=== PATIENT | female | born 1965 | race Two or more races ===

== ENCOUNTER → 2019-12-04 12:16 | Outpatient (BNVA) | payer OTHER, SELFPAY | PROVIDERS: PCP Internal Medicine; Referring Provider Internal Medicine; Visit Provider Dietitian, Registered | DX: Z76.89 Persons encountering health services in other specified circumstances (principal) ==

== ENCOUNTER → 2019-12-30 15:33 | Outpatient (BNVA) | payer OTHER, SELFPAY | PROVIDERS: PCP Internal Medicine; Referring Provider Internal Medicine; Visit Provider Nurse Practitioner | DX: K21.9 Gastro-esophageal reflux disease without esophagitis (principal); K59.04 Chronic idiopathic constipation; K64.9 Unspecified hemorrhoids; E11.9 Type 2 diabetes mellitus without complications; I10 Essential (primary) hypertension; E66.9 Obesity, unspecified; Z87.891 Personal history of nicotine dependence; Z88.1 Allergy status to other antibiotic agents; Z79.899 Other long term (current) drug therapy; Z98.84 Bariatric surgery status | CPT/HCPCS: 99212 ==

== ENCOUNTER → 2020-01-08 12:01 | Outpatient (BNVA) | payer OTHER, SELFPAY | PROVIDERS: PCP Internal Medicine; Visit Provider Dietitian, Registered | DX: Z76.89 Persons encountering health services in other specified circumstances (principal) ==

== ENCOUNTER 2020-02-04 14:24 | Outpatient (REF) | payer OTHER, SELFPAY | END 2020-02-04 14:25 | disposition home or self-care (01) | LOC: HO.LAB 14:24 | PROVIDERS: PCP Internal Medicine; Visit Provider Internal Medicine | DX: Z20.828 Contact with and (suspected) exposure to other viral communicable diseases (principal) | CPT/HCPCS: C9803; U0003 ==

== ENCOUNTER → 2020-02-17 14:04 | Outpatient (BNVA) | payer OTHER, SELFPAY | PROVIDERS: Visit Provider Obstetrics & Gynecology | DX: N95.0 Postmenopausal bleeding (principal); Z79.899 Other long term (current) drug therapy; Z87.891 Personal history of nicotine dependence | CPT/HCPCS: 81003; 99212 ==

== ENCOUNTER 2020-02-18 11:59 | Outpatient (REF) | payer OTHER, SELFPAY ==
--- NOTE | 2020-02-18 12:03 | MM_ITS ---
EXAMINATION: MM SCREENING DIGITAL BREAST TOMOSYNTHESIS, BILATERAL CLINICAL INFORMATION: Screening. Asymptomatic. The lifetime risk of breast cancer based on the Tyrer-Cuzick Model is 13%. COMPARISON: Mammography: 09/04/2018, 08/21/2017, 05/22/2017, 03/23/2017, 08/15/2016 TECHNIQUE: Digital breast tomosynthesis is performed in both the craniocaudal and mediolateral oblique views along with computer-aided detection (CAD). Synthesized 2D images are generated from the tomosynthesis. FINDINGS: There are scattered areas of fibroglandular density (ACR BI-RADS breast composition Category b). There are no significant masses, abnormal calcifications, or other abnormalities. Parenchymal pattern is similar to prior studies. Scattered bilateral round, rim, predominantly dermal calcifications are again noted. MM/MM tomosynthesis screening BI IMPRESSION: No mammographic evidence of malignancy. ASSESSMENT: BI-RADS 1: Negative RECOMMENDATION: Routine annual mammography screening. This patient's information was entered into a reminder system with a target due date for their next mammogram.
== END 2020-02-18 12:00 | disposition home or self-care (01) ==
LOC: HO.MAMMO 11:59
PROVIDERS: PCP Internal Medicine; Visit Provider Internal Medicine
DX: Z12.31 Encounter for screening mammogram for malignant neoplasm of breast (principal)
CPT/HCPCS: 77063; 77067

== ENCOUNTER → 2020-03-06 08:29 | Outpatient (BNVA) | payer OTHER, SELFPAY | PROVIDERS: Visit Provider Physician Assistant | DX: Z76.89 Persons encountering health services in other specified circumstances (principal) ==

== ENCOUNTER 2020-03-09 10:40 | Outpatient (REF) | payer OTHER, SELFPAY ==
--- NOTE | 2020-03-09 10:45 | US_ITS ---
EXAMINATION: PELVIC ULTRASOUND CLINICAL INFORMATION: Postmenopausal bleeding COMPARISON: Previous pelvic ultrasounds most recent June 2018 TECHNIQUE: Transabdominal and transvaginal pelvic ultrasound. Transvaginal exam was performed for better visualization of the uterus and ovaries. FINDINGS: The uterus is anteverted and measures 10.2 x 3 x 4.6 cm in dimension. There is a 1.8 x 1.5 x 1.5 cm hypoechoic lesion in the right uterine fundus and 0.6 x 0.5 x 0.8 cm hypoechoic lesion in the posterior uterine body suggestive of fibroids. These are decreased in size from 3.1 x 2.8 x 2.3 cm and 0.9 x 0.4 x 1.1 cm on previous exam. Endometrial thickness is normal estimated at 0.2 cm. There is are nabothian cysts in the cervix. The ovaries are normal-appearing. The right ovary measures 2.3 x 2.2 x 2 cm and the left ovary measures 2.5 x 2.4 x 1.7 cm. There is no fluid in the pelvis. US/US transvaginal IMPRESSION: Normal thickness endometrium. Small uterine fibroids decreased in size from previous exam. Normal-appearing ovaries.
--- NOTE | 2020-03-09 10:45 | US_ITS ---
EXAMINATION: PELVIC ULTRASOUND CLINICAL INFORMATION: Postmenopausal bleeding COMPARISON: Previous pelvic ultrasounds most recent June 2018 TECHNIQUE: Transabdominal and transvaginal pelvic ultrasound. Transvaginal exam was performed for better visualization of the uterus and ovaries. FINDINGS: The uterus is anteverted and measures 10.2 x 3 x 4.6 cm in dimension. There is a 1.8 x 1.5 x 1.5 cm hypoechoic lesion in the right uterine fundus and 0.6 x 0.5 x 0.8 cm hypoechoic lesion in the posterior uterine body suggestive of fibroids. These are decreased in size from 3.1 x 2.8 x 2.3 cm and 0.9 x 0.4 x 1.1 cm on previous exam. Endometrial thickness is normal estimated at 0.2 cm. There is are nabothian cysts in the cervix. The ovaries are normal-appearing. The right ovary measures 2.3 x 2.2 x 2 cm and the left ovary measures 2.5 x 2.4 x 1.7 cm. There is no fluid in the pelvis. US/US pelvic complete IMPRESSION: Normal thickness endometrium. Small uterine fibroids decreased in size from previous exam. Normal-appearing ovaries.
== END 2020-03-09 10:41 | disposition home or self-care (01) ==
LOC: HO.US 10:40
PROVIDERS: Visit Provider Obstetrics & Gynecology
DX: N95.0 Postmenopausal bleeding (principal)
CPT/HCPCS: 76830; 76856

== ENCOUNTER → 2020-03-11 08:31 | Outpatient (BNVA) | payer OTHER, SELFPAY | PROVIDERS: Visit Provider Physician Assistant | DX: E66.9 Obesity, unspecified (principal); Z98.84 Bariatric surgery status | CPT/HCPCS: 99212 ==

== ENCOUNTER 2020-03-12 09:09 | Outpatient (REF) | payer OTHER, SELFPAY ==
[2020-03-12 10:29] LABS: MANUAL DIFF FLAG NO
[2020-03-12 10:32] LABS: Glucose Urine UA NEG (NEG); Leukocyte Esterase Urine NEG (NEG); Nitrite Urine NEG (NEG); PH 5.5 (5.0-8.0); Specific Gravity - Urine 1.025 (1.005-1.025); Urine Blood NEG (NEG); Urine Ketones NEG (NEG); Urine Protein NEG (NEG-TRACE)
[2020-03-12 10:38] LABS: Appearance Urine CLEAR; Color Urine YELLOW
[2020-03-12 10:40] LABS: Basophils Percent Auto 0.6 % (0-2); Eosinophils Absolute Auto 0.1 X10*3/uL (0.0-0.4); Eosinophils Percent Auto 1.7 % (0-4); Hematocrit 44.1 % (37-47); Hemoglobin 14.3 g/dl (12.0-16.0); Imm Gran Abs Auto 0.01 X10*3/uL (0.00-0.03); Imm Gran Pct Auto 0.2 % (0.0-0.4); Lymphocytes Absolute Auto 1.7 X10*3/uL (1.2-4.9); Lymphocytes Percent Auto 31.3 % (20-40); Mean Corpuscular HGB Conc 32.4 g/dl (31.0-35.0); Mean Corpuscular Hemoglobin 28.1 pg (27.0-33.0); Mean Corpuscular Volume 86.6 fL (80-98); Mean Platelet Volume 11.4 fL (9.4-12.3); Monocytes Absolute Auto 0.3 X10*3/uL (0.1-1.2); Monocytes Percent Auto 5.5 % (2-11); Neutrophils Absolute Auto 3.2 X10*3/uL (2.0-8.3); Neutrophils Percent Auto 60.7 % (45-73); Platelet Count 228 X10*3/uL (160-400); Red Blood Count 5.09 X10*6/uL (4.20-5.50); Red Cell Distribution Width 13.9 % (11.0-16.0); White Blood Count 5.3 X10*3/uL (4.8-10.8)
[2020-03-12 11:06] LABS: Creatinine Urine 119.22 mg/dL
[2020-03-12 11:12] LABS: Alanine Aminotransferase 18 U/L (0-31); Albumin Level 4.5 g/dL (3.5-5.0); Alkaline Phosphatase 97 U/L (39-117); Anion Gap 16 (12-20); Aspartate Amino Transferase 18 U/L (5-31); Bilirubin Total 0.6 mg/dL (0.0-1.0); Blood Urea Nitrogen 17 mg/dL (9-16); Calcium 9.5 mg/dL (8.4-10.2); Carbon Dioxide 25 mmol/L (22-29); Chloride 103 mmol/L (96-108); Cholesterol 232 mg/dL; Estimated Glomerular Filt Rate > 60; Glucose Fasting 124 mg/dL (60-99); HDL Cholesterol 60 mg/dL; LDL Cholesterol Calculated 141 mg/dl; Potassium 4.1 mmol/l (3.3-5.1); Sodium 140 mmol/L (135-145); Total Protein 7.7 g/dL (6.5-8.0); Triglycerides 159 mg/dL
[2020-03-12 11:32] LABS: Vitamin D 25-OH Total 22.9 ng/mL (>30)
[2020-03-12 11:56] LABS: Folate > 20.0 ng/mL (> or = 4.0); Vitamin B12 300 pg/mL (200-900)
== END 2020-03-12 09:10 | disposition home or self-care (01) ==
LOC: HO.10HDL 09:09
PROVIDERS: Visit Provider Internal Medicine
DX: G57.10 Meralgia paresthetica, unspecified lower limb (principal); E66.9 Obesity, unspecified; E78.00 Pure hypercholesterolemia, unspecified; K91.2 Postsurgical malabsorption, not elsewhere classified; E11.9 Type 2 diabetes mellitus without complications; I10 Essential (primary) hypertension; E78.5 Hyperlipidemia, unspecified; E55.9 Vitamin D deficiency, unspecified; Z79.899 Other long term (current) drug therapy; Z87.891 Personal history of nicotine dependence
CPT/HCPCS: 36415; 80053; 80061; 81003; 82043; 82306; 82607; 82746; 84443; 85025; Q3014

== ENCOUNTER → 2020-03-17 14:47 | Outpatient (BNVA) | payer OTHER, MEDICARE, MEDICAID, SELFPAY | PROVIDERS: Visit Provider Nurse Practitioner Family | DX: G57.10 Meralgia paresthetica, unspecified lower limb (principal) | CPT/HCPCS: 99212 ==

== ENCOUNTER → 2020-03-23 11:03 | Outpatient (BNVA) | payer OTHER, MEDICARE, MEDICAID, SELFPAY | PROVIDERS: PCP Internal Medicine; Visit Provider Obstetrics & Gynecology | CPT/HCPCS: Q3014 ==

== ENCOUNTER 2020-04-28 06:06 | Outpatient (REF) | payer OTHER, SELFPAY | END 2020-04-28 06:07 | disposition home or self-care (01) | LOC: HO.RADIR 06:06 | PROVIDERS: Visit Provider Anesthesiology | DX: G57.11 Meralgia paresthetica, right lower limb (principal) | CPT/HCPCS: 64450; J3300 ==

== ENCOUNTER 2020-04-28 12:07 | Outpatient (REF) | payer OTHER, SELFPAY | END 2020-04-28 12:08 | disposition home or self-care (01) | LOC: HO.LAB 12:07 | PROVIDERS: Visit Provider Internal Medicine | DX: Z20.822 Contact with and (suspected) exposure to COVID-19 (principal) | CPT/HCPCS: 36415; C9803; U0003; U0005 ==

== ENCOUNTER → 2020-06-03 12:53 | Outpatient (BNVA) | payer OTHER, SELFPAY | PROVIDERS: PCP Internal Medicine; Visit Provider Nurse Practitioner Family | DX: G57.10 Meralgia paresthetica, unspecified lower limb (principal); M54.16 Radiculopathy, lumbar region; M53.3 Sacrococcygeal disorders, not elsewhere classified | CPT/HCPCS: 99212 ==

== ENCOUNTER 2020-06-08 08:36 | Outpatient (REF) | payer OTHER, SELFPAY ==
[2020-06-08 10:26] LABS: Glucose Urine UA NEG (NEG); Leukocyte Esterase Urine NEG (NEG); Nitrite Urine NEG (NEG); Specific Gravity - Urine 1.025 (1.005-1.025); Urine Blood NEG (NEG); Urine Ketones NEG (NEG); Urine Protein NEG (NEG-TRACE)
[2020-06-08 10:27] LABS: MANUAL DIFF FLAG NO
[2020-06-08 10:36] LABS: Basophils Percent Auto 0.4 % (0-2); Eosinophils Absolute Auto 0.1 X10*3/uL (0.0-0.4); Eosinophils Percent Auto 1.2 % (0-4); Hematocrit 42.6 % (37-47); Hemoglobin 13.5 g/dl (12.0-16.0); Imm Gran Abs Auto 0.01 X10*3/uL (0.00-0.03); Imm Gran Pct Auto 0.2 % (0.0-0.4); Lymphocytes Absolute Auto 1.6 X10*3/uL (1.2-4.9); Lymphocytes Percent Auto 31.6 % (20-40); Mean Corpuscular HGB Conc 31.7 g/dl (31.0-35.0); Mean Corpuscular Hemoglobin 27.9 pg (27.0-33.0); Mean Platelet Volume 10.8 fL (9.4-12.3); Monocytes Absolute Auto 0.2 X10*3/uL (0.1-1.2); Monocytes Percent Auto 4.8 % (2-11); Neutrophils Absolute Auto 3.1 X10*3/uL (2.0-8.3); Neutrophils Percent Auto 61.8 % (45-73); Platelet Count 231 X10*3/uL (160-400); Red Blood Count 4.84 X10*6/uL (4.20-5.50); Red Cell Distribution Width 14.6 % (11.0-16.0)
[2020-06-08 10:47] LABS: Creatinine Urine 132.09 mg/dL; Microalbum/Creatinine Ratio Ur 5.2 ug/mg cr
[2020-06-08 10:48] LABS: Appearance Urine CLEAR; Color Urine YELLOW
[2020-06-08 10:52] LABS: Alanine Aminotransferase 24 U/L (0-31); Albumin Level 4.5 g/dL (3.5-5.0); Alkaline Phosphatase 96 U/L (39-117); Anion Gap 14 (12-20); Aspartate Amino Transferase 21 U/L (5-31); Bilirubin Total 0.4 mg/dL (0.0-1.0); Blood Urea Nitrogen 14 mg/dL (9-16); Calcium 9.2 mg/dL (8.4-10.2); Carbon Dioxide 28 mmol/L (22-29); Chloride 104 mmol/L (96-108); Cholesterol 206 mg/dL; Estimated Glomerular Filt Rate > 60; Glucose Fasting 124 mg/dL (60-99); HDL Cholesterol 68 mg/dL; LDL Cholesterol Calculated 114 mg/dl; Potassium 4.1 mmol/L (3.3-5.1); Sodium 142 mmol/L (135-145); Total Protein 7.4 g/dL (6.5-8.0); Triglycerides 120 mg/dL
[2020-06-08 11:10] LABS: TSH reflex Free T4 1.35 uIU/mL (0.32-4.0); Vitamin D 25-OH Total 18.5 ng/mL (>30)
[2020-06-09 07:57] LABS: LDL Cholesterol Direct 114 mg/dL (<100)
== END 2020-06-08 08:37 | disposition home or self-care (01) ==
LOC: HO.10HDL 08:36
PROVIDERS: Absent Provider Internal Medicine Endocrinology, Diabetes & Metabolism; Visit Provider Internal Medicine
DX: I10 Essential (primary) hypertension (principal); E55.9 Vitamin D deficiency, unspecified; E66.9 Obesity, unspecified; E78.00 Pure hypercholesterolemia, unspecified; E11.9 Type 2 diabetes mellitus without complications; D50.8 Other iron deficiency anemias; G47.33 Obstructive sleep apnea (adult) (pediatric); K21.9 Gastro-esophageal reflux disease without esophagitis
CPT/HCPCS: 36415; 80053; 80061; 81003; 82043; 82306; 83721; 84443; 85025

== ENCOUNTER 2020-06-19 17:48 | Outpatient (REF) | payer OTHER, SELFPAY ==
--- NOTE | ~2020-06-19 | MR_ITS ---
MR LUMBAR SPINE WITHOUT CONTRAST CLINICAL INFORMATION: Lumbar region radiculopathy. COMPARISON: None available. TECHNIQUE: MRI of the lumbar spine was obtained using routine sequences without contrast. FINDINGS: There are 5 nonrib-bearing lumbar-type vertebral bodies. Straightening of lumbar lordosis. Vertebral body heights are maintained. There is disc desiccation at the L4-L5 and L5-S1 levels. There is no bone marrow edema. There are no acute fractures. Conus terminates at the L1-L2 level. There are no significant soft tissue findings. There is bilateral perinephric stranding. L1-L2: Small annular disc bulge. No central canal stenosis and no foraminal stenosis. L2-L3: Small annular disc bulge and mild bilateral facet arthropathy. No central canal stenosis. Mild foraminal encroachment bilaterally. L3-L4: Diffuse annular disc bulge and mild bilateral facet arthropathy. No central canal stenosis. There is a right lateral annular fissure. Mild foraminal encroachment bilaterally. L4-L5: Diffuse annular disc bulge and moderate bilateral facet arthropathy. No central canal stenosis. There is mild to moderate bilateral foraminal stenosis. L5-S1: Diffuse annular disc bulge and moderate bilateral facet arthropathy. Right lateral disc osteophyte protrusion likely contacts the extraforaminal right L5 nerve root. There is mild foraminal encroachment bilaterally. MR/MR lumbar spine wo con IMPRESSION: - At L5-S1, a far right lateral disc osteophyte protrusion likely contacts the extra foraminal right L5 nerve root. - At L4-L5, multifactorial degenerative changes result in mild to moderate bilateral foraminal stenosis. - At L3-L4, there is an annular disc bulge exhibiting a right lateral annular fissure that results in mild bilateral foraminal encroachment.
== END 2020-06-19 17:49 | disposition home or self-care (01) ==
LOC: HO.MRI 17:48
PROVIDERS: Visit Provider Anesthesiology
DX: M54.16 Radiculopathy, lumbar region (principal)
CPT/HCPCS: 72148

== ENCOUNTER → 2020-07-10 14:35 | Outpatient (BNVA) | payer OTHER, SELFPAY | PROVIDERS: PCP Internal Medicine; Visit Provider Obstetrics & Gynecology ==

== ENCOUNTER → 2020-07-14 15:07 | Outpatient (BNVA) | payer OTHER, SELFPAY | PROVIDERS: PCP Internal Medicine; Visit Provider Nurse Practitioner | DX: E66.01 Morbid (severe) obesity due to excess calories (principal); Z12.11 Encounter for screening for malignant neoplasm of colon; K64.9 Unspecified hemorrhoids; K59.04 Chronic idiopathic constipation; K21.9 Gastro-esophageal reflux disease without esophagitis; K29.71 Gastritis, unspecified, with bleeding; R11.2 Nausea with vomiting, unspecified; Z83.71 Family history of colonic polyps | CPT/HCPCS: Q3014 ==

== ENCOUNTER 2020-08-06 07:54 | Outpatient (REF) | payer OTHER, SELFPAY ==
--- NOTE | ~2020-08-06 | US_ITS ---
EXAMINATION: US ABDOMEN COMPLETE CLINICAL INFORMATION: Nausea with vomiting, unspecified. COMPARISON: Ultrasound abdomen complete dated 06/06/2014 and 12/05/2008. KUB dated 05/20/2011. TECHNIQUE: Real-time imaging of the abdominal viscera. FINDINGS: PANCREAS: Normal. ABDOMINAL AORTA: The proximal, mid, and distal segments are normal in caliber. INFERIOR VENA CAVA: Visualized portions are normal. LIVER: The liver is normal in size. The liver contour is normal. There is increased liver echogenicity. No focal hepatic lesion. There is no intrahepatic biliary duct dilatation seen. GALLBLADDER: There is an echogenic bile visualized. The gallbladder is physiologically distended without evidence of stones, polyps, wall thickening or pericholecystic fluid. The gallbladder wall measures 0.2 cm. COMMON BILE DUCT: Normal in caliber measuring 0.33 cm in diameter. RIGHT KIDNEY: Normal. No hydronephrosis. No renal calculi or focal parenchymal lesions. The kidney measures 11.9 cm in maximum dimension. LEFT KIDNEY: Normal. No hydronephrosis. No renal calculi or focal parenchymal lesions. The kidney measures 12.1 cm in maximum dimension. SPLEEN: Normal. The spleen measures 10.0 cm in maximum dimension. FREE FLUID: None. US/US abdomen complete IMPRESSION: Echogenic gallbladder bile but no echogenic gallstones or wall thickening. Mild hepatic echogenicity without any focal lesion. The rest of the abdominal ultrasound is unremarkable.
== END 2020-08-06 07:55 | disposition home or self-care (01) ==
LOC: HO.US 07:54
PROVIDERS: Visit Provider Nurse Practitioner
DX: R11.2 Nausea with vomiting, unspecified (principal)
CPT/HCPCS: 76700

== ENCOUNTER → 2020-08-10 09:58 | Outpatient (BNVA) | payer OTHER, SELFPAY | PROVIDERS: Visit Provider Nurse Practitioner Family | DX: G57.10 Meralgia paresthetica, unspecified lower limb (principal); M54.16 Radiculopathy, lumbar region; M53.3 Sacrococcygeal disorders, not elsewhere classified | CPT/HCPCS: Q3014 ==

== ENCOUNTER 2020-08-11 11:10 | Day surgery (SDC) | payer OTHER, SELFPAY ==
--- NOTE | 2020-08-10 11:04 | HO.ANESPROP2 ---
HPI - Anesthesia Eval Consult details Narrative: 54yo F for Upper Endoscopy s/p gastric bypass 2016 [facility] Active Problems Active Problems: All Active Problems (Updated 08/06/20 @ 15:46 by Dayan Fine) Postmenopausal bleeding (Acute) Lumbar radiculopathy, right (Acute) Sacroiliac joint pain (Acute) Well woman exam (Acute) GERD (gastroesophageal reflux disease) (Acute) Chronic idiopathic constipation (Acute) Bleeding hemorrhoids (Acute) Morbid obesity (Acute) Osteoarthritis of knees, bilateral (Acute) Fibrocystic breast disease (Acute) Malignant melanoma of skin of arm (Acute) High cholesterol (Acute) Arthritis of left glenohumeral joint (Acute) Hemorrhagic gastritis (Acute) Family history of polyps in the colon (Acute) Colon cancer screening (Acute) Nausea and vomiting (Acute) Hypoglycemia after GI (gastrointestinal) surgery (Acute) Obesity (BMI 30-39.9) (Acute) Depression (Acute) Anxiety (Acute) Insomnia (Acute) Meralgia paresthetica (Acute) Vitamin D deficiency (Acute) Carpal tunnel syndrome of left wrist (Acute) Osteoarthritis (Acute) Obstructive sleep apnea (Acute) Iron deficiency anemia (Acute) Migraine (Acute) Hyperlipidemia (Acute) Diabetes mellitus (Acute) Hypertension (Acute) Past Medical History Medical History Anxiety Carpal tunnel syndrome of left wrist COVID-19 vaccine administered Depression Diabetes mellitus Hyperlipidemia Hypertension Hypoglycemia after GI (gastrointestinal) surgery Insomnia Iron deficiency anemia Meralgia paresthetica Migraine Obesity (BMI 30-39.9) Obstructive sleep apnea Osteoarthritis Status post hysteroscopy (~06/11/13) Vitamin D deficiency Family History Family History Father Myocardial infarction Prostate cancer Mother Cervical cancer Ovarian cancer Sister Ovarian cancer Maternal Aunt Colon cancer Surgical History Surgical History H/O endoscopy (~06/20/13) H/O gastric bypass (~02/2016) H/O laparoscopy H/O melanoma excision (~2010) History of carpal tunnel surgery History of knee surgery (~01/30/13) History of sleeve gastrectomy S/P dilatation and curettage (~2011) S/P myomectomy Social History Social History Household Members: Children Housing: Apartment Alcohol intake: current Alcohol intake frequency: does not drink Patient Tobacco Use Status: Former Tobacco user Use of substances other than those prescribed or required for medical reasons: No Are you DNR?: No Advance Directives: No Advance Directives Information Provided: No Meds Allergies Allergy/AdvReac Type Severity Reaction Status Date / Time cephalexin [From Keflex] Allergy Mild RASH Verified 08/11/20 12:02 Home Medications Medication Instructions Recorded Confirmed Last Taken Type amitriptyline 10 mg tablet 10 mg PO BEDTIME 12/05/19 08/10/20 Unknown History temazepam 30 mg capsule 30 mg PO BEDTIME PRN 12/05/19 08/10/20 Unknown History trazodone 50 mg tablet 25 mg PO DAILY 12/05/19 08/10/20 Unknown History multivitamin 1 tab PO DAILY 03/11/20 08/10/20 Unknown History clonazepam 1 mg tablet 1 mg PO BEDTIME PRN 03/18/20 08/10/20 Unknown History Exam Exam Date and Time: August 10, 2020 1104 Pertinent Lab Results Pertinent Lab Results: Laboratory Tests 06/08/20 06/08/20 08:40 08:40 WBC 5.0 Hgb 13.5 Hct 42.6 Plt Count 231 Sodium 142 Potassium 4.1 Chloride 104 Carbon Dioxide 28 BUN 14 Creatinine 0.72 Assessment and Plan Assessment Anesthesia Assessment: Chart Reviewed
[2020-08-11 12:12] VITALS: BP 159/87; PULSE 71; RESP 18; TEMP 36.2; O2SAT 96; BMI 32.9
[2020-08-11 12:12] LABS: Glucose, Whole Blood 106 mg/dL (60-115)
[2020-08-11] MEDS: Lactated Ringers 1,000 ML 100 ML IVCONT (12:26)
--- NOTE | 2020-08-11 14:13 | PM.OP ---
Brief Operative Note Date of Service: 08/11/20 Pre-op diagnosis: Nausea, status post gastric bypass surgery Post-op diagnosis: other (GERD, Gastric polyps, RYGB status) Procedure: FLEXIBLE TRANSORAL UPPER GASTROINTESTINAL ENDOSCOPY WITH BIOPSIES Consent: Indications for the procedure and potential complications of bleeding, perforation, reaction to medications and missed diagnosis were discussed with the patient and informed consent was obtained. Instrument: Olympus GIF H 190 mid size upper endoscope Monitoring: Vital signs and clinical assessment, continuous EKG monitoring, Pulse oximetry, Carbon Dioxide monitoring and blood pressure monitoring were done throughout the procedure. Procedure: The patient was placed in the left lateral decubitis position and pre-procedure medications were administered and a bite block was placed. The endoscope was inserted into the mouth and advanced under direct vision to the third part of duodenum. A careful inspection was made as the upper endoscope was withdrawn including a retroflexed examination of the proximal stomach; Findings and interventions are described below. Findings: Larynx: Mild edema of arytenoid cartilages Esophagus: GE junction at 40 cms.. No esophagitis or Braun Stomach: Gastric remnant from 40-42 cms, normal appearing gastrojejunal anastomosis at 42 cms. Normal appearing gastric mucosa - biopsies were obtained. A 3-4 mm benign-appearing polyp at anastomotic site - biopsied.. Grade 2 flap valve on retroflexed examination of the cardia. Jejunum: Efferent loop examined and mucos appeared normal - random biopsies were obtained Intervention: Biopsies as noted above Impression and Post Procedure Diagnosis: Endoscopy Findings: LARYNX: Changes suggestive of LPRD STOMACH: Gastric remnant from 40-42 cms, normal appearing gastrojejunal anastomosis at 42 cms. Normal appearing gastric mucosa - biopsies were obtained. A 3-4 mm benign-appearing polyp at anastomotic site - biopsied.. Plan: Await pathology results Patient has an appointment on 09/03/20 in the GI Clinic with Jessie Mejia NP . Above findings were reviewed with the patient and GERD handout was given in the discharge area Surgeon: Marilee Jackson MD Anesthesia: MAC (Dr Thornton) Was an Safety Counselor used for this Procedure?: Yes Safety Counselor: Malachi Moore Estimated blood loss (mL): 0 Pathology: other (A- SMALL BOWEL BXS R/O CELIAC B- GASTRIC REMNANT C- GASTRIC ANASTAMOSIS BXS) Condition: stable Disposition: PACU
--- NOTE | 2020-08-11 14:18 | MHC.SHP ---
Pre-Procedural Eval Section A The patient is an INPATIENT: No Changes since office visit: Yes Changes in Medication and Yes Patient answered all questions; No Cold of Flu in the past 2 weeks and No New Medical Problems The History & Physical has been completed within 30 days and I have reviewed it.: Yes Section B Chief Complaint: GERD Allergies: Allergies Allergy/AdvReac Type Severity Reaction Status Date / Time cephalexin [From Keflex] Allergy Mild RASH Verified 08/11/20 12:02 Plan I have reviewed the history and physical and performed a pertinent physical examination on my patient. No changes have occurred unless specified.
--- NOTE | 2020-08-11 14:36 | W.PM.OPN ---
Operative Note Operative Note Date of Service: 08/11/20 Narrative: Pre-op diagnosis: Nausea, status post gastric bypass surgery Post-op diagnosis: other (GERD, Gastric polyps, RYGB status) Procedure:? FLEXIBLE TRANSORAL UPPER GASTROINTESTINAL ENDOSCOPY WITH BIOPSIES Consent:?Indications for the procedure and potential complications of bleeding, perforation, reaction to medications and missed diagnosis were discussed with the patient and informed consent was obtained. Instrument:?Olympus GIF H 190 mid size upper endoscope Monitoring: Vital signs and clinical assessment, continuous EKG monitoring, Pulse oximetry, Carbon Dioxide monitoring and blood pressure monitoring were done throughout the procedure. Procedure:?The patient was placed in the left lateral decubitis position and pre-procedure medications were administered and a bite block was placed. The endoscope was inserted into the mouth and advanced under direct vision to the third part of duodenum. A careful inspection was made as the upper endoscope was withdrawn including a retroflexed examination of the proximal stomach; Findings and interventions are described below. Findings: Larynx:??Mild edema of arytenoid cartilages Esophagus:?GE junction at 40 cms.. No esophagitis or Braun Stomach:?Gastric remnant from 40-42 cms, normal appearing gastrojejunal anastomosis at 42 cms. Normal appearing gastric mucosa - biopsies were obtained.? A 3-4 mm benign-appearing polyp at anastomotic site - biopsied.. Grade 2 flap valve on retroflexed examination of the cardia. Jejunum:?Efferent loop examined and mucos appeared normal? - random biopsies were obtained Intervention:?Biopsies as noted above Impression and Post Procedure Diagnosis: Endoscopy Findings: LARYNX:? Changes suggestive of LPRD STOMACH: Gastric remnant from 40-42 cms, normal appearing gastrojejunal anastomosis at 42 cms. Normal appearing gastric mucosa - biopsies were obtained.? A 3-4 mm benign-appearing polyp at anastomotic site - biopsied.. Plan: Await pathology results Patient has an appointment on 09/03/20 in the GI Clinic with Jessie Mejia NP . Above findings were reviewed with the patient and GERD handout was given in the discharge area Surgeon: Marilee Jackson MD Anesthesia: MAC (Dr Thornton) Was an Product Safety Technician used for this Procedure?: Yes Product Safety Technician: Malachi Moore Estimated blood loss (mL): 0 Pathology: other (A- SMALL BOWEL BXS? R/O CELIAC? B- GASTRIC REMNANT ? C- GASTRIC ANASTAMOSIS BXS) Condition: stable Disposition: PACU
[2020-08-11 14:42] VITALS: BP 128/70; PULSE 64; RESP 13; TEMP 36.8; O2SAT 98
[2020-08-11 14:57] VITALS: BP 124/75; PULSE 65; RESP 16; O2SAT 97
== END 2020-08-11 15:20 | disposition home or self-care (01) ==
PROVIDERS: PCP Internal Medicine; Visit Provider Internal Medicine Gastroenterology
PROC: 0DJ08ZZ Inspection of Upper Intestinal Tract, Via Natural or Artificial Opening Endoscopic (ICD-10-PCS; CPT 43235; principal; 2020-08-11 12:40)
DX: K21.9 Gastro-esophageal reflux disease without esophagitis (principal); K31.7 Polyp of stomach and duodenum; Z98.84 Bariatric surgery status; Z98.0 Intestinal bypass and anastomosis status; D50.9 Iron deficiency anemia, unspecified; I10 Essential (primary) hypertension; G47.33 Obstructive sleep apnea (adult) (pediatric); E11.9 Type 2 diabetes mellitus without complications; E55.9 Vitamin D deficiency, unspecified; Z87.891 Personal history of nicotine dependence; Z79.51 Long term (current) use of inhaled steroids; Z79.899 Other long term (current) drug therapy; Z88.1 Allergy status to other antibiotic agents
CPT/HCPCS: 43239; 82947; 88305; 88342

== ENCOUNTER → 2020-09-03 09:36 | Outpatient (BNVA) | payer OTHER, SELFPAY | PROVIDERS: Visit Provider Nurse Practitioner | DX: E66.01 Morbid (severe) obesity due to excess calories (principal); K21.9 Gastro-esophageal reflux disease without esophagitis; K59.04 Chronic idiopathic constipation; K64.9 Unspecified hemorrhoids; K29.71 Gastritis, unspecified, with bleeding; R11.2 Nausea with vomiting, unspecified | CPT/HCPCS: Q3014 ==

== ENCOUNTER → 2020-09-08 14:23 | Outpatient (BNVA) | payer OTHER, SELFPAY | PROVIDERS: PCP Internal Medicine; Visit Provider Internal Medicine Endocrinology, Diabetes & Metabolism | DX: K91.2 Postsurgical malabsorption, not elsewhere classified (principal); E11.9 Type 2 diabetes mellitus without complications; I10 Essential (primary) hypertension; E78.00 Pure hypercholesterolemia, unspecified; E55.9 Vitamin D deficiency, unspecified | CPT/HCPCS: 82947; 99212 ==

== ENCOUNTER → 2020-09-10 14:41 | Outpatient (BNVA) | payer OTHER, SELFPAY | PROVIDERS: PCP Internal Medicine; Referring Provider Internal Medicine; Visit Provider Internal Medicine | DX: I25.10 Atherosclerotic heart disease of native coronary artery without angina pectoris (principal); I10 Essential (primary) hypertension; E11.8 Type 2 diabetes mellitus with unspecified complications; E78.5 Hyperlipidemia, unspecified; G47.33 Obstructive sleep apnea (adult) (pediatric); Z99.89 Dependence on other enabling machines and devices | CPT/HCPCS: 93005; 99212 ==

== ENCOUNTER 2020-10-29 08:34 | Outpatient (REF) | payer OTHER, SELFPAY ==
[2020-10-29 10:34] LABS: MANUAL DIFF FLAG NO
[2020-10-29 10:44] LABS: Basophils Percent Auto 0.4 % (0-2); Eosinophils Absolute Auto 0.1 X10*3/uL (0.0-0.4); Eosinophils Percent Auto 1.4 % (0-4); Hematocrit 40.8 % (37-47); Hemoglobin 13.1 g/dl (12.0-16.0); Imm Gran Abs Auto 0.01 X10*3/uL (0.00-0.03); Imm Gran Pct Auto 0.2 % (0.0-0.4); Lymphocytes Absolute Auto 1.6 X10*3/uL (1.2-4.9); Lymphocytes Percent Auto 32.7 % (20-40); Mean Corpuscular HGB Conc 32.1 g/dl (31.0-35.0); Mean Corpuscular Hemoglobin 27.6 pg (27.0-33.0); Mean Corpuscular Volume 86.1 fL (80-98); Mean Platelet Volume 10.9 fL (9.4-12.3); Monocytes Absolute Auto 0.3 X10*3/uL (0.1-1.2); Monocytes Percent Auto 5.3 % (2-11); Neutrophils Absolute Auto 2.9 X10*3/uL (2.0-8.3); Platelet Count 233 X10*3/uL (160-400); Red Blood Count 4.74 X10*6/uL (4.20-5.50); Red Cell Distribution Width 15.3 % (11.0-16.0); White Blood Count 4.9 X10*3/uL (4.8-10.8)
[2020-10-29 10:55] LABS: Glucose Urine UA NEG (NEG); Leukocyte Esterase Urine NEG (NEG); Nitrite Urine NEG (NEG); Urine Blood NEG (NEG); Urine Ketones NEG (NEG); Urine Protein NEG (NEG-TRACE)
[2020-10-29 10:56] LABS: Appearance Urine HAZY; Color Urine YELLOW
[2020-10-29 11:08] LABS: Alanine Aminotransferase 15 U/L (0-31); Albumin Level 4.1 g/dL (3.5-5.0); Alkaline Phosphatase 89 U/L (39-117); Anion Gap 13 (12-20); Aspartate Amino Transferase 15 U/L (5-31); Bilirubin Total 0.6 mg/dL (0.0-1.0); Blood Urea Nitrogen 18 mg/dL (9-16); Calcium 9.2 mg/dL (8.4-10.2); Carbon Dioxide 24 mmol/L (22-29); Chloride 108 mmol/L (96-108); Cholesterol 225 mg/dL; Estimated Glomerular Filt Rate > 60; Glucose Fasting 131 mg/dL (60-99); HDL Cholesterol 50 mg/dL; LDL Cholesterol Calculated 149 mg/dl; Potassium 4.3 mmol/L (3.3-5.1); Sodium 141 mmol/L (135-145); Total Protein 6.7 g/dL (6.5-8.0); Triglycerides 131 mg/dL
[2020-10-29 11:21] LABS: Creatinine Urine 146.67 mg/dL; Microalbum/Creatinine Ratio Ur 8.8 ug/mg cr
[2020-10-29 11:28] LABS: TSH reflex Free T4 0.76 uIU/mL (0.32-4.0); Vitamin D 25-OH Total 18.4 ng/mL (>30)
[2020-10-29 12:12] LABS: Folate 11.1 ng/mL (> or = 4.0); Vitamin B12 284 pg/mL (200-900)
[2020-10-29 12:17] LABS: Estimated Average Glucose 134 mg/dL; Hemoglobin A1c % 6.3 %
== END 2020-10-29 08:35 | disposition home or self-care (01) ==
LOC: HO.10HDL 08:34
PROVIDERS: Visit Provider Internal Medicine
DX: G57.10 Meralgia paresthetica, unspecified lower limb (principal); E11.9 Type 2 diabetes mellitus without complications; E66.9 Obesity, unspecified; E78.00 Pure hypercholesterolemia, unspecified; I10 Essential (primary) hypertension; E55.9 Vitamin D deficiency, unspecified; D50.8 Other iron deficiency anemias; K21.9 Gastro-esophageal reflux disease without esophagitis
CPT/HCPCS: 36415; 80053; 80061; 81003; 82043; 82306; 82607; 82746; 83036; 84443; 85025

== ENCOUNTER → 2020-12-08 09:23 | Outpatient (BNVA) | payer OTHER, SELFPAY | PROVIDERS: PCP Internal Medicine; Visit Provider Nurse Practitioner | CPT/HCPCS: Q3014 ==

== ENCOUNTER 2021-01-25 08:57 | Outpatient (REF) | payer OTHER, SELFPAY ==
[2021-01-25 11:00] LABS: Cholesterol 230 mg/dL; HDL Cholesterol 56 mg/dL; LDL Cholesterol Calculated 150 mg/dl; Triglycerides 122 mg/dL
== END 2021-01-25 08:58 | disposition home or self-care (01) ==
LOC: HO.10HDL 08:57
PROVIDERS: Visit Provider Internal Medicine
DX: E78.00 Pure hypercholesterolemia, unspecified (principal)
CPT/HCPCS: 36415; 80061

== ENCOUNTER 2021-03-17 08:19 | Outpatient (REF) | payer OTHER, SELFPAY ==
[2021-03-17 08:51] LABS: COVID-19 Test Negative (Negative)
== END 2021-03-17 08:20 | disposition home or self-care (01) ==
LOC: HO.LAB 08:19
PROVIDERS: Visit Provider Internal Medicine
DX: Z20.822 Contact with and (suspected) exposure to COVID-19 (principal)
CPT/HCPCS: 87635; C9803

== ENCOUNTER 2021-04-01 09:34 | Outpatient (REF) | payer OTHER, SELFPAY ==
[2021-04-01 13:29] LABS: CT PCR NOT DETECTED (Not Detect.); NG PCR NOT DETECTED (Not Detect.)
== END 2021-04-01 09:35 | disposition home or self-care (01) ==
LOC: HO.LAB 09:34
PROVIDERS: PCP Internal Medicine; Visit Provider Obstetrics & Gynecology
DX: R10.2 Pelvic and perineal pain (principal); R31.29 Other microscopic hematuria
CPT/HCPCS: 87086; 87491; 87591; 99212

== ENCOUNTER → 2021-04-14 12:20 | Outpatient (BNVA) | payer OTHER, SELFPAY | PROVIDERS: PCP Internal Medicine; Visit Provider Obstetrics & Gynecology | DX: R31.29 Other microscopic hematuria (principal) | CPT/HCPCS: 99212 ==

== ENCOUNTER 2021-04-27 15:43 | Outpatient (REF) | payer OTHER, SELFPAY ==
--- NOTE | ~2021-04-27 | US_ITS ---
EXAMINATION: US PELVIS CLINICAL INFORMATION: Pelvic pain. COMPARISON: Pelvic ultrasound dated 03/09/2020. TECHNIQUE: Ultrasound of the pelvis is performed using both transabdominal and transvaginal transducers along with Doppler. Transvaginal imaging is performed due to inadequate visualization transabdominally. FINDINGS: Uterus: The uterus is anteverted and measures 7.3 x 3.3 x 2.5 cm. The double wall endometrial thickness is 2 mm. The uterus is smooth in contour and has heterogeneous myometrial echogenicity. Within the anterior leftward uterine body, a 5 mm simple subendometrial cyst is seen. FIBROIDS: There is 1 fibroid seen. 1. Location: Rightward body, myometrial. Size: 2.7 x 2.7 x 2.5 cm. Prior: 1.8 x 1.5 x 1.5 cm. Fibroid characteristics: Heterogeneous echotexture. Adnexa: Both ovaries are visualized. There is normal color flow to the adnexa. There is no ovarian torsion. There is no pelvic ascites or fluid collection. Right ovary measures 2.9 x 1.3 x 1.9 cm, volume 3.5 mL. Left ovary measures 2.5 x 2.4 x 1.7 cm, volume 5.3 mL. US/US pelvic and transvaginal IMPRESSION: 1. A uterine fibroid is seen, as above. 2. A leftward subendometrial cyst is noted, which can be associated with adenomyosis.
== END 2021-04-27 15:44 | disposition home or self-care (01) ==
LOC: HO.US 15:43
PROVIDERS: PCP Internal Medicine; Visit Provider Obstetrics & Gynecology
DX: R10.2 Pelvic and perineal pain (principal)
CPT/HCPCS: 76830; 76856

== ENCOUNTER → 2021-05-11 10:31 | Outpatient (BNVA) | payer OTHER, SELFPAY | PROVIDERS: PCP Internal Medicine; Visit Provider Obstetrics & Gynecology | DX: D21.9 Benign neoplasm of connective and other soft tissue, unspecified (principal) | CPT/HCPCS: 99212 ==

== ENCOUNTER → 2021-05-20 12:25 | Outpatient (BNVA) | payer OTHER, SELFPAY | PROVIDERS: PCP Internal Medicine; Visit Provider Nurse Practitioner Gerontology | DX: K91.2 Postsurgical malabsorption, not elsewhere classified (principal); E11.9 Type 2 diabetes mellitus without complications; I10 Essential (primary) hypertension; E78.00 Pure hypercholesterolemia, unspecified; E55.9 Vitamin D deficiency, unspecified; E66.09 Other obesity due to excess calories; Z68.33 Body mass index [BMI] 33.0-33.9, adult | CPT/HCPCS: 82947; 83036; 99212 ==

== ENCOUNTER 2021-06-07 08:30 | Outpatient (REF) | payer OTHER, SELFPAY ==
[2021-06-07 10:39] LABS: MANUAL DIFF FLAG NO
[2021-06-07 10:43] LABS: Basophils Percent Auto 0.5 % (0-2); Eosinophils Absolute Auto 0.1 X10*3/uL (0.0-0.4); Eosinophils Percent Auto 1.5 % (0-4); Hematocrit 45.3 % (37.0-47.0); Hemoglobin 14.1 g/dl (12.0-16.0); Imm Gran Abs Auto 0.02 X10*3/uL (0.00-0.03); Imm Gran Pct Auto 0.3 % (0.0-0.4); Lymphocytes Absolute Auto 1.8 X10*3/uL (1.2-4.9); Lymphocytes Percent Auto 31.3 % (20-40); Mean Corpuscular HGB Conc 31.1 g/dl (31.0-35.0); Mean Corpuscular Volume 86.8 fL (80.0-98.0); Mean Platelet Volume 11.2 fL (9.4-12.3); Monocytes Absolute Auto 0.3 X10*3/uL (0.1-1.2); Monocytes Percent Auto 5.5 % (2-11); Neutrophils Absolute Auto 3.6 x10*3/uL (2.0-8.3); Neutrophils Percent Auto 60.9 % (45-73); Platelet Count 244 X10*3/uL (160-400); Red Blood Count 5.22 X10*6/uL (4.20-5.50); White Blood Count 5.8 X10*3/uL (4.8-10.8)
[2021-06-07 11:00] LABS: Alanine Aminotransferase 24 U/L (0-31); Albumin Level 4.5 g/dL (3.5-5.0); Alkaline Phosphatase 95 U/L (39-117); Anion Gap 14 (12-20); Aspartate Amino Transferase 21 U/L (5-31); Bilirubin Total 0.5 mg/dL (0.0-1.0); Blood Urea Nitrogen 16 mg/dL (9-16); Calcium 9.9 mg/dL (8.4-10.2); Carbon Dioxide 27 mmol/L (22-29); Chloride 104 mmol/L (96-108); Cholesterol 212 mg/dL; Estimated Glomerular Filt Rate > 60; Glucose Fasting 126 mg/dL (60-99); HDL Cholesterol 60 mg/dL; LDL Cholesterol Calculated 137 mg/dl; Potassium 4.8 mmol/L (3.3-5.1); Sodium 140 mmol/L (135-145); Total Protein 7.6 g/dL (6.5-8.0); Triglycerides 77 mg/dL
[2021-06-07 11:07] LABS: Estimated Average Glucose 143 mg/dL; Hemoglobin A1c % 6.6 %
[2021-06-07 11:11] LABS: Appearance Urine CLEAR; Color Urine YELLOW; Glucose Urine UA NEG (NEG); Leukocyte Esterase Urine NEG (NEG); Nitrite Urine NEG (NEG); PH 5.5 (5.0-8.0); Specific Gravity - Urine >= 1.030 (1.005-1.025); Urine Blood NEG (NEG); Urine Ketones NEG (NEG); Urine Protein TRACE MG/DL (NEG-TRACE)
[2021-06-07 11:22] LABS: TSH reflex Free T4 0.94 uIU/mL (0.32-4.0); Vitamin D 25-OH Total 23.2 ng/mL (>30)
[2021-06-07 12:07] LABS: Creatinine Urine 235.97 mg/dL; Microalbum/Creatinine Ratio Ur 6.7 ug/mg cr
== END 2021-06-07 08:31 | disposition home or self-care (01) ==
LOC: HO.10HDL 08:30
PROVIDERS: Visit Provider Internal Medicine
DX: I10 Essential (primary) hypertension (principal); E11.9 Type 2 diabetes mellitus without complications; E78.00 Pure hypercholesterolemia, unspecified; E55.9 Vitamin D deficiency, unspecified
CPT/HCPCS: 36415; 80053; 80061; 81003; 82043; 82306; 83036; 84443; 85025

== ENCOUNTER → 2021-06-08 09:04 | Outpatient (BNVA) | payer OTHER, SELFPAY | PROVIDERS: PCP Internal Medicine; Referring Provider Internal Medicine; Visit Provider Nurse Practitioner | DX: K21.9 Gastro-esophageal reflux disease without esophagitis (principal); K59.04 Chronic idiopathic constipation; R11.2 Nausea with vomiting, unspecified; K64.9 Unspecified hemorrhoids; M19.91 Primary osteoarthritis, unspecified site; G89.29 Other chronic pain; E11.9 Type 2 diabetes mellitus without complications; I10 Essential (primary) hypertension; E66.01 Morbid (severe) obesity due to excess calories; E78.00 Pure hypercholesterolemia, unspecified; E55.9 Vitamin D deficiency, unspecified; Z68.33 Body mass index [BMI] 33.0-33.9, adult; Z90.3 Acquired absence of stomach [part of]; Z83.71 Family history of colonic polyps; Z88.1 Allergy status to other antibiotic agents | CPT/HCPCS: 99212 ==

== ENCOUNTER 2021-06-14 08:38 | Outpatient (REF) | payer OTHER, SELFPAY ==
[2021-06-14 09:53] LABS: C Reactive Protein 0.23 mg/dL (< or = 0.50)
[2021-06-14 10:03] LABS: Rheumatoid Factor < 15.0 IU/mL (<15.0)
[2021-06-14 10:05] LABS: Erythrocyte Sedimentation Rate 12 MM/HR (0-20)
[2021-06-16 12:31] LABS: Anti Nuclear Antibody Screen NEGATIVE (NEGATIVE)
== END 2021-06-14 08:39 | disposition home or self-care (01) ==
LOC: HO.LAB 08:38
PROVIDERS: PCP Internal Medicine; Visit Provider Internal Medicine
DX: G89.29 Other chronic pain (principal); M19.91 Primary osteoarthritis, unspecified site; M79.7 Fibromyalgia
CPT/HCPCS: 36415; 82550; 85652; 86038; 86039; 86140; 86431

== ENCOUNTER → 2021-07-09 09:57 | Outpatient (BNVA) | payer OTHER, SELFPAY | PROVIDERS: PCP Internal Medicine; Visit Provider Dietitian, Registered | DX: E11.8 Type 2 diabetes mellitus with unspecified complications (principal) | CPT/HCPCS: 97802 ==

== ENCOUNTER → 2021-08-06 10:00 | Outpatient (BNVA) | payer OTHER, SELFPAY | PROVIDERS: PCP Internal Medicine; Visit Provider Dietitian, Registered | DX: E11.9 Type 2 diabetes mellitus without complications (principal) | CPT/HCPCS: 97803 ==

== ENCOUNTER 2021-08-19 07:06 | Outpatient (REF) | payer OTHER, SELFPAY ==
[2021-08-19 08:31] LABS: Cholesterol 193 mg/dL; HDL Cholesterol 55 mg/dL; LDL Cholesterol Calculated 124 mg/dl; Triglycerides 71 mg/dL
[2021-08-21 11:46] LABS: LDL Cholesterol Direct 124 mg/dL (<100)
== END 2021-08-19 07:07 | disposition home or self-care (01) ==
LOC: HO.LAB 07:06
PROVIDERS: Absent Provider Nurse Practitioner Gerontology; PCP Internal Medicine; Visit Provider Internal Medicine
DX: E78.00 Pure hypercholesterolemia, unspecified (principal); E55.9 Vitamin D deficiency, unspecified
CPT/HCPCS: 36415; 80061; 82306; 83721

== ENCOUNTER 2021-09-06 14:06 | Outpatient (REF) | payer OTHER, SELFPAY ==
--- NOTE | ~2021-09-06 | MM_ITS ---
EXAMINATION: MM DIAGNOSTIC DIGITAL BREAST TOMOSYNTHESIS, BILATERAL US DIAGNOSTIC ULTRASOUND BREAST, RIGHT CLINICAL INFORMATION: Due for yearly. 5 mm palpable area 9:00 retroareolar right breast on clinical exam. Patient notes finding is chronic and without change. No discharge. TC score 9%. COMPARISON: Mammography: 02/18/2020, 09/04/2018, 08/21/2017, 05/22/2017, 03/23/2017, 08/15/2016, right breast ultrasound 05/22/2017, left breast ultrasound 08/22/2016. TECHNIQUE: Digital breast tomosynthesis is performed in both the craniocaudal and mediolateral oblique views along with computer-aided detection (CAD). Synthesized 2D images are generated from the tomosynthesis. Ultrasound right breast is targeted to the area of clinical concern. Patient is able to point to area at time of imaging. Grayscale imaging and color Doppler are performed without and with harmonics. FINDINGS: There are scattered areas of fibroglandular density (ACR BI-RADS breast composition Category b). Parenchymal pattern is similar to prior studies. There is no interval mass or architectural abnormality or developing density. No skin thickening or coarsening of the Sam's ligaments. There are scattered bilateral isolated predominantly dermal calcifications again noted. Small cyst anterior left breast is decreased 2016. Ultrasound anterior right breast demonstrates no cystic or solid mass or architectural abnormality. No focal duct ectasia. No intradermal lesion. Results are discussed with the patient at time of visit. MM/MM tomosynthesis diagnostic BI IMPRESSION: -No mammographic evidence of malignancy. -Unremarkable targeted right breast ultrasound. ASSESSMENT: BI-RADS 2: Benign RECOMMENDATION: 1. Patient should be managed based on the clinical impression. If clinically indicated, further evaluation may be considered with surgical consult. Decision to proceed with biopsy should be based on clinical grounds and degree of clinical concern. 2. Otherwise, routine annual screening mammography. This patient's information was entered into a reminder system with a target due date for their next mammogram.
== END 2021-09-06 14:07 | disposition home or self-care (01) ==
LOC: HO.MAMMO 14:06
PROVIDERS: PCP Internal Medicine; Visit Provider Internal Medicine
DX: N63.15 Unspecified lump in the right breast, overlapping quadrants (principal)
CPT/HCPCS: 76642; 77062; 77066

== ENCOUNTER → 2021-10-07 11:15 | Outpatient (BNVA) | payer OTHER, SELFPAY | PROVIDERS: PCP Internal Medicine; Referring Provider Internal Medicine; Visit Provider Surgery | DX: N63.0 Unspecified lump in unspecified breast (principal) | CPT/HCPCS: 99202 ==

== ENCOUNTER 2021-10-11 10:42 | Outpatient (REF) | payer OTHER, SELFPAY ==
--- NOTE | ~2021-10-11 | US_ITS ---
EXAMINATION: US PELVIS CLINICAL INFORMATION: History of pelvic pain and uterine leiomyoma. COMPARISON: Pelvic ultrasound from 03/09/2020 and 04/27/2021. TECHNIQUE: Ultrasound of the pelvis is performed using both transabdominal and transvaginal transducers along with Doppler. Transvaginal imaging is performed due to inadequate visualization transabdominally. FINDINGS: UTERUS AND CERVIX The anteflexed, anteverted uterus measures approximately 7 x 3.5 x 4.7 cm ([id number] x AP x transverse dimension). The cervix is approximately 2 cm in length. The endometrium has normal echotexture, measures 0.3 cm AP. No focal endometrial lesion. The myometrial echotexture is slightly heterogeneous. There appears to be a hypoechoic focus - likely a leiomyoma - of the uterine fundus; it measures approximately 1.8 x 1.5 x 1.3 cm. Note that there was suggestion of a 1.8 cm fundal leiomyoma on 03/09/2020. ADNEXA: The right ovary is 3.2 x 1.5 x 2.4 cm, volume of 6 mL of the left ovary is 2.8 x 1.2 x 2 cm, volume of 3.4 mL. No adnexal mass. FREE FLUID: None. US/US pelvic and transvaginal IMPRESSION: * The uterus is slightly heterogeneous. A small leiomyoma measuring up to 1.8 cm is suspected in the fundus. * The endometrium is normal. * No evidence of adnexal mass.
== END 2021-10-11 10:43 | disposition home or self-care (01) ==
LOC: HO.US 10:42
PROVIDERS: Visit Provider Obstetrics & Gynecology
DX: D21.9 Benign neoplasm of connective and other soft tissue, unspecified (principal)
CPT/HCPCS: 76830; 76856

== ENCOUNTER → 2021-10-18 13:57 | Outpatient (BNVA) | payer OTHER, SELFPAY | PROVIDERS: PCP Internal Medicine; Referring Provider Internal Medicine; Visit Provider Internal Medicine | DX: I25.10 Atherosclerotic heart disease of native coronary artery without angina pectoris (principal); I10 Essential (primary) hypertension; E78.5 Hyperlipidemia, unspecified; G47.33 Obstructive sleep apnea (adult) (pediatric); E11.8 Type 2 diabetes mellitus with unspecified complications; Z79.899 Other long term (current) drug therapy; Z99.89 Dependence on other enabling machines and devices | CPT/HCPCS: 93005; 99212 ==

== ENCOUNTER → 2021-10-25 08:56 | Outpatient (BNVA) | payer OTHER, SELFPAY | PROVIDERS: PCP Internal Medicine; Visit Provider Obstetrics & Gynecology | DX: D21.9 Benign neoplasm of connective and other soft tissue, unspecified (principal); B00.9 Herpesviral infection, unspecified | CPT/HCPCS: 99212 ==

== ENCOUNTER → 2021-10-27 09:05 | Day surgery (SDC) | payer OTHER, SELFPAY ==
[2021-10-21 14:17] VITALS: BMI 30.2
--- NOTE | 2021-10-26 10:38 | HO.ANESPROP2 ---
HPI - Anesthesia Eval Consult details Narrative: 56yo F for Colonoscopy PMFSH Active Problems Active Problems: All Active Problems (Updated 10/25/21 @ 09:15 by Simba Lake MD) Herpes (Acute) Osteoarthritis (Acute) Lumbar radiculopathy, right (Acute) Sacroiliac joint pain (Acute) GERD (gastroesophageal reflux disease) (Acute) Chronic idiopathic constipation (Acute) Bleeding hemorrhoids (Acute) Morbid obesity (Acute) Osteoarthritis of knees, bilateral (Acute) Fibrocystic breast disease (Acute) Malignant melanoma of skin of arm (Acute) High cholesterol (Acute) Arthritis of left glenohumeral joint (Acute) Hemorrhagic gastritis (Acute) Nausea and vomiting (Acute) Type 2 diabetes mellitus with unspecified complications (Acute) Essential hypertension (Acute) Other and unspecified hyperlipidemia (Acute) KEVON on CPAP (Acute) Female pelvic pain (Acute) Microscopic hematuria (Acute) Myoma (Acute) Well woman exam (Acute) Breast lump in female (Acute) Hematochezia (Acute) Obesity due to excess calories (Acute) Family history of polyps in the colon (Acute) Atherosclerotic cardiovascular disease (Acute) Hypoglycemia after GI (gastrointestinal) surgery (Acute) Obesity (BMI 30-39.9) (Acute) Depression (Acute) Anxiety (Acute) Insomnia (Acute) Meralgia paresthetica (Acute) Vitamin D deficiency (Acute) Carpal tunnel syndrome of left wrist (Acute) Osteoarthritis (Acute) Obstructive sleep apnea (Acute) Iron deficiency anemia (Acute) Migraine (Acute) Hyperlipidemia (Acute) Diabetes mellitus (Acute) Hypertension (Acute) Past Medical History Medical History Anxiety Atherosclerotic cardiovascular disease Carpal tunnel syndrome of left wrist Colon cancer screening COVID-19 vaccine administered Depression Diabetes mellitus Family history of polyps in the colon Hyperlipidemia Hypertension Hypoglycemia after GI (gastrointestinal) surgery Insomnia Iron deficiency anemia Meralgia paresthetica Migraine Obesity (BMI 30-39.9) Obesity due to excess calories Obstructive sleep apnea Osteoarthritis Postmenopausal bleeding Status post hysteroscopy (~06/11/13) Vitamin D deficiency Family History Family History Father Myocardial infarction Prostate cancer Mother Cervical cancer Ovarian cancer Mental health disorder Sister Ovarian cancer Maternal Aunt Colon cancer Surgical History Surgical History H/O colonoscopy H/O endoscopy (~06/20/13) H/O gastric bypass (~02/2016) H/O laparoscopy H/O melanoma excision (~2010) History of carpal tunnel surgery History of knee surgery (~01/30/13) History of sleeve gastrectomy S/P dilatation and curettage (~2011) S/P myomectomy Social History Social History Household Members: Children Housing: Apartment Alcohol intake: current Alcohol intake frequency: does not drink Patient Tobacco Use Status: Former Tobacco user Second Hand Smoke Exposure: Yes Advance Directives Date on File: 03/16/16 service: No Current occupational status: disabled Cognitive needs: No Hearing needs: No Vision needs: Yes Meds Allergies Allergy/AdvReac Type Severity Reaction Status Date / Time cephalexin [From Keflex] Allergy Mild RASH Verified 10/25/21 09:07 Active Medications: Current Medications Lactated Ringer's (Lr) 1,000 mls @ 50 mls/hr IVCONT .Q20H [facility] Home Medications Medication Instructions Recorded Confirmed Last Taken Type amitriptyline 10 mg tablet 10 mg PO BEDTIME 12/05/19 10/24/21 Unknown History temazepam 30 mg capsule 30 mg PO BEDTIME PRN Insomnia 12/05/19 10/24/21 Unknown History multivitamin 1 tab PO DAILY 03/11/20 10/24/21 Unknown History clonazepam 1 mg tablet 1 mg PO BEDTIME PRN Insomnia 03/18/20 10/24/21 Unknown History trazodone 50 mg tablet 50 mg PO DAILY 02/02/21 10/24/21 Unknown History Exam Exam Date and Time: October 26, 2021 1038 Height,Weight and Vital Signs: Height 5 ft 4.5 in Weight 81.193 kg Pertinent Lab Results Pertinent Lab Results: Laboratory Tests 06/07/21 06/07/21 Unknown Unknown WBC 5.8 Hgb 14.1 Hct 45.3 Plt Count 244 Sodium 140 Potassium 4.8 Chloride 104 Carbon Dioxide 27 BUN 16 Creatinine 0.79 Narrative Narrative: EKG 09/2021 sinus bradycardia, 57/Min; no significant ST-T changes and otherwise unremarkable.? Normal ND/corrected QT intervals. Coronary CTA in the past has revealed mild nonobstructive disease in the distal left main/proximal LAD Assessment and Plan Assessment Anesthesia Assessment: Chart Reviewed
[2021-10-27 09:45] VITALS: BMI 32.8
[2021-10-27 09:48] VITALS: BP 139/80; PULSE 59; RESP 16; TEMP 36.1; O2SAT 99
--- NOTE | 2021-10-27 09:54 | P.CONAN_ITS ---
[facility] Active Problems Active Problems: All Active Problems (Updated 10/25/21 @ 09:15 by Simba Lake MD) Herpes (Acute) Osteoarthritis (Acute) Lumbar radiculopathy, right (Acute) Sacroiliac joint pain (Acute) GERD (gastroesophageal reflux disease) (Acute) Chronic idiopathic constipation (Acute) Bleeding hemorrhoids (Acute) Morbid obesity (Acute) Osteoarthritis of knees, bilateral (Acute) Fibrocystic breast disease (Acute) Malignant melanoma of skin of arm (Acute) High cholesterol (Acute) Arthritis of left glenohumeral joint (Acute) Hemorrhagic gastritis (Acute) Nausea and vomiting (Acute) Type 2 diabetes mellitus with unspecified complications (Acute) Essential hypertension (Acute) Other and unspecified hyperlipidemia (Acute) KEVON on CPAP (Acute) Female pelvic pain (Acute) Microscopic hematuria (Acute) Myoma (Acute) Well woman exam (Acute) Breast lump in female (Acute) Hematochezia (Acute) Obesity due to excess calories (Acute) Family history of polyps in the colon (Acute) Atherosclerotic cardiovascular disease (Acute) Hypoglycemia after GI (gastrointestinal) surgery (Acute) Obesity (BMI 30-39.9) (Acute) Depression (Acute) Anxiety (Acute) Insomnia (Acute) Meralgia paresthetica (Acute) Vitamin D deficiency (Acute) Carpal tunnel syndrome of left wrist (Acute) Osteoarthritis (Acute) Obstructive sleep apnea (Acute) Iron deficiency anemia (Acute) Migraine (Acute) Hyperlipidemia (Acute) Diabetes mellitus (Acute) Hypertension (Acute) Past Medical History Medical History Anxiety Atherosclerotic cardiovascular disease Carpal tunnel syndrome of left wrist Colon cancer screening COVID-19 vaccine administered Depression Diabetes mellitus Family history of polyps in the colon Hyperlipidemia Hypertension Hypoglycemia after GI (gastrointestinal) surgery Insomnia Iron deficiency anemia Meralgia paresthetica Migraine Obesity (BMI 30-39.9) Obesity due to excess calories Obstructive sleep apnea Osteoarthritis Postmenopausal bleeding Status post hysteroscopy (~06/11/13) Vitamin D deficiency Family History Family History Father Myocardial infarction Prostate cancer Mother Cervical cancer Ovarian cancer Mental health disorder Sister Ovarian cancer Maternal Aunt Colon cancer Family history of problems with anesthesia: No Surgical History Surgical History H/O colonoscopy H/O endoscopy (~06/20/13) H/O gastric bypass (~02/2016) H/O laparoscopy H/O melanoma excision (~2010) History of carpal tunnel surgery History of knee surgery (~01/30/13) History of sleeve gastrectomy S/P dilatation and curettage (~2011) S/P myomectomy History of Problems with Anesthesia: No Social History Social History Household Members: Children Housing: Apartment Alcohol intake: current Alcohol intake frequency: does not drink Patient Tobacco Use Status: Former Tobacco user Tobacco use type: Cigarette Second Hand Smoke Exposure: Yes Use of substances other than those prescribed or required for medical reasons: No Are you DNR?: No Advance Directives: Yes Advance Directives on File: Yes Advance Directives Date on File: 03/16/16 service: No Current occupational status: disabled Cognitive needs: No Hearing needs: No Vision needs: Yes Meds Allergies Allergy/AdvReac Type Severity Reaction Status Date / Time cephalexin [From Keflex] Allergy Mild RASH Verified 10/25/21 09:07 Active Medications: Current Medications Lactated Ringer's (Lr) 1,000 mls @ 100 mls/hr IVCONT .Q10H [facility] Sodium Biphosphate/Sodium Phosphate (Sodium Phosphate,Churchill-Dibasic 133 Ml Enema) 133 ml AL ONCE PRN PRN Reason: Poor Colonoscopy Prep Results Home Medications Medication Instructions Recorded Confirmed Last Taken Type amitriptyline 10 mg tablet 10 mg PO BEDTIME 12/05/19 10/24/21 Unknown History temazepam 30 mg capsule 30 mg PO BEDTIME PRN Insomnia 12/05/19 10/24/21 Unknown History multivitamin 1 tab PO DAILY 03/11/20 10/24/21 Unknown History clonazepam 1 mg tablet 1 mg PO BEDTIME PRN Insomnia 03/18/20 10/24/21 Unknown History trazodone 50 mg tablet 50 mg PO DAILY 02/02/21 10/24/21 Unknown History Exam Exam Date and Time: October 27, 2021 0954 Height,Weight and Vital Signs: Height 5 ft 4.5 in Weight 87.997 kg Last Vital Signs Temp 97.0 F 10/27/21 09:48 Pulse 59 10/27/21 09:48 Resp 16 10/27/21 09:48 BP 139/80 10/27/21 09:48 Pulse Ox 99 10/27/21 09:48 O2 Del Method 10/27/21 09:48 Airway Mallampati Class: III TM Dist: >3cm Neck ROM: Full Assessment and Plan Assessment Anesthesia Assessment: Anesthesia Plan Discussed and Chart Reviewed Final Anesthetic Review Family History of Problems with Anesthesia: No History of Problems with Anesthesia: No ASA Class: III Final Preanesthetic Review: No Changes in Pt Med Stat, Meds/Allgs Chart Reviewed, Consent Obtained/Reviewed and Anes Risks/Benef Reviewed Patient Risk: Intermediate Procedure Risk: Low Anesthetic Plan Anesthetic Plan: MAC: Disposition: Standard PACU
== END ==
PROVIDERS: PCP Internal Medicine; Visit Provider Internal Medicine
DX: Z12.11 Encounter for screening for malignant neoplasm of colon (principal); Z91.14 Patient's other noncompliance with medication regimen

== ENCOUNTER → 2021-10-28 11:28 | Outpatient (BNVA) | payer OTHER, SELFPAY | PROVIDERS: PCP Internal Medicine; Referring Provider Internal Medicine; Visit Provider Physician Assistant Surgical | DX: K91.2 Postsurgical malabsorption, not elsewhere classified (principal); E66.09 Other obesity due to excess calories; Z68.33 Body mass index [BMI] 33.0-33.9, adult; M25.541 Pain in joints of right hand; G57.11 Meralgia paresthetica, right lower limb | CPT/HCPCS: 99202; 99212 ==

== ENCOUNTER 2021-10-29 08:39 | Outpatient (REF) | payer OTHER, SELFPAY ==
--- NOTE | ~2021-10-29 | XR_ITS ---
EXAMINATION: X-RAY BILATERAL HANDS CLINICAL INFORMATION: Pain COMPARISON: X-ray right wrist 04/05/2011 TECHNIQUE: Bilateral hands each 4 views FINDINGS: Left hand: No fracture or dislocation. No significant joint space narrowing or marginal osteophytes. No osseous erosion. No abnormal soft tissue calcification. Right hand: No evidence of acute fracture or dislocation. Lucency in the distal scaphoid, with the well-defined margins, appearing degenerative. There is mild triscaphe joint arthritis. Otherwise, no significant joint space narrowing or marginal osteophytes. No osseous erosion. No abnormal soft tissue calcification. XR/XR hand wrist LT IMPRESSION: *Mild right triscaphe joint arthritis, with subchondral cyst in the distal scaphoid. *No significant arthropathy in the left hand. *No evidence of acute fracture.
--- NOTE | ~2021-10-29 | XR_ITS ---
EXAMINATION: X-RAY BILATERAL HANDS CLINICAL INFORMATION: Pain COMPARISON: X-ray right wrist 04/05/2011 TECHNIQUE: Bilateral hands each 4 views FINDINGS: Left hand: No fracture or dislocation. No significant joint space narrowing or marginal osteophytes. No osseous erosion. No abnormal soft tissue calcification. Right hand: No evidence of acute fracture or dislocation. Lucency in the distal scaphoid, with the well-defined margins, appearing degenerative. There is mild triscaphe joint arthritis. Otherwise, no significant joint space narrowing or marginal osteophytes. No osseous erosion. No abnormal soft tissue calcification. XR/XR hand wrist RT IMPRESSION: *Mild right triscaphe joint arthritis, with subchondral cyst in the distal scaphoid. *No significant arthropathy in the left hand. *No evidence of acute fracture.
[2021-10-29 10:17] LABS: Basophils Percent Auto 0.5 % (0-2); Eosinophils Absolute Auto 0.1 X10*3/uL (0.0-0.4); Eosinophils Percent Auto 1.1 % (0-4); Hematocrit 43.2 % (37.0-47.0); Hemoglobin 14.2 g/dl (12.0-16.0); Imm Gran Abs Auto 0.03 X10*3/uL (0.00-0.03); Imm Gran Pct Auto 0.5 % (0.0-0.4); Lymphocytes Absolute Auto 1.4 X10*3/uL (1.2-4.9); Lymphocytes Percent Auto 25.7 % (20-40); MANUAL DIFF FLAG SCAN; Mean Corpuscular HGB Conc 32.9 g/dl (31.0-35.0); Mean Corpuscular Hemoglobin 27.7 pg (27.0-33.0); Mean Corpuscular Volume 84.4 fL (80.0-98.0); Monocytes Absolute Auto 0.2 X10*3/uL (0.1-1.2); Monocytes Percent Auto 3.6 % (2-11); Neutrophils Absolute Auto 3.8 x10*3/uL (2.0-8.3); Neutrophils Percent Auto 68.6 % (45-73); PLT CLUMP 1; Red Blood Count 5.12 X10*6/uL (4.20-5.50); Red Cell Distribution Width 14.1 % (11.0-16.0); SCAN SMEAR FLAG 1
[2021-10-29 10:18] LABS: Rheumatoid Factor < 15.0 IU/mL (<15.0)
[2021-10-29 10:28] LABS: Alanine Aminotransferase 32 U/L (0-31); Albumin Level 4.4 g/dL (3.5-5.0); Alkaline Phosphatase 83 U/L (39-117); Anion Gap 15 (12-20); Aspartate Amino Transferase 29 U/L (5-31); Bilirubin Total 0.4 mg/dL (0.0-1.0); Blood Urea Nitrogen 16 mg/dL (9-16); C Reactive Protein 0.17 mg/dL (< or = 0.50); Calcium 9.5 mg/dL (8.4-10.2); Carbon Dioxide 27 mmol/L (22-29); Chloride 104 mmol/L (96-108); Estimated Glomerular Filt Rate > 60; Glucose Random 131 mg/dL (60-115); Iron 123 mcg/dL (30-160); Percent Iron Saturation 30 % (15-50); Potassium 4.2 mmol/L (3.3-5.1); Sodium 142 mmol/L (135-145); Total Iron Binding Capacity 408 mcg/dL (228-428); Total Protein 7.4 g/dL (6.5-8.0); Unsaturated Iron Binding 285 ug/dL
[2021-10-29 10:47] LABS: Ferritin 27 ng/mL (10-250)
[2021-10-29 10:48] LABS: White Blood Count 5.6 X10*3/uL (4.8-10.8)
[2021-10-29 10:50] LABS: SLIDE REVIEW VERIFIED
[2021-10-29 11:00] LABS: Erythrocyte Sedimentation Rate 7 MM/HR (0-20)
[2021-10-29 11:13] LABS: Folate 11.6 ng/mL (> or = 4.0); Vitamin B12 284 pg/mL (200-900)
[2021-10-29 11:18] LABS: Insulin 10 uU/mL (2-29)
[2021-10-31 16:57] LABS: Calcium (PTHI) 9.6 mg/dL (8.6-10.4); PTHI 110 pg/mL (16-77)
[2021-11-02 16:57] LABS: Cyclic Citrullinated Peptide <16 UNITS
[2021-11-03 12:47] LABS: Zinc 66 mcg/dL (60-130)
[2021-11-04 17:21] LABS: Vitamin A 36 mcg/dL (38-98)
[2021-11-06 11:37] LABS: Vitamin B1 8 nmol/L (8-30)
== END 2021-10-29 08:40 | disposition home or self-care (01) ==
LOC: HO.LAB 08:39
PROVIDERS: Physician Assistant Surgical; PCP Internal Medicine; Visit Provider Student in an Organized Health Care Education/Training Program
DX: K91.2 Postsurgical malabsorption, not elsewhere classified (principal); M25.541 Pain in joints of right hand; M25.542 Pain in joints of left hand
CPT/HCPCS: 36415; 73110; 73130; 80053; 82607; 82728; 82746; 83525; 83540; 83970; 84425; 84590; 84630; 85025; 85652; 86140; 86200; 86431

== ENCOUNTER → 2021-11-05 10:03 | Outpatient (BNVA) | payer OTHER, SELFPAY | PROVIDERS: PCP Internal Medicine; Visit Provider Dietitian, Registered | DX: E11.9 Type 2 diabetes mellitus without complications (principal) | CPT/HCPCS: 97803 ==

== ENCOUNTER → 2021-11-18 14:18 | Outpatient (BNVA) | payer OTHER, SELFPAY | PROVIDERS: PCP Internal Medicine; Visit Provider Student in an Organized Health Care Education/Training Program | DX: M12.811 Other specific arthropathies, not elsewhere classified, right shoulder (principal) | CPT/HCPCS: 20610; 99212 ==

== ENCOUNTER 2021-12-20 11:07 | Day surgery (SDC) | payer OTHER, SELFPAY ==
--- NOTE | 2021-12-17 10:21 | HO.ANESPROP2 ---
Documented by User: Ophelia Nam NP 12/17/21 10:26 HPI - Anesthesia Eval Consult details Narrative: 56yo F for Colonoscopy PMFSH Active Problems Active Problems: All Active Problems (Updated 12/01/21 @ 13:04 by LUIS ANGEL Reynolds) Adult general medical exam (Acute) Rotator cuff arthropathy of left shoulder (Acute) Rotator cuff arthropathy of right shoulder (Acute) Pain in joints of left hand (Acute) Joint pain in fingers of right hand (Acute) Neuropathy (Acute) Herpes (Acute) Osteoarthritis (Acute) Lumbar radiculopathy, right (Acute) Sacroiliac joint pain (Acute) GERD (gastroesophageal reflux disease) (Acute) Chronic idiopathic constipation (Acute) Bleeding hemorrhoids (Acute) Morbid obesity (Acute) Osteoarthritis of knees, bilateral (Acute) Fibrocystic breast disease (Acute) Malignant melanoma of skin of arm (Acute) High cholesterol (Acute) Arthritis of left glenohumeral joint (Acute) Hemorrhagic gastritis (Acute) Nausea and vomiting (Acute) Type 2 diabetes mellitus with unspecified complications (Acute) Essential hypertension (Acute) Other and unspecified hyperlipidemia (Acute) KEVON on CPAP (Acute) Female pelvic pain (Acute) Microscopic hematuria (Acute) Myoma (Acute) Well woman exam (Acute) Breast lump in female (Acute) Hematochezia (Acute) Obesity due to excess calories (Acute) Family history of polyps in the colon (Acute) Atherosclerotic cardiovascular disease (Acute) Hypoglycemia after GI (gastrointestinal) surgery (Acute) Obesity (BMI 30-39.9) (Acute) Depression (Acute) Anxiety (Acute) Insomnia (Acute) Meralgia paresthetica (Acute) Vitamin D deficiency (Acute) Carpal tunnel syndrome of left wrist (Acute) Osteoarthritis (Acute) Obstructive sleep apnea (Acute) Iron deficiency anemia (Acute) Migraine (Acute) Hyperlipidemia (Acute) Diabetes mellitus (Acute) Hypertension (Acute) Past Medical History Medical History Anxiety Atherosclerotic cardiovascular disease Carpal tunnel syndrome of left wrist Colon cancer screening COVID-19 vaccine administered Depression Diabetes mellitus Family history of polyps in the colon Hyperlipidemia Hypertension Hypoglycemia after GI (gastrointestinal) surgery Insomnia Iron deficiency anemia Meralgia paresthetica Migraine Obesity (BMI 30-39.9) Obesity due to excess calories Obstructive sleep apnea Osteoarthritis Postmenopausal bleeding Status post hysteroscopy (~06/11/13) Vitamin D deficiency Family History Family History Father Myocardial infarction Prostate cancer Mother Cervical cancer Ovarian cancer Mental health disorder Sister Ovarian cancer Maternal Aunt Colon cancer Family history of problems with anesthesia: No Surgical History Surgical History H/O colonoscopy H/O endoscopy (~06/20/13) H/O gastric bypass (~02/2016) H/O laparoscopy H/O melanoma excision (~2010) History of carpal tunnel surgery History of knee surgery (~01/30/13) History of sleeve gastrectomy S/P dilatation and curettage (~2011) S/P myomectomy History of Problems with Anesthesia: No Social History Social History Household Members: Children Housing: Apartment Alcohol intake: current Alcohol intake frequency: does not drink Patient Tobacco Use Status: Former Tobacco user Tobacco use type: Cigarette Second Hand Smoke Exposure: Yes Advance Directives: No Advance Directives Information Provided: Yes Advance Directives Date on File: 03/16/16 service: No Current occupational status: disabled Cognitive needs: No Hearing needs: No Vision needs: Yes (glasses) Meds Allergies Allergy/AdvReac Type Severity Reaction Status Date / Time cephalexin [From Keflex] Allergy Mild RASH Verified 12/01/21 11:42 Home Medications Medication Instructions Recorded Confirmed Last Taken Type amitriptyline 10 mg tablet 10 mg PO BEDTIME 12/05/19 12/01/21 Unknown History temazepam 30 mg capsule 30 mg PO BEDTIME PRN Insomnia 12/05/19 12/01/21 Unknown History multivitamin 1 tab PO DAILY 03/11/20 12/01/21 Unknown History clonazepam 1 mg tablet 1 mg PO BEDTIME PRN Insomnia 03/18/20 12/01/21 Unknown History trazodone 50 mg tablet 50 mg PO DAILY 02/02/21 12/01/21 Unknown History Exam Exam Date and Time: December 17, 2021 1021 Pertinent Lab Results Pertinent Lab Results: Laboratory Tests 10/29/21 10/29/21 09:19 09:19 WBC 5.6 Hgb 14.2 Hct 43.2 Sodium 142 Potassium 4.2 Chloride 104 Carbon Dioxide 27 BUN 16 Creatinine 0.81 Narrative Narrative: EKG 09/2021 sinus bradycardia, 57/Min; no significant ST-T changes and otherwise unremarkable.? Normal CO/corrected QT intervals. Coronary CTA nonobstructive CAD Assessment and Plan Assessment Anesthesia Assessment: Chart Reviewed Final Anesthetic Review Family History of Problems with Anesthesia: No History of Problems with Anesthesia: No Documented by User: Geovanna Bernabe MD 12/20/21 12:08 [facility] Past Medical History Medical History Anxiety Atherosclerotic cardiovascular disease Carpal tunnel syndrome of left wrist Colon cancer screening COVID-19 vaccine administered Depression Diabetes mellitus Family history of polyps in the colon Hyperlipidemia Hypertension Hypoglycemia after GI (gastrointestinal) surgery Insomnia Iron deficiency anemia Meralgia paresthetica Migraine Obesity (BMI 30-39.9) Obesity due to excess calories Obstructive sleep apnea Osteoarthritis Postmenopausal bleeding Status post hysteroscopy (~06/11/13) Vitamin D deficiency Family History Family History Father Myocardial infarction Prostate cancer Mother Cervical cancer Ovarian cancer Mental health disorder Sister Ovarian cancer Maternal Aunt Colon cancer Surgical History Surgical History H/O colonoscopy H/O endoscopy (~06/20/13) H/O gastric bypass (~02/2016) H/O laparoscopy H/O melanoma excision (~2010) History of carpal tunnel surgery History of knee surgery (~01/30/13) History of sleeve gastrectomy S/P dilatation and curettage (~2011) S/P myomectomy Social History Social History Household Members: Children Housing: Apartment Alcohol intake: current Alcohol intake frequency: does not drink Patient Tobacco Use Status: Former Tobacco user Tobacco use type: Cigarette Second Hand Smoke Exposure: Yes Advance Directives: No Advance Directives Information Provided: Yes Advance Directives Date on File: 03/16/16 service: No Current occupational status: disabled Cognitive needs: No Hearing needs: No Vision needs: Yes (glasses) Meds Allergies Allergy/AdvReac Type Severity Reaction Status Date / Time cephalexin [From Keflex] Allergy Mild RASH Verified 12/01/21 11:42 Home Medications Medication Instructions Recorded Confirmed Last Taken Type amitriptyline 10 mg tablet 10 mg PO BEDTIME 12/05/19 12/01/21 Unknown History temazepam 30 mg capsule 30 mg PO BEDTIME PRN Insomnia 12/05/19 12/01/21 Unknown History multivitamin 1 tab PO DAILY 03/11/20 12/01/21 Unknown History clonazepam 1 mg tablet 1 mg PO BEDTIME PRN Insomnia 03/18/20 12/01/21 Unknown History trazodone 50 mg tablet 50 mg PO DAILY 02/02/21 12/01/21 Unknown History Exam Height,Weight and Vital Signs: Height 5 ft 4 in Weight 81.193 kg Vital Signs Temp Pulse Resp BP Pulse Ox O2 Del Method 12/20/21 11:31 97.3 F 62 16 179/85 H 97 Room Air Narrative Narrative: EKG 09/2021 sinus bradycardia, 57/Min; no significant ST-T changes and otherwise unremarkable.? Normal CO/corrected QT intervals. Coronary CTA nonobstructive CAD Lab Results 12/20/21 Range/Units 11:28 POC Glucose 118 H (60-115) mg/dL Airway Mallampati Class: II TM Dist: >3cm Neck ROM: Full Loose/Missing/Broken Teeth: No (Denies broken or loose teeth) Heart: RRR Lungs: CTAB Assessment and Plan Assessment Anesthesia Assessment: Anesthesia Plan Discussed Final Anesthetic Review NPO: Yes ASA Class: III Final Preanesthetic Review: No Changes in Pt Med Stat, Meds/Allgs Chart Reviewed, Consent Obtained/Reviewed and Anes Risks/Benef Reviewed Patient Risk: Intermediate Procedure Risk: Low Assessment/Block/Sedation in SS: Assess/Block/Sedation-SS Anesthetic Plan Anesthetic Plan: MAC: Disposition: Standard PACU
[2021-12-20 11:16] VITALS: BMI 30.7
[2021-12-20 11:31] VITALS: BP 179/85; PULSE 62; RESP 16; TEMP 36.3; O2SAT 97
[2021-12-20] MEDS: Lactated Ringers 1,000 ML 100 ML IVCONT (11:32)
[2021-12-20 11:35] LABS: Glucose, Whole Blood 118 mg/dL (60-115)
[2021-12-20 12:38] VITALS: BP 114/67; PULSE 62; RESP 16; TEMP 36.3; O2SAT 97
--- NOTE | 2021-12-20 12:41 | P.BOP_ITS ---
Brief Operative Note Date of Service: 12/20/21 Pre-op diagnosis: Screening Post-op diagnosis: other (Colon polyp) Procedure: Colonoscopy to the cecum with bx/removal of polyp Surgeon: Gene Cruz Anesthesia: MAC Was an Director Of Undergraduate Admissions used for this Procedure?: No Estimated blood loss (mL): 2.0 Pathology: other (A. Ascending colon polyp) Condition: stable Disposition: PACU
[2021-12-20 12:53] VITALS: BP 177/85; PULSE 72; RESP 16; O2SAT 100
[2021-12-20 13:08] VITALS: BP 176/82; PULSE 60; RESP 16; TEMP 36.3; O2SAT 100
--- NOTE | 2021-12-21 01:20 | OP_ITS ---
SURGEON: Gene Cruz MD INDICATIONS: The patient presents for evaluation of colorectal cancer screening. Full consent has been obtained from her for this, including risks of bleeding and perforation. PREOPERATIVE DIAGNOSIS: Colorectal cancer screening. POSTOPERATIVE DIAGNOSIS: PROCEDURE PERFORMED: Colonoscopy to cecum with biopsy and removal of polyp. ESTIMATED BLOOD LOSS: COMPLICATIONS: ANESTHESIA: Monitored anesthesia care. ASSISTANTS: SPECIMENS: POSTOPERATIVE DIAGNOSES: Colorectal cancer screening, small colon polyp, sigmoid diverticulosis, and internal hemorrhoids. DESCRIPTION OF PROCEDURE: The patient was placed in the left lateral decubitus position the digital rectal exam revealed no abnormalities. The Olympus video pediatric colonoscope was entered into the rectum and advanced easily to the cecum. Once in the cecum, I did identify normal-appearing cecal pouch with appendiceal orifice and a normal-appearing ileocecal valve. The entire cecum and ileocecal valve appeared normal. The scope was then slowly withdrawn assessing all mucosal surfaces carefully. For the most part preparation was very good throughout the colon, but there were some areas that were somewhat limited due to some liquid stool, which was irrigated and suctioned away as best as possible. In the ascending colon was an approximately 3 or 4 mm polyp, which was biopsied and completely removed with a cold biopsy forceps. I did not visualize any other polyps, colitis, or angiodysplasia. There was a mild amount of sigmoid diverticulosis. In the rectum, scope was retroflexed visualizing small internal hemorrhoids, but no other pathology. The rectal mucosa appeared normal. Scope was straightened and withdrawn from the patient. She tolerated the procedure well and was returned to the recovery area in stable condition. IMPRESSION: 1. Small colon polyp. 2. Diverticulosis. 3. Internal hemorrhoids. PLAN: The results of the biopsy will be checked. Given the somewhat limited prep, I would recommend a followup colonoscopy in 5 years for further screening, even if the polyp today is only hyperplastic. She will otherwise see me on a p.r.n. basis. MD SONAL Lerner/MICHELLE / [phone]
== END 2021-12-20 13:31 | disposition home or self-care (01) ==
PROVIDERS: PCP Internal Medicine; Visit Provider Internal Medicine
PROC: 0DJD8ZZ Inspection of Lower Intestinal Tract, Via Natural or Artificial Opening Endoscopic (ICD-10-PCS; CPT 45378; principal; 2021-12-20 12:30)
DX: Z12.11 Encounter for screening for malignant neoplasm of colon (principal); D12.2 Benign neoplasm of ascending colon; K57.30 Diverticulosis of large intestine without perforation or abscess without bleeding; K64.8 Other hemorrhoids; K59.00 Constipation, unspecified; I10 Essential (primary) hypertension; E78.5 Hyperlipidemia, unspecified; J45.909 Unspecified asthma, uncomplicated; Z98.84 Bariatric surgery status; Z86.39 Personal history of other endocrine, nutritional and metabolic disease; F41.1 Generalized anxiety disorder; Z79.51 Long term (current) use of inhaled steroids; Z79.899 Other long term (current) drug therapy; Z87.891 Personal history of nicotine dependence
CPT/HCPCS: 45380; 82947; 88305

== ENCOUNTER → 2021-12-29 11:24 | Outpatient (BNVA) | payer OTHER, SELFPAY | PROVIDERS: PCP Internal Medicine; Visit Provider Physician Assistant Surgical | DX: E66.9 Obesity, unspecified (principal); Z98.84 Bariatric surgery status; Z68.33 Body mass index [BMI] 33.0-33.9, adult | CPT/HCPCS: 99212 ==

== ENCOUNTER 2022-01-03 08:48 | Outpatient (REF) | payer OTHER, SELFPAY ==
[2022-01-03 10:28] LABS: MANUAL DIFF FLAG NO
[2022-01-03 10:41] LABS: Basophils Percent Auto 0.4 % (0-2); Eosinophils Absolute Auto 0.1 X10*3/uL (0.0-0.4); Hematocrit 42.4 % (37.0-47.0); Hemoglobin 13.6 g/dl (12.0-16.0); Imm Gran Abs Auto 0.01 X10*3/uL (0.00-0.03); Imm Gran Pct Auto 0.2 % (0.0-0.4); Lymphocytes Absolute Auto 1.6 X10*3/uL (1.2-4.9); Lymphocytes Percent Auto 32.7 % (20-40); Mean Corpuscular HGB Conc 32.1 g/dl (31.0-35.0); Mean Corpuscular Hemoglobin 27.9 pg (27.0-33.0); Mean Corpuscular Volume 86.9 fL (80.0-98.0); Mean Platelet Volume 11.1 fL (9.4-12.3); Monocytes Absolute Auto 0.2 X10*3/uL (0.1-1.2); Neutrophils Absolute Auto 2.9 x10*3/uL (2.0-8.3); Neutrophils Percent Auto 60.7 % (45-73); Platelet Count 215 X10*3/uL (160-400); Red Blood Count 4.88 X10*6/uL (4.20-5.50); Red Cell Distribution Width 14.7 % (11.0-16.0); White Blood Count 4.8 X10*3/uL (4.8-10.8)
[2022-01-03 10:56] LABS: Estimated Average Glucose 143 mg/dL; Hemoglobin A1c % 6.6 %
[2022-01-03 11:07] LABS: Alanine Aminotransferase 21 U/L (0-31); Albumin Level 4.5 g/dL (3.5-5.0); Alkaline Phosphatase 89 U/L (39-117); Anion Gap 16 (12-20); Aspartate Amino Transferase 19 U/L (5-31); Bilirubin Total 0.7 mg/dL (0.0-1.0); Blood Urea Nitrogen 21 mg/dL (9-16); C Reactive Protein 0.34 mg/dL (< or = 0.50); Calcium 9.6 mg/dL (8.4-10.2); Carbon Dioxide 27 mmol/L (22-29); Chloride 104 mmol/L (96-108); Cholesterol 246 mg/dL; Estimated Glomerular Filt Rate > 60; Glucose Fasting 113 mg/dL (60-99); HDL Cholesterol 67 mg/dL; LDL Cholesterol Calculated 162 mg/dl; Potassium 4.6 mmol/L (3.3-5.1); Sodium 142 mmol/L (135-145); Total Protein 7.4 g/dL (6.5-8.0); Triglycerides 89 mg/dL
[2022-01-03 11:10] LABS: Appearance Urine Clear; Color Urine Yellow; Glucose Urine UA Negative (Negative); Leukocyte Esterase Urine Trace (Negative); Nitrite Urine Negative (Negative); Specific Gravity - Urine 1.025 (1.005-1.025); UMIC TRIGGER UACC YES; Urine Blood Negative (Negative); Urine Ketones Negative (Negative); Urine Protein Negative (Neg-Trace)
[2022-01-03 11:15] LABS: Bacteria Urine Trace (None Seen); Hyaline Casts Urine 0-2 /LPF (0-2); RBC Urine 0-2 /HPF (0-2); Squamous Epithelial Cell Urine 0-2 /HPF (0-2); WBC Urine 0-5 /HPF (0-5)
[2022-01-03 11:27] LABS: TSH reflex Free T4 1.04 uIU/mL (0.32-4.0); Vitamin D 25-OH Total 20.9 ng/mL (>30)
== END 2022-01-03 08:49 | disposition home or self-care (01) ==
LOC: HO.10HDL 08:48
PROVIDERS: Absent Provider Student in an Organized Health Care Education/Training Program; Visit Provider Internal Medicine
DX: M25.541 Pain in joints of right hand (principal); I10 Essential (primary) hypertension; E78.00 Pure hypercholesterolemia, unspecified; E11.9 Type 2 diabetes mellitus without complications; E55.9 Vitamin D deficiency, unspecified
CPT/HCPCS: 36415; 80053; 80061; 81001; 81003; 82306; 83036; 84443; 85025; 86140

== ENCOUNTER → 2022-01-04 14:59 | Outpatient (BNVA) | payer OTHER, SELFPAY | PROVIDERS: PCP Internal Medicine; Visit Provider Nurse Practitioner Family | DX: M25.541 Pain in joints of right hand (principal); M25.531 Pain in right wrist; G57.11 Meralgia paresthetica, right lower limb; Z98.890 Other specified postprocedural states | CPT/HCPCS: 99202 ==

== ENCOUNTER → 2022-01-05 15:28 | Outpatient (BNVA) | payer OTHER, SELFPAY | PROVIDERS: PCP Internal Medicine; Visit Provider Internal Medicine Endocrinology, Diabetes & Metabolism | DX: E11.9 Type 2 diabetes mellitus without complications (principal) | CPT/HCPCS: 99212 ==

== ENCOUNTER 2022-04-29 09:55 | Outpatient (REF) | payer OTHER, SELFPAY ==
[2022-04-29 10:57] LABS: MANUAL DIFF FLAG NO
[2022-04-29 11:02] LABS: Appearance Urine Clear; Color Urine Yellow; Glucose Urine UA Negative (Negative); Leukocyte Esterase Urine Small (1+) (Negative); Nitrite Urine Negative (Negative); PH 5.5 (5.0-9.0); UMIC TRIGGER UACC YES; Urine Blood Negative (Negative); Urine Ketones Negative (Negative); Urine Protein Negative (Neg-Trace)
[2022-04-29 11:10] LABS: Basophils Percent Auto 0.5 % (0-2); Eosinophils Absolute Auto 0.1 X10*3/uL (0.0-0.4); Eosinophils Percent Auto 1.8 % (0-4); Hematocrit 44.1 % (37.0-47.0); Hemoglobin 14.4 g/dl (12.0-16.0); Imm Gran Abs Auto 0.01 X10*3/uL (0.00-0.03); Imm Gran Pct Auto 0.2 % (0.0-0.4); Lymphocytes Absolute Auto 1.7 X10*3/uL (1.2-4.9); Lymphocytes Percent Auto 38.3 % (20-40); Mean Corpuscular HGB Conc 32.7 g/dl (31.0-35.0); Mean Corpuscular Hemoglobin 27.9 pg (27.0-33.0); Mean Corpuscular Volume 85.5 fL (80.0-98.0); Monocytes Absolute Auto 0.3 X10*3/uL (0.1-1.2); Monocytes Percent Auto 5.7 % (2-11); Neutrophils Absolute Auto 2.4 x10*3/uL (2.0-8.3); Neutrophils Percent Auto 53.5 % (45-73); Platelet Count 222 X10*3/uL (160-400); Red Blood Count 5.16 X10*6/uL (4.20-5.50); Red Cell Distribution Width 14.8 % (11.0-16.0); White Blood Count 4.4 X10*3/uL (4.8-10.8)
[2022-04-29 11:21] LABS: Estimated Average Glucose 131 mg/dL; Hemoglobin A1c % 6.2 %
[2022-04-29 12:46] LABS: Alanine Aminotransferase 13 U/L (0-31); Albumin Level 4.4 g/dL (3.5-5.0); Alkaline Phosphatase 99 U/L (39-117); Anion Gap 16 (12-20); Aspartate Amino Transferase 15 U/L (5-31); Bilirubin Total 0.8 mg/dL (0.0-1.0); Blood Urea Nitrogen 19 mg/dL (9-16); Calcium 9.6 mg/dL (8.4-10.2); Carbon Dioxide 27 mmol/L (22-29); Chloride 105 mmol/L (96-108); Cholesterol 268 mg/dL; Estimated Glomerular Filt Rate > 60; Glucose Fasting 104 mg/dL (60-99); HDL Cholesterol 58 mg/dL; LDL Cholesterol Calculated 193 mg/dl; Potassium 4.6 mmol/L (3.3-5.1); Sodium 143 mmol/L (135-145); Total Protein 7.1 g/dL (6.5-8.0); Triglycerides 87 mg/dL
[2022-04-29 13:06] LABS: TSH reflex Free T4 0.66 uIU/mL (0.32-4.0); Vitamin D 25-OH Total 19.8 ng/mL (>30)
[2022-04-29 13:16] LABS: Bacteria Urine None Seen (None Seen); Hyaline Casts Urine 0-2 /LPF (0-2); RBC Urine 0-2 /HPF (0-2); UACC Culture Trigger YES
== END 2022-04-29 09:56 | disposition home or self-care (01) ==
LOC: HO.10HDL 09:55
PROVIDERS: Visit Provider Internal Medicine
DX: I10 Essential (primary) hypertension (principal); E55.9 Vitamin D deficiency, unspecified; E11.9 Type 2 diabetes mellitus without complications; E78.00 Pure hypercholesterolemia, unspecified; R82.90 Unspecified abnormal findings in urine
CPT/HCPCS: 36415; 80053; 80061; 81001; 81003; 82043; 82306; 83036; 84443; 85025; 87086

== ENCOUNTER → 2022-05-05 13:45 | Outpatient (BNVA) | payer OTHER, SELFPAY | PROVIDERS: PCP Internal Medicine; Visit Provider Dietitian, Registered | DX: E11.9 Type 2 diabetes mellitus without complications (principal); Z71.3 Dietary counseling and surveillance | CPT/HCPCS: 97803 ==

== ENCOUNTER → 2022-05-06 11:30 | Outpatient (BNVA) | payer OTHER, SELFPAY | PROVIDERS: PCP Internal Medicine; Visit Provider Surgery | DX: E66.09 Other obesity due to excess calories (principal); R10.9 Unspecified abdominal pain; N63.0 Unspecified lump in unspecified breast; Z68.33 Body mass index [BMI] 33.0-33.9, adult; Z98.84 Bariatric surgery status | CPT/HCPCS: 99212 ==

== ENCOUNTER 2022-05-10 09:27 | Outpatient (REF) | payer OTHER, SELFPAY | END 2022-05-10 09:28 | disposition home or self-care (01) | LOC: HO.HOSX 09:27 | PROVIDERS: Visit Provider Physician Assistant | DX: Z13.89 Encounter for screening for other disorder (principal) ==

== ENCOUNTER 2022-05-12 10:45 | Outpatient (REF) | payer OTHER, SELFPAY ==
--- NOTE | ~2022-05-12 | XR_ITS ---
STUDY: X-ray bilateral shoulders CLINICAL HISTORY: Unspecified arthropathy. COMPARISON: Left shoulder 03/14/2008 TECHNIQUE: Right shoulder 5 views. Left shoulder 4 views. FINDINGS: Right shoulder: Moderate acromioclavicular arthritis. No acute fracture or dislocation. Glenohumeral joint space is maintained. No abnormal soft tissue calcification. Intact right clavicle. Left shoulder: No acute fracture or dislocation. Mild acromioclavicular arthritis. Glenohumeral joint space is maintained. No abnormal soft tissue calcification. Intact left clavicle. XR/XR shoulder RT min 2V IMPRESSION: Moderate right acromioclavicular arthritis. Mild left acromioclavicular arthritis.
--- NOTE | ~2022-05-12 | XR_ITS ---
STUDY: X-ray bilateral shoulders CLINICAL HISTORY: Unspecified arthropathy. COMPARISON: Left shoulder 03/14/2008 TECHNIQUE: Right shoulder 5 views. Left shoulder 4 views. FINDINGS: Right shoulder: Moderate acromioclavicular arthritis. No acute fracture or dislocation. Glenohumeral joint space is maintained. No abnormal soft tissue calcification. Intact right clavicle. Left shoulder: No acute fracture or dislocation. Mild acromioclavicular arthritis. Glenohumeral joint space is maintained. No abnormal soft tissue calcification. Intact left clavicle. XR/XR shoulder LT min 2V IMPRESSION: Moderate right acromioclavicular arthritis. Mild left acromioclavicular arthritis.
== END 2022-05-12 10:46 | disposition home or self-care (01) ==
LOC: HO.XRAY 10:45
PROVIDERS: PCP Internal Medicine; Visit Provider Student in an Organized Health Care Education/Training Program
DX: M12.811 Other specific arthropathies, not elsewhere classified, right shoulder (principal); M12.812 Other specific arthropathies, not elsewhere classified, left shoulder
CPT/HCPCS: 73030

== ENCOUNTER 2022-06-07 09:42 | Outpatient (REF) | payer OTHER, SELFPAY ==
--- NOTE | ~2022-06-07 | XR_ITS ---
EXAMINATION: XR WRIST, RIGHT CLINICAL INFORMATION: Right wrist pain COMPARISON: None available. TECHNIQUE: PA, lateral, and oblique views of the right wrist. FINDINGS: The bones and soft tissues are normal. No fracture. Alignment is anatomic with normal joint spaces. No erosions or abnormal soft tissue calcifications. XR/XR wrist RT min 3V IMPRESSION: Unremarkable right wrist.
== END 2022-06-07 09:43 | disposition home or self-care (01) ==
LOC: HO.HOSX 09:42
PROVIDERS: Visit Provider Physician Assistant
DX: M25.531 Pain in right wrist (principal); M54.12 Radiculopathy, cervical region
CPT/HCPCS: 73110; 99202

== ENCOUNTER 2022-06-16 11:27 | Outpatient (REF) | payer OTHER, SELFPAY ==
--- NOTE | 2022-06-16 09:30 | EMG_ITS ---
Right median and ulnar motor and sensory studies were performed. Right radial sensory study was performed and paraspinal muscles were tested with a needle. IMPRESSION: Mild right ulnar neuropathy across cubital tunnel. MD CITLALI Amato/MICHELLE / [id number]
== END 2022-06-16 11:28 | disposition home or self-care (01) ==
LOC: HO.NEURO 11:27
PROVIDERS: PCP Internal Medicine; Visit Provider Nurse Practitioner Family
DX: G56.01 Carpal tunnel syndrome, right upper limb (principal)
CPT/HCPCS: 95886; 95909

== ENCOUNTER → 2022-07-07 10:02 | Outpatient (BNVA) | payer OTHER, SELFPAY | PROVIDERS: PCP Internal Medicine; Visit Provider Physician Assistant | DX: G56.21 Lesion of ulnar nerve, right upper limb (principal) | CPT/HCPCS: Q3014 ==

== ENCOUNTER 2022-07-13 11:40 | Outpatient (REF) | payer OTHER, SELFPAY ==
--- NOTE | ~2022-07-13 | XR_ITS ---
EXAMINATION: XR FOOT, RIGHT CLINICAL INFORMATION: Pain in right to COMPARISON: None available. TECHNIQUE: AP, lateral, and oblique views of the right foot. FINDINGS: There is no visible acute fracture, dislocation or subluxation. The ankle mortise and subtalar joints are normal. There is a small calcaneal heel and retrocalcaneal enthesophytes. The soft tissues are normal. XR/XR foot RT min 3V IMPRESSION: Small calcaneal heel and retrocalcaneal enthesophytes. No visible acute fracture or dislocation seen.
== END 2022-07-13 11:41 | disposition home or self-care (01) ==
LOC: HO.XRAY 11:40
PROVIDERS: PCP Internal Medicine; Visit Provider Nurse Practitioner Family
DX: M79.674 Pain in right toe(s) (principal); E78.00 Pure hypercholesterolemia, unspecified; E11.9 Type 2 diabetes mellitus without complications; I10 Essential (primary) hypertension; E55.9 Vitamin D deficiency, unspecified; R30.0 Dysuria
CPT/HCPCS: 73630; 99212

== ENCOUNTER 2022-08-08 08:07 | Outpatient (REF) | payer OTHER, SELFPAY ==
[2022-08-08 10:29] LABS: MANUAL DIFF FLAG NO
[2022-08-08 10:33] LABS: Basophils Percent Auto 0.6 % (0-2); Eosinophils Absolute Auto 0.1 X10*3/uL (0.0-0.4); Eosinophils Percent Auto 1.9 % (0-4); Hematocrit 42.4 % (37.0-47.0); Hemoglobin 13.7 g/dl (12.0-16.0); Imm Gran Abs Auto 0.01 X10*3/uL (0.00-0.03); Imm Gran Pct Auto 0.2 % (0.0-0.4); Lymphocytes Absolute Auto 2.1 X10*3/uL (1.2-4.9); Lymphocytes Percent Auto 39.6 % (20-40); Mean Corpuscular HGB Conc 32.3 g/dl (31.0-35.0); Mean Corpuscular Hemoglobin 28.2 pg (27.0-33.0); Mean Corpuscular Volume 87.4 fL (80.0-98.0); Monocytes Absolute Auto 0.3 X10*3/uL (0.1-1.2); Monocytes Percent Auto 6.4 % (2-11); Neutrophils Absolute Auto 2.7 x10*3/uL (2.0-8.3); Neutrophils Percent Auto 51.3 % (45-73); Platelet Count 212 X10*3/uL (160-400); Red Blood Count 4.85 X10*6/uL (4.20-5.50); Red Cell Distribution Width 14.7 % (11.0-16.0); White Blood Count 5.2 X10*3/uL (4.8-10.8)
[2022-08-08 10:49] LABS: Estimated Average Glucose 134 mg/dL; Hemoglobin A1c % 6.3 %
[2022-08-08 10:51] LABS: Appearance Urine Clear; Color Urine Yellow; Glucose Urine UA Negative (Negative); Leukocyte Esterase Urine Moderate (2+) (Negative); Nitrite Urine Negative (Negative); UMIC TRIGGER UACC YES; Urine Blood Negative (Negative); Urine Ketones Negative (Negative); Urine Protein Negative (Neg-Trace)
[2022-08-08 10:53] LABS: Alanine Aminotransferase 18 U/L (0-31); Albumin Level 4.4 g/dL (3.5-5.0); Alkaline Phosphatase 90 U/L (39-117); Anion Gap 12 (12-20); Aspartate Amino Transferase 16 U/L (5-31); Bilirubin Total 0.6 mg/dL (0.0-1.0); Blood Urea Nitrogen 21 mg/dL (9-16); Calcium 9.6 mg/dL (8.4-10.2); Carbon Dioxide 29 mmol/L (22-29); Chloride 107 mmol/L (96-108); Cholesterol 189 mg/dL; Estimated Glomerular Filt Rate > 60; Glucose Fasting 123 mg/dL (60-99); HDL Cholesterol 58 mg/dL; LDL Cholesterol Calculated 109 mg/dl; Potassium 4.5 mmol/L (3.3-5.1); Sodium 143 mmol/L (135-145); Total Protein 7.4 g/dL (6.5-8.0); Triglycerides 111 mg/dL
[2022-08-08 11:01] LABS: Bacteria Urine None Seen (None Seen); Hyaline Casts Urine 0-2 /LPF (0-2); RBC Urine 0-2 /HPF (0-2); Squamous Epithelial Cell Urine 0-2 /HPF (0-2); UACC Culture Trigger YES; WBC Urine 21-50 /HPF (0-5)
[2022-08-08 11:09] LABS: TSH reflex Free T4 2.51 uIU/mL (0.32-4.0); Vitamin D 25-OH Total 19.7 ng/mL (>30)
[2022-08-08 11:22] LABS: Creatinine Urine 97.71 mg/dL; Microalbum/Creatinine Ratio Ur 11.2 ug/mg cr
== END 2022-08-08 08:08 | disposition home or self-care (01) ==
LOC: HO.10HDL 08:07
PROVIDERS: Visit Provider Internal Medicine
DX: E78.00 Pure hypercholesterolemia, unspecified (principal); E55.9 Vitamin D deficiency, unspecified; E11.9 Type 2 diabetes mellitus without complications; I10 Essential (primary) hypertension; R82.90 Unspecified abnormal findings in urine
CPT/HCPCS: 36415; 80053; 80061; 81001; 82043; 82306; 83036; 84443; 85025; 87086

== ENCOUNTER → 2022-08-11 13:53 | Outpatient (BNVA) | payer OTHER, SELFPAY | PROVIDERS: PCP Internal Medicine; Visit Provider Dietitian, Registered | DX: E11.8 Type 2 diabetes mellitus with unspecified complications (principal) | CPT/HCPCS: 97803 ==

== ENCOUNTER 2022-08-29 09:16 | Outpatient (REF) | payer OTHER, SELFPAY | END 2022-08-29 09:17 | disposition home or self-care (01) | LOC: HO.LAB 09:16 | PROVIDERS: PCP Internal Medicine; Visit Provider Obstetrics & Gynecology | DX: Z11.4 Encounter for screening for human immunodeficiency virus [HIV] (principal); Z20.2 Contact with and (suspected) exposure to infections with a predominantly sexual mode of transmission | CPT/HCPCS: 36415; 86780; 86803; 87340; 87389 ==

== ENCOUNTER 2022-09-07 15:55 | Outpatient (AMB) | payer OTHER, SELFPAY ==
[2022-09-07 16:00] VITALS: BP 186/88; PULSE 73; BMI 34.6
--- NOTE | 2022-09-07 16:00 | MHC.OFFVIS ---
Intake Vital Signs 09/07/22 16:00 Height 5 ft 4 in Weight 201 lb 8.04 oz BMI 34.6 BP 186/88 H Blood Pressure Location Lt brachial Position Sitting Pulse 73 Intake Visit Reasons: Follow up CIC Intake Note: Stanislav presents in office as a est.patient for a f/u for CIC PT CC: pt reports having constipation pt denies any other GI Issues Superintendent Compressor Stations Required: No Accompanied by: Self / Same As Patient Allergies cephalexin [From Keflex] Allergy (Mild, Verified 09/07/22 16:01) RASH HPI Follow up CIC HPI Details Assessment & Plan (1) GERD (gastroesophageal reflux disease): ?Code(s): K21.9 - Gastro-esophageal reflux disease without esophagitis ?Qualifiers: ?Esophagitis presence:?without esophagitis? Qualified Code(s):?K21.9 - Gastro-esophageal reflux disease without esophagitis ?Plan: She continues to have a burning pain in her stomach. But the nausea is still greatly improved. She has a hx of hemorrhagic gastritis, so I think we can add a small daily dose of carafate. She has a rather complex medication regimen, so we will add 1 tablet qnoon. She is moving her bowels well with the Linzess 290, hopefully this will continue to be acceptable with the carafate. The only other new medicine is acarbose which was added for her diabetes. it is bringing her sugars down, but it is making her stomach rumble quite a bit as well ROV 6 weeks to eval response. (2) Chronic idiopathic constipation: ?Code(s): K59.04 - Chronic idiopathic constipation (3) Nausea and vomiting: ?Comment: ? Resolved with twice a day lansoprazole 30 mg.Really more nausea not much vomiting in this gastric bypass patient with a history of hemorrhagic gastritis.? EGD 07/2020 showed no more problems with inactive biopsies.? Ultrasound did not show any gallbladder problems. if recurs consider gastric emptying study ?Code(s): R11.2 - Nausea with vomiting, unspecified (4) Hemorrhagic gastritis: ?Comment: From her 2016 EGD, repeat EGD 07/2020 no recurrence ?Code(s): K29.71 - Gastritis, unspecified, with bleeding ? ? ? Medications: New sucralfate (Carafa te) 1 g? PO .qaclunch 30 tabs 6RF K29.71 - Gastritis , unspecified, wit h bleeding ? Refilled lansoprazole 30 mg? PO BID 90 days 180 caps 1RF F K29.71 - Gastritis , unspecified, wit h bleeding ? linaclotide (Linze ss) 290 mcg? PO DAILY 90 days 90 caps 1 RF K59.04 - Chronic i diopathic constipa tion TODAY'S VISIT Patient has been lost to follow-up since 05/2021 and in the interim had a colonoscopy with Dr. Cruz is office, since I can not see an of his procedure results I assume she will follow with them in the future. She says she was told to follow up prn but I think she is confused between out service and Dr. Cruz, as I had expected to see her in 6 weeks in 05/2021. She needs her Linzess refilled as at the 290mcg level this controlled her CIC well. She still has occasional nausea that is helped a bit by prn carafate and she continues on the lansoprazole bid. She was diabetic before the bariatric surgery, but has not used medicines since this 7 years ago - she actually has to check that she does not go too low with her BS. ROV 6 mos. 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 Insomnia Iron deficiency anemia Meralgia paresthetica Migraine Obesity (BMI 30-39.9) Obesity due to excess calories Obstructive sleep apnea Osteoarthritis Postmenopausal bleeding Status post hysteroscopy (~06/11/13) Vitamin D deficiency Surgical History H/O colonoscopy H/O endoscopy (~06/20/13) H/O gastric bypass (~02/2016) H/O laparoscopy H/O melanoma excision (~2010) History of carpal tunnel surgery History of knee surgery (~01/30/13) History of sleeve gastrectomy S/P dilatation and curettage (~2011) S/P myomectomy Family History Father Myocardial infarction Prostate cancer Mother Cervical cancer Ovarian cancer Mental health disorder Diabetes Alzheimer's dementia Sleep apnea Sister Ovarian cancer Maternal Aunt Colon cancer Social History Household Members: Children Housing: Apartment Alcohol intake: current Alcohol intake frequency: holidays/special occasions only Patient Tobacco Use Status: Former Tobacco user Tobacco use type: Cigarette e-Cigarette/Vaping Use: Never Used Second Hand Smoke Exposure: Yes Advance Directives Date on File: 03/16/16 service: No Current occupational status: disabled Current occupation: right handed Cognitive needs: No Hearing needs: No Vision needs: Yes (glasses) Female Reproductive History Menstrual Age of Menarche: 12 Review of Systems Const Denies fatigue, Denies fever(s), Denies night sweats, Denies poor appetite and Denies weight loss Eyes Details: glasses Reports requires corrective lenses ENT Reports Normal hearing present, Denies dental pain, Denies dysphagia, Denies hearing loss, Denies mouth pain, Denies odynophagia, Denies throat swelling, Denies tongue swelling and Reports other (Dentition adequate) Card Reports no additional complaints Resp Reports no additional complaints GI Denies abdominal pain, Denies melena, Denies bloating, Denies hematochezia, Reports constipation, Denies GI cramping, Denies dysphagia, Denies excessive flatus, Denies early satiety, Reports heartburn, Denies diarrhea, Denies nausea, Denies odynophagia, Denies vomiting and Denies hematemesis Skin/Breast Denies pruritus, Denies lesions, Denies rash and Denies jaundice Neuro Reports Normal hearing present and Denies Abnormal speech present Endo Denies fatigue Aller/Immun Denies throat swelling and Denies tongue swelling Physical Exam Vital Signs: Last Vital Signs Pulse 73 09/07/22 16:00 BP 186/88 H 09/07/22 16:00 BMI result Body Mass Index 34.6 Const General: cooperative, no acute distress, well developed and well groomed Nutritional Appearance: well nourished and obese Orientation/consciousness: oriented to person, oriented to place and oriented to time Limitations: No language barrier HEENT Head: Yes normocephalic and Yes atraumatic Eyes General: appearance normal, both eyes and all related structures Pupils: Equal, round and reactive pupils present Neck Neck: Yes normal visual inspection and Yes no lymphadenopathy Thyroid: Thyroid normal Resp Effort & Inspection: normal respiratory effort and able to speak in complete sentences Auscultation: clear to auscultation bilaterally Cardio Rate: regular rate Rhythm: regular rhythm Heart sounds: Normal, physiologic split S2 sound present Peripheral pulses: radial pulses present and posterior tibial pulses present GI Inspection: No distended, Yes Abdominal panniculus present and Yes obesity Palpation (GI): Soft to palpation, nontender, no guarding, not rigid and No hepatosplenomegaly present Percussion: Yes normal to percussion Auscultation: normal bowel sounds Rectal Exam - Female: deferred Skin General skin exam: no rashes or lesions noted, turgor normal, skin not dry, no jaundice, No spider nevi and no striae Rashes: no rashes Nails: normal Neuro General: oriented to person, oriented to place and oriented to time Cranial nerves: Yes Equal, round and reactive pupils present and Yes Normal hearing present Speech: No Abnormal speech present Extrem General: Yes normal to inspection, No clubbing, No cyanosis and No edema Psych Appearance: grossly normal and well kempt Mental Status: mental status grossly normal Speech and movement: Normal speech and movement present Affect: normal affect Attitude: cooperative Thought process: Normal thought process present and not confabulating Thought content: Normal thought content present Insight: Limited insight present (Psych) Judgement: Limited judgement present (Psych) Assessment & Plan Assessment & Plan (1) GERD (gastroesophageal reflux disease): Code(s): K21.9 - Gastro-esophageal reflux disease without esophagitis Qualifiers: Esophagitis presence: without esophagitis Qualified Code(s): K21.9 - Gastro-esophageal reflux disease without esophagitis Plan: Patient has been lost to follow-up since 05/2021 and in the interim had a colonoscopy with Dr. Cruz is office, since I can not see an of his procedure results I assume she will follow with them in the future. She says she was told to follow up prn but I think she is confused between out service and Dr. Cruz, as I had expected to see her in 6 weeks in 05/2021. She needs her Linzess refilled as at the 290mcg level this controlled her CIC well. She still has occasional nausea that is helped a bit by prn carafate and she continues on the lansoprazole bid. She was diabetic before the bariatric surgery, but has not used medicines since this 7 years ago - she actually has to check that she does not go too low with her BS. ROV 6 mos. (2) Chronic idiopathic constipation: Code(s): K59.04 - Chronic idiopathic constipation (3) Nausea and vomiting: Comment: Resolved with twice a day lansoprazole 30 mg.Really more nausea not much vomiting in this gastric bypass patient with a history of hemorrhagic gastritis. EGD 07/2020 showed no more problems with inactive biopsies. Ultrasound did not show any gallbladder problems. if recurs consider gastric emptying study Code(s): R11.2 - Nausea with vomiting, unspecified (4) Family history of polyps in the colon: Comment: Mother and maternal uncle had polyps, scope 2018 with Pan[facility] no polyps Code(s): Z83.71 - Family history of colonic polyps Medications: New linaclotide (Linzess) 290 mcg PO QAM 30 days 30 caps 6RF K59.04 - Chronic idiopathic constipation Refilled lansoprazole 30 mg PO BID 90 days 180 caps 1RF K29.71 - Gastritis, unspecified, with bleeding Coding Level of Care Code Est Pt Level 3 (76788) Diagnoses GERD (gastroesophageal reflux disease) K21.9 Esophagitis presence: without esophagitis Chronic idiopathic constipation K59.04 Nausea and vomiting R11.2 Family history of polyps in the colon Z83.71
== END 2022-09-07 16:19 | disposition home or self-care (01) ==
PROVIDERS: PCP Internal Medicine; Visit Provider Nurse Practitioner
DX: K21.9 Gastro-esophageal reflux disease without esophagitis (principal); K59.04 Chronic idiopathic constipation; R11.2 Nausea with vomiting, unspecified; Z83.71 Family history of colonic polyps
CPT/HCPCS: 99213

== ENCOUNTER → 2022-09-07 15:55 | Outpatient (BNVA) | payer OTHER, SELFPAY | PROVIDERS: PCP Internal Medicine; Visit Provider Nurse Practitioner | DX: K21.9 Gastro-esophageal reflux disease without esophagitis (principal); K59.04 Chronic idiopathic constipation; R11.2 Nausea with vomiting, unspecified; Z83.71 Family history of colonic polyps | CPT/HCPCS: 99212 ==

== ENCOUNTER 2022-09-08 10:56 | Outpatient (REF) | payer OTHER, SELFPAY ==
--- NOTE | ~2022-09-08 | MM_ITS ---
EXAMINATION: MM SCREENING DIGITAL BREAST TOMOSYNTHESIS, BILATERAL CLINICAL INFORMATION: Screening. Asymptomatic. The lifetime risk of breast cancer based on the Tyrer-Cuzick Model is 9.5%. COMPARISON: Mammography: This study is compared with prior exams dating back to 2018. TECHNIQUE: Digital breast tomosynthesis is performed in both the craniocaudal and mediolateral oblique views along with computer-aided detection (CAD). Synthesized 2D images are generated from the tomosynthesis. FINDINGS: There are scattered areas of fibroglandular density (ACR BI-RADS breast composition Category b). There are no significant masses, abnormal calcifications, or other abnormalities. MM/MM tomosynthesis screening BI IMPRESSION: No mammographic evidence of malignancy. ASSESSMENT: BI-RADS BI-RADS 1 - Negative RECOMMENDATION: Routine annual mammography screening. 1 year F/U This examination should not preclude the clinical evaluation of a suspicious palpable abnormality. This patient's information was entered into a reminder system with a target due date for their next mammogram.
== END 2022-09-08 10:57 | disposition home or self-care (01) ==
LOC: HO.MAMMO 10:56
PROVIDERS: PCP Internal Medicine; Visit Provider Internal Medicine
DX: Z12.31 Encounter for screening mammogram for malignant neoplasm of breast (principal)
CPT/HCPCS: 77063; 77067

== ENCOUNTER → 2022-09-08 11:15 | Outpatient (BNV) | payer OTHER, SELFPAY | PROVIDERS: PCP Internal Medicine; Visit Provider Radiology Diagnostic Radiology | DX: Z12.31 Encounter for screening mammogram for malignant neoplasm of breast (principal) | CPT/HCPCS: 77063; 77067 ==

== ENCOUNTER 2022-10-06 08:39 | Outpatient (AMB) | payer OTHER, SELFPAY ==
[2022-10-06 08:45] VITALS: BP 126/74; TEMP 36.2; BMI 34.9
--- NOTE | 2022-10-06 08:45 | A.OFFVIS_ITS ---
Intake Vital Signs 10/06/22 08:45 Height 5 ft 4 in Weight 203 lb 7.787 oz BMI 34.9 BP 126/74 Blood Pressure Location Rt brachial Position Sitting Temp 97.2 F Temp Source Skin Intake Visit Reasons: f/u appt for OA Intake Note: * Pt seen today for OA follow up. * C/o bl heel pain, worse in AM. * Has pending appt with podiatry next month. Art Therapist Required: No Accompanied by: Self / Same As Patient Allergies cephalexin [From Keflex] Allergy (Mild, Verified 10/06/22 08:48) RASH Medication List - Last Reconciled 10/06/22 by Adriana Chang MD acarbose 100 mg PO TID acetaminophen ER (Mapap Arthritis Pain) 650 mg PO Q8H PRN 30 days blood pressure monitor As directed blood sugar diagnostic (FreeStyle Lite Strips) 1 strip miscellaneous TID 90 days blood-glucose meter (FreeStyle Lite Meter kit) As directed blood-glucose meter (FreeStyle Lite Meter kit) As directed calcium citrate-vitamin D3 315 mg-5 mcg (200 unit) (Calcium Citrate + D) 1 tab PO BID cholecalciferol (vitamin D3) 50 mcg PO DAILY 90 days clonazepam 1 mg PO BEDTIME PRN clonazepam 1 mg PO DAILY cyanocobalamin (vitamin B-12) PO DAILY diclofenac sodium 1% (Arthritis Pain (diclofenac)) 4 grams topical QID 30 days ezetimibe 10 mg PO DAILY fluticasone propionate 50 mcg/actuation 2 sprays intranasal DAILY PRN hydrochlorothiazide 25 mg PO QAM lancets (FreeStyle Lancets) As directed 3 TIMES A DAY lansoprazole 30 mg PO BID 90 days linaclotide (Linzess) 290 mcg PO QAM 30 days lisinopril 20 mg PO DAILY multivitamin 1 tab PO DAILY [right wrist splint- carpal tunnel splint As directed] rosuvastatin 40 mg PO DAILY sucralfate 10 mL PO BID temazepam 30 mg PO BEDTIME PRN trazodone 50 mg PO DAILY valacyclovir 500 mg PO BID 3 days vitamin A 1 cap PO DAILY HPI HPI Comments History of Present Illness Details 57-year-old female with generalized osteoarthritis returns for follow- up. She states that the steroid injection shoulder given last visit did provide some relief. She has been having pain in both heels worse in the right heel over the last 3 months. The pain is worse in the morning when she steps on her heel. It is worse after when standing after sitting down for some time. She was referred to Podiatry but her appointment is in a month. Initial history: 56-year-old female presents for evaluation of right hand pain. Condition started about 3-4 weeks ago with pain in her right hand associated with radiating pain towards her medial epicondyle and the right shoulder & right arm. 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 She has difficulty making a fist due to the pain. She had a carpal tunnel surgery in that right hand a few years ago. She continues to have numbness and pain in the right anterolateral thigh area. She also has lower back pain radiating down her towards her right leg. She was offered an epidural injection in L5-S1 by pain management last year but patient refused. [facility] Medical History Anxiety Atherosclerotic cardiovascular disease Carpal tunnel syndrome of left wrist Colon cancer screening COVID-19 vaccine administered Depression Diabetes mellitus Family history of polyps in the colon Hyperlipidemia Hypertension Hypoglycemia after GI (gastrointestinal) surgery Insomnia Iron deficiency anemia Meralgia paresthetica Migraine Obesity (BMI 30-39.9) Obesity due to excess calories Obstructive sleep apnea Osteoarthritis Postmenopausal bleeding Status post hysteroscopy (~06/11/13) Vitamin D deficiency Surgical History H/O colonoscopy H/O endoscopy (~06/20/13) H/O gastric bypass (~02/2016) H/O laparoscopy H/O melanoma excision (~2010) History of carpal tunnel surgery History of knee surgery (~01/30/13) History of sleeve gastrectomy S/P dilatation and curettage (~2011) S/P myomectomy Family History Father Myocardial infarction Prostate cancer Mother Cervical cancer Ovarian cancer Mental health disorder Diabetes Alzheimer's dementia Sleep apnea Sister Ovarian cancer Maternal Aunt Colon cancer Social History Household Members: Children Housing: Apartment Alcohol intake: current Alcohol intake frequency: holidays/special occasions only Patient Tobacco Use Status: Former Tobacco user Tobacco use type: Cigarette e-Cigarette/Vaping Use: Never Used Second Hand Smoke Exposure: Yes Advance Directives Date on File: 03/16/16 service: No Current occupational status: disabled Current occupation: right handed Cognitive needs: No Hearing needs: No Vision needs: Yes (glasses) Female Reproductive History Menstrual Age of Menarche: 12 Review of Systems [facility] [place] arthralgias Physical Exam Vital Signs: Last Vital Signs Temp 97.2 F 10/06/22 08:45 BP 126/74 10/06/22 08:45 BMI result Body Mass Index 34.9 Const General: cooperative, healthy appearing and comfortable Resp Effort & Inspection: normal respiratory effort and able to speak in complete sentences Extrem Other: Bilateral heel tenderness to palpation Assessment & Plan Assessment & Plan (1) Plantar fasciitis: Code(s): M72.2 - Plantar fascial fibromatosis Plan: Symptoms consistent with plantar fasciitis worse in the right foot. I gave patient a printout of exercises to do for plantar fasciitis. She has an appointment with Podiatry in a month Coding Level of Care Code Est Pt Level 3 (94681) Diagnoses Plantar fasciitis M72.2
== END 2022-10-06 09:04 | disposition home or self-care (01) ==
PROVIDERS: PCP Internal Medicine; Visit Provider Student in an Organized Health Care Education/Training Program
DX: M72.2 Plantar fascial fibromatosis (principal)
CPT/HCPCS: 99213

== ENCOUNTER → 2022-10-06 08:39 | Outpatient (BNVA) | payer OTHER, SELFPAY | PROVIDERS: Visit Provider Student in an Organized Health Care Education/Training Program | DX: M72.2 Plantar fascial fibromatosis (principal) | CPT/HCPCS: 99212 ==

== ENCOUNTER 2022-12-02 07:04 | Outpatient (REF) | payer OTHER, SELFPAY | END 2022-12-02 07:05 | disposition home or self-care (01) | LOC: HO.LAB 07:04 | PROVIDERS: PCP Internal Medicine; Visit Provider Internal Medicine | DX: E78.00 Pure hypercholesterolemia, unspecified (principal); E11.9 Type 2 diabetes mellitus without complications; E55.9 Vitamin D deficiency, unspecified; I10 Essential (primary) hypertension; R30.0 Dysuria | CPT/HCPCS: 36415; 80053; 80061; 81001; 82043; 82306; 82570; 83036; 84443; 85025; 87086 ==

== ENCOUNTER 2022-12-02 16:53 | Outpatient (AMB) | payer OTHER, SELFPAY ==
[2022-12-02 16:59] VITALS: BP 136/80; PULSE 78; O2SAT 99; BMI 34.3
--- NOTE | 2022-12-02 16:59 | MHC.PC.OV ---
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: No Accompanied by: Self / Same As Patient Allergies cephalexin [From Keflex] Allergy (Mild, Verified 12/02/22 17:11) RASH Medication List - Last Reconciled 12/02/22 by Aubrey Dhaliwal MD acarbose 100 mg PO TID acetaminophen ER (Mapap Arthritis Pain) 650 mg PO Q8H PRN 30 days blood pressure monitor As directed blood sugar diagnostic (FreeStyle Lite Strips) 1 strip miscellaneous TID 90 days blood-glucose meter (FreeStyle Lite Meter kit) As directed blood-glucose meter (FreeStyle Lite Meter kit) As directed calcium citrate-vitamin D3 315 mg-5 mcg (200 unit) (Calcium Citrate + D) 1 tab PO BID cholecalciferol (vitamin D3) 50 mcg PO DAILY 90 days clonazepam 1 mg PO BEDTIME PRN clonazepam 1 mg PO DAILY cyanocobalamin (vitamin B-12) PO DAILY diclofenac sodium 1% (Arthritis Pain (diclofenac)) 4 grams topical QID 30 days ezetimibe 10 mg PO DAILY fluticasone propionate 50 mcg/actuation 2 sprays intranasal DAILY hydrochlorothiazide 25 mg PO QAM lancets (FreeStyle Lancets) As directed 3 TIMES A DAY lansoprazole 30 mg PO BID 90 days linaclotide (Linzess) 290 mcg PO QAM 30 days lisinopril 20 mg PO DAILY multivitamin 1 tab PO DAILY [right wrist splint- carpal tunnel splint As directed] rosuvastatin 40 mg PO DAILY sucralfate 10 mL PO BID temazepam 30 mg PO BEDTIME PRN trazodone 50 mg PO DAILY valacyclovir 500 mg PO BID 3 days vitamin A 1 cap PO DAILY Tobacco use date assessed: 12/02/22 Dental Screening Dental Screen Date: 12/02/22 Did you have a dental visit in the last 12 months?: Yes Did you have a dental problem in the last 6 months where you did not have access to dental care?: No Was dental information given to patient?: Patient has dentist HPI PE HPI Details Patient comes in today for her annual physical examination States that she feels okay She denies any headaches or dizziness Denies any chest pains, no SOB No nausea/vomiting, no abdominal pain No change in bowel habits noted Denies any acute urinary symptoms Had her follow up labs done earlier today - to discuss her results Her mammogram was last done in August 2022 and she is scheduled to see Dr. 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 and pap smear next week Had her screening colonoscopy done last year - was recommended repeat colonoscopy in 5 years due to (+) tubular adenoma She would also like to get her flu shot today PFSH Medical History Obesity due to excess calories Atherosclerotic cardiovascular disease COVID-19 vaccine administered Colon cancer screening Family history of polyps in the colon Hypoglycemia after GI (gastrointestinal) surgery Postmenopausal bleeding Status post hysteroscopy (~06/11/13) Obesity (BMI 30-39.9) Depression Anxiety Insomnia Meralgia paresthetica Vitamin D deficiency Carpal tunnel syndrome of left wrist Osteoarthritis Obstructive sleep apnea Iron deficiency anemia Migraine Hyperlipidemia Diabetes mellitus Hypertension Surgical History H/O colonoscopy H/O gastric bypass (~02/2016) H/O melanoma excision (~2010) H/O endoscopy (~06/20/13) History of knee surgery (~01/30/13) S/P dilatation and curettage (~2011) History of carpal tunnel surgery H/O laparoscopy S/P myomectomy History of sleeve gastrectomy Family History Father Myocardial infarction Prostate cancer Mother Cervical cancer Ovarian cancer Mental health disorder Diabetes Alzheimer's dementia Sleep apnea Sister Ovarian cancer Maternal Aunt Colon cancer Social History Household Members: Children Housing: Apartment Alcohol intake: current Alcohol intake frequency: holidays/special occasions only Patient Tobacco Use Status: Former Tobacco user Tobacco use type: Cigarette e-Cigarette/Vaping Use: Never Used Second Hand Smoke Exposure: Yes Advance Directives Date on File: 01/18/17 service: No Current occupational status: disabled Current occupation: right handed Cognitive needs: No Hearing needs: No Vision needs: Yes (glasses) Female Reproductive History Menstrual Age of Menarche: 12 Questionnaire PHQ-9 Over the last 2 weeks, how often have you been bothered by any of the following problems? 1. Little interest or pleasure in doing things: several days 2. Feeling down, depressed, or hopeless: several days 3. Trouble falling or staying asleep, or sleeping too much: several days 4. Feeling tired or having little energy: several days 5. Poor appetite or overeating: several days 6. Feeling bad about yourself - or that you are a failure or have let yourself or your family down: several days 7. Trouble concentrating on things, such as reading the newspaper or watching television: not at all 8. Moving or speaking so slowly that other people could have noticed. Or the opposite - being so fidgety or restless that you have been moving around a lot more than usual: not at all 9. Thoughts that you would be better off or of hurting yourself in some way: not at all Total score: 6 Depression Screening Interpretation: Positive Depression Screening Follow-up: Existing condition and In treatment Depression Screening Done: Yes [id number] - PHQ-9 Billing: Yes Source: Developed by Drs. Gene Gar, Shanita Ivey, Jim Ta and colleagues, with an educational shabbir from [employer]. Thrive Questionnaire Date Thrive assessed: 12/02/22 I am a: Patient What is your living situation today?: I have a steady place to live Within the past 12 months, did the food you bought not last and you didn't have the money to get more?: Never true Within the past 12 months, did you worry whether your food would run out before you got money to buy more?: Never true Do you have trouble paying for medicines?: No Do you have trouble getting transportation to medical appointments?: No Do you have trouble paying your heating and electricity bill?: No Do you have trouble taking care of your child, family member or friend?: No Do you have trouble with day-to-day activities such as bathing, preparing meals, shopping, managing finances, etc.?: No Are you currently unemployed and looking for a job?: No Are you interested in more education?: No Please select the resources that you would like help with: None Currently or been in a relationship where the following occur: no concerns reported AUDIT C Alcohol Use Questionnaire (AUDIT-C) 1. How often do you have a drink containing alcohol?: Monthly or less 2. How many drinks containing alcohol do you have on a typical day when you are drinking?: 1 or 2 3. How often do you have six or more drinks on one occasion?: Never Total Score: 1 Score Reviewed/Action Taken: Yes DOTTY-7 AMB Questionnaire DOTTY-7 Date DOTTY - 7 assessed: 12/02/22 Feeling nervous, anxious, or on edge: 0 = Not at all Not being able to stop or control worryin = Not at all Worrying too much about different things: 0 = Not at all Trouble relaxin = Not at all Being so restless that it is hard to sit still: 0 = Not at all Becoming easily annoyed or irritable: 0 = Not at all Feeling afraid as if something awful might happen: 0 = Not at all Total DOTTY-7 score (0-4 normal; 5-9 mild; 10-14 moderate; 15-21 severe): 0 Source: Developed by Drs. Gene Gar, Shanita Ivey, Jim Ta and colleagues, with an educational shabbir from [employer]. Review of Systems Const Denies chills, Denies fatigue, Denies fever(s), Denies headache(s) and Denies malaise Eyes Denies blurry vision, Denies change in vision, Denies irritation and Denies itchy eyes ENT Denies dysphagia, Denies dizziness, Denies otalgia, Denies headache(s), Denies nasal congestion, Denies neck pain, Denies odynophagia, Denies sinus pain and Denies sore throat Card Denies chest pain, Denies rapid heart rate, Denies irregular heart rhythm, Denies palpitations and Denies dyspnea Resp Denies chest congestion, Denies cough, Denies dyspnea and Denies wheezing GI Denies abdominal pain, Denies bloating, Denies constipation, Denies dysphagia, Denies heartburn, Denies diarrhea, Denies nausea, Denies odynophagia and Denies vomiting Denies hematuria, Denies urinary frequency, Denies dysuria, Denies urinary incontinence and Denies urinary urgency Musc Denies back pain, Denies arthralgias, Denies joint swelling, Denies muscle weakness and Denies neck pain Skin/Breast Denies breast pain, Denies breast mass, Denies change in pigmentation, Denies lesions, Denies rash and Denies unusual bruising Neuro Denies dizziness, Denies headache(s) and Denies paresthesias Psych Denies anxiety and Denies depression Endo Denies fatigue and Denies palpitations Derrek/Lymph Denies easy bruising Aller/Immun Denies itchy eyes and Denies wheezing Physical exam (Primary Care) Vital Signs: Last Vital Signs Pulse 78 12/02/22 16:59 BP 136/80 12/02/22 16:59 Pulse Ox 99 12/02/22 16:59 Oxygen Delivery Method Room Air 12/02/22 16:59 BMI result Body Mass Index 34.3 Tobacco/Smoking Status: Tobacco use Status Tobacco use date assessed 12/02/22 12/02/22 17:07 Patient Tobacco Use Status Former Tobacco user 12/02/22 17:07 Tobacco use type Cigarette 12/02/22 17:07 e-Cigarette/Vaping Use Never Used 12/02/22 17:07 PHQ-9: PHQ-9 Score PHQ-9: Total score 6 12/02/22 17:25 Depression Screening Interpretation: Positive Depression Screening Follow-up: Existing condition and In treatment Thrive Assessment: Date of Thrive Assessment Date Thrive assessed 12/02/22 12/02/22 17:07 Currently or been in a relationship where the following occur: no concerns reported Const General: no acute distress, alert and awake Orientation/consciousness: patient oriented x3 HENMT Head: Yes normocephalic and Yes atraumatic Ears: external ears normal, TM's normal bilaterally and EAC's normal General nose exam: No nasal discharge present Face and sinus: Yes normal facial exam and Yes sinuses nontender Teeth and gingiva: dentition normal Throat: Yes posterior oropharynx normal and Yes tonsils normal (no TP congestion) Eyes Eyelids: Yes eyelids normal Conjunctivae: conjunctivae normal Pupils: Equal, round and reactive pupils present EOM: EOMs intact bilaterally Neck Neck: Yes no lymphadenopathy and Yes supple Thyroid: Thyroid normal Resp Auscultation: clear to auscultation bilaterally, no rales and no wheezes Cardio Rate: regular rate Rhythm: regular rhythm Heart sounds: no murmurs GI Palpation (GI): Soft to palpation, nontender and No hepatosplenomegaly present Auscultation: normal bowel sounds General: Yes no CVA tenderness Back/Spine/Pelvis Back: no CVA tenderness Thoracic/Lumbar Spine: thoracic and lumbar spine normal to inspection Skin Lesions: no lesions Rashes: no rashes Neuro General: patient oriented x3, moves all extremities, no focal motor deficits and CN's II-XI intact bilaterally Cranial nerves: Yes Equal, round and reactive pupils present Cognition (Neuro): normal cognition Gait exam (Neuro): Normal gait present Extrem General: Yes no clubbing, cyanosis or edema Office Procedures Flu Questionnaire Does the patient have a severe egg allergy?: No Does the patient have severe life threatening allergies?: No Does the patient have a fever or illness today?: No Has the patient ever had Guillain-[place] Syndrome?: No Has the patient ever had any past reaction to a flu shot?: No Immunizations flu vacc [id number] 6mos up(PF) 60 mcg(15 mcgx4)/0.5 mL IM syringe Performing Provider: Aubrey Dhaliwal MD Performing Location: [facility] Administered by: Otto Boykin on 12/02/22 17:25 Dose Route Admin Location Dispensed Lot Number Expiration Date NDC [employer] 0.5 mL IM Left Deltoid 0.5 mL [id number] 08/27/23 [id number] [email or web address] VIS Given Date VIS Provided VIS Publication Date 12/02/22 Single Vaccine 20 Eligibility Eligibility Date Funding Source Not [facility] Eligible 12/02/22 Private Results Reviewed Results Reviewed: Laboratory Tests 12/02/22 12/02/22 12/02/22 07:10 07:13 07:13 WBC 8.4 Hgb 13.4 Hct 42.0 Plt Count 207 Sodium 142 Potassium 4.7 Creatinine 0.79 Estimated GFR > 60 Fasting Glucose 162 H Hemoglobin A1c % 7.8 H Calcium 9.7 AST 17 ALT 29 Triglycerides 72 Cholesterol 230 H LDL Cholesterol, Calc 140 H HDL Cholesterol 76 25-OH Vitamin D Total 23.5 TSH 2.50 Ur Specific [place] 1.025 Urine Protein Negative Urine Glucose (UA) Negative Urine Blood Negative Microalb/Creat Ratio 6.5 Assessment and Plan Assessment & Plan (1) Annual physical exam: Code(s): Z00.00 - Encounter for general adult medical examination without abnormal findings Plan: Results of her labs done earlier today reviewed and discussed with patient She is up-to-date with all of her cancer screenings (2) Hyperlipidemia: Code(s): E78.5 - Hyperlipidemia, unspecified Qualifiers: Hyperlipidemia type: pure hypercholesterolemia Qualified Code(s): E78.00 - Pure hypercholesterolemia, unspecified Plan: Cautioned that her cholesterol numbers have all increased from previous Patient admits that she sometimes forgets to take her cholesterol medications - discussed that judging from her numbers, she is actually forgetting more than remembering and have emphasized that she needs to do a better job of taking her meds and improving her compliance or there is no point in keeping her on the medications Reinforced low cholesterol diet Continue Rosuvastatin 40 mg QD and Ezetimibe 10 mg QD Will recheck her labs and fasting lipids in 3 months for follow-up (3) Diabetes mellitus: Code(s): E11.9 - Type 2 diabetes mellitus without complications Qualifiers: Diabetes mellitus complication status: without complication Diabetes mellitus technician terminal and repeater insulin use: without technician terminal and repeater use Diabetes mellitus type: type 2 Qualified Code(s): E11.9 - Type 2 diabetes mellitus without complications Plan: Cautioned that her HgbA1c has also INCREASED to 7.8% on her labs done earlier today (was at 6.3% a few months ago) - goal is <7.0% Reinforced diabetic diet Continue Acarbose 50 mg TID for now Follow up with endocrinology as scheduled (4) Hypertension: Code(s): I10 - Essential (primary) hypertension Qualifiers: Hypertension type: essential hypertension Qualified Code(s): I10 - Essential (primary) hypertension Plan: Reinforced low sodium diet - goal is systolic BP of at least 130 mm or less Continue Lisinopril 10 mg QD and HCTZ 25 mg QD (5) Migraine: Code(s): G43.909 - Migraine, unspecified, not intractable, without status migrainosus Qualifiers: Intractability: not intractable Migraine type: unspecified Status migrainosus presence: without status migrainosus Qualified Code(s): G43.909 - Migraine, unspecified, not intractable, without status migrainosus Plan: Stable - follow up with neurology as scheduled Continue Amitriptyline 10 mg daily at bedtime for ROWE prophylaxis (6) Iron deficiency anemia: Code(s): D50.9 - Iron deficiency anemia, unspecified Qualifiers: Iron deficiency anemia type: inadequate dietary iron intake Qualified Code(s): D50.8 - Other iron deficiency anemias Plan: Corrected - H/H was normal at 13.4/42.0 on her labs done earlier today Will continue to monitor her CBC regularly (7) GERD (gastroesophageal reflux disease): Code(s): K21.9 - Gastro-esophageal reflux disease without esophagitis Qualifiers: Esophagitis presence: without esophagitis Qualified Code(s): K21.9 - Gastro-esophageal reflux disease without esophagitis Plan: Dietary restrictions reinforced Continue Lansoprazole 30 mg QD (8) Obstructive sleep apnea: Comment: uses CPAP Code(s): G47.33 - Obstructive sleep apnea (adult) (pediatric) Plan: Continue using her CPAP device when sleeping at night daily Repeat home sleep study showed (+) improvement in her sleep apnea - she now has mild KEVON requiring auto-CPAP mode of 5 to 15 cm pressure Follow up with Sleep Medicine as scheduled (9) Osteoarthritis: Code(s): M19.90 - Unspecified osteoarthritis, unspecified site Qualifiers: Osteoarthritis location: unspecified site Osteoarthritis type: primary Qualified Code(s): M19.91 - Primary osteoarthritis, unspecified site Plan: Continue Tylenol ER 650 mg every 8 hours as needed for pain Follow up with orthopedics as scheduled (10) Vitamin D deficiency: Code(s): E55.9 - Vitamin D deficiency, unspecified Plan: Improving - continue Vitamin D3 2000 units QD? (11) Meralgia paresthetica: Code(s): G57.10 - Meralgia paresthetica, unspecified lower limb Qualifiers: Laterality: right Qualified Code(s): G57.11 - Meralgia paresthetica, right lower limb Plan: EMG & NCV done by neurology last year came out mostly normal Follow up with pain management (Dr. Mercedes) as scheduled - has received a couple of injections (nerve block) already but states that they only help with her burning sensation but not her pain Was supposed to be set up for an MRI by pain management for further evaluation but states that she has not heard back from them yet about this being scheduled (12) Insomnia: Code(s): G47.00 - Insomnia, unspecified Qualifiers: Insomnia type: primary Qualified Code(s): F51.01 - Primary insomnia Plan: Sleep hygiene reinforced Continue Trazodone 50 mg Q HS PRN and Temazepam 30 mg Q HS PRN (13) Anxiety: Code(s): F41.9 - Anxiety disorder, unspecified Plan: Continue Clonazepam 1 mg Q HS and Hydroxyzine 25 mg BID PRN (14) Depression: Code(s): F32.9 - Major depressive disorder, single episode, unspecified Qualifiers: Active/Remission status: currently active Depression Type: major depressive disorder Major depression episode severity: unspecified Major depression recurrence: recurrent Qualified Code(s): F33.9 - Major depressive disorder, recurrent, unspecified Plan: Was on Quetiapine 100 mg QD previously but this was reportedly stopped by psychiatry at some point Follow up with psychiatry as scheduled (15) Obesity (BMI 30-39.9): Code(s): E66.9 - Obesity, unspecified Plan: Reinforced diet/exercise as tolerated/lose weight Plan Flu vaccine given today Follow up in 3 months Orders: Orders Complete Blood Count Auto Diff 3 Months I10 - Essential (primary) hypertension Hemoglobin A1c 3 Months E11.9 - Type 2 diabetes mellitus without complications TSH reflex Free T4 3 Months E78.00 - Pure hypercholesterolemia, unspecified UA CC w/rflx Micro + Cult 3 Months R30.0 - Dysuria Vitamin B12 and Folate 3 Months E53.8 - Deficiency of other specified B group vitamins Influenza [id number] Immunization Today Z23 - Encounter for immunization Comprehensive [place]. Panel Fast 3 Months E78.00 - Pure hypercholesterolemia, unspecified Lipid Panel 3 Months E78.00 - Pure hypercholesterolemia, unspecified Microalbumin, Random (w Creat) 3 Months E11.9 - Type 2 diabetes mellitus without complications Vitamin D 25-OH Total 3 Months E55.9 - Vitamin D deficiency, unspecified Coding Level of Care Code Est Pt Prev Care 40-64y([id number]) Diagnoses Annual physical exam Z00.00 Pure hypercholesterolemia E78.00 Hyperlipidemia type: pure hypercholesterolemia Type 2 diabetes mellitus without complication, without long-term current use of insulin E11.9 Diabetes mellitus complication status: without complication Diabetes mellitus technician terminal and repeater insulin use: without technician terminal and repeater use Diabetes mellitus type: type 2 Essential hypertension I10 Hypertension type: essential hypertension Migraine without status migrainosus, not intractable, unspecified migraine type G43.909 Intractability: not intractable Migraine type: unspecified Status migrainosus presence: without status migrainosus Iron deficiency anemia secondary to inadequate dietary iron intake D50.8 Iron deficiency anemia type: inadequate dietary iron intake Gastroesophageal reflux disease without esophagitis K21.9 Esophagitis presence: without esophagitis Obstructive sleep apnea G47.33 Primary osteoarthritis, unspecified site M19.91 Osteoarthritis location: unspecified site Osteoarthritis type: primary Vitamin D deficiency E55.9 Meralgia paresthetica of right side G57.11 Laterality: right Primary insomnia F51.01 Insomnia type: primary Anxiety F41.9 Episode of recurrent major depressive disorder, unspecified depression episode severity F33.9 Active/Remission status: currently active Depression Type: major depressive disorder Major depression episode severity: unspecified Major depression recurrence: recurrent Obesity (BMI 30-39.9) E66.9
== END 2022-12-02 17:25 | disposition home or self-care (01) ==
PROVIDERS: Visit Provider Internal Medicine
DX: Z23 Encounter for immunization (principal)
CPT/HCPCS: 90471; 90686; 99396

== ENCOUNTER 2022-12-06 15:32 | Outpatient (AMB) | payer OTHER, SELFPAY ==
--- NOTE | 2022-12-06 15:34 | MHC.OFFVIS ---
Intake Vital Signs 12/06/22 15:44 Height 5 ft 4 in Weight 202 lb 6 oz BMI 34.7 BP 174/79 H Blood Pressure Location Lt brachial Position Sitting Pulse 66 Intake Visit Reasons: 6 month follow-up breast exam Intake Note: Patient is seen in office for 6 month follow up visit, breast exam. Patient c/o: still feels a lump on the left breast, had a recent mammogram and ultrasound and lump was not visible. 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 Accompanied by: Self / Same As Patient Allergies cephalexin [From Keflex] Allergy (Mild, Verified 12/06/22 15:43) RASH Medication List - Last Reconciled 12/06/22 by Tam Christianson MD acarbose 100 mg PO TID acetaminophen ER (Mapap Arthritis Pain) 650 mg PO Q8H PRN 30 days blood pressure monitor As directed blood sugar diagnostic (FreeStyle Lite Strips) 1 strip miscellaneous TID 90 days blood-glucose meter (FreeStyle Lite Meter kit) As directed blood-glucose meter (FreeStyle Lite Meter kit) As directed calcium citrate-vitamin D3 315 mg-5 mcg (200 unit) (Calcium Citrate + D) 1 tab PO BID cholecalciferol (vitamin D3) 50 mcg PO DAILY 90 days clonazepam 1 mg PO BEDTIME PRN clonazepam 1 mg PO DAILY cyanocobalamin (vitamin B-12) PO DAILY diclofenac sodium 1% (Arthritis Pain (diclofenac)) 4 grams topical QID 30 days ezetimibe 10 mg PO DAILY fluticasone propionate 50 mcg/actuation 2 sprays intranasal DAILY hydrochlorothiazide 25 mg PO QAM lancets (FreeStyle Lancets) As directed 3 TIMES A DAY lansoprazole 30 mg PO BID 90 days linaclotide (Linzess) 290 mcg PO QAM 30 days lisinopril 20 mg PO DAILY multivitamin 1 tab PO DAILY [right wrist splint- carpal tunnel splint As directed] rosuvastatin 40 mg PO DAILY sucralfate 10 mL PO BID temazepam 30 mg PO BEDTIME PRN trazodone 50 mg PO DAILY valacyclovir 500 mg PO BID 3 days vitamin A 1 cap PO DAILY HPI HPI Comments History of Present Illness Details 57-year-old female patient presenting with complaints of a palpable right breast mass noted on self examination. This is been present for many years and was previously evaluated by Dr. Harper and decision made to continue observation. The mammogram 09/08/2022 revealed no suspicious findings in the region of the palpable abnormality (BI-RADS 1). Since her last visit she feels the lesion has not changed at all in size or symptoms. She denies any skin changes, nipple discharge. She is with 1 spontaneous AB. Family history is negative for breast cancer but is positive for ovarian cancer. Previous genetic testing was negative for genetic mutations. She also reports a soft tissue mass located in the right upper quadrant abdomen which also has not changed with does cause occasional discomfort when pressure is applied. [facility] Medical History Obesity due to excess calories Atherosclerotic cardiovascular disease COVID-19 vaccine administered Colon cancer screening Family history of polyps in the colon Hypoglycemia after GI (gastrointestinal) surgery Postmenopausal bleeding Status post hysteroscopy (~06/11/13) Obesity (BMI 30-39.9) Depression Anxiety Insomnia Meralgia paresthetica Vitamin D deficiency Carpal tunnel syndrome of left wrist Osteoarthritis Obstructive sleep apnea Iron deficiency anemia Migraine Hyperlipidemia Diabetes mellitus Hypertension Surgical History H/O colonoscopy H/O gastric bypass (~02/2016) H/O melanoma excision (~2010) H/O endoscopy (~06/20/13) History of knee surgery (~01/30/13) S/P dilatation and curettage (~2011) History of carpal tunnel surgery H/O laparoscopy S/P myomectomy History of sleeve gastrectomy Family History Father Myocardial infarction Prostate cancer Mother Cervical cancer Ovarian cancer Mental health disorder Diabetes Alzheimer's dementia Sleep apnea Sister Ovarian cancer Maternal Aunt Colon cancer Social History Household Members: Children Housing: Apartment Alcohol intake: current Alcohol intake frequency: holidays/special occasions only Patient Tobacco Use Status: Former Tobacco user Tobacco use type: Cigarette e-Cigarette/Vaping Use: Never Used Second Hand Smoke Exposure: Yes Advance Directives Date on File: 03/16/16 service: No Current occupational status: disabled Current occupation: right handed Cognitive needs: No Hearing needs: No Vision needs: Yes (glasses) Female Reproductive History Menstrual Age of Menarche: 12 Review of Systems Const Denies chills, Reports fatigue, Denies fever(s) and Denies headache(s) ENT Denies headache(s), Denies sinus pain and Denies sore throat Card Denies chest pain, Denies palpitations and Denies dyspnea Resp Denies cough and Denies dyspnea Denies difficulty voiding, Denies nocturia, Denies nipple discharge and Denies dysuria Skin/Breast Denies breast pain, Reports breast mass, Denies change in breast shape, Denies nipple discharge and Denies skin ulcer Neuro Denies headache(s) Endo Reports fatigue and Denies palpitations Physical Exam Vital Signs: Last Vital Signs Pulse 66 12/06/22 15:44 BP 174/79 H 12/06/22 15:44 BMI result Body Mass Index 34.7 Const General: no acute distress and well developed Nutritional Appearance: average body habitus Orientation/consciousness: patient oriented x3 Limitations: no limitations Chest Other: Right breast with a palpable superficial nodule located below the nipple-areolar complex at approximately the 9 date o'clock position. Findings appear consistent with a ductal dilatation. No overlying skin changes are appreciated and no nipple discharge can be expressed. Lesion is nontender to palpation. No other palpable masses are appreciated. No enlarged lymph nodes are appreciated. Left breast is within normal limits. Chest/axillae images: 1. Palpable nodule located below the nipple-areolar complex the best while sitting with AP pressure below the nipple. Lesion measures approximately 1 cm feels consistent with a dilated duct or lipoma. Resp Effort & Inspection: normal respiratory effort, no audible wheezes, no cough and no respiratory distress GI Other: Soft tissue mass noted in the right upper quadrant mobile within the subcutaneous tissue consistent with a lipoma measuring approximately 2 cm in diameter. No overlying skin changes are appreciated. Inspection: Yes normal to inspection Abdomen image: 1. Palpable lipoma right upper quadrant Skin General skin exam: no rashes or lesions noted Neuro General: patient oriented x3 Extrem General: Yes no clubbing, cyanosis or edema Assessment & Plan Assessment & Plan (1) Breast lump in female: Comment: Right breast 09:00 o'clock 0.5 cm in size 1 cm from the nipple Code(s): N63.0 - Unspecified lump in unspecified breast (2) Lipoma: Code(s): D17.9 - Benign lipomatous neoplasm, unspecified Qualifiers: Lipoma location: trunk Qualified Code(s): D17.1 - Benign lipomatous neoplasm of skin and subcutaneous tissue of trunk Plan 57-year-old female patient returning for re-evaluation of a palpable density in the right breast as noted above the 9 o'clock position. This is been present for many years and has not changed significantly. A mammogram and ultrasound performed on 09/06/2021 was negative for any suspicious findings with special attention at the palpable abnormality. Patient also has a lipoma in the right upper quadrant abdomen as noted above. Patient was once again given the option of either observation or excision of the palpable lesion. As the lesion is been present for many years and has not changed significantly this certainly could continue to be observed. She is welcome to call should she change her mind and wish to have the lesion excised at which time the lipoma in the right upper quadrant could also be excised at the same time. In either case she should follow-up in approximately 6 months for routine follow-up examination. Coding Level of Care Code Est Pt Level 3 (99148) Diagnoses Breast lump in female N63.0 Lipoma of torso D17.1 Lipoma location: trunk
[2022-12-06 15:44] VITALS: BP 174/79; PULSE 66; BMI 34.7
== END 2022-12-06 15:55 | disposition home or self-care (01) ==
PROVIDERS: PCP Internal Medicine; Visit Provider Surgery
DX: N63.0 Unspecified lump in unspecified breast (principal); D17.1 Benign lipomatous neoplasm of skin and subcutaneous tissue of trunk
CPT/HCPCS: 99213

== ENCOUNTER → 2022-12-06 15:32 | Outpatient (BNVA) | payer OTHER, SELFPAY | PROVIDERS: PCP Internal Medicine; Visit Provider Surgery | DX: D17.1 Benign lipomatous neoplasm of skin and subcutaneous tissue of trunk (principal) | CPT/HCPCS: 99212 ==

== ENCOUNTER 2022-12-07 07:16 | Outpatient (AMB) | payer OTHER, SELFPAY ==
[2022-12-07 07:22] VITALS: BMI 34.4
--- NOTE | 2022-12-07 07:22 | MHC.OFFVIS ---
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 Last co testing was in 2018 was negative, last ultrasound done in 2020 showed 1.8 cm myoma was is 3 mm endometrial stripe PFSH Medical History (Updated 12/07/22 @ 07:41 by Simba Lake MD) Postmenopausal bleeding Obesity due to excess calories Atherosclerotic cardiovascular disease COVID-19 vaccine administered Colon cancer screening Family history of polyps in the colon Hypoglycemia after GI (gastrointestinal) surgery Status post hysteroscopy (~06/11/13) Obesity (BMI 30-39.9) Depression Anxiety Insomnia Meralgia paresthetica Vitamin D deficiency Carpal tunnel syndrome of left wrist Osteoarthritis Obstructive sleep apnea Iron deficiency anemia Migraine Hyperlipidemia Diabetes mellitus Hypertension Surgical History H/O colonoscopy H/O gastric bypass (~02/2016) H/O melanoma excision (~2010) H/O endoscopy (~06/20/13) History of knee surgery (~01/30/13) S/P dilatation and curettage (~2011) History of carpal tunnel surgery H/O laparoscopy S/P myomectomy History of sleeve gastrectomy Family History Father Myocardial infarction Prostate cancer Mother Cervical cancer Ovarian cancer Mental health disorder Diabetes Alzheimer's dementia Sleep apnea Sister Ovarian cancer Maternal Aunt Colon cancer Social History Household Members: Children Housing: Apartment Alcohol intake: current Alcohol intake frequency: holidays/special occasions only Patient Tobacco Use Status: Former Tobacco user Tobacco use type: Cigarette e-Cigarette/Vaping Use: Never Used Second Hand Smoke Exposure: Yes Advance Directives Date on File: 03/16/16 service: No Current occupational status: disabled Current occupation: right handed Cognitive needs: No Hearing needs: No Vision needs: Yes (glasses) Female Reproductive History Menstrual Age of Menarche: 12 Review of Systems Const All systems reviewed & are unremarkable except as noted in HPI and below Physical Exam Vital Signs: BMI result Body Mass Index 34.4 General: Yes no CVA tenderness External Female Exam: normal external appearance and normal appearance of the urethra Speculum Exam - Vagina: normal appearance of the vagina, normal palpation, no lesions and no masses Speculum Exam - Cervix: normal appearance of the cervix, normal palpation, no lesions, no masses and nontender Bimanual exam- vagina & uterus: normal bimanual exam, normal palpation, uterine size normal, normal palpation, uterine shape normal, No Cervical tenderness present and non-tender Bimanual Exam- Adnexa, other: normal adnexae Back/Spine/Pelvis Back: no CVA tenderness Assessment & Plan Assessment & Plan (1) Postmenopausal bleeding: Code(s): N95.0 - Postmenopausal bleeding Plan: Discussed with the patient the differential diagnosis of post menopausal bleeding with normal pelvic exam including but not limited to, endometrial hyperplasia, cancer, polyps and other causes; co testing done, recommended ultrasound to measure the endometrial stripe; discussed with the patient that if the endometrial thickness is 4 mm or less the negative predictive value of endometrial pathology is 99%, otherwise If endometrial thickness is more than 4 mm will proceed with endometrial sampling versus hysteroscopy D&C polypectomy depending on the ultrasound findings. Instructed the patient to schedule an ultrasound follow-up appointment in 2 weeks. All questions answered, the patient verbalized understanding and agreed with the plan. Orders: Orders Pap Smear Today N95.0 - Postmenopausal bleeding Coding Level of Care Code Est Pt Level 3 (23063) Diagnoses Postmenopausal bleeding N95.0
== END 2022-12-07 07:41 | disposition home or self-care (01) ==
PROVIDERS: PCP Internal Medicine; Visit Provider Obstetrics & Gynecology
DX: N95.0 Postmenopausal bleeding (principal)
CPT/HCPCS: 99213

== ENCOUNTER 2022-12-07 07:16 | Outpatient (REF) | payer OTHER, SELFPAY ==
[2022-12-08 22:39] LABS: HPV mRNA E6/E7 rflx Not Detected (Not Detected)
== END 2022-12-07 07:17 | disposition home or self-care (01) ==
LOC: HO.LNP 07:16
PROVIDERS: PCP Internal Medicine; Visit Provider Obstetrics & Gynecology
DX: N95.0 Postmenopausal bleeding (principal); Z12.4 Encounter for screening for malignant neoplasm of cervix; Z11.51 Encounter for screening for human papillomavirus (HPV)
CPT/HCPCS: 87624; 88142; 99212

== ENCOUNTER 2022-12-20 15:43 | Outpatient (REF) | payer OTHER, SELFPAY ==
--- NOTE | ~2022-12-20 | US_ITS ---
EXAMINATION: US PELVIS CLINICAL INFORMATION: Postmenopausal bleeding COMPARISON: Pelvic ultrasound 10/11/2021. TECHNIQUE: Ultrasound of the pelvis is performed using both transabdominal and transvaginal transducers along with color Doppler. Transvaginal imaging is performed due to inadequate visualization transabdominally. FINDINGS: Uterus: The uterus is anteverted and measures 7.3 x 2.6 x 4.5 cm. The double wall endometrial thickness is 1 mm. The myometrium is heterogeneous. There is a 2 mm calcification in the fundus. Adnexa: Both ovaries are visualized. There is normal color flow to the adnexa. There is no ovarian torsion. There is no pelvic ascites or fluid collection. Right ovary measures 1.9 x 1.3 x 1.9 cm, 2.5 mL cm. The right ovary appears normal. The left ovary is not seen. US/US pelvic and transvaginal IMPRESSION: Heterogeneous myometrium without discrete mass. The endometrial stripe is not thickened.
== END 2022-12-20 15:44 | disposition home or self-care (01) ==
LOC: HO.US 15:43
PROVIDERS: PCP Internal Medicine; Visit Provider Obstetrics & Gynecology
DX: N95.0 Postmenopausal bleeding (principal)
CPT/HCPCS: 76830; 76856

== ENCOUNTER 2023-01-03 09:46 | Outpatient (AMB) | payer OTHER, SELFPAY ==
--- NOTE | 2023-01-03 09:47 | MHC.OFFVIS ---
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 No more episodes of vaginal bleeding. Pelvic ultrasound showed the following: Uterus: The uterus is anteverted and measures 7.3 x 2.6 x 4.5 cm. The double wall endometrial thickness is 1 mm. The myometrium is heterogeneous. There is a 2 mm calcification in the fundus. Adnexa: Both ovaries are visualized. There is normal color flow to the adnexa. There is no ovarian torsion. There is no pelvic ascites or fluid collection. Right ovary measures 1.9 x 1.3 x 1.9 cm, 2.5 mL cm. The right ovary appears normal. The left ovary is not seen. Last co testing was in 12/19 was negative PFSH Medical History Postmenopausal bleeding Obesity due to excess calories Atherosclerotic cardiovascular disease COVID-19 vaccine administered Colon cancer screening Family history of polyps in the colon Hypoglycemia after GI (gastrointestinal) surgery Status post hysteroscopy (~06/11/13) Obesity (BMI 30-39.9) Depression Anxiety Insomnia Meralgia paresthetica Vitamin D deficiency Carpal tunnel syndrome of left wrist Osteoarthritis Obstructive sleep apnea Iron deficiency anemia Migraine Hyperlipidemia Diabetes mellitus Hypertension Surgical History H/O colonoscopy H/O gastric bypass (~02/2016) H/O melanoma excision (~2010) H/O endoscopy (~06/20/13) History of knee surgery (~01/30/13) S/P dilatation and curettage (~2011) History of carpal tunnel surgery H/O laparoscopy S/P myomectomy History of sleeve gastrectomy Family History Father Myocardial infarction Prostate cancer Mother Cervical cancer Ovarian cancer Mental health disorder Diabetes Alzheimer's dementia Sleep apnea Sister Ovarian cancer Maternal Aunt Colon cancer Social History Household Members: Children Housing: Apartment Alcohol intake: current Alcohol intake frequency: holidays/special occasions only Patient Tobacco Use Status: Former Tobacco user Tobacco use type: Cigarette e-Cigarette/Vaping Use: Never Used Second Hand Smoke Exposure: Yes Advance Directives Date on File: 03/16/16 service: No Current occupational status: disabled Current occupation: right handed Cognitive needs: No Hearing needs: No Vision needs: Yes (glasses) Female Reproductive History Menstrual Age of Menarche: 12 Review of Systems Const All systems reviewed & are unremarkable except as noted in HPI and below Reports as per HPI and Reports no additional complaints GI Reports no additional complaints Reports no additional complaints Assessment & Plan Assessment & Plan (1) Postmenopausal bleeding: Code(s): N95.0 - Postmenopausal bleeding Plan: Discussed with the patient the results of the pelvic ultrasound showing an endometrial stripe thickness of 1 mm. Explained to the patient with an endometrial stripe of 4 mm &/or less, there is a high negative predictive value in detecting endometrial pathology including endometrial hyperplasia, polyps or malignancy. Therefore, there is no indication for endometrial sampling. Discussed with the patient the sensitivity, specificity, and positive and the negative predictive value of using ultrasound in detecting endometrial pathology. The patient was instructed to call if bleeding recurs, will proceed with endometrial sampling out endometrial pathology. All questions were answered and the patient verbalized understanding and agreed with the plan. Coding Level of Care Code Est Pt Level 3 (75739) Diagnoses Postmenopausal bleeding N95.0
[2023-01-03 09:49] VITALS: BP 120/72; BMI 34.4
== END 2023-01-03 09:58 | disposition home or self-care (01) ==
LOC: HO.HWS 09:46
PROVIDERS: PCP Internal Medicine; Visit Provider Obstetrics & Gynecology
DX: N95.0 Postmenopausal bleeding (principal)
CPT/HCPCS: 99213

== ENCOUNTER → 2023-01-03 09:46 | Outpatient (BNVA) | payer OTHER, SELFPAY | PROVIDERS: PCP Internal Medicine; Visit Provider Obstetrics & Gynecology | DX: N95.0 Postmenopausal bleeding (principal) | CPT/HCPCS: 99212 ==

== ENCOUNTER 2023-04-19 13:26 | Outpatient (AMB) | payer OTHER, SELFPAY ==
--- NOTE | 2023-04-19 13:29 | A.OFFVIS_ITS ---
Intake Vital Signs 04/19/23 13:31 Height 5 ft 4 in Weight 208 lb 12.444 oz BMI 35.8 BP 122/80 Blood Pressure Location Lt brachial Position Sitting Temp 97.6 F Temp Source Skin Intake Visit Reasons: OA Intake Note: Patient last seen 10/06/22 presents today for follow up. Reports lots of pain in all over, but worse in hands and ankles. Reports she follows with podiatry Dr Becerra and was told she has heel spurs. Has received bl ankles cortisone injections, which did not provide relief. She states she consulted with ortho Dr Parson's office and was told to continue to follow up with podiatry. 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 Accompanied by: Self / Same As Patient Allergies cephalexin [From Keflex] Allergy (Mild, Verified 04/19/23 13:36) RASH Medication List - Last Reconciled 04/19/23 by Adriana Chang MD acarbose 100 mg PO TID acetaminophen ER (Mapap Arthritis Pain) 650 mg PO Q8H PRN 30 days amitriptyline 10 mg PO BEDTIME 30 days blood pressure monitor As directed blood sugar diagnostic (FreeStyle Lite Strips) 1 strip miscellaneous TID 90 days blood-glucose meter (FreeStyle Lite Meter kit) As directed blood-glucose meter (FreeStyle Lite Meter kit) As directed calcium citrate-vitamin D3 315 mg-5 mcg (200 unit) (Calcium Citrate + D) 1 tab PO BID cholecalciferol (vitamin D3) 50 mcg PO DAILY 90 days clonazepam 1 mg PO BEDTIME PRN clonazepam 1 mg PO DAILY cyanocobalamin (vitamin B-12) PO DAILY diclofenac sodium 1% (Arthritis Pain (diclofenac)) 4 grams topical QID 30 days ezetimibe 10 mg PO DAILY fluticasone propionate 50 mcg/actuation 2 sprays intranasal DAILY hydrochlorothiazide 25 mg PO QAM lancets (FreeStyle Lancets) As directed 3 TIMES A DAY lansoprazole 30 mg PO BID linaclotide (Linzess) 290 mcg PO QAM 30 days lisinopril 20 mg PO DAILY multivitamin 1 tab PO DAILY [right wrist splint- carpal tunnel splint As directed] rosuvastatin 40 mg PO DAILY sucralfate 10 mL PO BID temazepam 30 mg PO BEDTIME PRN trazodone 50 mg PO DAILY valacyclovir 500 mg PO BID 3 days vitamin A 1 cap PO DAILY HPI HPI Comments History of Present Illness Details 57-year-old female with generalized oste oarthritis returns for follow- up. 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 Continues to have pain in the back of her right foot. He continues to have diffuse pain everywhere. The majority of the pain is in the right upper extremity including shoulder, forearm and hands. Patient has history of CPAP but does not use the machine regularly. Initial history: 56-year-old female presents for evaluation of right hand pain. Condition started about 3-4 weeks ago with pain in her right hand associated with radiating pain towards her medial epicondyle and the right shoulder & right arm. 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 She has difficulty making a fist due to the pain. She had a carpal tunnel surgery in that right hand a few years ago. She continues to have numbness and pain in the right anterolateral thigh area. She also has lower back pain radiating down her towards her right leg. She was offered an epidural injection in L5-S1 by pain management last year but patient refused. [facility] Medical History Postmenopausal bleeding Obesity due to excess calories Atherosclerotic cardiovascular disease COVID-19 vaccine administered Colon cancer screening Family history of polyps in the colon Hypoglycemia after GI (gastrointestinal) surgery Status post hysteroscopy (~06/11/13) Obesity (BMI 30-39.9) Depression Anxiety Insomnia Meralgia paresthetica Vitamin D deficiency Carpal tunnel syndrome of left wrist Osteoarthritis Obstructive sleep apnea Iron deficiency anemia Migraine Hyperlipidemia Diabetes mellitus Hypertension Surgical History H/O colonoscopy H/O gastric bypass (~02/2016) H/O melanoma excision (~2010) H/O endoscopy (~06/20/13) History of knee surgery (~01/30/13) S/P dilatation and curettage (~2011) History of carpal tunnel surgery H/O laparoscopy S/P myomectomy History of sleeve gastrectomy Family History Father Myocardial infarction Prostate cancer Mother Cervical cancer Ovarian cancer Mental health disorder Diabetes Alzheimer's dementia Sleep apnea Sister Ovarian cancer Maternal Aunt Colon cancer Social History Household Members: Children Housing: Apartment Alcohol intake: current Alcohol intake frequency: holidays/special occasions only Patient Tobacco Use Status: Former Tobacco user Tobacco use type: Cigarette e-Cigarette/Vaping Use: Never Used Second Hand Smoke Exposure: Yes Advance Directives Date on File: 03/16/16 service: No Current occupational status: disabled Current occupation: right handed Cognitive needs: No Hearing needs: No Vision needs: Yes (glasses) Female Reproductive History Menstrual Age of Menarche: 12 Review of Systems Musc Reports back pain and Reports arthralgias Physical Exam Vital Signs: Last Vital Signs Temp 97.6 F 04/19/23 13:31 BP 122/80 04/19/23 13:31 BMI result Body Mass Index 35.8 Const General: cooperative, healthy appearing and comfortable Limitations: no limitations HEENT Head: Yes normocephalic and Yes atraumatic Resp Effort & Inspection: normal respiratory effort and able to speak in complete sentences Auscultation: clear to auscultation bilaterally Skin General skin exam: no rashes or lesions noted Extrem Other: Right heel tenderness to palpation Multiple fibromyalgia tender points Assessment & Plan Assessment & Plan (1) Osteoarthritis: Code(s): M19.90 - Unspecified osteoarthritis, unspecified site Qualifiers: Osteoarthritis location: multiple joints Osteoarthritis type: primary Qualified Code(s): M15.9 - Polyosteoarthritis, unspecified Plan: This is a 57-year-old female with generalized osteoarthritis who presents for follow-up. Upon evaluation today patient also has an element of fibromyalgia. Discussed fibromyalgia. Discussed different treatment modalities. Patient follows up regularly with her psychiatrist and psychotherapist. I suggested using her CPAP regularly. Consider light exercises. Plan I spent 15 minutes reviewing patient's chart, evaluating patient, counseling patient and documenting in the chart Coding Level of Care Code Est Pt Level 3 (84702) Diagnoses Primary osteoarthritis involving multiple joints M15.9 Osteoarthritis location: multiple joints Osteoarthritis type: primary
[2023-04-19 13:31] VITALS: BP 122/80; TEMP 36.4; BMI 35.8
== END 2023-04-19 14:13 | disposition home or self-care (01) ==
PROVIDERS: PCP Internal Medicine; Visit Provider Student in an Organized Health Care Education/Training Program
DX: M15.9 Polyosteoarthritis, unspecified (principal)
CPT/HCPCS: 99213

== ENCOUNTER → 2023-04-19 13:26 | Outpatient (BNVA) | payer OTHER, SELFPAY | PROVIDERS: PCP Internal Medicine; Visit Provider Student in an Organized Health Care Education/Training Program | DX: M15.9 Polyosteoarthritis, unspecified (principal) | CPT/HCPCS: 99212 ==

== ENCOUNTER 2023-04-28 07:40 | Outpatient (REF) | payer OTHER, SELFPAY ==
[2023-04-28 08:02] LABS: MANUAL DIFF FLAG NO
[2023-04-28 08:09] LABS: Basophils Percent Auto 0.4 % (0-2); Eosinophils Absolute Auto 0.1 X10*3/uL (0.0-0.4); Eosinophils Percent Auto 1.6 % (0-4); Hematocrit 42.1 % (37.0-47.0); Hemoglobin 13.9 g/dl (12.0-16.0); Lymphocytes Absolute Auto 1.6 X10*3/uL (1.2-4.9); Lymphocytes Percent Auto 32.4 % (20-40); Mean Corpuscular Hemoglobin 27.6 pg (27.0-33.0); Mean Corpuscular Volume 83.5 fL (80.0-98.0); Mean Platelet Volume 10.2 fL (9.4-12.3); Monocytes Absolute Auto 0.3 X10*3/uL (0.1-1.2); Monocytes Percent Auto 5.1 % (2-11); Neutrophils Absolute Auto 3.1 x10*3/uL (2.0-8.3); Neutrophils Percent Auto 60.5 % (45-73); Platelet Count 245 X10*3/uL (160-400); Red Blood Count 5.04 X10*6/uL (4.20-5.50); Red Cell Distribution Width 13.8 % (11.0-16.0); White Blood Count 5.1 X10*3/uL (4.8-10.8)
[2023-04-28 08:21] LABS: Estimated Average Glucose 169 mg/dL; Hemoglobin A1c % 7.5 % (<6.0)
[2023-04-28 08:47] LABS: Alanine Aminotransferase 14 U/L (0-31); Albumin Level 4.3 g/dL (3.5-5.0); Alkaline Phosphatase 92 U/L (39-117); Anion Gap 13 (12-20); Aspartate Amino Transferase 16 U/L (5-31); Bilirubin Total 0.5 mg/dL (0.0-1.0); Blood Urea Nitrogen 14 mg/dL (9-16); Calcium 9.5 mg/dL (8.4-10.2); Carbon Dioxide 26 mmol/L (22-29); Chloride 105 mmol/L (96-108); Cholesterol 269 mg/dL (<200); Estimated Glomerular Filt Rate > 60; Glucose Fasting 168 mg/dL (60-99); HDL Cholesterol 57 mg/dL (>40); LDL Cholesterol Calculated 190 mg/dL (<100); Potassium 3.7 mmol/L (3.3-5.1); Sodium 140 mmol/L (135-145); Total Protein 7.8 g/dL (6.5-8.0); Triglycerides 112 mg/dL (<150)
[2023-04-28 08:54] LABS: Appearance Urine Cloudy; Color Urine Yellow; Glucose Urine UA Negative (Negative); Leukocyte Esterase Urine Large (3+) (Negative); Nitrite Urine Negative (Negative); Specific Gravity - Urine 1.015 (1.005-1.025); UMIC TRIGGER UACC YES; Urine Blood Negative (Negative); Urine Ketones Negative (Negative); Urine Protein Negative (Neg-Trace)
[2023-04-28 08:59] LABS: Bacteria Urine 3+ (None Seen); Hyaline Casts Urine 0-2 /LPF (0-2); RBC Urine 0-2 /HPF (0-2); UACC Culture Trigger YES; WBC Urine 21-50 /HPF (0-5)
[2023-04-28 09:11] LABS: TSH reflex Free T4 3.19 uIU/mL (0.32-4.0); Vitamin D 25-OH Total 13.5 ng/mL (>30)
[2023-04-28 09:16] LABS: Folate 10.5 ng/mL (> or = 4.0); Vitamin B12 247 pg/mL (200-900)
[2023-04-28 09:29] LABS: Creatinine Urine 106.95 mg/dL; Microalbum/Creatinine Ratio Ur 30.8 ug/mg cr (<30)
== END 2023-04-28 07:41 | disposition home or self-care (01) ==
LOC: HO.LAB 07:40
PROVIDERS: PCP Internal Medicine; Visit Provider Internal Medicine
DX: I10 Essential (primary) hypertension (principal); E11.9 Type 2 diabetes mellitus without complications; E78.00 Pure hypercholesterolemia, unspecified; E55.9 Vitamin D deficiency, unspecified; E53.8 Deficiency of other specified B group vitamins; R30.0 Dysuria
CPT/HCPCS: 36415; 80053; 80061; 81001; 82043; 82306; 82570; 82607; 82746; 83036; 84443; 85025; 87086

== ENCOUNTER 2023-05-05 13:52 | Outpatient (AMB) | payer OTHER, SELFPAY ==
--- NOTE | 2023-05-05 13:55 | MHC.PC.OV ---
Vital Signs 05/05/23 13:57 Height 5 ft 4 in Weight 206 lb 6 oz BMI 35.4 BP 140/70 H Blood Pressure Location Lt brachial Position Sitting Pulse 68 Pulse Source Pulse Oximeter Pulse Oximetry (%) 95 Oxygen Delivery Method Room Air Intake Visit Reasons: leg pain Intake Note: Patient is here to follow up on bilateral Leg pain. 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: No Buffer Machine: Not Required per policy Accompanied by: Self / Same As Patient Allergies cephalexin [From Keflex] Allergy (Mild, Verified 05/05/23 14:42) RASH Medication List - Last Reconciled 05/05/23 by Aubrey Dhaliwal MD acarbose 100 mg PO TID acetaminophen ER (Mapap Arthritis Pain) 650 mg PO Q8H PRN 30 days amitriptyline 10 mg PO BEDTIME 30 days blood pressure monitor As directed blood sugar diagnostic (FreeStyle Lite Strips) 1 strip miscellaneous TID 90 days blood-glucose meter (FreeStyle Lite Meter kit) As directed blood-glucose meter (FreeStyle Lite Meter kit) As directed calcium citrate-vitamin D3 315 mg-5 mcg (200 unit) (Calcium Citrate + D) 1 tab PO BID cholecalciferol (vitamin D3) 50 mcg PO DAILY 90 days clonazepam 1 mg PO DAILY cyanocobalamin (vitamin B-12) PO DAILY diclofenac sodium 1% (Arthritis Pain (diclofenac)) 4 grams topical QID 30 days ezetimibe 10 mg PO DAILY fluticasone propionate 50 mcg/actuation 2 sprays intranasal DAILY hydrochlorothiazide 25 mg PO QAM lancets (FreeStyle Lancets) As directed 3 TIMES A DAY lansoprazole 30 mg PO BID linaclotide (Linzess) 290 mcg PO QAM 30 days lisinopril 20 mg PO DAILY multivitamin 1 tab PO DAILY [right wrist splint- carpal tunnel splint As directed] rosuvastatin 40 mg PO DAILY sucralfate 10 mL PO BID temazepam 30 mg PO BEDTIME PRN trazodone 50 mg PO DAILY valacyclovir 500 mg PO BID 3 days vitamin A 1 cap PO DAILY Tobacco use date assessed: 05/05/23 Dental Screening Dental Screen Date: 05/05/23 Did you have a dental visit in the last 12 months?: Yes Did you have a dental problem in the last 6 months where you did not have access to dental care?: No Was dental information given to patient?: Patient has dentist HPI leg pain HPI Details Patient comes in today for her follow up visit States that she has been experiencing increased pain in both feet for a while now Has been seeing Dr. Becerra for above and was advised that she has plantar fasciitis States that she has received 3 separate injections already so far from Dr. Becerra but none of them helped Was advised reportedly by Dr. Becerra that the next step would be surgery but as he does not perform that type of surgery, she was advised to reach out to orthopedics or seek a referral to other podiatrists in the area who performs that type of surgery Patient states that she has contacted [facility] regarding this recently and was advised that they do not perform podiatric surgeries and she is in today to explore alternatives for this She denies any headaches or dizziness Denies any chest pains, no SOB No nausea/vomiting, no abdominal pain No change in bowel habits noted Had her follow up labs done last week - to discuss her results [facility] Medical History Postmenopausal bleeding Obesity due to excess calories Atherosclerotic cardiovascular disease COVID-19 vaccine administered Colon cancer screening Family history of polyps in the colon Hypoglycemia after GI (gastrointestinal) surgery Status post hysteroscopy (~06/11/13) Obesity (BMI 30-39.9) Depression Anxiety Insomnia Meralgia paresthetica Vitamin D deficiency Carpal tunnel syndrome of left wrist Osteoarthritis Obstructive sleep apnea Iron deficiency anemia Migraine Hyperlipidemia Diabetes mellitus Hypertension Surgical History H/O colonoscopy H/O gastric bypass (~02/2016) H/O melanoma excision (~2010) H/O endoscopy (~06/20/13) History of knee surgery (~01/30/13) S/P dilatation and curettage (~2011) History of carpal tunnel surgery H/O laparoscopy S/P myomectomy History of sleeve gastrectomy Family History Father Myocardial infarction Prostate cancer Mother Cervical cancer Ovarian cancer Mental health disorder Diabetes Alzheimer's dementia Sleep apnea Sister Ovarian cancer Maternal Aunt Colon cancer Social History Household Members: Children Housing: Apartment Alcohol intake: current Alcohol intake frequency: holidays/special occasions only Patient Tobacco Use Status: Former Tobacco user Tobacco use type: Cigarette e-Cigarette/Vaping Use: Never Used Second Hand Smoke Exposure: Yes Advance Directives Date on File: 03/16/16 service: No Current occupational status: disabled Current occupation: right handed Cognitive needs: No Hearing needs: No Vision needs: Yes (glasses) Female Reproductive History Menstrual Age of Menarche: 12 Questionnaire PHQ-9 Over the last 2 weeks, how often have you been bothered by any of the following problems? 1. Little interest or pleasure in doing things: more than half the days 2. Feeling down, depressed, or hopeless: nearly every day 3. Trouble falling or staying asleep, or sleeping too much: nearly every day 4. Feeling tired or having little energy: more than half the days 5. Poor appetite or overeating: nearly every day 6. Feeling bad about yourself - or that you are a failure or have let yourself or your family down: several days 7. Trouble concentrating on things, such as reading the newspaper or watching television: nearly every day 8. Moving or speaking so slowly that other people could have noticed. Or the opposite - being so fidgety or restless that you have been moving around a lot more than usual: not at all 9. Thoughts that you would be better off or of hurting yourself in some way: several days Total score: 18 Depression Screening Interpretation: Positive Depression Screening Follow-up: Existing condition and In treatment Depression Screening Done: Yes 96109 - PHQ-9 Billing: Yes Source: Developed by Drs. Gene Gar, Shanita Ivey, Jim Ta and colleagues, with an educational shabbir from [employer]. Thrive Questionnaire Date Thrive assessed: 05/05/23 I am a: Patient What is your living situation today?: I have a steady place to live Within the past 12 months, did the food you bought not last and you didn't have the money to get more?: Never true Within the past 12 months, did you worry whether your food would run out before you got money to buy more?: Never true Do you have trouble paying for medicines?: No Do you have trouble getting transportation to medical appointments?: No Do you have trouble paying your heating and electricity bill?: No Do you have trouble taking care of your child, family member or friend?: No Do you have trouble with day-to-day activities such as bathing, preparing meals, shopping, managing finances, etc.?: No Are you currently unemployed and looking for a job?: No Are you interested in more education?: No Currently or been in a relationship where the following occur: no concerns reported THRIVE Score: 0 AUDIT C Alcohol Use Questionnaire (AUDIT-C) 1. How often do you have a drink containing alcohol?: Monthly or less 2. How many drinks containing alcohol do you have on a typical day when you are drinking?: 1 or 2 Total Score: 1 Score Reviewed/Action Taken: Yes DOTTY-7 AMB Questionnaire DOTTY-7 Date DOTTY - 7 assessed: 05/05/23 Feeling nervous, anxious, or on edge: 1 = Several days Not being able to stop or control worryin = Several days Worrying too much about different things: 1 = Several days Trouble relaxin = More than half the days Being so restless that it is hard to sit still: 1 = Several days Becoming easily annoyed or irritable: 3 = Nearly every day Feeling afraid as if something awful might happen: 2 = More than half the days Total DOTTY-7 score (0-4 normal; 5-9 mild; 10-14 moderate; 15-21 severe): 11 Source: Developed by Drs. Gene Gar, Shanita Ivey, Jim Ta and colleagues, with an educational shabbir from [employer]. Review of Systems Const Denies chills, Denies fatigue, Denies fever(s) and Denies headache(s) ENT Denies dysphagia, Denies dizziness, Denies otalgia, Denies headache(s), Denies neck pain, Denies odynophagia and Denies sore throat Card Denies chest pain, Denies palpitations and Denies dyspnea Resp Denies cough and Denies dyspnea GI Denies abdominal pain, Denies constipation, Denies dysphagia, Denies heartburn, Denies diarrhea, Denies nausea, Denies odynophagia and Denies vomiting Denies difficulty voiding, Denies nocturia, Denies dysuria and Denies urinary urgency Musc Details: (+) chronic pain in both feet Denies back pain and Denies neck pain Skin/Breast Denies rash Neuro Denies dizziness and Denies headache(s) Endo Denies fatigue and Denies palpitations Physical exam (Primary Care) Vital Signs: Last Vital Signs Pulse 68 05/05/23 13:57 BP 140/70 H 05/05/23 13:57 Pulse Ox 95 05/05/23 13:57 Oxygen Delivery Method Room Air 05/05/23 13:57 BMI result Body Mass Index 35.4 Tobacco/Smoking Status: Tobacco use Status Tobacco use date assessed 05/05/23 05/05/23 14:06 Patient Tobacco Use Status Former Tobacco user 05/05/23 14:06 Tobacco use type Cigarette 05/05/23 14:06 e-Cigarette/Vaping Use Never Used 05/05/23 14:06 PHQ-9: PHQ-9 Score PHQ-9: Total score 18 05/05/23 14:06 Depression Screening Interpretation: Positive Depression Screening Follow-up: Existing condition and In treatment Thrive Assessment: Date of Thrive Assessment Date Thrive assessed 05/05/23 05/05/23 14:06 Currently or been in a relationship where the following occur: no concerns reported Const General: no acute distress and alert HENMT Ears: TM's normal bilaterally and EAC's normal Throat: Yes posterior oropharynx normal and Yes tonsils normal (no TP congestion) Neck Neck: Yes no lymphadenopathy and Yes supple Thyroid: Thyroid normal Resp Auscultation: clear to auscultation bilaterally, no rales and no wheezes Cardio Rate: regular rate Rhythm: regular rhythm Heart sounds: no murmurs GI Palpation (GI): Soft to palpation and nontender Auscultation: normal bowel sounds General: Yes no CVA tenderness Back/Spine/Pelvis Back: no CVA tenderness Skin Rashes: no rashes Extrem General: Yes no clubbing, cyanosis or edema Right lower extremity: foot Details: tenderness Location: of the plantar foot Location: proximally Left lower extremity: foot Details: tenderness Location: of the plantar foot Location: proximally Results Reviewed Results Reviewed: Laboratory Tests 04/28/23 04/28/23 04/28/23 07:47 07:51 07:59 WBC 5.1 Hgb 13.9 Hct 42.1 Plt Count 245 Sodium 140 Potassium 3.7 Creatinine 0.77 Estimated GFR > 60 Fasting Glucose 168 H Hemoglobin A1c % 7.5 H Calcium 9.5 AST 16 ALT 14 Triglycerides 112 Cholesterol 269 H LDL Cholesterol, Calc 190 H HDL Cholesterol 57 Vitamin B12 247 25-OH Vitamin D Total 13.5 L TSH Ur Specific [place] 1.015 Urine Protein Negative Urine Glucose (UA) Negative Urine Blood Negative Urine Nitrite Negative Ur Leukocyte Esterase Large (3+) H Microalb/Creat Ratio 30.8 H 04/28/23 07:59 WBC Hgb Hct Plt Count Sodium Potassium Creatinine Estimated GFR Fasting Glucose Hemoglobin A1c % Calcium AST ALT Triglycerides Cholesterol LDL Cholesterol, Calc HDL Cholesterol Vitamin B12 25-OH Vitamin D Total TSH 3.19 Ur Specific [place] Urine Protein Urine Glucose (UA) Urine Blood Urine Nitrite Ur Leukocyte Esterase Microalb/Creat Ratio Assessment and Plan Assessment & Plan (1) Plantar fasciitis, bilateral: Code(s): M72.2 - Plantar fascial fibromatosis Plan: Was seeing Dr. Becerra previously and had about 3 separate injections into her feet, which she states did not help She was recommended surgery as a last resort but was advised to see someone else as Dr. Becerra supposedly does not perform this type of surgery States that she checked with [facility] recently and was advised as well that they do not perform the requested for surgical procedure Will refer her to Dr. Granados for consideration for the required surgical procedure for her plantar fasciitis (2) Hyperlipidemia: Code(s): E78.5 - Hyperlipidemia, unspecified Qualifiers: Hyperlipidemia type: pure hypercholesterolemia Qualified Code(s): E78.00 - Pure hypercholesterolemia, unspecified Plan: Results of her labs done last week reviewed and discussed with patient - she is cautioned that her cholesterol numbers have all increased significantly from previous Patient admits that she forgets to take her cholesterol medication at times lately and has also not been compliant with her diet, as she has been feeling stressed out by her mother, who is suffering from worsening dementia with behavioral issues lately Reinforced low cholesterol diet Continue Rosuvastatin 40 mg QD and Ezetimibe 10 mg QD Will recheck her labs and fasting lipids in 3 months for follow-up (3) Diabetes mellitus: Code(s): E11.9 - Type 2 diabetes mellitus without complications Qualifiers: Diabetes mellitus type: type 2 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 Mackay) for follow up but has not been seen since Dr. Mackay left just over a year ago She has reportedly been advised that as her diabetes appears to be controlled, that she can just follow up with her PCP and check back with endocrinology only if her diabetes gets out of control again (4) Hypertension: Code(s): I10 - Essential (primary) hypertension Qualifiers: Hypertension type: essential hypertension Qualified Code(s): I10 - Essential (primary) hypertension Plan: Reinforced low sodium diet - goal is systolic BP of at least 130 mm or less Continue Lisinopril 10 mg QD and HCTZ 25 mg QD Patient is reminded to continue monitoring her blood pressure regularly (5) Migraine: Code(s): G43.909 - Migraine, unspecified, not intractable, without status migrainosus Qualifiers: Migraine type: unspecified Status migrainosus presence: without status migrainosus Intractability: not intractable Qualified Code(s): G43.909 - Migraine, unspecified, not intractable, without status migrainosus Plan: Stable - follow up with neurology as scheduled Continue Amitriptyline 10 mg daily at bedtime for ROWE prophylaxis (6) Iron deficiency anemia: Code(s): D50.9 - Iron deficiency anemia, unspecified Qualifiers: Iron deficiency anemia type: inadequate dietary iron intake Qualified Code(s): D50.8 - Other iron deficiency anemias Plan: Corrected - H/H was normal at 13.9/42.1 on her labs done last week Will continue to monitor her CBC regularly (7) GERD (gastroesophageal reflux disease): Code(s): K21.9 - Gastro-esophageal reflux disease without esophagitis Qualifiers: Esophagitis presence: without esophagitis Qualified Code(s): K21.9 - Gastro-esophageal reflux disease without esophagitis Plan: Dietary restrictions reinforced Continue Lansoprazole 30 mg QD (8) Obstructive sleep apnea: Comment: uses CPAP Code(s): G47.33 - Obstructive sleep apnea (adult) (pediatric) Plan: Continue using her CPAP device when sleeping at night daily Repeat home sleep study showed (+) improvement in her sleep apnea - she now has mild KEVON requiring auto-CPAP mode of 5 to 15 cm pressure Follow up with Sleep Medicine as scheduled (9) Osteoarthritis: Code(s): M19.90 - Unspecified osteoarthritis, unspecified site Qualifiers: Osteoarthritis location: unspecified site Osteoarthritis type: primary Qualified Code(s): M19.91 - Primary osteoarthritis, unspecified site Plan: Continue Tylenol ER 650 mg every 8 hours as needed for pain Follow up with orthopedics as scheduled (10) Vitamin D deficiency: Code(s): E55.9 - Vitamin D deficiency, unspecified Plan: Continue Vitamin D3 2000 units QD? She is advised that her Vitamin D level has dropped from before and she is low again on her recent labs (11) Meralgia paresthetica: Code(s): G57.10 - Meralgia paresthetica, unspecified lower limb Qualifiers: Laterality: right Qualified Code(s): G57.11 - Meralgia paresthetica, right lower limb Plan: EMG & NCV done by neurology last year came out mostly normal Follow up with pain management (Dr. Mercedes) as scheduled - has received a couple of injections (nerve block) already but states that they only help with her burning sensation but not her pain Was supposed to be set up for an MRI by pain management for further evaluation but states that she has not heard back from them about this since (12) Insomnia: Code(s): G47.00 - Insomnia, unspecified Qualifiers: Insomnia type: primary Qualified Code(s): F51.01 - Primary insomnia Plan: Sleep hygiene reinforced Continue Trazodone 50 mg Q HS PRN and Temazepam 30 mg Q HS PRN (13) Anxiety: Code(s): F41.9 - Anxiety disorder, unspecified Plan: Continue Clonazepam 1 mg Q HS and Hydroxyzine 25 mg BID PRN States that her mother's dementia and behavioral issues over the past few months have caused her anxiety to get a lot worse lately (14) Depression: Code(s): F32.9 - Major depressive disorder, single episode, unspecified Qualifiers: Depression Type: major depressive disorder Major depression recurrence: recurrent Active/Remission status: currently active Major depression episode severity: unspecified Qualified Code(s): F33.9 - Major depressive disorder, recurrent, unspecified Plan: Was on Quetiapine 100 mg QD previously but this was reportedly stopped by psychiatry at some point Follow up with psychiatry as scheduled (15) Obesity (BMI 30-39.9): Code(s): E66.9 - Obesity, unspecified Plan: Reinforced diet/exercise as tolerated/lose weight Plan Follow up in 3 months Orders: Orders Complete Blood Count Auto Diff 08/02/23 D64.9 - Anemia, unspecified Comprehensive [place]. Panel Fast 08/02/23 E78.00 - Pure hypercholesterolemia, unspecified Lipid Panel 08/02/23 E78.00 - Pure hypercholesterolemia, unspecified Microalbumin, Random (w Creat) 08/02/23 E11.9 - Type 2 diabetes mellitus without complications TSH reflex Free T4 08/02/23 E78.00 - Pure hypercholesterolemia, unspecified UA CC w/rflx Micro + Cult 08/02/23 R30.0 - Dysuria Vitamin D 25-OH Total 08/02/23 E55.9 - Vitamin D deficiency, unspecified Vitamin B12 and Folate 08/02/23 E53.8 - Deficiency of other specified B group vitamins Hemoglobin A1c 08/02/23 E11.9 - Type 2 diabetes mellitus without complications Referrals Podiatry Referral M72.2 - Plantar fascial fibromatosis Coding Level of Care Code Est Pt Level 4 (79244) Diagnoses Plantar fasciitis, bilateral M72.2 Pure hypercholesterolemia E78.00 Hyperlipidemia type: pure hypercholesterolemia Type 2 diabetes mellitus without complication, without long-term current use of insulin E11.9 Diabetes mellitus type: type 2 Diabetes mellitus alf insulin use: without marine oil terminal superintendent use Diabetes mellitus complication status: without complication Essential hypertension I10 Hypertension type: essential hypertension Migraine without status migrainosus, not intractable, unspecified migraine type G43.909 Migraine type: unspecified Status migrainosus presence: without status migrainosus Intractability: not intractable Iron deficiency anemia secondary to inadequate dietary iron intake D50.8 Iron deficiency anemia type: inadequate dietary iron intake Gastroesophageal reflux disease without esophagitis K21.9 Esophagitis presence: without esophagitis Obstructive sleep apnea G47.33 Primary osteoarthritis, unspecified site M19.91 Osteoarthritis location: unspecified site Osteoarthritis type: primary Vitamin D deficiency E55.9 Meralgia paresthetica of right side G57.11 Laterality: right Primary insomnia F51.01 Insomnia type: primary Anxiety F41.9 Episode of recurrent major depressive disorder, unspecified depression episode severity F33.9 Depression Type: major depressive disorder Major depression recurrence: recurrent Active/Remission status: currently active Major depression episode severity: unspecified Obesity (BMI 30-39.9) E66.9
[2023-05-05 13:57] VITALS: BP 140/70; PULSE 68; O2SAT 95; BMI 35.4
== END 2023-05-05 14:43 | disposition home or self-care (01) ==
PROVIDERS: PCP Internal Medicine; Visit Provider Internal Medicine
DX: E11.9 Type 2 diabetes mellitus without complications (principal); F33.9 Major depressive disorder, recurrent, unspecified; M72.2 Plantar fascial fibromatosis; E78.00 Pure hypercholesterolemia, unspecified; I10 Essential (primary) hypertension; G43.909 Migraine, unspecified, not intractable, without status migrainosus; D50.8 Other iron deficiency anemias; K21.9 Gastro-esophageal reflux disease without esophagitis; G47.33 Obstructive sleep apnea (adult) (pediatric); M19.91 Primary osteoarthritis, unspecified site; G57.11 Meralgia paresthetica, right lower limb; E55.9 Vitamin D deficiency, unspecified
CPT/HCPCS: 99214

== ENCOUNTER 2023-05-15 12:39 | Outpatient (AMB) | payer OTHER, SELFPAY ==
[2023-05-15 12:44] VITALS: BMI 35.8
--- NOTE | 2023-05-15 12:44 | A.OFFVIS_ITS ---
Intake VS Expanded 05/15/23 12:44 Height 5 ft 4 in Weight 208 lb 5.389 oz BMI 35.8 Intake Visit Reasons: T2DM/CONFIRMED Allergies cephalexin [From Keflex] Allergy (Mild, Verified 05/05/23 14:42) RASH HPI Nutrition Presentation Details Pt presents for medical nutrition therapy follow-up for type 2 diabetes Patient reports lately snacking on empty calorie foods) chips, pastries and the like) mostly at nighttime. Patient is concerned about her elevated cholesterol reports wanting to work on improving cholesterol level via diet. Physical activity: None additional to daily life activities Most Recent Diabetes Results: Microalb/Creat Ratio 30.8 ug/mg cr (<30) H 04/28/23 Cholesterol 269 mg/dL (<200) H 04/28/23 HDL Cholesterol 57 mg/dL (>40) 04/28/23 Triglycerides 112 mg/dL (<150) 04/28/23 Creatinine 0.77 mg/dL (0.5-1.4) 04/28/23 Blood Urea Nitrogen 14 mg/dL (9-16) 04/28/23 Sodium 140 mmol/L (135-145) 04/28/23 Potassium 3.7 mmol/L (3.3-5.1) 04/28/23 Chloride 105 mmol/L (96-108) 04/28/23 Carbon Dioxide 26 mmol/L (22-29) 04/28/23 Calcium 9.5 mg/dL (8.4-10.2) 04/28/23 AST 16 U/L (5-31) 04/28/23 ALT 14 U/L (0-31) 04/28/23 Total Protein 7.8 g/dL (6.5-8.0) 04/28/23 Albumin 4.3 g/dL (3.5-5.0) 04/28/23 [facility] Medical History Postmenopausal bleeding Obesity due to excess calories Atherosclerotic cardiovascular disease COVID-19 vaccine administered Colon cancer screening Family history of polyps in the colon Hypoglycemia after GI (gastrointestinal) surgery Status post hysteroscopy (~06/11/13) Obesity (BMI 30-39.9) Depression Anxiety Insomnia Meralgia paresthetica Vitamin D deficiency Carpal tunnel syndrome of left wrist Osteoarthritis Obstructive sleep apnea Iron deficiency anemia Migraine Hyperlipidemia Diabetes mellitus Hypertension Surgical History H/O colonoscopy H/O gastric bypass (~02/2016) H/O melanoma excision (~2010) H/O endoscopy (~06/20/13) History of knee surgery (~01/30/13) S/P dilatation and curettage (~2011) History of carpal tunnel surgery H/O laparoscopy S/P myomectomy History of sleeve gastrectomy Family History Father Myocardial infarction Prostate cancer Mother Cervical cancer Ovarian cancer Mental health disorder Diabetes Alzheimer's dementia Sleep apnea Sister Ovarian cancer Maternal Aunt Colon cancer Social History Household Members: Children Housing: Apartment Alcohol intake: current Alcohol intake frequency: holidays/special occasions only Patient Tobacco Use Status: Former Tobacco user Tobacco use type: Cigarette e-Cigarette/Vaping Use: Never Used Second Hand Smoke Exposure: Yes Advance Directives Date on File: 03/16/16 service: No Current occupational status: disabled Current occupation: right handed Cognitive needs: No Hearing needs: No Vision needs: Yes (glasses) Female Reproductive History Menstrual Age of Menarche: 12 Assessment & Plan Assessment & Plan (1) Type 2 diabetes mellitus with unspecified complications: Comment: Hemoglobin A1c at 7.8% on November 2022, at 7.5% on April 2023 Code(s): E11.8 - Type 2 diabetes mellitus with unspecified complications Plan: Educate Pt on 1500 - 1600 carrie meal plan ? Used wt : 90 kg(on 10/2021), (95 kg on 04/2022) (89 g 08/11/2022), 94 kg (April 2023) Est kcal as per MSJ: 1802 (40% carb, 30% fat/prot) Est fluid needs: 2250 ml/d (25 ml/kg bw) Rec fiber: increase to 8-10 g per day and gradually increase to 25 g/d or as tolerated Rec Na: < 1500 mg /d Educate patient on: (R= Reviewed, V = verbalizes understanding N/R= Needs review N/A= not applicable) * Difference between complex carbohydrates and simple carbohydrates, role of fiber: R V * Differences between fats (MUFA/PUFA/saturated fats, trans fats) and food sources of various fats: R * How to interpret food labels: R, V * Healthy Plate method concept: R V * Physical activity: benefits and precaution: R * Low cholesterol food options : R Patient Instructions: Reduce on empty calorie snack which are high in fat and cholesterol (chips, pastries, fritter and the like) choose unsalted nuts, fruit in place of bread, yogurt instead of ice cream, choose carrots/raw peppers instead of chips Drink water with infused fruit flavor include fish at least twice a week Engage in walking, even if 10-20 minute 3 times a week for relaxation Monitor your blood sugar for self assessment (ADA fasting blood sugar recommendation between 80 and 130 and 2 hours after a meal between 80 and 180 unless otherwise specified by her doctor) Coding Level of Care Code Nutr Indiv Subseq (70198) Diagnoses Type 2 diabetes mellitus with unspecified complications E11.8 Time Spent (min) 30
== END 2023-05-15 13:07 | disposition home or self-care (01) ==
PROVIDERS: PCP Internal Medicine; Visit Provider Dietitian, Registered
DX: E11.8 Type 2 diabetes mellitus with unspecified complications (principal)

== ENCOUNTER → 2023-05-15 12:39 | Outpatient (BNVA) | payer OTHER, SELFPAY | PROVIDERS: PCP Internal Medicine; Visit Provider Dietitian, Registered | DX: E11.9 Type 2 diabetes mellitus without complications (principal); I10 Essential (primary) hypertension | CPT/HCPCS: 97803 ==

== ENCOUNTER 2023-06-22 08:48 | Outpatient (AMB) | payer OTHER, SELFPAY ==
[2023-06-22 09:02] VITALS: BP 130/80; BMI 35.6
--- NOTE | 2023-06-22 09:02 | MHC.OFFVIS ---
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 In addition the patient is complaining of a new onset right vulvar lesion Last co testing in 12/19 was negative PFSH Medical History Postmenopausal bleeding Obesity due to excess calories Atherosclerotic cardiovascular disease COVID-19 vaccine administered Colon cancer screening Family history of polyps in the colon Hypoglycemia after GI (gastrointestinal) surgery Status post hysteroscopy (~06/11/13) Obesity (BMI 30-39.9) Depression Anxiety Insomnia Meralgia paresthetica Vitamin D deficiency Carpal tunnel syndrome of left wrist Osteoarthritis Obstructive sleep apnea Iron deficiency anemia Migraine Hyperlipidemia Diabetes mellitus Hypertension Surgical History H/O colonoscopy H/O gastric bypass (~02/2016) H/O melanoma excision (~2010) H/O endoscopy (~06/20/13) History of knee surgery (~01/30/13) S/P dilatation and curettage (~2011) History of carpal tunnel surgery H/O laparoscopy S/P myomectomy History of sleeve gastrectomy Family History Father Myocardial infarction Prostate cancer Mother Cervical cancer Ovarian cancer Mental health disorder Diabetes Alzheimer's dementia Sleep apnea Sister Ovarian cancer Maternal Aunt Colon cancer Social History Household Members: Children Housing: Apartment Alcohol intake: current Alcohol intake frequency: holidays/special occasions only Patient Tobacco Use Status: Former Tobacco user Tobacco use type: Cigarette e-Cigarette/Vaping Use: Never Used Second Hand Smoke Exposure: Yes Advance Directives Date on File: 03/16/16 service: No Current occupational status: disabled Current occupation: right handed Cognitive needs: No Hearing needs: No Vision needs: Yes (glasses) Female Reproductive History Menstrual Age of Menarche: 12 Review of Systems Const All systems reviewed & are unremarkable except as noted in HPI and below Physical Exam Vital Signs: BMI result Body Mass Index 35.6 General: Yes no CVA tenderness External Female Exam: normal appearance of the urethra and other (Right labia majora 0.2 cm lesion) Speculum Exam - Vagina: normal appearance of the vagina, normal palpation, no lesions and no masses Speculum Exam - Cervix: normal appearance of the cervix, normal palpation, no lesions, no masses and nontender Bimanual exam- vagina & uterus: normal bimanual exam, normal palpation, uterine size normal, normal palpation, uterine shape normal, No Cervical tenderness present and non-tender Bimanual Exam- Adnexa, other: normal adnexae Back/Spine/Pelvis Back: no CVA tenderness Assessment & Plan Assessment & Plan (1) Postmenopausal bleeding: Code(s): N95.0 - Postmenopausal bleeding Category: Medical Plan: Discussed with the patient the differential diagnosis of post menopausal bleeding with normal pelvic exam including but not limited to, endometrial hyperplasia, cancer, polyps and other causes; recommended pelvic ultrasound and proceed with endometrial sampling via EMB versus hysteroscopy D&C polypectomy depending on the ultrasound findings. Instructed the patient to schedule an ultrasound follow-up appointment in 2 weeks. All questions answered, the patient verbalized understanding and agreed with the plan. (2) Vulvar lesion: Code(s): N90.89 - Other specified noninflammatory disorders of vulva and perineum Category: Medical Plan: Discussed with the patient the finding on pelvic exam showing a right vulvar 0.3 cm lesion, recommended vulvar lesion excision. Instructions given the patient to schedule a 2 week appointment for vulvar lesion excision Orders: Orders US pelvic and transvaginal Today N95.0 - Postmenopausal bleeding Coding Level of Care Code Est Pt Level 3 (39775) Diagnoses Postmenopausal bleeding N95.0 Vulvar lesion N90.89
== END 2023-06-22 09:56 | disposition home or self-care (01) ==
PROVIDERS: PCP Internal Medicine; Visit Provider Obstetrics & Gynecology
DX: N95.0 Postmenopausal bleeding (principal); N90.89 Other specified noninflammatory disorders of vulva and perineum
CPT/HCPCS: 99213

== ENCOUNTER → 2023-06-22 08:48 | Outpatient (BNVA) | payer OTHER, SELFPAY | PROVIDERS: PCP Internal Medicine; Visit Provider Obstetrics & Gynecology | DX: N95.0 Postmenopausal bleeding (principal); N90.89 Other specified noninflammatory disorders of vulva and perineum | CPT/HCPCS: 99212 ==

== ENCOUNTER 2023-06-28 13:11 | Outpatient (REF) | payer OTHER, SELFPAY ==
--- NOTE | ~2023-06-28 | US_ITS ---
EXAMINATION: US PELVIS CLINICAL INFORMATION: Postmenopausal bleeding. COMPARISON: Pelvic ultrasound 12/20/2022. TECHNIQUE: Ultrasound of the pelvis is performed using both transabdominal and transvaginal transducers along with Doppler. Transvaginal imaging is performed due to inadequate visualization transabdominally. FINDINGS: Uterus: The uterus is anteverted and measures 5.4 x 3.1 x 3.1 cm. No discrete uterine mass. The double wall endometrial thickness is 2 mm. Adnexa: Neither ovary is seen. No free fluid. US/US pelvic and transvaginal IMPRESSION: The endometrial stripe measures 2 mm.
== END 2023-06-28 13:12 | disposition home or self-care (01) ==
LOC: HO.US 13:11
PROVIDERS: PCP Internal Medicine; Visit Provider Obstetrics & Gynecology
DX: N95.0 Postmenopausal bleeding (principal)
CPT/HCPCS: 76830; 76856

== ENCOUNTER 2023-07-11 13:27 | Outpatient (AMB) | payer OTHER, SELFPAY ==
--- NOTE | 2023-07-11 13:31 | A.OFFVIS_ITS ---
Vital Signs 07/11/23 13:39 Height 5 ft 4 in Weight 210 lb 4 oz BMI 36.1 BP 196/91 H Blood Pressure Location Lt brachial Position Sitting Pulse 78 Intake Visit Reasons: 6 month follow-up breast exam Intake Note: Patient is seen in office for 6 month follow up visit, breast exam. 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 Accompanied by: Self / Same As Patient Allergies cephalexin [From Keflex] Allergy (Mild, Verified 07/11/23 13:32) RASH Medication List - Last Reconciled 07/11/23 by Tam Christianson MD acarbose 100 mg PO TID acetaminophen ER (Mapap Arthritis Pain) 650 mg PO Q8H PRN 30 days amitriptyline 10 mg PO BEDTIME 30 days blood pressure monitor As directed blood sugar diagnostic (FreeStyle Lite Strips) 1 strip miscellaneous TID 90 days blood-glucose meter (FreeStyle Lite Meter kit) As directed blood-glucose meter (FreeStyle Lite Meter kit) As directed calcium citrate-vitamin D3 315 mg-5 mcg (200 unit) (Calcium Citrate + D) 1 tab PO BID cholecalciferol (vitamin D3) 50 mcg PO DAILY 90 days clonazepam 1 mg PO DAILY cyanocobalamin (vitamin B-12) 1,000 mcg PO DAILY 90 days diclofenac sodium 1% (Arthritis Pain (diclofenac)) 4 grams topical QID 30 days ezetimibe 10 mg PO DAILY fluticasone propionate 50 mcg/actuation 2 sprays intranasal DAILY hydrochlorothiazide 25 mg PO QAM lancets (FreeStyle Lancets) As directed 3 TIMES A DAY lansoprazole 30 mg PO BID linaclotide (Linzess) 290 mcg PO QAM 30 days lisinopril 20 mg PO DAILY multivitamin 1 tab PO DAILY [right wrist splint- carpal tunnel splint As directed] rosuvastatin 40 mg PO DAILY sucralfate 10 mL PO BID temazepam 30 mg PO BEDTIME PRN trazodone 50 mg PO DAILY valacyclovir 500 mg PO BID 3 days vitamin A 1 cap PO DAILY HPI Comments Details: 57-year-old female patient presenting with complaints of a palpable right breast mass noted on self examination. This is been present for many years and was previously evaluated by Dr. Harper and decision made to continue observation. The mammogram 09/08/2022 revealed no suspicious findings in the region of the palpable abnormality (BI-RADS 1). Since her last visit she feels the lesion has not changed at all in size or symptoms. She denies any skin changes, nipple discharge. She is with 1 spontaneous AB. Family history is negative for breast cancer but is positive for ovarian cancer. Previous genetic testing was negative for genetic mutations. She again reports a soft tissue mass located in the right upper quadrant abdomen which also has not changed with does cause occasional discomfort when pressure is applied. [facility] Medical History Postmenopausal bleeding Obesity due to excess calories Atherosclerotic cardiovascular disease COVID-19 vaccine administered Colon cancer screening Family history of polyps in the colon Hypoglycemia after GI (gastrointestinal) surgery Status post hysteroscopy (~06/11/13) Obesity (BMI 30-39.9) Depression Anxiety Insomnia Meralgia paresthetica Vitamin D deficiency Carpal tunnel syndrome of left wrist Osteoarthritis Obstructive sleep apnea Iron deficiency anemia Migraine Hyperlipidemia Diabetes mellitus Hypertension Surgical History H/O colonoscopy H/O gastric bypass (~02/2016) H/O melanoma excision (~2010) H/O endoscopy (~06/20/13) History of knee surgery (~01/30/13) S/P dilatation and curettage (~2011) History of carpal tunnel surgery H/O laparoscopy S/P myomectomy History of sleeve gastrectomy Family History Father Myocardial infarction Prostate cancer Mother Cervical cancer Ovarian cancer Mental health disorder Diabetes Alzheimer's dementia Sleep apnea Sister Ovarian cancer Maternal Aunt Colon cancer Social History Household Members: Children Housing: Apartment Alcohol intake: current Alcohol intake frequency: holidays/special occasions only Patient Tobacco Use Status: Former Tobacco user Tobacco use type: Cigarette e-Cigarette/Vaping Use: Never Used Second Hand Smoke Exposure: Yes Advance Directives Date on File: 03/16/16 service: No Current occupational status: disabled Current occupation: right handed Cognitive needs: No Hearing needs: No Vision needs: Yes (glasses) Female Reproductive History Menstrual Age of Menarche: 12 Review of Systems Const Denies chills, Reports fatigue, Denies fever(s) and Denies headache(s) ENT Denies headache(s), Denies sinus pain and Denies sore throat Card Denies chest pain, Denies palpitations and Denies dyspnea Resp Denies cough and Denies dyspnea Denies difficulty voiding, Denies nocturia, Denies nipple discharge and Denies dysuria Skin/Breast Denies breast pain, Reports breast mass, Denies change in breast shape, Denies nipple discharge and Denies skin ulcer Neuro Denies headache(s) Endo Reports fatigue and Denies palpitations Physical Exam Const General: no acute distress and well developed Nutritional Appearance: average body habitus Orientation/consciousness: patient oriented x3 Limitations: no limitations Chest Other: Right breast with a palpable superficial nodule located below the nipple-areolar complex at approximately the 9 date o'clock position. Findings appear consistent with a ductal dilatation. No overlying skin changes are appreciated and no nipple discharge can be expressed. Lesion is nontender to palpation. No other palpable masses are appreciated. No enlarged lymph nodes are appreciated. Left breast is within normal limits. Resp Effort & Inspection: normal respiratory effort, no audible wheezes, no cough and no respiratory distress GI Other: Soft tissue mass noted in the right upper quadrant mobile within the s ubcutaneous tissue consistent with a lipoma measuring approximately 2 cm in diameter. No overlying skin changes are appreciated. Inspection: Yes normal to inspection Skin General skin exam: no rashes or lesions noted Neuro General: patient oriented x3 Extrem General: Yes no clubbing, cyanosis or edema Assessment & Plan Assessment & Plan (1) Breast lump in female: Comment: Right breast 09:00 o'clock 0.5 cm in size 1 cm from the nipple Code(s): N63.0 - Unspecified lump in unspecified breast Category: Medical (2) Lipoma: Code(s): D17.9 - Benign lipomatous neoplasm, unspecified Category: Medical Qualifiers: Lipoma location: trunk Qualified Code(s): D17.1 - Benign lipomatous neoplasm of skin and subcutaneous tissue of trunk Plan 57-year-old female patient returning for re-evaluation of a palpable density in the right breast as noted above the 9 o'clock position. This is been present for many years and has not changed significantly. A mammogram and ultrasound performed on 09/06/2021 was negative for any suspicious findings with special attention at the palpable abnormality. Patient also has a lipoma in the right upper quadrant abdomen as noted above. Patient was once again given the option of either observation or excision of the palpable lesion. As the lesion is been present for many years and has not changed significantly this certainly could continue to be observed. She is welcome to call should she change her mind and wish to have the lesion excised at which time the lipoma in the right upper quadrant could also be excised at the same time. She should follow up as needed for any changes on self examination or if she becomes symptomatic. She should continue with routine mammogram screening. Coding Level of Care Code Est Pt Level 3 (23966) Diagnoses Breast lump in female N63.0 Lipoma of torso D17.1 Lipoma location: trunk
[2023-07-11 13:39] VITALS: BP 196/91; PULSE 78; BMI 36.1
== END 2023-07-11 13:45 | disposition home or self-care (01) ==
PROVIDERS: PCP Internal Medicine; Visit Provider Surgery
DX: N63.10 Unspecified lump in the right breast, unspecified quadrant (principal); D17.1 Benign lipomatous neoplasm of skin and subcutaneous tissue of trunk
CPT/HCPCS: 99213

== ENCOUNTER → 2023-07-11 13:27 | Outpatient (BNVA) | payer OTHER, SELFPAY | PROVIDERS: PCP Internal Medicine; Visit Provider Surgery | DX: N63.15 Unspecified lump in the right breast, overlapping quadrants (principal); D17.1 Benign lipomatous neoplasm of skin and subcutaneous tissue of trunk | CPT/HCPCS: 99212 ==

== ENCOUNTER 2023-08-07 08:35 | Outpatient (REF) | payer OTHER, SELFPAY ==
[2023-08-07 09:00] LABS: MANUAL DIFF FLAG NO
[2023-08-07 09:13] LABS: Basophils Percent Auto 0.4 % (0-2); Eosinophils Absolute Auto 0.1 X10*3/uL (0.0-0.4); Eosinophils Percent Auto 1.5 % (0-4); Hematocrit 40.5 % (37.0-47.0); Hemoglobin 13.1 g/dl (12.0-16.0); Imm Gran Abs Auto 0.02 X10*3/uL (0.00-0.03); Imm Gran Pct Auto 0.4 % (0.0-0.4); Lymphocytes Absolute Auto 1.5 X10*3/uL (1.2-4.9); Lymphocytes Percent Auto 31.7 % (20-40); Mean Corpuscular HGB Conc 32.3 g/dl (31.0-35.0); Mean Corpuscular Hemoglobin 27.3 pg (27.0-33.0); Mean Corpuscular Volume 84.4 fL (80.0-98.0); Mean Platelet Volume 10.1 fL (9.4-12.3); Monocytes Absolute Auto 0.4 X10*3/uL (0.1-1.2); Neutrophils Absolute Auto 2.8 x10*3/uL (2.0-8.3); Platelet Count 228 X10*3/uL (160-400); Red Cell Distribution Width 14.6 % (11.0-16.0); White Blood Count 4.8 X10*3/uL (4.8-10.8)
[2023-08-07 09:24] LABS: Estimated Average Glucose 171 mg/dL; Hemoglobin A1c % 7.6 % (<6.0)
[2023-08-07 10:39] LABS: Alanine Aminotransferase 36 U/L (0-31); Albumin Level 4.4 g/dL (3.5-5.0); Alkaline Phosphatase 94 U/L (39-117); Anion Gap 9 (12-20); Aspartate Amino Transferase 31 U/L (5-31); Bilirubin Total 0.5 mg/dL (0.0-1.0); Blood Urea Nitrogen 17 mg/dL (9-16); Calcium 9.7 mg/dL (8.4-10.2); Carbon Dioxide 30 mmol/L (22-29); Chloride 107 mmol/L (96-108); Cholesterol 132 mg/dL (<200); Estimated Glomerular Filt Rate > 60; Glucose Fasting 156 mg/dL (60-99); HDL Cholesterol 48 mg/dL (>40); LDL Cholesterol Calculated 73 mg/dL (<100); Potassium 4.2 mmol/L (3.3-5.1); Sodium 142 mmol/L (135-145); Total Protein 7.7 g/dL (6.5-8.0); Triglycerides 59 mg/dL (<150)
[2023-08-07 10:55] LABS: Vitamin D 25-OH Total 17.6 ng/mL (>30)
[2023-08-07 11:11] LABS: Folate 13.4 ng/mL (> or = 4.0); Vitamin B12 351 pg/mL (200-900)
[2023-08-07 11:25] LABS: Appearance Urine Cloudy; Color Urine Yellow; Glucose Urine UA Negative (Negative); Leukocyte Esterase Urine Moderate (2+) (Negative); Nitrite Urine Negative (Negative); PH 5.5 (5.0-9.0); Specific Gravity - Urine 1.025 (1.005-1.025); UMIC TRIGGER UACC YES; Urine Blood Negative (Negative); Urine Ketones Negative (Negative); Urine Protein Negative (Neg-Trace)
[2023-08-07 11:27] LABS: Bacteria Urine Trace (None Seen); Hyaline Casts Urine 0-2 /LPF (0-2); RBC Urine 0-2 /HPF (0-2); UACC Culture Trigger YES; WBC Urine 21-50 /HPF (0-5)
[2023-08-07 12:14] LABS: Creatinine Urine 167.88 mg/dL; Microalbum/Creatinine Ratio Ur 10.7 ug/mg cr (<30)
== END 2023-08-07 08:36 | disposition home or self-care (01) ==
LOC: HO.LAB 08:35
PROVIDERS: PCP Internal Medicine; Visit Provider Internal Medicine
DX: E11.9 Type 2 diabetes mellitus without complications (principal); D64.9 Anemia, unspecified; E53.8 Deficiency of other specified B group vitamins; E55.9 Vitamin D deficiency, unspecified; E78.00 Pure hypercholesterolemia, unspecified; N95.0 Postmenopausal bleeding; N90.89 Other specified noninflammatory disorders of vulva and perineum; R30.0 Dysuria
CPT/HCPCS: 36415; 56605; 80053; 80061; 81001; 82043; 82306; 82570; 82607; 82746; 83036; 84443; 85025; 87086; 99212

== ENCOUNTER 2023-08-07 10:59 | Outpatient (AMB) | payer OTHER, SELFPAY ==
--- NOTE | 2023-08-07 11:03 | A.OFFVIS_ITS ---
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 No discrete uterine mass. The double wall endometrial thickness is 2 mm. Adnexa: Neither ovary is seen. No free fluid. [facility] Medical History (Updated 08/07/23 @ 11:15 by Simba Lake MD) Postmenopausal bleeding Obesity due to excess calories Atherosclerotic cardiovascular disease COVID-19 vaccine administered Colon cancer screening Family history of polyps in the colon Hypoglycemia after GI (gastrointestinal) surgery Status post hysteroscopy (~06/11/13) Obesity (BMI 30-39.9) Depression Anxiety Insomnia Meralgia paresthetica Vitamin D deficiency Carpal tunnel syndrome of left wrist Osteoarthritis Obstructive sleep apnea Iron deficiency anemia Migraine Hyperlipidemia Diabetes mellitus Hypertension Surgical History H/O colonoscopy H/O gastric bypass (~02/2016) H/O melanoma excision (~2010) H/O endoscopy (~06/20/13) History of knee surgery (~01/30/13) S/P dilatation and curettage (~2011) History of carpal tunnel surgery H/O laparoscopy S/P myomectomy History of sleeve gastrectomy Family History Father Myocardial infarction Prostate cancer Mother Cervical cancer Ovarian cancer Mental health disorder Diabetes Alzheimer's dementia Sleep apnea Sister Ovarian cancer Maternal Aunt Colon cancer Social History Household Members: Children Housing: Apartment Alcohol intake: current Alcohol intake frequency: holidays/special occasions only Patient Tobacco Use Status: Former Tobacco user Tobacco use type: Cigarette e-Cigarette/Vaping Use: Never Used Second Hand Smoke Exposure: Yes Advance Directives Date on File: 03/16/16 Patient : No service: No Current occupational status: disabled Current occupation: right handed Cognitive needs: No Hearing needs: No Vision needs: Yes (glasses) Female Reproductive History Menstrual Age of Menarche: 12 Date of last menstrual period: 12/26/19 Total pregnancies: 2 Full term: 2 Review of Systems Card Reports as per HPI and Reports no additional complaints Resp Reports as per HPI and Reports no additional complaints GI Reports as per HPI and Reports no additional complaints Reports as per HPI Physical Exam Vital Signs: Last Vital Signs BP 124/80 08/07/23 11:07 BMI result Body Mass Index 35.9 Const General: cooperative, healthy appearing and comfortable Resp Effort & Inspection: normal respiratory effort Auscultation: clear to auscultation bilaterally Percussion: percussion normal Cardio Palpation: normal PMI Rate: regular rate Rhythm: regular rhythm Heart sounds: no murmurs and no rubs Peripheral pulses: Peripheral pulses 2+ throughout GI Inspection: Yes normal to inspection Palpation (GI): Soft to palpation, nontender, no guarding, not rigid and No hepatosplenomegaly present Percussion: Yes normal to percussion Auscultation: normal bowel sounds Rectal Exam - Female: deferred 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 Preop dx: Right labia majora lesion Op: Right labia majora lesion excision Post op: Same Anesthesia: Lidocaine 1% 3cc used Procedure: Using betadine the area was scrubbed and draped in the usual manner. 3 cc of lidocaine was used for anesthesia at the Right labia majora lesion area ; using scissors and pickup the Right labia majora lesion was excised. Pressure was used for hemostasis. The patient tolerated the procedure well. Discharge Instructions: The patient was instructed to schedule an appointment in 2 weeks for follow-up and to call if temp>100.4, area of the biopsy redness or pain, nausea/vomiting. This note was generated with a voice recognition program. Some errors may have been overlooked during the review of this note. Sometimes these errors may affect the content or meaning of a given sentence. [id number] of Vulva/Perineum Procedure code (CPT) selection complete Assessment & Plan Assessment & Plan (1) Postmenopausal bleeding: Comment: Multiple episodes Endometrial thickness 2 mm by ultrasound Code(s): N95.0 - Postmenopausal bleeding Category: Medical Plan: Discussed with the patient the pelvic ultrasound findings, the endometrial stripe thickenss measured by ultrasound was less than 4mm. The negative predictive value, positive predictive value, Sensitivity, specificity of using ultrasound measurement of endometrial stripe to detecting endometrial pathology including hyperplasia , polyp or cancer were discussed with the patient. Since the patient had multiple episodes of postmenopausal bleeding, I recommended to the patient that the next step is an endometrial sampling via hysteroscopy D&C possible polypectomy versus endometrial biopsy to r/o endometrial pathology including hyperplasia or cancer. All the pros and cons risks and benefits of each approach were discussed with the patient, endometrial biopsy being less invasive, office procedure with less sensitivity and inability diagnose a polyp and removal versus hysteroscopy done under anesthesia more invasive more sensitive to endometrial cancer and possibility of diagnosing and endometrial polyp with the possibility of polypectomy. All questions were answered pt verbalized understanding and decided to proceed with hysteroscopy D&C possible polypectomy/myomectomy. Discussed with the patient the procedure , all benefits and risks including but not limited to inability to complete the procedure , insufficient endometrial tissue for a complete evaluation of the endometrial cavity , bleeding, infection, possible need for blood transfusion with all its risk ( HIV,syphilis, Hepatitis, anaphylaxis shock, others..), injury to bladder, rectum, possible need for laparoscopy/laparotomy or hysterectomy. The patient verbalized understanding and signed the consent. Instructions given the patient to stay NPO after midnight the day prior to the procedure and to take only the specific medication (s) discussed the morning of the surgical procedure and to schedule a 2 week postoperative appointment (2) Vulvar lesion: Code(s): N90.89 - Other specified noninflammatory disorders of vulva and perineum Category: Medical Plan: Recommended excisional biopsy of her vulvar lesion. Procedure done, see procedure note. Orders: Orders AMB BAND SAW OPERATOR Biopsy Today N90.89 - Other specified noninflammatory disorders of vulva and perineum Coding Level of Care Code Est Pt Level 3 (52600) Procedure Only Diagnoses Postmenopausal bleeding N95.0 Vulvar lesion N90.89 CPT Codes BAND SAW OPERATOR Biopsy - CPT: 89025-Odaqph of Vulva/Perineum ([id number])
[2023-08-07 11:07] VITALS: BP 124/80; BMI 35.9
== END 2023-08-07 11:44 | disposition home or self-care (01) ==
LOC: HO.HWS 10:59
PROVIDERS: PCP Internal Medicine; Visit Provider Obstetrics & Gynecology
DX: N95.0 Postmenopausal bleeding (principal); N90.89 Other specified noninflammatory disorders of vulva and perineum
CPT/HCPCS: 56605; 99213

== ENCOUNTER 2023-08-07 11:45 | Outpatient (REF) | payer OTHER, SELFPAY | END 2023-08-07 11:46 | disposition home or self-care (01) | LOC: HO.LNP 11:45 | PROVIDERS: Visit Provider Obstetrics & Gynecology | DX: N90.89 Other specified noninflammatory disorders of vulva and perineum (principal); E55.9 Vitamin D deficiency, unspecified; R30.0 Dysuria; E78.00 Pure hypercholesterolemia, unspecified; E11.9 Type 2 diabetes mellitus without complications | CPT/HCPCS: 88305; 88312 ==

== ENCOUNTER 2023-08-14 15:34 | Outpatient (AMB) | payer OTHER, SELFPAY ==
--- NOTE | 2023-08-14 15:52 | MHC.PC.OV ---
Vital Signs 08/14/23 15:53 Height 5 ft 4 in Weight 206 lb 6 oz BMI 35.4 BP 128/78 Blood Pressure Location Lt brachial Position Sitting Intake Visit Reasons: 3mth f/u Intake Note: Patient is here to follow up on DM, HTN, KEVON, HLD. 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 Home Assessments: Not Required per policy Accompanied by: Self / Same As Patient Allergies cephalexin [From Keflex] Allergy (Mild, Verified 08/18/23 13:09) RASH Medication List - Last Reconciled 08/14/23 by Aubrey Dhaliwal MD acarbose 100 mg PO TID acetaminophen ER (Mapap Arthritis Pain) 650 mg PO Q8H PRN 30 days amitriptyline 10 mg PO BEDTIME 30 days blood pressure monitor As directed blood sugar diagnostic (FreeStyle Lite Strips) 1 strip miscellaneous TID 90 days blood-glucose meter (FreeStyle Lite Meter kit) As directed blood-glucose meter (FreeStyle Lite Meter kit) As directed calcium citrate-vitamin D3 315 mg-5 mcg (200 unit) (Calcium Citrate + D) 1 tab PO BID cholecalciferol (vitamin D3) 50 mcg PO DAILY 90 days clonazepam 1 mg PO DAILY cyanocobalamin (vitamin B-12) 1,000 mcg PO DAILY 90 days diclofenac sodium 1% (Arthritis Pain (diclofenac)) 4 grams topical QID 30 days ezetimibe 10 mg PO DAILY fluticasone propionate 50 mcg/actuation 2 sprays intranasal DAILY hydrochlorothiazide 25 mg PO QAM lancets (FreeStyle Lancets) As directed 3 TIMES A DAY lansoprazole 30 mg PO BID linaclotide (Linzess) 290 mcg PO QAM 30 days lisinopril 20 mg PO DAILY multivitamin 1 tab PO DAILY [right wrist splint- carpal tunnel splint As directed] rosuvastatin 40 mg PO DAILY sucralfate 10 mL PO BID temazepam 30 mg PO BEDTIME PRN trazodone 50 mg PO DAILY valacyclovir 500 mg PO BID 3 days vitamin A 1 cap PO DAILY Tobacco use date assessed: 05/05/23 Dental Screening Dental Screen Date: 05/05/23 HPI 3mth f/u HPI Details Patient comes in today for her follow up visit States that she continues to experience increased pain over her lower back, over both knees and over multiple joints and 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 Kelly recently retired from active practice and she is currently looking for a new psychiatric provider States that she feels okay otherwise and denies any headadches or dizziness Denies any chest pains, no increased SOB No nausea/vomiting, no abdominal pain No change in bowel habits noted Had her follow up labs done last week - to discuss her results [facility] Medical History (Updated 08/30/23 @ 10:53 by Simba Lake MD) Plantar fasciitis Obesity due to excess calories Atherosclerotic cardiovascular disease COVID-19 vaccine administered Colon cancer screening Family history of polyps in the colon Hypoglycemia after GI (gastrointestinal) surgery Postmenopausal bleeding Status post hysteroscopy (~06/11/13) Obesity (BMI 30-39.9) Depression Anxiety Insomnia Meralgia paresthetica Vitamin D deficiency Carpal tunnel syndrome of left wrist Osteoarthritis Obstructive sleep apnea Iron deficiency anemia Migraine Hyperlipidemia Diabetes mellitus Hypertension Surgical History H/O colonoscopy H/O melanoma excision (~2010) H/O endoscopy (~06/20/13) History of knee surgery (~01/30/13) S/P dilatation and curettage (~2011) History of carpal tunnel surgery H/O laparoscopy S/P myomectomy History of sleeve gastrectomy Family History Father Myocardial infarction Prostate cancer Mother Cervical cancer Ovarian cancer Mental health disorder Diabetes Alzheimer's dementia Sleep apnea Sister Ovarian cancer Maternal Aunt Colon cancer Social History Household Members: Children Housing: Apartment Alcohol intake: current Alcohol intake frequency: holidays/special occasions only Patient Tobacco Use Status: Former Tobacco user Tobacco use type: Cigarette e-Cigarette/Vaping Use: Never Used Second Hand Smoke Exposure: Yes Advance Directives Date on File: 03/16/16 service: No Current occupational status: disabled Current occupation: right handed Cognitive needs: No Hearing needs: No Vision needs: Yes (glasses) Female Reproductive History Menstrual Age of Menarche: 12 Questionnaire Thrive Questionnaire Date Thrive assessed: 05/05/23 DOTTY-7 AMB Questionnaire DOTTY-7 Date DOTTY - 7 assessed: 05/05/23 Source: Developed by Drs. Gene Gar, Shanita Ivey, Jim Ta and colleagues, with an educational shabbir from [employer]. Review of Systems Const Denies chills, Denies fatigue, Denies fever(s) and Denies headache(s) ENT Denies dysphagia, Denies dizziness, Denies otalgia, Denies headache(s), Denies neck pain, Denies odynophagia and Denies sore throat Card Denies chest pain, Denies palpitations and Denies dyspnea Resp Denies cough and Denies dyspnea GI Denies abdominal pain, Denies constipation, Denies dysphagia, Denies heartburn, Denies diarrhea, Denies nausea, Denies odynophagia and Denies vomiting Denies difficulty voiding, Denies nocturia, Denies dysuria and Denies urinary urgency Musc Details: (+) chronic pain in both feet Reports back pain (over her lower back - chronic and increasing lately), Reports arthralgias (involving multiple joints but especially over both knees) and Denies neck pain Skin/Breast Denies rash Neuro Denies dizziness and Denies headache(s) Endo Denies fatigue and Denies palpitations Physical exam (Primary Care) Vital Signs: Last Vital Signs BP 128/78 08/14/23 15:53 BMI result Body Mass Index 35.4 Tobacco/Smoking Status: Tobacco use Status Tobacco use date assessed 05/05/23 08/14/23 15:57 Patient Tobacco Use Status Former Tobacco user 08/14/23 15:57 Tobacco use type Cigarette 08/14/23 15:57 e-Cigarette/Vaping Use Never Used 08/14/23 15:57 Thrive Assessment: Date of Thrive Assessment Date Thrive assessed 05/05/23 08/14/23 15:57 Const General: no acute distress and alert HENMT Ears: TM's normal bilaterally and EAC's normal Throat: Yes posterior oropharynx normal and Yes tonsils normal (no TP congestion) Neck Neck: Yes no lymphadenopathy and Yes supple Thyroid: Thyroid normal Resp Auscultation: clear to auscultation bilaterally, no rales and no wheezes Cardio Rate: regular rate Rhythm: regular rhythm Heart sounds: no murmurs GI Palpation (GI): Soft to palpation and nontender Auscultation: normal bowel sounds General: Yes no CVA tenderness Back/Spine/Pelvis Back: no CVA tenderness Thoracic/Lumbar Spine: lumbar spinal tenderness Skin Rashes: no rashes Extrem General: Yes no clubbing, cyanosis or edema Right lower extremity: knee Details: tenderness; no swelling and foot Details: tenderness Location: of the plantar foot Location: proximally Left lower extremity: knee Details: tenderness; no swelling and foot Details: tenderness Location: of the plantar foot Location: proximally Results Reviewed Results Reviewed: Laboratory Tests 08/07/23 08/07/23 08:55 09:00 WBC 4.8 Hgb 13.1 Hct 40.5 Plt Count 228 Sodium 142 Potassium 4.2 Creatinine 0.78 Estimated GFR > 60 Fasting Glucose 156 H Hemoglobin A1c % 7.6 H Calcium 9.7 AST 31 ALT 36 H Triglycerides 59 Cholesterol 132 LDL Cholesterol, Calc 73 HDL Cholesterol 48 Vitamin B12 351 25-OH Vitamin D Total 17.6 L TSH 0.90 Ur Specific [place] 1.025 Urine Protein Negative Urine Glucose (UA) Negative Urine Blood Negative Urine Nitrite Negative Ur Leukocyte Esterase Moderate (2+) H Microalb/Creat Ratio 10.7 Assessment and Plan Assessment & Plan (1) Hyperlipidemia: Code(s): E78.5 - Hyperlipidemia, unspecified Qualifiers: Hyperlipidemia type: pure hypercholesterolemia Qualified Code(s): E78.00 - Pure hypercholesterolemia, unspecified Plan: Results of her labs done last week reviewed and discussed with patient - her cholesterol numbers have all improved significantly from previous Reinforced low cholesterol diet Continue Rosuvastatin 40 mg QD and Ezetimibe 10 mg QD Will recheck her labs and fasting lipids in 3 months for follow-up (2) Diabetes mellitus: Code(s): E11.9 - Type 2 diabetes mellitus without complications Qualifiers: Diabetes mellitus type: type 2 Diabetes mellitus detention insulin use: 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 Mackay) for follow up but has not been seen since Dr. Mackay left just over a year ago She has reportedly been advised that as her diabetes appears to be controlled, that she can just follow up with her PCP and check back with endocrinology only if her diabetes gets out of control again (3) Hypertension: Code(s): I10 - Essential (primary) hypertension Qualifiers: Hypertension type: essential hypertension Qualified Code(s): I10 - Essential (primary) hypertension Plan: Reinforced low sodium diet - goal is systolic BP of at least 130 mm or less Continue Lisinopril 10 mg QD and HCTZ 25 mg QD Patient is reminded to continue monitoring her blood pressure regularly (4) Migraine: Code(s): G43.909 - Migraine, unspecified, not intractable, without status migrainosus Qualifiers: Migraine type: unspecified Status migrainosus presence: without status migrainosus Intractability: not intractable Qualified Code(s): G43.909 - Migraine, unspecified, not intractable, without status migrainosus Plan: Stable - follow up with neurology as scheduled Continue Amitriptyline 10 mg daily at bedtime for ROWE prophylaxis (5) Plantar fasciitis, bilateral: Code(s): M72.2 - Plantar fascial fibromatosis Plan: Was seeing Dr. Becerra previously and had about 3 separate injections into her feet, which she states did not help She was recommended surgery as a last resort but was advised to see someone else as Dr. Becerra supposedly does not perform this type of surgery States that she checked with [facility] recently and was advised as well that they do not perform the requested for surgical procedure She was referred to Dr. Granados at [facility] for the required surgical procedure for her plantar fasciitis if appropriate (6) Iron deficiency anemia: Code(s): D50.9 - Iron deficiency anemia, unspecified Qualifiers: Iron deficiency anemia type: inadequate dietary iron intake Qualified Code(s): D50.8 - Other iron deficiency anemias Plan: Corrected - H/H remained normal at 13.1/40.5 on her labs done last week Will continue to monitor her CBC regularly (7) GERD (gastroesophageal reflux disease): Code(s): K21.9 - Gastro-esophageal reflux disease without esophagitis Qualifiers: Esophagitis presence: without esophagitis Qualified Code(s): K21.9 - Gastro-esophageal reflux disease without esophagitis Plan: Dietary restrictions reinforced Continue Lansoprazole 30 mg QD (8) Obstructive sleep apnea: Comment: uses CPAP Code(s): G47.33 - Obstructive sleep apnea (adult) (pediatric) Plan: Continue using her CPAP device when sleeping at night daily Repeat home sleep study showed (+) improvement in her sleep apnea - she now has mild KEVON requiring auto-CPAP mode of 5 to 15 cm pressure Follow up with Sleep Medicine as scheduled (9) Osteoarthritis: Code(s): M19.90 - Unspecified osteoarthritis, unspecified site Qualifiers: Osteoarthritis location: unspecified site Osteoarthritis type: primary Qualified Code(s): M19.91 - Primary osteoarthritis, unspecified site Plan: Continue Tylenol ER 650 mg every 8 hours as needed for pain Follow up with orthopedics as scheduled States that she has been experiencing increased joint pains lately, especially over her knees and lower back, and is looking to get more [employer] 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 (11) Meralgia paresthetica: Code(s): G57.10 - Meralgia paresthetica, unspecified lower limb Qualifiers: Laterality: right Qualified Code(s): G57.11 - Meralgia paresthetica, right lower limb Plan: EMG & NCV done by neurology last year came out mostly normal Follow up with pain management (Dr. Mercedes) as scheduled - has received a couple of injections (nerve block) already but states that they only help with her burning sensation but not her pain Was supposed to be set up for an MRI by pain management for further evaluation but states that she has not heard back from them about this since (12) Insomnia: Code(s): G47.00 - Insomnia, unspecified Qualifiers: Insomnia type: primary Qualified Code(s): F51.01 - Primary insomnia Plan: Sleep hygiene reinforced Continue Trazodone 50 mg Q HS PRN and Temazepam 30 mg Q HS PRN (13) Anxiety: Code(s): F41.9 - Anxiety disorder, unspecified Plan: Continue Clonazepam 1 mg Q HS and Hydroxyzine 25 mg BID PRN States that her mother's dementia and behavioral issues over the past few months have caused her anxiety to get a lot worse lately (14) Depression: Code(s): F32.9 - Major depressive disorder, single episode, unspecified Qualifiers: Depression Type: major depressive disorder Major depression recurrence: recurrent Active/Remission status: currently active Major depression episode severity: unspecified Qualified Code(s): F33.9 - Major depressive disorder, recurrent, unspecified Plan: Was on Quetiapine 100 mg QD previously but this was reportedly stopped by psychiatry at some point Her previous psychiatrist (Dr. Kelly) recently retired and she is currently looking for a new psychiatric provider (15) Obesity (BMI 30-39.9): Code(s): E66.9 - Obesity, unspecified Plan: Reinforced diet/exercise as tolerated/lose weight Plan Follow up in 3 months Orders: Orders Lipid Panel 3 Months E78.00 - Pure hypercholesterolemia, unspecified Microalbumin, Random (w Creat) 3 Months E11.9 - Type 2 diabetes mellitus without complications TSH reflex Free T4 3 Months E78.00 - Pure hypercholesterolemia, unspecified Vitamin D 25-OH Total 3 Months E55.9 - Vitamin D deficiency, unspecified Hemoglobin A1c 3 Months E11.9 - Type 2 diabetes mellitus without complications Complete Blood Count Auto Diff 3 Months D64.9 - Anemia, unspecified Comprehensive [place]. 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 use Diabetes mellitus complication status: without complication Essential hypertension I10 Hypertension type: essential hypertension Migraine without status migrainosus, not intractable, unspecified migraine type G43.909 Migraine type: unspecified Status migrainosus presence: without status migrainosus Intractability: not intractable Plantar fasciitis, bilateral M72.2 Iron deficiency anemia secondary to inadequate dietary iron intake D50.8 Iron deficiency anemia type: inadequate dietary iron intake Gastroesophageal reflux disease without esophagitis K21.9 Esophagitis presence: without esophagitis Obstructive sleep apnea G47.33 Primary osteoarthritis, unspecified site M19.91 Osteoarthritis location: unspecified site Osteoarthritis type: primary Vitamin D deficiency E55.9 Meralgia paresthetica of right side G57.11 Laterality: right Primary insomnia F51.01 Insomnia type: primary Anxiety F41.9 Episode of recurrent major depressive disorder, unspecified depression episode severity F33.9 Depression Type: major depressive disorder Major depression recurrence: recurrent Active/Remission status: currently active Major depression episode severity: unspecified Obesity (BMI 30-39.9) E66.9
[2023-08-14 15:53] VITALS: BP 128/78; BMI 35.4
== END 2023-08-14 17:00 | disposition home or self-care (01) ==
PROVIDERS: PCP Internal Medicine; Visit Provider Internal Medicine
DX: E78.00 Pure hypercholesterolemia, unspecified (principal); E11.9 Type 2 diabetes mellitus without complications; F33.9 Major depressive disorder, recurrent, unspecified; I10 Essential (primary) hypertension; G43.909 Migraine, unspecified, not intractable, without status migrainosus; M72.2 Plantar fascial fibromatosis; D50.8 Other iron deficiency anemias; K21.9 Gastro-esophageal reflux disease without esophagitis; G47.33 Obstructive sleep apnea (adult) (pediatric); M19.91 Primary osteoarthritis, unspecified site; E55.9 Vitamin D deficiency, unspecified; G57.11 Meralgia paresthetica, right lower limb; F51.01 Primary insomnia; F41.9 Anxiety disorder, unspecified; E66.9 Obesity, unspecified
CPT/HCPCS: 99214; G2211

== ENCOUNTER 2023-08-15 13:12 | Outpatient (AMB) | payer OTHER, SELFPAY ==
--- NOTE | 2023-08-15 13:16 | A.OFFVIS_ITS ---
VS Expanded 08/15/23 13:24 Height 5 ft 4 in Weight 206 lb 9.17 oz BMI 35.5 Intake Visit Reasons: T2DM Allergies cephalexin [From Keflex] Allergy (Mild, Verified 08/18/23 13:09) RASH Nutrition Presentation Details: Pt presents for MNT follow-up for T2DM Pt reports keeping sedentary Pt reports having 3-4 meals per day , admits to increasing sugary foods particularly at night Denies constipation, diarrhea, vomiting Denies having symptoms of hypoglycemia Reports taking multivitamins and B complex on a daily basis Patient reports being unaware of having type 2 diabetes, patient reports being on the impression that diabetes was non existent after sleeve gastrectomy in 02/2016 A1c at 7.6 % in February 2023 Not monitoring blood glucose BS Monitoring Most Recent Diabetes Results: Microalb/Creat Ratio 10.7 ug/mg cr (<30) 08/07/23 Cholesterol 132 mg/dL (<200) 08/07/23 HDL Cholesterol 48 mg/dL (>40) 08/07/23 Triglycerides 59 mg/dL (<150) 08/07/23 Creatinine 0.78 mg/dL (0.5-1.4) 08/07/23 Blood Urea Nitrogen 17 mg/dL (9-16) H 08/07/23 Sodium 142 mmol/L (135-145) 08/07/23 Potassium 4.2 mmol/L (3.3-5.1) 08/07/23 Chloride 107 mmol/L (96-108) 08/07/23 Carbon Dioxide 30 mmol/L (22-29) H 08/07/23 Calcium 9.7 mg/dL (8.4-10.2) 08/07/23 AST 31 U/L (5-31) 08/07/23 ALT 36 U/L (0-31) H 08/07/23 Total Protein 7.7 g/dL (6.5-8.0) 08/07/23 Albumin 4.4 g/dL (3.5-5.0) 08/07/23 [facility] Medical History (Updated 08/18/23 @ 13:13 by Vera Singh RN) Plantar fasciitis Obesity due to excess calories Atherosclerotic cardiovascular disease COVID-19 vaccine administered Colon cancer screening Family history of polyps in the colon Hypoglycemia after GI (gastrointestinal) surgery Postmenopausal bleeding Status post hysteroscopy (~06/11/13) Obesity (BMI 30-39.9) Depression Anxiety Insomnia Meralgia paresthetica Vitamin D deficiency Carpal tunnel syndrome of left wrist Osteoarthritis Obstructive sleep apnea Iron deficiency anemia Migraine Hyperlipidemia Diabetes mellitus Hypertension Surgical History H/O colonoscopy H/O melanoma excision (~2010) H/O endoscopy (~06/20/13) History of knee surgery (~01/30/13) S/P dilatation and curettage (~2011) History of carpal tunnel surgery H/O laparoscopy S/P myomectomy History of sleeve gastrectomy Family History Father Myocardial infarction Prostate cancer Mother Cervical cancer Ovarian cancer Mental health disorder Diabetes Alzheimer's dementia Sleep apnea Sister Ovarian cancer Maternal Aunt Colon cancer Social History Household Members: Children Housing: Apartment Alcohol intake: current Alcohol intake frequency: holidays/special occasions only Patient Tobacco Use Status: Former Tobacco user Tobacco use type: Cigarette e-Cigarette/Vaping Use: Never Used Second Hand Smoke Exposure: Yes Advance Directives Date on File: 03/16/16 service: No Current occupational status: disabled Current occupation: right handed Cognitive needs: No Hearing needs: No Vision needs: Yes (glasses) Female Reproductive History Menstrual Age of Menarche: 12 Assessment & Plan Assessment & Plan (1) Type 2 diabetes mellitus with unspecified complications: Code(s): E11.8 - Type 2 diabetes mellitus with unspecified complications Category: Medical Plan: Educate Pt on 1500 - 1600 carrie meal plan ? Used wt : 90 kg(on 10/2021), (95 kg on 04/2022) (89 g 08/11/2022), 94 kg (April 2023), 94 kg (July 2023) Est kcal as per MSJ: 1802 (40% carb, 30% fat/prot) Est fluid needs: 2250 ml/d (25 ml/kg bw) Rec fiber: increase to 8-10 g per day and gradually increase to 25 g/d or as tolerated Rec Na: < 1500 mg /d Educate patient on: (R= Reviewed, V = verbalizes understanding N/R= Needs review N/A= not applicable) * Relationship of food to blood glucose level : Reviewed * Meaning of hemoglobin A1c and diabetes: Reviewed * Difference between complex carbohydrates and simple carbohydrates, role of fiber: R V * Differences between fats (MUFA/PUFA/saturated fats, trans fats) and food sources of various fats: R * How to interpret food labels: R, V * Healthy Plate method concept: R V * Physical activity: benefits and precaution: R * Low cholesterol food options : R * omega 3 fatty acids * vitamin D sources of foods : R Patient Instructions: Restart counting carbs and reduce to 30-45 g following healthy plate method Reduce on snacks to 2 a day 0-15 g (choose a fruit or yogurt ), reduce on simple sugar Include food sources of calcium with vitamin D see list of options Coding Level of Care Code Nutr Indiv Subseq (00432) Diagnoses Type 2 diabetes mellitus with unspecified complications E11.8 Time Spent (min) 30
[2023-08-15 13:24] VITALS: BMI 35.5
== END 2023-08-15 14:00 | disposition home or self-care (01) ==
PROVIDERS: PCP Internal Medicine; Visit Provider Dietitian, Registered
DX: E11.8 Type 2 diabetes mellitus with unspecified complications (principal)

== ENCOUNTER → 2023-08-15 13:12 | Outpatient (BNVA) | payer OTHER, SELFPAY | PROVIDERS: PCP Internal Medicine; Visit Provider Dietitian, Registered | DX: E11.8 Type 2 diabetes mellitus with unspecified complications (principal); Z71.3 Dietary counseling and surveillance | CPT/HCPCS: 97803 ==

== ENCOUNTER 2023-08-18 12:00 | Day surgery (SDC) | payer OTHER, SELFPAY ==
[2023-08-16 07:43] VITALS: BMI 35.4
--- NOTE | 2023-08-16 09:50 | HO.ANESPROP2 ---
Documented by User: Ophelia Nam NP 08/16/23 09:54 HPI - Anesthesia Eval Consult details Narrative: 57yo F for D&C Hysteroscopy,possible myomectomy,possible polypectomy, PMFSH Active Problems Active Problems: All Active Problems Vulvar lesion (Acute) Plantar fasciitis, bilateral (Acute) Postmenopausal bleeding (Acute) Lipoma (Acute) Annual physical exam (Acute) Plantar fasciitis (Acute) Bilateral foot pain (Acute) Heel pain, bilateral (Acute) Pain in toe of right foot (Acute) Cubital tunnel syndrome on right (Acute) Cervical radiculopathy (Acute) Abdominal pain (Acute) History of carpal tunnel surgery (Acute) Right wrist pain (Acute) S/P gastric bypass (Acute) Adult general medical exam (Acute) Rotator cuff arthropathy of left shoulder (Acute) Rotator cuff arthropathy of right shoulder (Acute) Pain in joints of left hand (Acute) Joint pain in fingers of right hand (Acute) Neuropathy (Acute) Herpes (Acute) Osteoarthritis (Acute) Lumbar radiculopathy, right (Acute) Sacroiliac joint pain (Acute) GERD (gastroesophageal reflux disease) (Acute) Chronic idiopathic constipation (Acute) Bleeding hemorrhoids (Acute) Morbid obesity (Acute) Osteoarthritis of knees, bilateral (Acute) Fibrocystic breast disease (Acute) Malignant melanoma of skin of arm (Acute) High cholesterol (Acute) Arthritis of left glenohumeral joint (Acute) Hemorrhagic gastritis (Acute) Nausea and vomiting (Acute) Type 2 diabetes mellitus with unspecified complications (Acute) Essential hypertension (Acute) Other and unspecified hyperlipidemia (Acute) KEVON on CPAP (Acute) Female pelvic pain (Acute) Microscopic hematuria (Acute) Myoma (Acute) Well woman exam (Acute) Breast lump in female (Acute) Hematochezia (Acute) Obesity due to excess calories (Acute) Family history of polyps in the colon (Acute) Atherosclerotic cardiovascular disease (Acute) Hypoglycemia after GI (gastrointestinal) surgery (Acute) Obesity (BMI 30-39.9) (Acute) Depression (Acute) Anxiety (Acute) Insomnia (Acute) Meralgia paresthetica (Acute) Vitamin D deficiency (Acute) Carpal tunnel syndrome of left wrist (Acute) Osteoarthritis (Acute) Obstructive sleep apnea (Acute) Iron deficiency anemia (Acute) Migraine (Acute) Hyperlipidemia (Acute) Diabetes mellitus (Acute) Hypertension (Acute) Past Medical History Medical History Postmenopausal bleeding Obesity due to excess calories Atherosclerotic cardiovascular disease COVID-19 vaccine administered Colon cancer screening Family history of polyps in the colon Hypoglycemia after GI (gastrointestinal) surgery Status post hysteroscopy (~06/11/13) Obesity (BMI 30-39.9) Depression Anxiety Insomnia Meralgia paresthetica Vitamin D deficiency Carpal tunnel syndrome of left wrist Osteoarthritis Obstructive sleep apnea Iron deficiency anemia Migraine Hyperlipidemia Diabetes mellitus Hypertension Family History Family History Father Myocardial infarction Prostate cancer Mother Cervical cancer Ovarian cancer Mental health disorder Diabetes Alzheimer's dementia Sleep apnea Sister Ovarian cancer Maternal Aunt Colon cancer Family history of problems with anesthesia: No Surgical History Surgical History H/O colonoscopy H/O gastric bypass (~02/2016) H/O melanoma excision (~2010) H/O endoscopy (~06/20/13) History of knee surgery (~01/30/13) S/P dilatation and curettage (~2011) History of carpal tunnel surgery H/O laparoscopy S/P myomectomy History of sleeve gastrectomy History of Problems with Anesthesia: No Social History Social History Household Members: Children Housing: Apartment Alcohol intake: current Alcohol intake frequency: holidays/special occasions only Patient Tobacco Use Status: Former Tobacco user Tobacco use type: Cigarette e-Cigarette/Vaping Use: Never Used Second Hand Smoke Exposure: Yes Advance Directives: No Advance Directives Information Provided: Yes Advance Directives Date on File: 03/16/16 service: No Current occupational status: disabled Current occupation: right handed Cognitive needs: No Hearing needs: No Vision needs: Yes (glasses) Meds Allergies Allergy/AdvReac Type Severity Reaction Status Date / Time cephalexin [From Keflex] Allergy Mild RASH Verified 08/14/23 16:52 Home Medications ?Medication ?Instructions ?Recorded ?Confirmed ?Last Taken ?Type temazepam 30 mg capsule 30 mg PO BEDTIME PRN Insomnia 12/05/19 08/14/23 Unknown History clonazepam 1 mg tablet 1 mg PO DAILY 08/29/22 08/14/23 Unknown History Exam Height,Weight and Vital Signs: Height 5 ft 4 in Weight 93.44 kg Pertinent Lab Results Pertinent Lab Results: Laboratory Tests 08/07/23 09:00 WBC 4.8 Hgb 13.1 Hct 40.5 Plt Count 228 Sodium 142 Potassium 4.2 Chloride 107 Carbon Dioxide 30 H BUN 17 H Creatinine 0.78 Assessment and Plan Assessment Anesthesia Assessment: Chart Reviewed Final Anesthetic Review Family History of Problems with Anesthesia: No History of Problems with Anesthesia: No Documented by User: Nguyen Lynne MD 08/18/23 12:53 PMFSH Past Medical History Medical History Postmenopausal bleeding Obesity due to excess calories Atherosclerotic cardiovascular disease COVID-19 vaccine administered Colon cancer screening Family history of polyps in the colon Hypoglycemia after GI (gastrointestinal) surgery Status post hysteroscopy (~06/11/13) Obesity (BMI 30-39.9) Depression Anxiety Insomnia Meralgia paresthetica Vitamin D deficiency Carpal tunnel syndrome of left wrist Osteoarthritis Obstructive sleep apnea Iron deficiency anemia Migraine Hyperlipidemia Diabetes mellitus Hypertension Family History Family History Father Myocardial infarction Prostate cancer Mother Cervical cancer Ovarian cancer Mental health disorder Diabetes Alzheimer's dementia Sleep apnea Sister Ovarian cancer Maternal Aunt Colon cancer Surgical History Surgical History H/O colonoscopy H/O gastric bypass (~02/2016) H/O melanoma excision (~2010) H/O endoscopy (~06/20/13) History of knee surgery (~01/30/13) S/P dilatation and curettage (~2011) History of carpal tunnel surgery H/O laparoscopy S/P myomectomy History of sleeve gastrectomy Social History Social History Household Members: Children Housing: Apartment Alcohol intake: current Alcohol intake frequency: holidays/special occasions only Patient Tobacco Use Status: Former Tobacco user Tobacco use type: Cigarette e-Cigarette/Vaping Use: Never Used Second Hand Smoke Exposure: Yes Advance Directives: No Advance Directives Information Provided: Yes Advance Directives Date on File: 03/16/16 service: No Current occupational status: disabled Current occupation: right handed Cognitive needs: No Hearing needs: No Vision needs: Yes (glasses) Meds Allergies Allergy/AdvReac Type Severity Reaction Status Date / Time cephalexin [From Keflex] Allergy Mild RASH Verified 08/14/23 16:52 Home Medications ?Medication ?Instructions ?Recorded ?Confirmed ?Last Taken ?Type temazepam 30 mg capsule 30 mg PO BEDTIME PRN Insomnia 12/05/19 08/14/23 Unknown History clonazepam 1 mg tablet 1 mg PO DAILY 08/29/22 08/14/23 Unknown History Exam Airway Mallampati Class: II TM Dist: >3cm Neck ROM: Full Heart: rrr Assessment and Plan Assessment Anesthesia Assessment: Anesthesia Plan Discussed Final Anesthetic Review NPO: Yes ASA Class: III Final Preanesthetic Review: No Changes in Pt Med Stat, Meds/Allgs Chart Reviewed, Consent Obtained/Reviewed and Anes Risks/Benef Reviewed Patient Risk: Intermediate Procedure Risk: Low Anesthetic Plan Anesthetic Plan: GA Disposition: Standard PACU
--- NOTE | 2023-08-18 12:53 | MHC.SHP ---
Pre-Procedural Eval Section A - 24 Hr Update-Section A only Date of Service: 08/18/23 The patient is an INPATIENT: No Changes since office visit: No Cold of Flu in the past 2 weeks, No New Medical Problems, No Changes in Medication and No Patient answered all questions The patient has been examined within 24 hours of the surgical procedure. The History & Physical has been completed within 30 days and I have reviewed it.: Yes Section B - Complete if H&P > 30 days Chief Complaint: Postmenopausal bleeding Allergies: Allergies Allergy/AdvReac Type Severity Reaction Status Date / Time cephalexin [From Keflex] Allergy Mild RASH Verified 08/14/23 16:52 Plan Diagnosis/Plan: Unchanged I have reviewed the history and physical and performed a pertinent physical examination on my patient. No changes have occurred unless specified. Time Spent With Patient Time: Total time managing care of this patient today ____ minutes.
[2023-08-18 13:13] VITALS: BMI 35.5
[2023-08-18 13:15] VITALS: BP 162/83; PULSE 62; RESP 16; TEMP 36.2; O2SAT 96
[2023-08-18 13:30] LABS: Glucose, Whole Blood 103 mg/dL (60-115)
--- NOTE | 2023-08-18 14:08 | P.BOP_ITS ---
Brief Operative Note Date of Service: 08/18/23 Pre-op diagnosis: Postmenopausal bleeding Post-op diagnosis: same (Normal endometrial cavity) Procedure: Hysteroscopy D&C Surgeon: Simba Lake MD Anesthesia: GLMA Was an Service Coordinator Elderly Facility used for this Procedure?: No Estimated blood loss (mL): 0 Pathology: other (Endometrial Scrapping) Condition: stable Disposition: PACU
--- NOTE | 2023-08-18 14:09 | P.OP_ITS ---
Operative Note Operative Note Date of Service: 08/18/23 Narrative: Preop Diagnosis: Post Menopausal bleeding Operation: Diagnostic Hysteroscopy, Dilataion & Curettage Post Op Diagnosis: Normal endometrial cavity QBL: Minimal Anesthesia: GLMA Surgeon: Simba Lake MD Health And Safety Advisor: None Complication: None Pathology: Endometrial Scrapings Procedure: The patient was put in the dorsal lithotomy position, scrubbed, and draped in the usual manner. A sterile speculum was inserted in the patient's vagina. The anterior lip of the cervix was grasped with a single tooth tenaculum. The cervix was dilated up to 5 mm, then the scope was inserted in the patient's uterus. Inspection revealed Normal endometrial cavity. The Myosure Reach device was used; the scope was removed from the endometrial cavity , sharp curettings was carried on with minimal to moderate amount of tissues retrieved. At the end of the procedure, all instruments were taken out of the patient uterine and vaginal cavity. The single tooth tenaculum was removed and homeostasis was assured using pressure,. The patient tolerated the procedure well and was transferred to the PACU in a stable condition.
[2023-08-18 14:15] VITALS: BP 128/62; PULSE 63; RESP 12; TEMP 36.1; O2SAT 97
[2023-08-18 14:20] VITALS: BP 132/65; PULSE 58; RESP 14; O2SAT 97
[2023-08-18 14:25] VITALS: BP 147/77; PULSE 62; RESP 14; O2SAT 97
[2023-08-18 14:30] VITALS: BP 157/82; PULSE 65; RESP 14; O2SAT 97
[2023-08-18 14:45] VITALS: BP 166/86; PULSE 62; RESP 14; TEMP 36.1; O2SAT 97
== END 2023-08-18 15:15 | disposition home or self-care (01) ==
PROVIDERS: PCP Internal Medicine; Visit Provider Obstetrics & Gynecology
PROC: 0UDB8ZZ Extraction of Endometrium, Via Natural or Artificial Opening Endoscopic (ICD-10-PCS; CPT 58558; principal; 2023-08-18 14:00)
DX: N95.0 Postmenopausal bleeding (principal); E66.9 Obesity, unspecified; Z68.35 Body mass index [BMI] 35.0-35.9, adult; I10 Essential (primary) hypertension; I25.10 Atherosclerotic heart disease of native coronary artery without angina pectoris; G47.33 Obstructive sleep apnea (adult) (pediatric); D50.9 Iron deficiency anemia, unspecified; Z88.1 Allergy status to other antibiotic agents; Z87.891 Personal history of nicotine dependence; Z98.84 Bariatric surgery status
CPT/HCPCS: 58558; 82947; 88305; J1100; J2250; J2405; J2704; J3010

== ENCOUNTER → 2023-08-18 12:00 | Outpatient (BNV) | payer OTHER, SELFPAY | PROVIDERS: PCP Internal Medicine; Visit Provider Obstetrics & Gynecology | DX: N95.0 Postmenopausal bleeding (principal) | CPT/HCPCS: 58558 ==

== ENCOUNTER 2023-08-30 10:39 | Outpatient (AMB) | payer OTHER, SELFPAY ==
--- NOTE | 2023-08-30 10:41 | MHC.OFFVIS ---
Vital Signs 08/30/23 10:42 Height 5 ft 4 in Weight 209 lb BMI 35.9 Intake Visit Reasons: post op/ biopsy results Allergies cephalexin [From Keflex] Allergy (Mild, Verified 08/18/23 13:09) RASH HPI Comments Details: The patient is presenting for follow-up post vulvar lesion biopsy and post hysteroscopy D&C no complaints minimal vaginal bleeding no feverishness chills or abdominal pain. The D and C pathology showed the following: Scant fragments of benign superficial inactive endometrium, and benign endocervical and squamous epithelium; no atypia or carcinoma Vulvar lesion biopsy showed the following: Small fragment of skin/squamous mucosa with features of lichen simplex chronicus; no atypia or fungi identified The patient is not complaining of any vulvar itching [facility] Medical History (Updated 08/30/23 @ 10:53 by Simba Lake MD) Plantar fasciitis Obesity due to excess calories Atherosclerotic cardiovascular disease COVID-19 vaccine administered Colon cancer screening Family history of polyps in the colon Hypoglycemia after GI (gastrointestinal) surgery Postmenopausal bleeding Status post hysteroscopy (~06/11/13) Obesity (BMI 30-39.9) Depression Anxiety Insomnia Meralgia paresthetica Vitamin D deficiency Carpal tunnel syndrome of left wrist Osteoarthritis Obstructive sleep apnea Iron deficiency anemia Migraine Hyperlipidemia Diabetes mellitus Hypertension Surgical History H/O colonoscopy H/O melanoma excision (~2010) H/O endoscopy (~06/20/13) History of knee surgery (~01/30/13) S/P dilatation and curettage (~2011) History of carpal tunnel surgery H/O laparoscopy S/P myomectomy History of sleeve gastrectomy Family History Father Myocardial infarction Prostate cancer Mother Cervical cancer Ovarian cancer Mental health disorder Diabetes Alzheimer's dementia Sleep apnea Sister Ovarian cancer Maternal Aunt Colon cancer Social History Household Members: Children Housing: Apartment Alcohol intake: current Alcohol intake frequency: holidays/special occasions only Patient Tobacco Use Status: Former Tobacco user Tobacco use type: Cigarette e-Cigarette/Vaping Use: Never Used Second Hand Smoke Exposure: Yes Advance Directives Date on File: 03/16/16 service: No Current occupational status: disabled Current occupation: right handed Cognitive needs: No Hearing needs: No Vision needs: Yes (glasses) Female Reproductive History Menstrual Age of Menarche: 12 Review of Systems Const All systems reviewed & are unremarkable except as noted in HPI and below Reports as per HPI and Reports no additional complaints GI Reports no additional complaints Reports no additional complaints Physical Exam Vital Signs: BMI result Body Mass Index 35.9 Assessment & Plan Assessment & Plan (1) Postmenopausal bleeding: Code(s): N95.0 - Postmenopausal bleeding Category: Medical Plan: Discussed with the patient the results of the D&C pathology . Discussed with the patient the sensitivity, specificity, positive and negative predictive value, of D and C in detecting endometrial pathology including but not limited to endometrial hyperplasia, cancer and other pathology; instructed the patient to call in case vaginal bleeding bleeding recurs, the next step will be to proceed with further endometrial sampling evaluation to rule out endometrial pathology. All questions answered and the patient verbalized understanding and agreed with the plan. (2) Lichen simplex chronicus: Code(s): L28.0 - Lichen simplex chronicus Category: Medical Plan: Discussed with the patient the pathology results showing lichen simplex chronicus. Counseled the patient on how to stop the ?itch-scratch cycle,? the following information were discussed with the patient regarding vulvar care and hygiene: Avoid baby wipes on anti-septic so but the fluid, scented toilet paper, condoms, contraceptive creams or gels, personal lubricant, nylon underwear, specific laundry detergents, shaving, latex products, sanitary products, soaps, oils, topical agent . In addition recommended to the patient to use the following: Mild soaps, avoiding it on the vulva, cleanse of out with water only, gently pat the vulva dry after bathing, fly preservative-free, unscented or fragrance free emollients to hold the moisture in the skin, use Katelyn care bottles to rinse after urination, with 100% cotton, and scented fragments free menstrual pads use adequate lubricant for intercourse. If itching is bothersome, Will prescribe a medium-potency, Triamcinolone acetonide 0.1% cream to be used 1-2 times daily for 4 weeks and if it does not work, instructed the patient to call back will send the prescription for clobetasol 0.05%, a high-potency topical corticosteroid ointment , and oral antipruritic medication hydroxyzine 25 mg p.o. Q 6-8 p.r.n. Coding Level of Care Code Est Pt Level 3 (07066) Diagnoses Postmenopausal bleeding N95.0 Lichen simplex chronicus L28.0
[2023-08-30 10:42] VITALS: BMI 35.9
== END 2023-08-30 10:52 | disposition home or self-care (01) ==
PROVIDERS: PCP Internal Medicine; Visit Provider Obstetrics & Gynecology
DX: N95.0 Postmenopausal bleeding (principal); L28.0 Lichen simplex chronicus
CPT/HCPCS: 99213

== ENCOUNTER → 2023-08-30 10:39 | Outpatient (BNVA) | payer OTHER, SELFPAY | PROVIDERS: PCP Internal Medicine; Visit Provider Obstetrics & Gynecology | DX: N95.0 Postmenopausal bleeding (principal); L28.0 Lichen simplex chronicus; Z98.890 Other specified postprocedural states | CPT/HCPCS: 99212 ==

== ENCOUNTER 2023-11-15 10:06 | Outpatient (AMB) | payer OTHER, SELFPAY ==
[2023-11-15 10:19] VITALS: BMI 35.6
--- NOTE | 2023-11-15 10:19 | A.OFFVIS_ITS ---
Vital Signs 11/15/23 10:19 Height 5 ft 4 in Weight 207 lb 3.752 oz BMI 35.6 Intake Visit Reasons: Annual Energy Manager Required: No Information Interpreted: non-clinical & clinical School Speech Language Pathologist: School Speech Language Pathologist Present ([facility]) Accompanied by: Self / Same As Patient Allergies cephalexin [From Keflex] Allergy (Mild, Verified 11/15/23 10:21) RASH Post menopausal: Yes HPI Comments Details: Presenting for annual exam. No complaints. 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 Postmenopausal bleeding Status post hysteroscopy (~06/11/13) Obesity (BMI 30-39.9) Depression Anxiety Insomnia Meralgia paresthetica Vitamin D deficiency Carpal tunnel syndrome of left wrist Osteoarthritis Obstructive sleep apnea Iron deficiency anemia Migraine Hyperlipidemia Diabetes mellitus Hypertension Surgical History H/O colonoscopy H/O melanoma excision (~2010) H/O endoscopy (~06/20/13) History of knee surgery (~01/30/13) S/P dilatation and curettage (~2011) History of carpal tunnel surgery H/O laparoscopy S/P myomectomy History of sleeve gastrectomy Family History Father Myocardial infarction Prostate cancer Mother Cervical cancer Ovarian cancer Mental health disorder Diabetes Alzheimer's dementia Sleep apnea Sister Ovarian cancer Maternal Aunt Colon cancer Social History Household Members: Children Housing: Apartment Alcohol intake: current Alcohol intake frequency: holidays/special occasions only Patient Tobacco Use Status: Former Tobacco user Tobacco use type: Cigarette e-Cigarette/Vaping Use: Never Used Second Hand Smoke Exposure: Yes Advance Directives Date on File: 03/16/16 service: No Current occupational status: disabled Current occupation: right handed Cognitive needs: No Hearing needs: No Vision needs: Yes (glasses) Female Reproductive History Menstrual Age of Menarche: 12 Menopause type: natural Total pregnancies: 1 Number of Living Children: 0 Ab spontaneous: 1 Date of last pap smear: 12/07/22 Date of Mammogram: 09/08/22 Review of Systems Const All systems reviewed & are unremarkable except as noted in HPI and below Card Reports as per HPI Resp Reports as per HPI GI Reports as per HPI and Reports no additional complaints Reports as per HPI Physical Exam Vital Signs: BMI result Body Mass Index 35.6 Const General: cooperative, healthy appearing and comfortable Chest Chest palpation & inspection: normal inspection of the chest and normal palpation of entire chest wall Breast/axilla inspection: normal inspection of the breasts and normal inspection of the axillae Breast/axilla palpation: normal palpation of the breasts, normal palpation of the axillae and no axillary lymphadenopathy Resp Effort & Inspection: normal respiratory effort Auscultation: clear to auscultation bilaterally Percussion: percussion normal Cardio Palpation: normal PMI Rate: regular rate Rhythm: regular rhythm Heart sounds: no murmurs and no rubs Peripheral pulses: Peripheral pulses 2+ throughout GI Inspection: Yes normal to inspection Palpation (GI): Soft to palpation, nontender, no guarding, not rigid and No hepatosplenomegaly present Percussion: Yes normal to percussion Auscultation: normal bowel sounds Rectal Exam - Female: deferred General: Yes bladder normal to palpation External Female Exam: No lesion Speculum Exam - Vagina: normal appearance of the vagina, normal palpation, normal vaginal discharge and not erythematous Speculum Exam - Cervix: normal appearance of the cervix and normal palpation Bimanual exam- vagina & uterus: normal bimanual exam, normal palpation, uterine size normal, bladder normal to palpation, consistency normal and normal palpation Bimanual Exam- Adnexa, other: normal adnexae, no masses and no tenderness Assessment & Plan Assessment & Plan (1) Well woman exam: Code(s): Z01.419 - Encounter for gynecological examination (general) (routine) without abnormal findings Category: Medical Plan: Co testing not indicated this year. Counseled the patient about the recommended dietary allowance of 1200 mg of Calcium & 600 IU of vitamin D. Mammogram ordered. The patient was instructed to perform monthly self-breast exams and schedule annual exam in a year. All questions answered and the patient verbalized understanding. Orders: Orders MM tomosynthesis screening BI Today Z12.31 - Encounter for screening mammogram for malignant neoplasm of breast Coding Level of Care Code Est Pt Prev Care 40-64y(36298) Diagnoses Well woman exam Z01.419
== END 2023-11-15 11:03 | disposition home or self-care (01) ==
PROVIDERS: PCP Internal Medicine; Visit Provider Obstetrics & Gynecology
DX: Z01.419 Encounter for gynecological examination (general) (routine) without abnormal findings (principal)
CPT/HCPCS: 99396

== ENCOUNTER → 2023-11-15 10:06 | Outpatient (BNVA) | payer OTHER, SELFPAY | PROVIDERS: PCP Internal Medicine; Visit Provider Obstetrics & Gynecology ==

== ENCOUNTER 2023-11-20 10:48 | Outpatient (REF) | payer OTHER, SELFPAY ==
[2023-11-20 11:10] LABS: MANUAL DIFF FLAG NO
[2023-11-20 11:43] LABS: Basophils Percent Auto 0.5 % (0-2); Eosinophils Absolute Auto 0.1 X10*3/uL (0.0-0.4); Hematocrit 43.8 % (37.0-47.0); Hemoglobin 14.2 g/dl (12.0-16.0); Imm Gran Abs Auto 0.02 X10*3/uL (0.00-0.03); Imm Gran Pct Auto 0.3 % (0.0-0.4); Lymphocytes Absolute Auto 1.7 X10*3/uL (1.2-4.9); Lymphocytes Percent Auto 29.4 % (20-40); Mean Corpuscular HGB Conc 32.4 g/dl (31.0-35.0); Mean Corpuscular Hemoglobin 27.8 pg (27.0-33.0); Mean Corpuscular Volume 85.7 fL (80.0-98.0); Monocytes Absolute Auto 0.4 X10*3/uL (0.1-1.2); Monocytes Percent Auto 6.1 % (2-11); Neutrophils Absolute Auto 3.6 x10*3/uL (2.0-8.3); Neutrophils Percent Auto 61.7 % (45-73); Platelet Count 244 X10*3/uL (160-400); Red Blood Count 5.11 X10*6/uL (4.20-5.50); Red Cell Distribution Width 14.4 % (11.0-16.0); White Blood Count 5.9 X10*3/uL (4.8-10.8)
[2023-11-20 11:53] LABS: Estimated Average Glucose 160 mg/dL; Hemoglobin A1c % 7.2 % (<6.0)
[2023-11-20 12:01] LABS: Appearance Urine Clear; Color Urine Yellow; Glucose Urine UA Negative (Negative); Leukocyte Esterase Urine Moderate (2+) (Negative); Nitrite Urine Negative (Negative); PH 5.5 (5.0-9.0); UMIC TRIGGER UACC YES; Urine Blood Negative (Negative); Urine Ketones Negative (Negative); Urine Protein Negative (Neg-Trace)
[2023-11-20 12:10] LABS: Bacteria Urine 1+ (None Seen); Hyaline Casts Urine 0-2 /LPF (0-2); RBC Urine 0-2 /HPF (0-2); UACC Culture Trigger YES; WBC Urine 21-50 /HPF (0-5)
[2023-11-20 12:30] LABS: Alanine Aminotransferase 13 U/L (0-31); Albumin Level 4.5 g/dL (3.5-5.0); Alkaline Phosphatase 96 U/L (39-117); Anion Gap 13 (12-20); Aspartate Amino Transferase 13 U/L (5-31); Bilirubin Total 0.6 mg/dL (0.0-1.0); Blood Urea Nitrogen 15 mg/dL (9-16); Calcium 9.8 mg/dL (8.4-10.2); Carbon Dioxide 28 mmol/L (22-29); Chloride 107 mmol/L (96-108); Cholesterol 238 mg/dL (<200); Estimated Glomerular Filt Rate > 60; Glucose Fasting 135 mg/dL (60-99); HDL Cholesterol 58 mg/dL (>40); LDL Cholesterol Calculated 161 mg/dL (<100); Potassium 4.9 mmol/L (3.3-5.1); Sodium 143 mmol/L (135-145); Triglycerides 96 mg/dL (<150)
[2023-11-20 12:33] LABS: Creatinine Urine 155.35 mg/dL; Microalbum/Creatinine Ratio Ur 10.2 ug/mg cr (<30)
[2023-11-20 12:52] LABS: TSH reflex Free T4 1.58 uIU/mL (0.32-4.0); Vitamin D 25-OH Total 21.5 ng/mL (>30)
== END 2023-11-20 10:49 | disposition home or self-care (01) ==
LOC: HO.LAB 10:48
PROVIDERS: PCP Internal Medicine; Visit Provider Internal Medicine
DX: D64.9 Anemia, unspecified (principal); E55.9 Vitamin D deficiency, unspecified; E11.9 Type 2 diabetes mellitus without complications; E78.00 Pure hypercholesterolemia, unspecified; R30.0 Dysuria
CPT/HCPCS: 36415; 80053; 80061; 81001; 81003; 82043; 82306; 82570; 83036; 84443; 85025; 87086

== ENCOUNTER 2023-11-22 10:46 | Outpatient (REF) | payer OTHER, SELFPAY ==
--- NOTE | ~2023-11-22 | MM_ITS ---
EXAMINATION: MM SCREENING DIGITAL BREAST TOMOSYNTHESIS, BILATERAL CLINICAL INFORMATION: Screening. Asymptomatic. COMPARISON: Mammography: Comparison is made with available priors TECHNIQUE: Digital breast mammography with tomosynthesis is performed in both the craniocaudal and mediolateral oblique views along with computer-aided detection (CAD). FINDINGS: There are scattered areas of fibroglandular density (ACR BI-RADS breast composition Category b). There are no significant masses, abnormal calcifications, or other abnormalities. MM/MM tomosynthesis screening BI IMPRESSION: No mammographic evidence of malignancy. ASSESSMENT: BI-RADS BI-RADS 1 - Negative RECOMMENDATION: Routine annual mammography screening. 1 year F/U This examination should not preclude the clinical evaluation of a suspicious palpable abnormality. This patient's information was entered into a reminder system with a target due date for their next mammogram. Electronically signed by: Corinne Roque DO 12/04/2023 05:15 PM EDT
== END 2023-11-22 10:47 | disposition home or self-care (01) ==
LOC: HO.MAMMO 10:46
PROVIDERS: PCP Internal Medicine; Referring Provider Obstetrics & Gynecology; Visit Provider Internal Medicine
DX: Z12.31 Encounter for screening mammogram for malignant neoplasm of breast (principal)
CPT/HCPCS: 77063; 77067; 99212

== ENCOUNTER → 2023-11-22 11:00 | Outpatient (BNV) | payer OTHER, SELFPAY | PROVIDERS: PCP Internal Medicine; Referring Provider Obstetrics & Gynecology; Visit Provider Internal Medicine | DX: Z12.31 Encounter for screening mammogram for malignant neoplasm of breast (principal) | CPT/HCPCS: 77063; 77067 ==

== ENCOUNTER 2023-11-22 15:36 | Outpatient (AMB) | payer OTHER, SELFPAY ==
[2023-11-22 16:33] VITALS: BP 132/80; PULSE 69; O2SAT 98; BMI 34.7
--- NOTE | 2023-11-22 16:33 | MHC.PC.OV ---
Vital Signs 11/22/23 16:33 Height 5 ft 4 in Weight 202 lb 4 oz BMI 34.7 BP 132/80 Blood Pressure Location Lt brachial Position Sitting Pulse 69 Pulse Source Pulse Oximeter Pulse Oximetry (%) 98 Oxygen Delivery Method Room Air Intake Visit Reasons: 3mof\u Office Services Specialist Required: No Accompanied by: Self / Same As Patient Allergies cephalexin [From Keflex] Allergy (Mild, Verified 11/22/23 17:03) RASH Medication List - Last Reconciled 11/22/23 by Aubrey Dhaliwal MD acarbose (Precose) 100 mg PO TID acetaminophen ER (Mapap Arthritis Pain) 650 mg PO Q8H PRN 30 days amitriptyline 10 mg PO BEDTIME 30 days blood pressure monitor As directed blood sugar diagnostic (FreeStyle Lite Strips) 1 strip miscellaneous TID 90 days blood-glucose meter (FreeStyle Lite Meter kit) As directed blood-glucose meter (FreeStyle Lite Meter kit) As directed calcium citrate-vitamin D3 315 mg-5 mcg (200 unit) (Calcium Citrate + D) 1 tab PO BID cholecalciferol (vitamin D3) 50 mcg PO DAILY 90 days clonazepam 1 mg PO DAILY cyanocobalamin (vitamin B-12) 1,000 mcg PO DAILY 90 days diclofenac sodium 1% (Arthritis Pain (diclofenac)) 4 grams topical QID 30 days ezetimibe 10 mg PO DAILY fluticasone propionate 50 mcg/actuation 2 sprays intranasal DAILY hydrochlorothiazide 25 mg PO QAM lancets (FreeStyle Lancets) As directed 3 TIMES A DAY lansoprazole 30 mg PO BID linaclotide (Linzess) 290 mcg PO QAM 30 days lisinopril 20 mg PO DAILY multivitamin 1 tab PO DAILY [right wrist splint- carpal tunnel splint As directed] rosuvastatin 40 mg PO DAILY sucralfate 10 mL PO BID temazepam 30 mg PO BEDTIME PRN trazodone 50 mg PO DAILY PRN valacyclovir 500 mg PO BID 3 days vitamin A 1 cap PO DAILY Tobacco use date assessed: 11/22/23 Dental Screening Dental Screen Date: 11/22/23 Did you have a dental visit in the last 12 months?: Yes Did you have a dental problem in the last 6 months where you did not have access to dental care?: No Was dental information given to patient?: Patient has dentist HPI 3mof\u HPI Details Patient comes in today for her follow up visit States that she has been experiencing recurrent abdominal pain for a few weeks now Notes that her pain would come on every time she eats or drinks something, including her meds so she admitted to stop taking all of her meds for the past few weeks now States that she called up GI for an appointment and she is now scheduled to be seen by GI in a couple of weeks for evaluation Adds that she fell a couple of weeks ago and tried to break her fall with her right hand Notes that she has been experiencing pain over an area on the dorsum of her right hand proximal to the 4th and 5th fingers since States that she feels okay otherwise She denies any headaches or dizziness Denies any chest pains, no increased SOB No nausea/vomiting and no change in bowel habits noted Adds that she needs a new CPAP machine and tried contacting the company who provided her with her current device but found out that they are no longer in business She contacted sleep medicine and was advised that she needs a referral from her PCP and if her sleep study is over 5 years old, she will likely need to get an updated one She had her follow up labs done a couple of days ago - to discuss her results [facility] Medical History (Updated 11/22/23 @ 19:53 by Aubrey Dhaliwal MD) Pure hypercholesterolemia Plantar fasciitis Obesity due to excess calories Atherosclerotic cardiovascular disease COVID-19 vaccine administered Colon cancer screening Family history of polyps in the colon Hypoglycemia after GI (gastrointestinal) surgery Postmenopausal bleeding Status post hysteroscopy (~06/11/13) Obesity (BMI 30-39.9) Depression Anxiety Insomnia Meralgia paresthetica Vitamin D deficiency Carpal tunnel syndrome of left wrist Osteoarthritis Obstructive sleep apnea Iron deficiency anemia Migraine Hyperlipidemia Diabetes mellitus Hypertension Surgical History H/O colonoscopy H/O melanoma excision (~2010) H/O endoscopy (~06/20/13) History of knee surgery (~01/30/13) S/P dilatation and curettage (~2011) History of carpal tunnel surgery H/O laparoscopy S/P myomectomy History of sleeve gastrectomy Family History Father Myocardial infarction Prostate cancer Mother Cervical cancer Ovarian cancer Mental health disorder Diabetes Alzheimer's dementia Sleep apnea Sister Ovarian cancer Maternal Aunt Colon cancer Social History Household Members: Children Housing: Apartment Alcohol intake: current Alcohol intake frequency: holidays/special occasions only Patient Tobacco Use Status: Former Tobacco user Tobacco use type: Cigarette e-Cigarette/Vaping Use: Never Used Second Hand Smoke Exposure: Yes Advance Directives Date on File: 03/16/16 service: No Current occupational status: disabled Current occupation: right handed Cognitive needs: No Hearing needs: No Vision needs: Yes (glasses) Female Reproductive History Menstrual Age of Menarche: 12 Questionnaire PHQ-9 Over the last 2 weeks, how often have you been bothered by any of the following problems? 1. Little interest or pleasure in doing things: more than half the days 2. Feeling down, depressed, or hopeless: nearly every day 3. Trouble falling or staying asleep, or sleeping too much: nearly every day 4. Feeling tired or having little energy: more than half the days 5. Poor appetite or overeating: nearly every day 6. Feeling bad about yourself - or that you are a failure or have let yourself or your family down: several days 7. Trouble concentrating on things, such as reading the newspaper or watching television: nearly every day 8. Moving or speaking so slowly that other people could have noticed. Or the opposite - being so fidgety or restless that you have been moving around a lot more than usual: not at all 9. Thoughts that you would be better off or of hurting yourself in some way: several days Total score: 18 Depression Screening Interpretation: Positive Depression Screening Follow-up: Existing condition and In treatment Depression Screening Done: Yes Source: Developed by Drs. Gene Gar, Shanita Ivey, Jim Ta and colleagues, with an educational shabbir from [employer]. Thrive Questionnaire Date Thrive assessed: 11/22/23 I am a: Patient What is your living situation today?: I have a steady place to live Within the past 12 months, did the food you bought not last and you didn't have the money to get more?: Never true Within the past 12 months, did you worry whether your food would run out before you got money to buy more?: Never true Do you have trouble paying for medicines?: No Do you have trouble getting transportation to medical appointments?: No Do you have trouble paying your heating and electricity bill?: No Do you have trouble taking care of your child, family member or friend?: No Do you have trouble with day-to-day activities such as bathing, preparing meals, shopping, managing finances, etc.?: No Are you currently unemployed and looking for a job?: I choose not to answer this question Are you interested in more education?: No Please select the resources that you would like help with: None Currently or been in a relationship where the following occur: No concerns reported THRIVE Score: 0 AUDIT C Alcohol Use Questionnaire (AUDIT-C) 1. How often do you have a drink containing alcohol?: Monthly or less 2. How many drinks containing alcohol do you have on a typical day when you are drinking?: 1 or 2 Total Score: 1 Score Reviewed/Action Taken: Yes DOTTY-7 AMB Questionnaire DOTTY-7 Date DOTTY - 7 assessed: 11/22/23 Feeling nervous, anxious, or on edge: 0 = Not at all Not being able to stop or control worryin = Not at all Worrying too much about different things: 0 = Not at all Trouble relaxin = Not at all Being so restless that it is hard to sit still: 0 = Not at all Becoming easily annoyed or irritable: 0 = Not at all Feeling afraid as if something awful might happen: 0 = Not at all Total DOTTY-7 score (0-4 normal; 5-9 mild; 10-14 moderate; 15-21 severe): 0 Source: Developed by Drs. Gene Gar, Shanita Ivey, Jim Ta and colleagues, with an educational shabbir from [employer]. Review of Systems Const Denies chills, Denies fatigue, Denies fever(s) and Denies headache(s) ENT Denies dysphagia, Denies dizziness, Denies otalgia, Denies headache(s), Denies neck pain, Denies odynophagia and Denies sore throat Card Denies chest pain, Denies palpitations and Denies dyspnea Resp Denies chest congestion, Denies cough and Denies dyspnea GI Reports abdominal pain (recurrent, especially when she eats or drinks something), Denies constipation, Denies dysphagia, Denies heartburn, Denies diarrhea, Denies nausea, Denies odynophagia and Denies vomiting Denies difficulty voiding, Denies nocturia, Denies dysuria and Denies urinary urgency Musc Details: (+) chronic pain in both feet; (+) pain over the dorsum of her right hand since she fell a couple of weeks ago Reports back pain (over her lower back - chronic and increasing lately), Reports arthralgias (involving multiple joints but especially over both knees) and Denies neck pain Skin/Breast Denies rash Neuro Denies dizziness and Denies headache(s) Endo Denies fatigue and Denies palpitations Physical exam (Primary Care) Vital Signs: Last Vital Signs Pulse 69 11/22/23 16:33 BP 132/80 11/22/23 16:33 Pulse Ox 98 11/22/23 16:33 Oxygen Delivery Method Room Air 11/22/23 16:33 BMI result Body Mass Index 34.7 Tobacco/Smoking Status: Tobacco use Status Tobacco use date assessed 11/22/23 11/22/23 16:35 Patient Tobacco Use Status Former Tobacco user 11/22/23 16:35 Tobacco use type Cigarette 11/22/23 16:35 e-Cigarette/Vaping Use Never Used 11/22/23 16:35 PHQ-9: PHQ-9 Score PHQ-9: Total score 18 11/22/23 19:59 Depression Screening Interpretation: Positive Depression Screening Follow-up: Existing condition and In treatment Thrive Assessment: Date of Thrive Assessment Date Thrive assessed 11/22/23 11/22/23 16:35 Currently or been in a relationship where the following occur: No concerns reported Const General: no acute distress and alert HENMT Ears: TM's normal bilaterally and EAC's normal Throat: Yes posterior oropharynx normal and Yes tonsils normal (no TP congestion) Neck Neck: Yes no lymphadenopathy and Yes supple Thyroid: Thyroid normal Resp Auscultation: clear to auscultation bilaterally, no rales and no wheezes Cardio Rate: regular rate Rhythm: regular rhythm Heart sounds: no murmurs GI Palpation (GI): Soft to palpation and nontender Auscultation: normal bowel sounds General: Yes no CVA tenderness Back/Spine/Pelvis Back: no CVA tenderness Thoracic/Lumbar Spine: lumbar spinal tenderness Skin Rashes: no rashes Extrem General: Yes no clubbing, cyanosis or edema Right upper extremity: Extremity exam: right hand Details: tenderness Location: of the dorsal hand Location: over the 4th metacarpal and over the 5th metacarpal Right lower extremity: knee Details: tenderness; no swelling and foot Details: tenderness Location: of the plantar foot Location: proximally Left lower extremity: knee Details: tenderness; no swelling and foot Details: tenderness Location: of the plantar foot Location: proximally Results Reviewed Results Reviewed: Laboratory Tests 11/20/23 11/20/23 11:00 11:02 WBC 5.9 Hgb 14.2 Hct 43.8 Plt Count 244 Sodium 143 Potassium 4.9 Creatinine 0.78 Estimated GFR > 60 Fasting Glucose 135 H Hemoglobin A1c % 7.2 H Calcium 9.8 AST 13 ALT 13 Triglycerides 96 Cholesterol 238 H LDL Cholesterol, Calc 161 H HDL Cholesterol 58 25-OH Vitamin D Total 21.5 L TSH 1.58 Ur Specific [place] 1.020 Urine Protein Negative Urine Glucose (UA) Negative Urine Blood Negative Urine Nitrite Negative Ur Leukocyte Esterase Moderate (2+) H Microalb/Creat Ratio 10.2 Assessment and Plan Assessment & Plan (1) Pure hypercholesterolemia: Code(s): E78.00 - Pure hypercholesterolemia, unspecified Plan: Results of her labs done a couple of days ago reviewed and discussed with patient - her cholesterol numbers have all increased significantly from previous as she stopped taking all of her meds recently, including Rosuvastatin 40 mg and Ezetimibe 10 mg Reinforced low cholesterol diet Will try starting her now on Repatha 140 mg SQ every 2 weeks since she is now not able to tolerate most oral meds Will recheck her labs and fasting lipids in 3 months for follow-up (2) Diabetes mellitus: Code(s): E11.9 - Type 2 diabetes mellitus without complications Qualifiers: Diabetes mellitus complication status: without complication Diabetes mellitus mcc insulin use: without mcc use Diabetes mellitus type: type 2 Qualified Code(s): E11.9 - Type 2 diabetes mellitus without complications Plan: Her HgbA1c was at 7.2% on her labs done a couple of days ago (was previously at 7.6% a few months ago) - goal is <7.0% Reinforced diabetic diet She was taking Acarbose 50 mg TID but has also stopped taking this a few weeks ago She used to see endocrinology (Dr. Mackay) for follow up but has not been seen since Dr. Mackay left just over a year ago She has reportedly been advised that as her diabetes appears to be controlled, that she can just follow up with her PCP and check back with endocrinology only if her diabetes gets out of control again Will have her recheck her FBS and HgbA1c in 3 months for follow up (3) Essential hypertension: Code(s): I10 - Essential (primary) hypertension Plan: Reinforced low sodium diet - goal is systolic BP of at least 130 mm or less Continue Lisinopril 10 mg QD and HCTZ 25 mg QD Patient is reminded to continue monitoring her blood pressure regularly (4) Migraine: Code(s): G43.909 - Migraine, unspecified, not intractable, without status migrainosus Qualifiers: Intractability: not intractable Migraine type: unspecified Status migrainosus presence: without status migrainosus Qualified Code(s): G43.909 - Migraine, unspecified, not intractable, without status migrainosus Plan: Stable - follow up with neurology as scheduled Continue Amitriptyline 10 mg daily at bedtime for ROWE prophylaxis (5) Plantar fasciitis, bilateral: Code(s): M72.2 - Plantar fascial fibromatosis Plan: She was seeing Dr. Becerra previously and had about 3 separate injections into her feet, which she states did not help She was recommended surgery as a last resort but was advised to see someone else as Dr. Becerra supposedly does not perform this type of surgery States that she checked with [facility] recently and was advised as well that they do not perform the requested for surgical procedure She was referred to Dr. Granados at [facility] for the required surgical procedure for her plantar fasciitis if appropriate but she ended up being seen by Dr. Russ - to follow up with podiatry as scheduled (6) Iron deficiency anemia: Code(s): D50.9 - Iron deficiency anemia, unspecified Qualifiers: Iron deficiency anemia type: inadequate dietary iron intake Qualified Code(s): D50.8 - Other iron deficiency anemias Plan: Corrected - H/H remained normal at 14.2/43.8 on her labs done a couple of days ago Will continue to monitor her CBC regularly (7) GERD (gastroesophageal reflux disease): Code(s): K21.9 - Gastro-esophageal reflux disease without esophagitis Qualifiers: Esophagitis presence: without esophagitis Qualified Code(s): K21.9 - Gastro-esophageal reflux disease without esophagitis Plan: Dietary restrictions reinforced Continue Lansoprazole 30 mg BID Advised that her recent postprandial abdominal pain may be due to gastritis She is scheduled to see GI in a couple of weeks for further evaluation (12/08/2023); advised that they may recommend she undergo EGD for further evaluation (8) Obstructive sleep apnea: Comment: uses CPAP Code(s): G47.33 - Obstructive sleep apnea (adult) (pediatric) Plan: Repeat home sleep study showed (+) improvement in her sleep apnea when she was using her CPAP device regularly she required auto-CPAP mode of 5 to 15 cm pressure - but her device broke down recently and she needs a replacement Her last sleep study was done in 2017 so she will need to get this updated - repeat home sleep study ordered Will refer her back to Sleep Medicine for further management (9) Osteoarthritis: Code(s): M19.90 - Unspecified osteoarthritis, unspecified site Qualifiers: Osteoarthritis location: unspecified site Osteoarthritis type: primary Qualified Code(s): M19.91 - Primary osteoarthritis, unspecified site Plan: Continue Tylenol ER 650 mg every 8 hours as needed for pain Follow up with orthopedics as scheduled (10) Right hand pain: Code(s): M79.641 - Pain in right hand Plan: S/P fall a couple of weeks ago, where she tried to break her fall with her hand Will send patient for x-rays of the right hand for further evaluation (11) Vitamin D deficiency: Code(s): E55.9 - Vitamin D deficiency, unspecified Plan: Continue Vitamin D3 2000 units QD? (12) Meralgia paresthetica: Code(s): G57.10 - Meralgia paresthetica, unspecified lower limb Qualifiers: Laterality: right Qualified Code(s): G57.11 - Meralgia paresthetica, right lower limb Plan: EMG & NCV done by neurology last year came out mostly normal Follow up with pain management (Dr. Mercedes) as scheduled - she has received a couple of injections (nerve block) already but states that they only helped with her burning sensation but not her pain She was supposed to be set up for an MRI by pain management for further evaluation but states that she has not heard back from them about this since (13) Insomnia: Code(s): G47.00 - Insomnia, unspecified Qualifiers: Insomnia type: primary Qualified Code(s): F51.01 - Primary insomnia Plan: Sleep hygiene reinforced Continue Trazodone 50 mg Q HS PRN and Temazepam 30 mg Q HS PRN (14) Anxiety: Code(s): F41.9 - Anxiety disorder, unspecified Plan: Continue Clonazepam 1 mg Q HS and Hydroxyzine 25 mg BID PRN (15) Depression: Code(s): F32.9 - Major depressive disorder, single episode, unspecified Qualifiers: Active/Remission status: currently active Depression Type: major depressive disorder Major depression episode severity: unspecified Major depression recurrence: recurrent Qualified Code(s): F33.9 - Major depressive disorder, recurrent, unspecified Plan: She was on Quetiapine 100 mg QD previously but this was reportedly stopped by psychiatry at some point Her previous psychiatrist (Dr. Kelly) recently retired and she is currently still looking for a new psychiatric provider (16) Obesity (BMI 30-39.9): Code(s): E66.9 - Obesity, unspecified Plan: Reinforced diet/exercise as tolerated/lose weight Plan Follow up in 3 months Orders: Orders Complete Blood Count Auto Diff 3 Months D64.9 - Anemia, unspecified Comprehensive [place]. Panel Fast 3 Months E78.00 - Pure hypercholesterolemia, unspecified Vitamin B12 and Folate 3 Months E53.8 - Deficiency of other specified B group vitamins Lipid Panel 3 Months E78.00 - Pure hypercholesterolemia, unspecified Hemoglobin A1c 3 Months E11.9 - Type 2 diabetes mellitus without complications XR hand RT min 3V Today M79.641 - Pain in right hand RT home sleep study Today G47.33 - Obstructive sleep apnea (adult) (pediatric) Microalbumin, Random (w Creat) 3 Months E11.9 - Type 2 diabetes mellitus without complications TSH reflex Free T4 3 Months E78.00 - Pure hypercholesterolemia, unspecified UA CC w/rflx Micro + Cult 3 Months R30.0 - Dysuria Vitamin D 25-OH Total 3 Months E55.9 - Vitamin D deficiency, unspecified Referrals Sleep Medicine Referral G47.33 - Obstructive sleep apnea (adult) (pediatric) Medications: New evolocumab (Repatha SureClick) 140 mg subcut Q2W 4 weeks 2 mL 2RF E78.00 - Pure hypercholesterolemia, unspecified Coding Level of Care Code Est Pt Level 4 (18400) Complex EM visit Add On G2211 Diagnoses Pure hypercholesterolemia E78.00 Type 2 diabetes mellitus without complication, without long-term current use of insulin E11.9 Diabetes mellitus complication status: without complication Diabetes mellitus mcc insulin use: without long term care phlebotomist use Diabetes mellitus type: type 2 Essential hypertension I10 Migraine without status migrainosus, not intractable, unspecified migraine type G43.909 Intractability: not intractable Migraine type: unspecified Status migrainosus presence: without status migrainosus Plantar fasciitis, bilateral M72.2 Iron deficiency anemia secondary to inadequate dietary iron intake D50.8 Iron deficiency anemia type: inadequate dietary iron intake Gastroesophageal reflux disease without esophagitis K21.9 Esophagitis presence: without esophagitis Obstructive sleep apnea G47.33 Primary osteoarthritis, unspecified site M19.91 Osteoarthritis location: unspecified site Osteoarthritis type: primary Right hand pain M79.641 Vitamin D deficiency E55.9 Meralgia paresthetica of right side G57.11 Laterality: right Primary insomnia F51.01 Insomnia type: primary Anxiety F41.9 Episode of recurrent major depressive disorder, unspecified depression episode severity F33.9 Active/Remission status: currently active Depression Type: major depressive disorder Major depression episode severity: unspecified Major depression recurrence: recurrent Obesity (BMI 30-39.9) E66.9
== END 2023-11-22 17:29 | disposition home or self-care (01) ==
PROVIDERS: PCP Internal Medicine; Visit Provider Internal Medicine
DX: E11.9 Type 2 diabetes mellitus without complications (principal); F33.9 Major depressive disorder, recurrent, unspecified; E78.00 Pure hypercholesterolemia, unspecified; I10 Essential (primary) hypertension; G43.909 Migraine, unspecified, not intractable, without status migrainosus; M72.2 Plantar fascial fibromatosis; D50.8 Other iron deficiency anemias; K21.9 Gastro-esophageal reflux disease without esophagitis; G47.33 Obstructive sleep apnea (adult) (pediatric); M19.91 Primary osteoarthritis, unspecified site; M79.641 Pain in right hand; E55.9 Vitamin D deficiency, unspecified

== ENCOUNTER 2023-11-23 10:51 | Outpatient (REF) | payer OTHER, SELFPAY ==
--- NOTE | ~2023-11-23 | XR_ITS ---
EXAMINATION: XR HAND, RIGHT CLINICAL INFORMATION: Pain right hand status post fall. COMPARISON: 06/07/2022 right wrist, 10/29/2021 right hand. TECHNIQUE: Four views of the right hand. FINDINGS: Moderate degenerative changes in the first carpometacarpal joint and triscaphe joint. The bones are diffusely demineralized. There is an impacted, mildly displaced fracture along the proximal aspect of the fifth metacarpal with suggestion of some bony production. XR/XR hand RT min 3V IMPRESSION: 1. Impacted, mildly displaced fracture along the proximal aspect of the fifth metacarpal with suggestion of some bony production. 2. Moderate degenerative changes in the first carpometacarpal joint and triscaphe joint. This study was presented to me on December 11, 2023 for interpretation. PSA staff will provide results to referring provider at this time. Electronically signed by: Jacklyn Cantu MD 12/11/2023 11:18 AM EDT
== END 2023-11-23 10:52 | disposition home or self-care (01) ==
LOC: HO.XRAY 10:51
PROVIDERS: PCP Internal Medicine; Visit Provider Internal Medicine
DX: M79.641 Pain in right hand (principal)
CPT/HCPCS: 73130

== ENCOUNTER 2023-12-08 11:41 | Outpatient (AMB) | payer OTHER, SELFPAY ==
--- NOTE | 2023-12-08 11:53 | MHC.OFFVIS ---
Vital Signs 12/08/23 12:03 Height 5 ft 4 in Weight 202 lb BMI 34.7 BP 173/91 H Blood Pressure Location Lt brachial Position Sitting Pulse 65 Intake Visit Reasons: Follow up CIC Intake Note: Patient in office today with c/o epigastric pain and nausea. CC: Patient c/o epigastric pain after eating, she reports that she sometimes spits the food out to avoid pain. She also reports nausea. Denies other GI concerns today. Clinical Marketing Manager Required: No Accompanied by: Self / Same As Patient Allergies cephalexin [From Keflex] Allergy (Mild, Verified 12/08/23 12:09) RASH HPI HPI Follow up CIC: Details: Assessment & Plan (1) GERD (gastroesophageal reflux disease): Code(s): K21.9 - Gastro-esophageal reflux disease without esophagitis Qualifiers: Esophagitis presence: without esophagitis Qualified Code(s): K21.9 - Gastro-esophageal reflux disease without esophagitis Plan: Patient has been lost to follow-up since 05/2021 and in the interim had a colonoscopy with Dr. Cruz is office, since I can not see an of his procedure results I assume she will follow with them in the future. She says she was told to follow up prn but I think she is confused between out service and Dr. Cruz, as I had expected to see her in 6 weeks in 05/2021. She needs her Linzess refilled as at the 290mcg level this controlled her CIC well. She still has occasional nausea that is helped a bit by prn carafate and she continues on the lansoprazole bid. She was diabetic before the bariatric surgery, but has not used medicines since this 7 years ago - she actually has to check that she does not go too low with her BS. ROV 6 mos. (2) Chronic idiopathic constipation: Code(s): K59.04 - Chronic idiopathic constipation (3) Nausea and vomiting: Comment: Resolved with twice a day lansoprazole 30 mg.Really more nausea not much vomiting in this gastric bypass patient with a history of hemorrhagic gastritis. EGD 07/2020 showed no more problems with inactive biopsies. Ultrasound did not show any gallbladder problems. if recurs consider gastric emptying study Code(s): R11.2 - Nausea with vomiting, unspecified (4) Family history of polyps in the colon: Comment: Mother and maternal uncle had polyps, scope 2018 with [facility] no polyps Code(s): Z83.71 - Family history of colonic polyps Medications: New linaclotide (Linzess) 290 mcg PO QAM 30 days 30 caps 6RF K59.04 - Chronic idiopathic constipation Refilled lansoprazole 30 mg PO BID 90 days 180 caps 1RF K29.71 - Gastritis, unspecified, with bleeding TODAY'S VISIT Patient has been lost follow-up since 08/2022. She continues to do well with the Linzess 290 and she is happy with this dose. She is here today because she has developed over the last 3 months relatively severe midline gastric pain. The pain is pretty much always there are never moves it is right up under the epigastric area. It is greatly worsened with eating and ranges from 6 to 7 2 at times 10/10 in intensity. She describes it like someone is ?punching me in the stomach.? It is not worse with time a day or movement and she can identify any foods except for heavy sauces and stools that seem to be more aggravating than others. She had an ultrasound in 2020 that showed gallbladder sludge so I think we should repeat this to see if there is a biliary problem. She is also a diabetic who recently has had less than optimal sugar control so gastroparesis is also in the differential diagnosis and will get a gastric emptying study. Her nausea is severe associated symptom and is worsening. Because of this I think will do a trial of Reglan 3 times a day to give her some relief and it also will be a bit of a test to see if gastroparesis is part of the problem. She was given sucralfate by her primary care provider but it was not helpful so we stopped that at this time to simplify the regimen. Return office visit in 6 weeks [facility] Medical History (Updated 11/22/23 @ 19:53 by Aubrey Dhaliwal MD) Pure hypercholesterolemia Plantar fasciitis Obesity due to excess calories Atherosclerotic cardiovascular disease COVID-19 vaccine administered Colon cancer screening Family history of polyps in the colon Hypoglycemia after GI (gastrointestinal) surgery Postmenopausal bleeding Status post hysteroscopy (~06/11/13) Obesity (BMI 30-39.9) Depression Anxiety Insomnia Meralgia paresthetica Vitamin D deficiency Carpal tunnel syndrome of left wrist Osteoarthritis Obstructive sleep apnea Iron deficiency anemia Migraine Hyperlipidemia Diabetes mellitus Hypertension Surgical History H/O colonoscopy H/O melanoma excision (~2010) H/O endoscopy (~06/20/13) History of knee surgery (~01/30/13) S/P dilatation and curettage (~2011) History of carpal tunnel surgery H/O laparoscopy S/P myomectomy History of sleeve gastrectomy Family History Father Myocardial infarction Prostate cancer Mother Cervical cancer Ovarian cancer Mental health disorder Diabetes Alzheimer's dementia Sleep apnea Sister Ovarian cancer Maternal Aunt Colon cancer Social History Household Members: Children Housing: Apartment Alcohol intake: current Alcohol intake frequency: holidays/special occasions only Patient Tobacco Use Status: Former Tobacco user Tobacco use type: Cigarette e-Cigarette/Vaping Use: Never Used Second Hand Smoke Exposure: Yes Advance Directives Date on File: 03/16/16 service: No Current occupational status: disabled Current occupation: right handed Cognitive needs: No Hearing needs: No Vision needs: Yes (glasses) Female Reproductive History Menstrual Age of Menarche: 12 Review of Systems Const Denies fatigue, Denies fever(s), Denies night sweats, Denies poor appetite and Denies weight loss Eyes Details: glASSES Reports requires corrective lenses ENT Reports Normal hearing present, Denies dental pain, Denies dysphagia, Denies hearing loss, Denies mouth pain, Denies odynophagia, Denies throat swelling, Denies tongue swelling and Reports other (Dentition adequate) Card Reports no additional complaints Resp Reports no additional complaints GI Details: Reports abdominal pain, Denies melena, Denies bloating, Denies hematochezia, Reports constipation, Denies GI cramping, Denies dysphagia, Denies excessive flatus, Denies early satiety, Reports heartburn, Denies diarrhea, Reports nausea, Denies odynophagia, Reports vomiting and Denies hematemesis Musc Reports back pain Skin/Breast Denies pruritus, Denies lesions, Denies rash and Denies jaundice Neuro Reports Normal hearing present and Denies Abnormal speech present Psych Reports anxiety Endo Denies fatigue Aller/Immun Denies throat swelling and Denies tongue swelling Physical Exam Vital Signs: Last Vital Signs Pulse 65 12/08/23 12:03 BP 173/91 H 12/08/23 12:03 BMI result Body Mass Index 34.7 Const General: cooperative, no acute distress, well developed and well groomed Nutritional Appearance: well nourished and obese Orientation/consciousness: oriented to person, oriented to place and oriented to time Limitations: No language barrier HEENT Head: Yes normocephalic and Yes atraumatic Eyes General: appearance normal, both eyes and all related structures Pupils: Equal, round and reactive pupils present Neck Neck: Yes normal visual inspection and Yes no lymphadenopathy Thyroid: Thyroid normal Resp Effort & Inspection: normal respiratory effort and able to speak in complete sentences Auscultation: clear to auscultation bilaterally Cardio Rate: regular rate Rhythm: regular rhythm Heart sounds: Normal, physiologic split S2 sound present Peripheral pulses: radial pulses present and posterior tibial pulses present GI Inspection: No distended, No Abdominal panniculus present and Yes obesity Palpation (GI): Soft to palpation, Tenderness to palpation present (GI) in the epigastrum and periumbilically, no guarding, not rigid and No hepatosplenomegaly present Percussion: Yes normal to percussion Auscultation: normal bowel sounds Rectal Exam - Female: deferred Skin General skin exam: no rashes or lesions noted, turgor normal, skin not dry, no jaundice, No spider nevi and no striae Rashes: no rashes Nails: normal Neuro General: oriented to person, oriented to place and oriented to time Cranial nerves: Yes Equal, round and reactive pupils present and Yes Normal hearing present Speech: No Abnormal speech present Extrem General: Yes normal to inspection, No clubbing, No cyanosis and No edema Psych Appearance: grossly normal and well kempt Mental Status: mental status grossly normal Speech and movement: Normal speech and movement present Affect: normal affect Attitude: cooperative Thought process: Normal thought process present and not confabulating Thought content: Normal thought content present Insight: Limited insight present (Psych) Judgement: Limited judgement present (Psych) Assessment & Plan Assessment & Plan (1) Chronic idiopathic constipation: Code(s): K59.04 - Chronic idiopathic constipation Category: Medical (2) GERD (gastroesophageal reflux disease): Code(s): K21.9 - Gastro-esophageal reflux disease without esophagitis Category: Medical Qualifiers: Esophagitis presence: without esophagitis Qualified Code(s): K21.9 - Gastro-esophageal reflux disease without esophagitis (3) Nausea and vomiting: Comment: Resolved with twice a day lansoprazole 30 mg.Really more nausea not much vomiting in this gastric bypass patient with a history of hemorrhagic gastritis. EGD 07/2020 showed no more problems with inactive biopsies. Ultrasound did not show any gallbladder problems. if recurs consider gastric emptying study Code(s): R11.2 - Nausea with vomiting, unspecified Category: Medical Plan Patient has been lost follow-up since 08/2022. She continues to do well with the Linzess 290 and she is happy with this dose. She is here today because she has developed over the last 3 months relatively severe midline gastric pain. The pain is pretty much always there are never moves it is right up under the epigastric area. It is greatly worsened with eating and ranges from 6 to 7 2 at times 10/10 in intensity. She describes it like someone is ?punching me in the stomach.? It is not worse with time a day or movement and she can identify any foods except for heavy sauces and stools that seem to be more aggravating than others. She had an ultrasound in 2020 that showed gallbladder sludge so I think we should repeat this to see if there is a biliary problem. She is also a diabetic who recently has had less than optimal sugar control so gastroparesis is also in the differential diagnosis and will get a gastric emptying study. Her nausea is severe associated symptom and is worsening. Because of this I think will do a trial of Reglan 3 times a day to give her some relief and it also will be a bit of a test to see if gastroparesis is part of the problem. She was given sucralfate by her primary care provider but it was not helpful so we stopped that at this time to simplify the regimen. Return office visit in 6 weeks Orders: Orders NM gastric emptying study Today R11.2 - Nausea with vomiting, unspecified US abdomen complete Today R11.2 - Nausea with vomiting, unspecified Medications: New metoclopramide HCl (Reglan) 5 mg PO TID 90 tabs 6RF R11.2 - Nausea with vomiting, unspecified Discontinued sucralfate Discontinued Reason: Doctor's Order 10 mL PO BID 420 mL 3RF Coding Level of Care Code Est Pt Level 4 (31211) Diagnoses Chronic idiopathic constipation K59.04 Gastroesophageal reflux disease without esophagitis K21.9 Esophagitis presence: without esophagitis Nausea and vomiting R11.2 Time Spent (min) 36
[2023-12-08 12:03] VITALS: BP 173/91; PULSE 65; BMI 34.7
== END 2023-12-08 12:44 | disposition home or self-care (01) ==
PROVIDERS: PCP Internal Medicine; Visit Provider Nurse Practitioner
DX: K59.04 Chronic idiopathic constipation (principal); K21.9 Gastro-esophageal reflux disease without esophagitis; R11.2 Nausea with vomiting, unspecified
CPT/HCPCS: 99214

== ENCOUNTER → 2023-12-08 11:41 | Outpatient (BNVA) | payer OTHER, SELFPAY | PROVIDERS: PCP Internal Medicine; Visit Provider Nurse Practitioner | DX: K59.04 Chronic idiopathic constipation (principal); R10.13 Epigastric pain; R11.2 Nausea with vomiting, unspecified; K21.9 Gastro-esophageal reflux disease without esophagitis; Z83.719 Family history of colon polyps, unspecified | CPT/HCPCS: 99212 ==

== ENCOUNTER → 2023-12-12 12:46 | Outpatient (REF) | payer OTHER, SELFPAY | LOC: HO.SL 12:46 | PROVIDERS: PCP Internal Medicine; Visit Provider Internal Medicine | DX: G47.33 Obstructive sleep apnea (adult) (pediatric) (principal) | CPT/HCPCS: 95806 ==

== ENCOUNTER → 2023-12-12 12:57 | Outpatient (BNV) | payer OTHER, SELFPAY | PROVIDERS: PCP Internal Medicine; Visit Provider Internal Medicine | DX: G47.33 Obstructive sleep apnea (adult) (pediatric) (principal) | CPT/HCPCS: 95806 ==

== ENCOUNTER 2023-12-20 07:33 | Outpatient (REF) | payer OTHER, SELFPAY ==
--- NOTE | ~2023-12-20 | US_ITS ---
EXAMINATION: US ABDOMEN COMPLETE CLINICAL INFORMATION: Nausea with vomiting, unspecified. COMPARISON: Ultrasound abdomen complete 08/06/2020. Ultrasound abdomen complete with elastography 12/28/2015. TECHNIQUE: Real-time imaging of the abdominal viscera. FINDINGS: PANCREAS: Normal. ABDOMINAL AORTA: The proximal, mid, and distal segments are normal in caliber. INFERIOR VENA CAVA: Visualized portions are normal. LIVER: Normal. The liver is normal in size. The liver contour is normal. Parenchymal echogenicity is normal. No focal hepatic lesion. There is no intrahepatic biliary duct dilatation seen. GALLBLADDER: The gallbladder is physiologically distended without evidence of stones, polyps, wall thickening or pericholecystic fluid. There is a small volume of echogenic sludge. COMMON BILE DUCT: Normal in caliber measuring 0.4 cm in diameter. RIGHT KIDNEY: Normal. No hydronephrosis. No renal calculi or focal parenchymal lesions. The kidney measures 11.4 cm in maximum dimension. LEFT KIDNEY: Normal. No hydronephrosis. No renal calculi or focal parenchymal lesions. The kidney measures 11.0 cm in maximum dimension. SPLEEN: Normal. The spleen measures 11.2 cm in maximum dimension. FREE FLUID: None. US/US abdomen complete IMPRESSION: Small volume of echogenic sludge within the gallbladder. No evidence of acute cholecystitis. Electronically signed by: Mukund Warner MD 01/16/2024 02:58 PM EST
== END 2023-12-20 07:34 | disposition home or self-care (01) ==
LOC: HO.US 07:33
PROVIDERS: PCP Internal Medicine; Visit Provider Nurse Practitioner
DX: R11.2 Nausea with vomiting, unspecified (principal)
CPT/HCPCS: 76700

== ENCOUNTER 2023-12-20 11:39 | Outpatient (AMB) | payer OTHER, SELFPAY ==
--- NOTE | 2023-12-20 11:34 | MHC.OFFVISWM ---
Intake Visit Reasons: (TV) PO LSG 03/14/16 Allergies cephalexin [From Keflex] Allergy (Mild, Verified 12/08/23 12:09) RASH Medication List - Last Reconciled 12/20/23 by VELIA Sousa acarbose (Precose) 100 mg PO TID acetaminophen ER (Mapap Arthritis Pain) 650 mg PO Q8H PRN 30 days amitriptyline 10 mg PO BEDTIME 30 days blood pressure monitor As directed blood sugar diagnostic (FreeStyle Lite Strips) 1 strip miscellaneous TID 90 days blood-glucose meter (FreeStyle Lite Meter kit) As directed blood-glucose meter (FreeStyle Lite Meter kit) As directed calcium citrate-vitamin D3 315 mg-5 mcg (200 unit) (Calcium Citrate + D) 1 tab PO BID cholecalciferol (vitamin D3) 50 mcg PO DAILY 90 days clonazepam 1 mg PO DAILY PRN cyanocobalamin (vitamin B-12) 1,000 mcg PO DAILY 90 days diclofenac sodium 1% (Arthritis Pain (diclofenac)) 4 grams topical QID 30 days evolocumab (Repatha SureClick) 140 mg subcut Q2W 4 weeks ezetimibe 10 mg PO DAILY fluticasone propionate 50 mcg/actuation 2 sprays intranasal DAILY hydrochlorothiazide 25 mg PO QAM lancets (FreeStyle Lancets) As directed 3 TIMES A DAY lansoprazole 30 mg PO BID linaclotide (Linzess) 290 mcg PO QAM 30 days lisinopril 20 mg PO DAILY metoclopramide HCl (Reglan) 5 mg PO TID multivitamin 1 tab PO DAILY [right wrist splint- carpal tunnel splint As directed] rosuvastatin 40 mg PO DAILY temazepam 30 mg PO BEDTIME PRN trazodone 50 mg PO DAILY PRN valacyclovir 500 mg PO BID 3 days vitamin A 1 cap PO DAILY HPI Comments Details: This?is a?58?yo female who is s/p RYGB 03/14/2016. Presents for 7 year 9 month post op visit. Weight at last visit on 05/06/2022 was 191.4 pounds with a BMI of 32.8, weight today is 202 pounds, representing a 11.6 pound weight gain.? Had seen GI, was sent for abd US/gastric emptying study. Was stopped on carafate, started on Reglan. Already on lansoprazole. Per GI notes- The pain is pretty much always there, never moves it is right up under the epigastric area. It is greatly worsened with eating and ranges from 6 to 7 2 at times 10/10 in intensity. She describes it like someone is ?punching me in the stomach.? It is not worse with time a day or movement. Pt reports to me that pain happens immediately upon eating, has been happening for 4 months. Accompanied by nausea. Has not smoked since before bypass. No NSAIDs. Has not had a recent endoscopy. No change in the color of her stools. Does not remember if she had pain when she was previously diagnosed with hemorrhagic gastritis. Present meal plan includes: sometimes follows meal plan given by dietitian, sometimes doesn't PFSH Medical History (Updated 12/11/23 @ 18:04 by Aubrey Dhaliwal MD) Pure hypercholesterolemia Plantar fasciitis Obesity due to excess calories Atherosclerotic cardiovascular disease COVID-19 vaccine administered Colon cancer screening Family history of polyps in the colon Hypoglycemia after GI (gastrointestinal) surgery Postmenopausal bleeding Status post hysteroscopy (~06/11/13) Obesity (BMI 30-39.9) Depression Anxiety Insomnia Meralgia paresthetica Vitamin D deficiency Carpal tunnel syndrome of left wrist Osteoarthritis Obstructive sleep apnea Iron deficiency anemia Migraine Hyperlipidemia Diabetes mellitus Hypertension Surgical History H/O colonoscopy H/O melanoma excision (~2010) H/O endoscopy (~06/20/13) History of knee surgery (~01/30/13) S/P dilatation and curettage (~2011) History of carpal tunnel surgery H/O laparoscopy S/P myomectomy History of sleeve gastrectomy Family History Father Myocardial infarction Prostate cancer Mother Cervical cancer Ovarian cancer Mental health disorder Diabetes Alzheimer's dementia Sleep apnea Sister Ovarian cancer Maternal Aunt Colon cancer Social History Household Members: Children Housing: Apartment Alcohol intake: current Alcohol intake frequency: holidays/special occasions only Patient Tobacco Use Status: Former Tobacco user Tobacco use type: Cigarette e-Cigarette/Vaping Use: Never Used Second Hand Smoke Exposure: Yes Advance Directives Date on File: 03/16/16 service: No Current occupational status: disabled Current occupation: right handed Cognitive needs: No Hearing needs: No Vision needs: Yes (glasses) Female Reproductive History Menstrual Age of Menarche: 12 Assessment & Plan Assessment & Plan (1) S/P gastric bypass: Code(s): Z98.84 - Bariatric surgery status Category: Surgical (2) Hemorrhagic gastritis: Comment: From her 2015 EGD, repeat EGD 07/2020 no recurrence Code(s): K29.71 - Gastritis, unspecified, with bleeding Category: Medical (3) Obesity due to excess calories: Code(s): E66.09 - Other obesity due to excess calories Category: Medical Qualifiers: Body mass index: BMI 33.0-33.9 Obesity classification: adult class 1 (BMI 30 - 34.9) Serious obesity comorbidity presence: with serious comorbidity Qualified Code(s): E66.09 - Other obesity due to excess calories; Z68.33 - Body mass index [BMI] 33.0-33.9, adult Plan I instructed pt to resume meal plan of primarily protein shakes and can have one small solid meal per day, try to have scrambled eggs or yogurt, 4 forkfuls. I am concerned she has recurrence of gastritis or perhaps an ulcer. Will f/u abd US results and discuss ? need for endoscopy with Dr. Lee Will contact pt with decision on endoscopy. I spent a total of 30 minutes reviewing/updating records, examining the patient and counseling the patient on weight management as detailed above.
== END 2023-12-20 11:58 | disposition home or self-care (01) ==
LOC: HO.HBS 11:39
PROVIDERS: PCP Internal Medicine; Visit Provider Physician Assistant Surgical
DX: K29.71 Gastritis, unspecified, with bleeding (principal); E66.811 Obesity, class 1; Z68.33 Body mass index [BMI] 33.0-33.9, adult; Z98.84 Bariatric surgery status
CPT/HCPCS: 99214; G2211

== ENCOUNTER 2023-12-26 08:51 | Outpatient (REF) | payer OTHER, SELFPAY ==
[2023-12-26 09:26] LABS: MANUAL DIFF FLAG NO
[2023-12-26 10:08] LABS: Basophils Percent Auto 0.4 % (0-2); Eosinophils Absolute Auto 0.1 X10*3/uL (0.0-0.4); Eosinophils Percent Auto 1.5 % (0-4); Hematocrit 40.5 % (37.0-47.0); Imm Gran Abs Auto 0.02 X10*3/uL (0.00-0.03); Imm Gran Pct Auto 0.4 % (0.0-0.4); Lymphocytes Absolute Auto 1.8 X10*3/uL (1.2-4.9); Lymphocytes Percent Auto 33.6 % (20-40); Mean Corpuscular HGB Conc 32.1 g/dl (31.0-35.0); Mean Corpuscular Hemoglobin 27.4 pg (27.0-33.0); Mean Corpuscular Volume 85.3 fL (80.0-98.0); Mean Platelet Volume 10.7 fL (9.4-12.3); Monocytes Absolute Auto 0.3 X10*3/uL (0.1-1.2); Monocytes Percent Auto 5.8 % (2-11); Neutrophils Absolute Auto 3.2 x10*3/uL (2.0-8.3); Neutrophils Percent Auto 58.3 % (45-73); Platelet Count 231 X10*3/uL (160-400); Red Blood Count 4.75 X10*6/uL (4.20-5.50); Red Cell Distribution Width 14.3 % (11.0-16.0); White Blood Count 5.5 X10*3/uL (4.8-10.8)
[2023-12-26 10:25] LABS: Estimated Average Glucose 171 mg/dL; Hemoglobin A1C 201.7326 umol/L; Hemoglobin A1c % 7.6 % (<6.0); Total Hemoglobin (HGBA1C) 3399.4786 umol/L
[2023-12-26 11:07] LABS: Alanine Aminotransferase 35 U/L (0-31); Alkaline Phosphatase 87 U/L (39-117); Anion Gap 13 (12-20); Aspartate Amino Transferase 33 U/L (5-31); Bilirubin Total 0.7 mg/dL (0.0-1.0); Blood Urea Nitrogen 14 mg/dL (9-16); C Reactive Protein 1.39 mg/dL (< or = 0.50); Calcium 9.3 mg/dL (8.4-10.2); Carbon Dioxide 25 mmol/L (22-29); Chloride 110 mmol/L (96-108); Cholesterol 136 mg/dL (<200); Estimated Glomerular Filt Rate > 60; Ferritin 31 ng/mL (10-250); Glucose Random 149 mg/dL (60-115); HDL Cholesterol 54 mg/dL (>40); Insulin 5 uU/mL (2-29); Iron 163 mcg/dL (30-160); LDL Cholesterol Calculated 59 mg/dL (<100); Percent Iron Saturation 50 % (15-50); Potassium 3.7 mmol/L (3.3-5.1); Sodium 144 mmol/L (135-145); Total Iron Binding Capacity 324 mcg/dL (228-428); Triglycerides 118 mg/dL (<150); Unsaturated Iron Binding 161 ug/dL; Vitamin D 25-OH Total 20.6 ng/mL (>30)
[2023-12-26 11:17] LABS: Folate 13.9 ng/mL (> or = 4.0); Vitamin B12 300 pg/mL (200-900)
[2023-12-29 19:03] LABS: Zinc 57 mcg/dL (60-130)
[2024-01-01 05:48] LABS: Vitamin B1 11 nmol/L (8-30)
[2024-01-02 23:23] LABS: Vitamin A 32 mcg/dL (38-98)
== END 2023-12-26 08:52 | disposition home or self-care (01) ==
LOC: HO.LAB 08:51
PROVIDERS: PCP Internal Medicine; Visit Provider Physician Assistant Surgical
DX: Z98.84 Bariatric surgery status (principal); Z13.1 Encounter for screening for diabetes mellitus
CPT/HCPCS: 36415; 80053; 80061; 82306; 82607; 82728; 82746; 83036; 83525; 83540; 84425; 84443; 84590; 84630; 85025; 86140

== ENCOUNTER 2023-12-27 10:27 | Outpatient (AMB) | payer OTHER, SELFPAY ==
--- NOTE | 2023-12-27 10:42 | A.OFFVIS_ITS ---
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 Patient was in [place] on vacation. She was walking down a street and tripped over a speed bump. September/October she noticed a bump on dorsal aspect of her right hand numbness, tingling, and pain that radiates from her right wrist to her elbow up the shoulder. her hands feels as it cramps up occasionally. She has difficulty with daily activities such as doing her hair, lifting, r otating wrist motions Pain in all of her right digits, Tylenol PM is the only medication that offers her relief and lets her rest through the night after being woken up from her symptoms Hx of Right CTR over 6 years ago here in [facility] [place]. 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 Patient reports that at that time, she fell onto her right hand and arm, and began to notice significant discomfort, particularly in the right hand and wrist and ra diating up into the elbow and the shoulder. The patient was not evaluated at that time, and was seen by her primary care provider approximately 2 months later, when x-rays were taken. The patient reports that this pain is now primarily concentrated about the lateral epicondyle of the elbow, but she does still experience discomfort in the wrist and shoulder. No other acute complaints or concerns at this time. [facility] Medical History Pure hypercholesterolemia Plantar fasciitis Obesity due to excess calories Atherosclerotic cardiovascular disease COVID-19 vaccine administered Colon cancer screening Family history of polyps in the colon Hypoglycemia after GI (gastrointestinal) surgery Postmenopausal bleeding Status post hysteroscopy (~06/11/13) Obesity (BMI 30-39.9) Depression Anxiety Insomnia Meralgia paresthetica Vitamin D deficiency Carpal tunnel syndrome of left wrist Osteoarthritis Obstructive sleep apnea Iron deficiency anemia Migraine Hyperlipidemia Diabetes mellitus Hypertension Surgical History H/O colonoscopy H/O melanoma excision (~2010) H/O endoscopy (~06/20/13) History of knee surgery (~01/30/13) S/P dilatation and curettage (~2011) History of carpal tunnel surgery H/O laparoscopy S/P myomectomy History of sleeve gastrectomy Family History Father Myocardial infarction Prostate cancer Mother Cervical cancer Ovarian cancer Mental health disorder Diabetes Alzheimer's dementia Sleep apnea Sister Ovarian cancer Maternal Aunt Colon cancer Social History Household Members: Children Housing: Apartment Alcohol intake: current Alcohol intake frequency: holidays/special occasions only Patient Tobacco Use Status: Former Tobacco user Tobacco use type: Cigarette e-Cigarette/Vaping Use: Never Used Second Hand Smoke Exposure: Yes Advance Directives Date on File: 03/16/16 service: No Current occupational status: disabled Current occupation: right handed Cognitive needs: No Hearing needs: No Vision needs: Yes (glasses) Female Reproductive History Menstrual Age of Menarche: 12 Review of Systems Const All systems reviewed & are unremarkable except as noted in HPI and below Physical Exam Vital Signs: BMI result Body Mass Index 33.6 Extrem Other: Patient is alert, oriented, and in no acute distress. Neuro: Normal sensation of the tips of all digits of the right hand at this time Vascular: Cap refill brisk Pain: Patient reports significant tenderness to palpation of the lateral epicondyle of the right elbow No tenderness to palpation of the medial epicondyle, radial head, or elsewhere in the right elbow No tenderness to palpation anywhere of the right hand or wrist ROM: Patient is able to make a closed fist and extend all digits of the right hand fully Patient is able to flex the right elbow to approximately 150 degrees and extend to 0 degrees without difficulty Skin: No lacerations or abrasions. General: No ecchymosis, erythema, or evidence of infection. There is noted to be a visible and palpable bump on the dorsal aspect of the patient's right 5th metacarpal, in the area of the old fracture Positive Cozen's test on the right Psych: Appears grossly normal Affect normal Attitude cooperative Results Reviewed Results Reviewed: X-rays obtained in the office today and independently reviewed by me, Noman Smith PA-C, demonstrate healed fracture of the right 5th metacarpal base. However, the fracture did not heal in anatomic alignment, and there is a small osteophyte that has now formed on the dorsal aspect of the 5th metacarpal base. Assessment & Plan Assessment & Plan (1) Right lateral epicondylitis: Code(s): M77.11 - Lateral epicondylitis, right elbow Category: Medical (2) Closed right hand fracture: Code(s): S62.91XA - Unspecified fracture of right wrist and hand, initial encounter for closed fracture Category: Medical Plan 1. Lateral epicondylitis of right elbow Patient is educated about this condition and the treatment options available At this time, patient was referred to occupational therapy for range of motion and strengthening of the right elbow in the setting of the lateral epicondylitis Patient is amenable to this plan Patient is advised on the importance of activity modification and conservative pain management measures as needed Patient will follow-up in 6-8 weeks after starting physical therapy if she notices no relief for discussion of further treatment options, namely injections Patient will follow-up as needed with any acute concerns 2. Old fracture of right 5th metacarpal base, healed At this time, patient is informed that her fracture has healed, but unfort unately would require a large surgery that she is likely not a prime candidate for to get normal anatomical alignment again Patient states that she is okay with her small deformity on her dorsal hand as long as there is no increased risk of any other injury Patient will follow-up as needed with any acute concerns Orders: Orders XR hand RT min 3V Today M79.641 - Pain in right hand OT Evaluation and Treatment Today M77.11 - Lateral epicondylitis, right elbow Coding Level of Care Code Est Pt Level 3 (12546) Diagnoses Right lateral epicondylitis M77.11 Closed right hand fracture S62.91XA
[2023-12-27 10:43] VITALS: BMI 33.6
== END 2023-12-27 11:14 | disposition home or self-care (01) ==
LOC: HO.HOS 10:27
PROVIDERS: PCP Internal Medicine
DX: M77.11 Lateral epicondylitis, right elbow (principal); S62.91XA Unspecified fracture of right hand, initial encounter for closed fracture
CPT/HCPCS: 99213

== ENCOUNTER 2023-12-27 10:27 | Outpatient (REF) | payer OTHER, SELFPAY ==
--- NOTE | ~2023-12-27 | XR_ITS ---
EXAMINATION: XR HAND RIGHT 4 VIEWS CLINICAL INFORMATION: Pain in right hand M79.641. Out of splint. COMPARISON: XR Right hand 11/23/2023 TECHNIQUE: Four views of the right hand. FINDINGS: Stable positioning and alignment of the impacted mildly displaced fracture of the proximal aspect of the fifth metacarpal. Fracture planes is ill-defined. Soft tissue swelling. No new acute fractures seen. Moderate first CMC and triscaphe joint arthritis. XR/XR hand RT min 3V IMPRESSION: Stable position and alignment of the proximal fifth metacarpal fracture. Study is assigned/presented for dictation on February 27, 2024 Electronically signed by: Satish Clifton MD 02/27/2024 01:21 PM [facility]
== END 2023-12-27 10:28 | disposition home or self-care (01) ==
LOC: HO.HOSX 10:27
PROVIDERS: PCP Internal Medicine
DX: M79.641 Pain in right hand (principal); M77.11 Lateral epicondylitis, right elbow; S62.91XA Unspecified fracture of right hand, initial encounter for closed fracture; S62.316P Displaced fracture of base of fifth metacarpal bone, right hand, subsequent encounter for fracture with malunion
CPT/HCPCS: 73130; 99212

== ENCOUNTER 2024-01-02 08:47 | Day surgery (SDC) | payer OTHER, SELFPAY ==
--- NOTE | 2024-01-01 09:49 | HO.ANESPROP2 ---
Documented by User: Ophelia Nam NP 01/01/24 09:51 HPI - Anesthesia Eval Consult details Narrative: 58yo F for Upper Endoscopy PMFSH Active Problems Active Problems: All Active Problems Right lateral epicondylitis (Acute) Closed right hand fracture (Acute) Pure hypercholesterolemia (Acute) Right hand pain (Acute) Lichen simplex chronicus (Acute) Vulvar lesion (Acute) Plantar fasciitis, bilateral (Acute) Lipoma (Acute) Annual physical exam (Acute) Plantar fasciitis (Acute) Bilateral foot pain (Acute) Heel pain, bilateral (Acute) Pain in toe of right foot (Acute) Cubital tunnel syndrome on right (Acute) Cervical radiculopathy (Acute) Abdominal pain (Acute) Right wrist pain (Acute) S/P gastric bypass (Acute) Adult general medical exam (Acute) Rotator cuff arthropathy of left shoulder (Acute) Rotator cuff arthropathy of right shoulder (Acute) Pain in joints of left hand (Acute) Joint pain in fingers of right hand (Acute) Neuropathy (Acute) Herpes (Acute) Osteoarthritis (Acute) Hematochezia (Acute) Breast lump in female (Acute) Well woman exam (Acute) Myoma (Acute) Microscopic hematuria (Acute) Female pelvic pain (Acute) KEVON on CPAP (Acute) Other and unspecified hyperlipidemia (Acute) Essential hypertension (Acute) Type 2 diabetes mellitus with unspecified complications (Acute) Nausea and vomiting (Acute) Hemorrhagic gastritis (Acute) Arthritis of left glenohumeral joint (Acute) High cholesterol (Acute) Malignant melanoma of skin of arm (Acute) Fibrocystic breast disease (Acute) Osteoarthritis of knees, bilateral (Acute) Morbid obesity (Acute) Bleeding hemorrhoids (Acute) Chronic idiopathic constipation (Acute) GERD (gastroesophageal reflux disease) (Acute) Sacroiliac joint pain (Acute) Lumbar radiculopathy, right (Acute) Postmenopausal bleeding (Acute) History of carpal tunnel surgery (Acute) Obesity due to excess calories (Acute) Family history of polyps in the colon (Acute) Atherosclerotic cardiovascular disease (Acute) Hypoglycemia after GI (gastrointestinal) surgery (Acute) Obesity (BMI 30-39.9) (Acute) Depression (Acute) Anxiety (Acute) Insomnia (Acute) Meralgia paresthetica (Acute) Vitamin D deficiency (Acute) Carpal tunnel syndrome of left wrist (Acute) Osteoarthritis (Acute) Obstructive sleep apnea (Acute) Iron deficiency anemia (Acute) Migraine (Acute) Hyperlipidemia (Acute) Diabetes mellitus (Acute) Hypertension (Acute) Past Medical History Medical History Pure hypercholesterolemia Plantar fasciitis Obesity due to excess calories Atherosclerotic cardiovascular disease COVID-19 vaccine administered Colon cancer screening Family history of polyps in the colon Hypoglycemia after GI (gastrointestinal) surgery Postmenopausal bleeding Status post hysteroscopy (~06/11/13) Obesity (BMI 30-39.9) Depression Anxiety Insomnia Meralgia paresthetica Vitamin D deficiency Carpal tunnel syndrome of left wrist Osteoarthritis Obstructive sleep apnea Iron deficiency anemia Migraine Hyperlipidemia Diabetes mellitus Hypertension Family History Family History Father Myocardial infarction Prostate cancer Mother Cervical cancer Ovarian cancer Mental health disorder Diabetes Alzheimer's dementia Sleep apnea Sister Ovarian cancer Maternal Aunt Colon cancer Family history of problems with anesthesia: No Surgical History Surgical History H/O colonoscopy H/O melanoma excision (~2010) H/O endoscopy (~06/20/13) History of knee surgery (~01/30/13) S/P dilatation and curettage (~2011) History of carpal tunnel surgery H/O laparoscopy S/P myomectomy History of sleeve gastrectomy History of Problems with Anesthesia: No Social History Social History Household Members: Children Housing: Apartment Are you a primary care director rn to a significant other at home: Yes (Mother) Do you presently have visiting nurse or other home services: No Alcohol intake: current Alcohol intake frequency: holidays/special occasions only Patient Tobacco Use Status: Former Tobacco user Tobacco use type: Cigarette Cigarettes Per Day: 2 Years Smoked: 3 Smoked in Last 30 Days: No e-Cigarette/Vaping Use: Never Used Second Hand Smoke Exposure: Yes Use of substances other than those prescribed or required for medical reasons: No Have you been hit, kicked, punched, or otherwise hurt by someone within the past year? If so, by whom?: No Are you DNR?: No Advance Directives: No Advance Directives Information Provided: Yes (Vamsi Monsalve- [phone]) Advance Directives on File: No Advance Directives Date on File: 03/16/16 Recently lost weight without trying: No How much weight loss: Not applicable Eating poorly because of decreased appetite: No Nutrition screen score: 0 Nutrition Risks: Gastrointestinal Malabsorption Patient : No : No Poor oral hygiene: No service: No Current occupational status: disabled Current occupation: right handed Cognitive needs: No Hearing needs: No Vision needs: Yes (glasses) Meds Allergies Allergy/AdvReac Type Severity Reaction Status Date / Time cephalexin [From Keflex] Allergy Mild RASH Verified 01/02/24 09:11 Home Medications ?Medication ?Instructions ?Recorded ?Confirmed ?Last Taken ?Type temazepam 30 mg capsule 30 mg PO BEDTIME PRN Insomnia 12/05/19 01/02/24 Unknown History acarbose 100 mg tablet (Precose) 100 mg PO TID 08/18/23 01/02/24 Unknown History Exam Pertinent Lab Results Pertinent Lab Results: Laboratory Tests 12/26/23 09:25 WBC 5.5 Hgb 13.0 Hct 40.5 Plt Count 231 Sodium 144 Potassium 3.7 D Chloride 110 H Carbon Dioxide 25 BUN 14 Creatinine 0.83 Assessment and Plan Assessment Anesthesia Assessment: Chart Reviewed Final Anesthetic Review Family History of Problems with Anesthesia: No History of Problems with Anesthesia: No Documented by User: Gayla Moreno MD 01/02/24 09:53 [facility] Past Medical History Medical History Pure hypercholesterolemia Plantar fasciitis Obesity due to excess calories Atherosclerotic cardiovascular disease COVID-19 vaccine administered Colon cancer screening Family history of polyps in the colon Hypoglycemia after GI (gastrointestinal) surgery Postmenopausal bleeding Status post hysteroscopy (~06/11/13) Obesity (BMI 30-39.9) Depression Anxiety Insomnia Meralgia paresthetica Vitamin D deficiency Carpal tunnel syndrome of left wrist Osteoarthritis Obstructive sleep apnea Iron deficiency anemia Migraine Hyperlipidemia Diabetes mellitus Hypertension Family History Family History Father Myocardial infarction Prostate cancer Mother Cervical cancer Ovarian cancer Mental health disorder Diabetes Alzheimer's dementia Sleep apnea Sister Ovarian cancer Maternal Aunt Colon cancer Surgical History Surgical History H/O colonoscopy H/O melanoma excision (~2010) H/O endoscopy (~06/20/13) History of knee surgery (~01/30/13) S/P dilatation and curettage (~2011) History of carpal tunnel surgery H/O laparoscopy S/P myomectomy History of sleeve gastrectomy Social History Social History Household Members: Children Housing: Apartment Are you a primary care director rn to a significant other at home: Yes (Mother) Do you presently have visiting nurse or other home services: No Alcohol intake: current Alcohol intake frequency: holidays/special occasions only Patient Tobacco Use Status: Former Tobacco user Tobacco use type: Cigarette Cigarettes Per Day: 2 Years Smoked: 3 Smoked in Last 30 Days: No e-Cigarette/Vaping Use: Never Used Second Hand Smoke Exposure: Yes Use of substances other than those prescribed or required for medical reasons: No Have you been hit, kicked, punched, or otherwise hurt by someone within the past year? If so, by whom?: No Are you DNR?: No Advance Directives: No Advance Directives Information Provided: Yes (Vamsi Monsalve- [phone]) Advance Directives on File: No Advance Directives Date on File: 03/16/16 Recently lost weight without trying: No How much weight loss: Not applicable Eating poorly because of decreased appetite: No Nutrition screen score: 0 Nutrition Risks: Gastrointestinal Malabsorption Patient : No : No Poor oral hygiene: No service: No Current occupational status: disabled Current occupation: right handed Cognitive needs: No Hearing needs: No Vision needs: Yes (glasses) Meds Allergies Allergy/AdvReac Type Severity Reaction Status Date / Time cephalexin [From Keflex] Allergy Mild RASH Verified 01/02/24 09:11 Home Medications ?Medication ?Instructions ?Recorded ?Confirmed ?Last Taken ?Type temazepam 30 mg capsule 30 mg PO BEDTIME PRN Insomnia 12/05/19 01/02/24 Unknown History acarbose 100 mg tablet (Precose) 100 mg PO TID 08/18/23 01/02/24 Unknown History Exam Airway Mallampati Class: II TM Dist: >3cm Neck ROM: Full Loose/Missing/Broken Teeth: No Heart: RRR Lungs: CTA Assessment and Plan Assessment Anesthesia Assessment: Anesthesia Plan Discussed Final Anesthetic Review NPO: Yes ASA Class: III Final Preanesthetic Review: Meds/Allgs Chart Reviewed, Consent Obtained/Reviewed and Anes Risks/Benef Reviewed Patient Risk: Intermediate Procedure Risk: Intermediate Anesthetic Plan Anesthetic Plan: MAC: Disposition: Standard PACU
[2024-01-02 09:17] VITALS: BP 182/91; PULSE 65; RESP 16; TEMP 36.2; O2SAT 100; BMI 33.9
[2024-01-02 09:31] LABS: Glucose, Whole Blood 142 mg/dL (60-115)
[2024-01-02] MEDS: Lactated Ringers 1,000 ML 80 ML IVCONT (09:35)
--- NOTE | 2024-01-02 09:53 | MHC.SHP ---
Pre-Procedural Eval Section A - 24 Hr Update-Section A only Date of Service: 01/02/24 The patient is an INPATIENT: No Section B - Complete if H&P > 30 days Chief Complaint: Postgastric surgery syndromes Details of Present Illness: Abdominal pain Relevant Family History (Specify if Yes): No Relevant Social History: None Present Medications: None Medical History: No relevant PMH History of Previous Operations: Relevant previous surgery/procedure and date(s) (Bariatric surgery) Allergies: Allergies Allergy/AdvReac Type Severity Reaction Status Date / Time cephalexin [From Keflex] Allergy Mild RASH Verified 01/02/24 09:11 Review of Systems Sugical H&P ROS: Negative: Constitution, Cardiovascular, Respiratory, Neurological, Psychiatric, Hem-Onc, Allergic/Immunologic, Genitourinary, Musculoskeletal, Integumentary, Endocrine and Eyes/Ears/Nose/Throat and Yes, Specify: Gastrointestinal (Abdominal pain, GERD) Exam Surgical H&P Exam: Normal: HEENT, Normal: Heart, Normal: Lungs, Normal: Extremities, Normal: Abdomen, Normal: Skin and Normal: Neurological Plan Diagnosis/Plan: Unchanged (EGD to assess etiology of GERD and abdominal pain. Risks of bleeding and perforation were discussed with the patient and she is in agreement with the plan.) I have reviewed the history and physical and performed a pertinent physical examination on my patient. No changes have occurred unless specified. Time Spent With Patient Time: Total time managing care of this patient today ____ minutes.
--- NOTE | 2024-01-02 09:57 | P.BOP_ITS ---
Brief Operative Note Date of Service: 01/02/24 Pre-op diagnosis: Epigastric pain and GERD Post-op diagnosis: same Procedure: PROCEDURE DATE: 01/02/2024 PREOPERATIVE DIAGNOSIS: GERD and abdominal pain, s/p gastric bypass POSTOPERATIVE DIAGNOSIS: ?Same as above. 1) small hiatal hernia PROCEDURE: [id number] with biopsies Surgeon: ?Charles Jose M.D.. Ph.D. Knowledge Management Consultant: ?None ? Anesthesia: IV sedation Estimated blood loss: ?Minimal FINDINGS AND PROCEDURE: ? OPERATIVE INDICATIONS: ?The patient is a 58 year old female known to me who underwent a laparoscopic gastric bypass by me. The patient is not compliant with instructions or follow-up and has GERD as well as abdominal pain.? Based on this information I recommended an upper endoscopy to evaluate the patient's symptoms.? Risks and complications of the surgery were discussed with the patient in advance particularly the possibility of perforation or bleeding that may require surgical intervention. The patient understood the risks and was in agreement with the plan. ? PROCEDURE: After informed consent was obtained by the patient, the patient was ?transferred to the Operating Room and was placed in the supine position.? After successful induction of IV sedation, a mouth block was placed and the patient was placed in the left lateral decubitus position. An upper endoscopy was performed next, the oropharynx and esophagus appeared within the normal limits. There was 1-2cm hiatal hernia.? The z-line was smooth. Two biopsies were obtained from the distal esophagus 2-3 cm proximal to the GE junction and two biopsies from the GE junction. The small pouch was entered, appeared to be of normal size. There was no gastritis and the gastrojejunostomy was patent. A biopsy was obtained from the gastric pouch. No significant bl eeding was noted from any of the biopsy sites. There was no anastomotic ulcer.? At that point the scope was advanced into the proximal small intestine (proximal Guy limb) all the way to the full length of the endosocpe at 60cm from incisors, which appeared to be normal as well. The Guy limb and the pouch were decompressed and the scope was withdrawn from the patient's mouth. The patient was awaken and was transferred in stable condition to the Recovery Room for further care. I was present and performed all steps of the procedure. There were no residents to assist with this case. Charles Jose M.D., Ph.D. Surgeon: Tee Jose MD Anesthesia: MAC Was an Knowledge Management Consultant used for this Procedure?: No Estimated blood loss (mL): 0 IV fluids (mL): 400 Urine output (mL): 0 (No Mendoza to record output) Pathology: other (1) gastric pouch x1, 2) GE junction x2, 3) distal esophagus x2) Condition: stable Disposition: PACU
[2024-01-02 10:33] VITALS: BP 125/64; PULSE 68; RESP 18; TEMP 36.4; O2SAT 98
[2024-01-02 10:53] VITALS: BP 127/68; PULSE 72; RESP 17; TEMP 36.4; O2SAT 96
== END 2024-01-02 11:29 | disposition home or self-care (01) ==
PROVIDERS: PCP Internal Medicine; Visit Provider Surgery
PROC: 0DJ08ZZ Inspection of Upper Intestinal Tract, Via Natural or Artificial Opening Endoscopic (ICD-10-PCS; CPT 43235; principal; 2024-01-02 10:10)
DX: K21.9 Gastro-esophageal reflux disease without esophagitis (principal); R10.9 Unspecified abdominal pain; Z98.84 Bariatric surgery status; Z91.199 Patient's noncompliance with other medical treatment and regimen due to unspecified reason; K91.1 Postgastric surgery syndromes; E66.09 Other obesity due to excess calories; Z68.33 Body mass index [BMI] 33.0-33.9, adult; K44.9 Diaphragmatic hernia without obstruction or gangrene; I10 Essential (primary) hypertension; I25.10 Atherosclerotic heart disease of native coronary artery without angina pectoris; E78.00 Pure hypercholesterolemia, unspecified; E11.9 Type 2 diabetes mellitus without complications; D50.9 Iron deficiency anemia, unspecified; G47.33 Obstructive sleep apnea (adult) (pediatric); Z79.51 Long term (current) use of inhaled steroids; Z79.899 Other long term (current) drug therapy; Z88.1 Allergy status to other antibiotic agents; Z98.890 Other specified postprocedural states; Z87.891 Personal history of nicotine dependence
CPT/HCPCS: 43239; 82947; 88305; 88313; 88342; J1920; J2003; J2704

== ENCOUNTER → 2024-01-02 08:47 | Outpatient (BNV) | payer OTHER, SELFPAY | PROVIDERS: PCP Internal Medicine; Visit Provider Surgery | DX: K44.9 Diaphragmatic hernia without obstruction or gangrene (principal) | CPT/HCPCS: 43239 ==

== ENCOUNTER 2024-01-15 13:26 | Outpatient (RCR) | payer OTHER, SELFPAY ==
--- NOTE | 2024-01-15 14:27 | MHC.OT.EP ---
[address] [phone] Occupational Therapy Plan of Care Patient Name: Shania Bustos Date of Evaluation: 01/15/24 Diagnosis: R lateral epicondylitis Pain Location: ulnar side of wrist/ 5th metacarpal Pain Score: 8 Pain Scale Used: Numeric (0 - 10) Aggravating Factors: Alleviating Factors: Takes tylenol but very minimal alleviation of sx's Assessment: Pt is a 58 yr. old R hand dominant female who reports falling in August 2023 while on vacation in [place] ; her hand was red and swollen, but she had full ROM. She came back 2 weeks later and was self massaging and using Dada Wilson she noticed swelling went down, but the pain remained. She also reports a small osteophyte on her 5th metacarpal, and when she noticed this she went to orthopedics at [facility]. she was diagnosed w/ a 5th metacarpal fx (healed, but not properly, and lateral epicondylitis. 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 She ahs been referred to skilled OT therapy to decrease pain and increase strength and the functional use of her dominant hand. 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 Thank you once again for your referral.
--- NOTE | 2024-01-15 14:31 | MHC.OT.DC ---
[address] [phone] F: [phone] Occupational Therapy Discharge Note Patient Name: Shania Bustos Provider: Noman Smith Diagnosis: R lateral epicondylitis Date of Surgery: Date of Evaluation: 01/15/24 Date of Discharge: Treatments to Date: 1 Cancellations to Date: No Shows to Date: Discharge Status: Discharge Summary: PT IS GOING TO [place] THIS WEEK UNTIL THE MIDDLE OF FEBRUARY. SHE WAS EDUCATED ON HEP TO PROMOTE PROPER HEALING, SHE WILL BE D/CHARGED / pt is in agreement Electronically Signed By: Di Maguire Reviewed/agree with student documentation: N/A Therapist: Please Sign and return to therapist, thank you for your referral.
== END 2024-06-13 10:44 | disposition home or self-care (01) ==
LOC: HO.OT 13:26
PROVIDERS: PCP Internal Medicine
DX: M77.11 Lateral epicondylitis, right elbow (principal)
CPT/HCPCS: 97166

== ENCOUNTER 2024-03-12 12:53 | Outpatient (AMB) | payer OTHER, SELFPAY ==
--- NOTE | 2024-03-12 13:11 | MHC.OFFVIS ---
Vital Signs 03/12/24 13:12 Height 5 ft 5 in Weight 205 lb 6 oz BMI 34.2 BP 158/80 H Blood Pressure Location Lt brachial Position Sitting Intake Visit Reasons: INP-KEVON Intake Note: Patient presents for a new patient evaluation for KEVON. Moisture Machine Tender Required: No Accompanied by: Self / Same As Patient Allergies cephalexin [From Keflex] Allergy (Mild, Verified 03/12/24 13:12) RASH HPI Comments Details: 58 year old female referred to us for Sleep Apnea, by her PCP, Dr. Dhaliwal. She had a sleep study done in 2023: Sleep Study conducted KEVON Mild snoring is minimal with CPAP use. NICO 7.2 OAI 1.4, O2 desat to 80%. She has migraines monthly, which she is able to manage at onset with Amitriptyline 10mg, her R. eye starts to flutter, twitches and tears d/t itchiness. She has photophobia, phonophobia and nausea. She avoids triggers before they develop into migraines. 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 side. Aura is not a prodrome, denies flashes, or loss of vision. She has restless legs,or PLMD? Symptoms. Plantar fasciatis, Rmairez's neuroma, unable to walk, August 2023 with corticosteroid shots, 1 week R. foot, next week L. foot was injected, for a total of 3 treatments. She feels off balance, with numbness and tingling sensation in her feet. She wakes up at night with muscle spasms and an uncomfortable sensation in her feet. She is followed by Physiatrist, he recommended orthopedic shoes. She had PT for R. hand strengthening exercises, she fell on her wrist, now has radiating pain up the R. hand to the elbow, xray showed fracture, bone set incorrectly. She sees a Principal Gifts Officer for weight loss and meal prepping and to reduce caloric intake. 2003 she was dx with Obstructive Sleep apnea, her BMI was elvated, she was 286 pounds. 2015 Bariatric surgery, lost 88lbs. Her sleep mask nose pillows is broken and she needs supplies, she did visit her Sleep provider on [facility] in [place] and was referred for HST. Mood and diet is okay. [facility] Medical History Pure hypercholesterolemia Plantar fasciitis Obesity due to excess calories Atherosclerotic cardiovascular disease COVID-19 vaccine administered Colon cancer screening Family history of polyps in the colon Hypoglycemia after GI (gastrointestinal) surgery Postmenopausal bleeding Status post hysteroscopy (~06/11/13) Obesity (BMI 30-39.9) Depression Anxiety Insomnia Meralgia paresthetica Vitamin D deficiency Carpal tunnel syndrome of left wrist Osteoarthritis Obstructive sleep apnea Iron deficiency anemia Migraine Hyperlipidemia Diabetes mellitus Hypertension Surgical History H/O colonoscopy H/O melanoma excision (~2010) H/O endoscopy (~06/20/13) History of knee surgery (~01/30/13) S/P dilatation and curettage (~2011) History of carpal tunnel surgery H/O laparoscopy S/P myomectomy History of sleeve gastrectomy Family History Father Myocardial infarction Prostate cancer Mother Cervical cancer Ovarian cancer Mental health disorder Diabetes Alzheimer's dementia Sleep apnea Sister Ovarian cancer Maternal Aunt Colon cancer Social History Household Members: Children Housing: Apartment Are you a primary daytime caregiver to a significant other at home: Yes (Mother) Do you presently have visiting nurse or other home services: No Alcohol intake: current Alcohol intake frequency: holidays/special occasions only Patient Tobacco Use Status: Former Tobacco user Tobacco use type: Cigarette Cigarettes Per Day: 2 Years Smoked: 3 e-Cigarette/Vaping Use: Never Used Second Hand Smoke Exposure: Yes Advance Directives Date on File: 03/16/16 service: No Current occupational status: disabled Current occupation: right handed Cognitive needs: No Hearing needs: No Vision needs: Yes (glasses) Female Reproductive History Menstrual Age of Menarche: 12 Review of Systems Const All systems reviewed & are unremarkable except as noted in HPI and below Physical Exam Vital Signs: Last Vital Signs BP 158/80 H 03/12/24 13:12 BMI result Body Mass Index 34.2 Const General: cooperative, comfortable and no acute distress Nutritional Appearance: average body habitus, overweight and other (BMI is 34) Orientation/consciousness: patient oriented x3 HEENT Teeth and gingiva: other ([place] Score of 4) Eyes Pupils: Equal, round and reactive pupils present Neck Neck: Yes full ROM Resp Effort & Inspection: normal respiratory effort and able to speak in complete sentences Neuro General: patient oriented x3 Cranial nerves: Yes CN's II-XII intact bilaterally, Yes Facial sensation intact/muscles of mastication intact, Yes Equal, round and reactive pupils present, Yes Normal accommodation reflex present, Yes Bilaterally intact EOM present, Yes Nystagmus not present, Yes Normal facial strength present, Yes Midline tongue present, Yes Ability to bilaterally rotate head present and Yes Ability to bilaterally elevate shoulders present Cognition (Neuro): normal cognition Gait exam (Neuro): Normal gait present Motor exam (neuro): Pronator motor function not present, no tremor noted, Normal motor muscle tone present throughout and Abnormal motor strength present (LLE weaker than RLE) Deep tendon reflexes (DTR's): Right triceps reflex intensity grade: 2+, Left triceps reflex intensity grade: 2+, Rt Biceps (C5, C6): 2+, Left biceps reflex intensity grade: 2+, Right brachioradialis reflex intensity grade: 2+, Left brachioradialis reflex intensity grade: 2+, Right patellar reflex intensity grade: 2+, Left patellar reflex intensity grade: 2+, Right ankle reflex intensity grade: 2+ and Left ankle reflex intensity grade: 2+ Coordination: [id number] test normal Psych Appearance: grossly normal Mental Status: mental status grossly normal Speech and movement: Normal speech and movement present Affect: normal affect Attitude: cooperative Thought process: Normal thought process present Thought content: Normal thought content present Insight: Good insight present (Psych) Judgement: Good judgement present (Psych) Results Reviewed Results Reviewed: Sleep study Nov 2023 KEVON NICO 7.2 O2 desat to 80% / AHI 7.3/ OAI 1.4- snoring in suppine position. Weight Reduction per Nutrtionist Labs Vit D is 20-low, Zinc is 57-low, A1c 7.2 / Glucose 142/ AST/ ALT high / C-Reactive Protein is 1.39 B12 300 TSH 1.2 normal / RH factor is <15 positive? Fibromyalgia? Tumor removed - Salivary Gland L. side, ENT [facility] Assessment & Plan Assessment & Plan (1) RLS (restless legs syndrome): Code(s): G25.81 - Restless legs syndrome Category: Medical (2) Excessive daytime sleepiness: Code(s): G47.19 - Other hypersomnia Category: Medical (3) Fatigue due to sleep pattern disturbance: Code(s): R53.83 - Other fatigue; G47.9 - Sleep disorder, unspecified Category: Medical (4) Numbness and tingling of both feet: Code(s): R20.0 - Anesthesia of skin; R20.2 - Paresthesia of skin Category: Medical (5) Hx of migraines: Code(s): Z86.69 - Personal history of other diseases of the nervous system and sense organs Category: Medical Plan KEVON CPAP supply order [id number], sent orders today [facility]. Labs: B12 with folate and MMA - Homocysteine/ Folate and Iron. Migraines : Continue Amitryptiline 10mg PO at bedtime. RLS: Will start her on Gabapentin 100mg PO daily at bedtime. PT for Gait training bilaterally feet, she feels off balance. Medications: New gabapentin May take 1-3 capsules daily as needed. Do not take more than 3 capsules at bedtime. 100 mg PO BEDTIME 90 caps 3RF Restless Leg Syndrome MDD 300mg G25.81 - Restless legs syndrome Coding Level of Care Code New Pt Level 4 (04448) Diagnoses RLS (restless legs syndrome) G25.81 Excessive daytime sleepiness G47.19 Fatigue due to sleep pattern disturbance R53.83; G47.9 Numbness and tingling of both feet R20.0; R20.2 Hx of migraines Z86.69 Sleep Questionnaire Difficulty falling asleep: Yes Difficulty staying asleep?: Yes Number of arousals: 2-3x RLS Snoring: Yes (Loudly when not using mask / cpap) Witnessed apneas: No Gasping arousals: No Nocturia: Yes (2-3x) GERD: Yes Vivid dreams: No Acting out dreams: No Abnormal behavior in sleep: No Abnormal movements in sleep: No Excessive daytime sleepiness: Yes Daytime naps: Yes (2-3 x / week) Restless legs: Yes Hallucinations: No Sleep paralysis: Yes Drop attacks: No Sleep Study: Yes CPAP: Yes
[2024-03-12 13:12] VITALS: BP 158/80; BMI 34.2
--- OUTSIDE RECORDS SUMMARY | 2024-03-12 15:06 | XMS_ITS ---
Author Organization [facility] Address [address] [place] [address] Care Team Providers Care Academic Counselor Name Role Phone Isra POWERS Simon Primary Care Provider Unava ilable Maxwell Russ Unavailable [phone] REASON FOR VISIT rs appt 10/18/23 Encounters Encounter Location Date Provider Diagnosis [facility] [address] [place] [address] 10/16/2023 Maxwell Russ Plan Of Treatment Next Appt Details Provider Name:Maxwell Russ , 06/27/2024 01:00:00 PM, [address] [facility], [place] [address], [place], [address], Progress Notes * Rogerio BUSTOSAlexOB:1965 (58 yo F)Acc No.[id number]:10/16/2023 Patient:?Shania Bustos :1965???Age:58 Y???Sex:Female Address:[address] [place] [address] [address], [address], [place], [address] * true * Date:? Generated for Rondai carmenza/Antonette/eTransmitting on:?03/12/2024 03:06 PM EST
--- OUTSIDE RECORDS SUMMARY | 2024-03-12 15:06 | XMS_ITS ---
[facility] Address [address] [place] [address] Care Team Providers Care Gis Administrator Name Role Phone Aubrey Dhaliwal MD Primary Care Provider Unava ilMaxwell Car Unavailable [phone] Encounters Encounter Location Date [facility] [address] 10/18/2023 Maxwell Russ Plan Of Treatment Next Appt Details Provider Name:Maxwell Russ , 06/27/2024 01:00:00 PM, [address] [place] [address], [place], [address], Progress Notes * Rogerio BUSTOSeDOB:1965 (58 yo F)Acc No.[id number]:10/18/2023 Progress Note Patient:?Shania BUSTOS Provider:?Maxwell Russ DPM :1965???Age:58 Y???Sex:Female D ate:10/18/2023 Address:[address] [place], [place] [address] , [address], [phone] Pcp:Aubrey Dhaliwal MD Subjective: * Chief Complaints: * ??? * Medical History:? Objective: * Vitals:? Assessment: Plan: * Treatment: * Images: * The named appointment provid er may or may not be the originator of this progress note, and it is not deemed complete until electronically signed by the appointment provider. Sign off status: Pending * Provider:Jackie Russ DPM Date:?2023 Generated for Toyin herr/Antonette/Eufemia on:?03/12/2024 03:05 PM EST
--- OUTSIDE RECORDS SUMMARY | 2024-03-12 15:06 | XMS_ITS | Patient Health Record ---
Author [facility] Address [address] [facility] [place] [address] Care Team Providers Care Electronic Component Processor Name Role Phone Doni Dhaliwal MDneth Primary Care Provider Unava ilMaxwell Car Unavailable [phone] Allergies Allergen (clinical drug ingredient) Drug/Non Drug Allergy documented on EMR Reaction Allergy Type Onset Date Status cephalexin Cephalexin rash Drug Allergy Activ e Results Component Value Reference Range Notes HEMOGLOBIN A1C (GLYCOHEMOGLO BIN) Reviewed date:06/29/2023 09:51:39 AM Interpretation: Performing Lab: Notes/Report: HEMOGLOBIN A1C % (HH) 7.5 H HEMOGLOBIN A1C (GLYCOHEMOGLO BIN) Reviewed date:07/12/2023 01:06:53 PM Interpretation: Performing Lab: Notes/Report: HEMOGLOBIN A1C % (HH) 7.0 Reason For Referral No Information Medications Medication SIG (Take, Route, Frequency, Duration) Notes Start Date End Date Status Acarbose 100 MG as directed Orally Active Trazodone & Diet Manage Prod Active Metoclopramide HCl 5 MG Oral for 30 Days Active Amitriptyline HCl 10 MG 1 tablet at bedt nik Orally Once a day Active Sucralfate Active valACYclovir HCl Not -Taking Diclofenac Sodium Ac tive Calcium Citrate + D3 315-6.2 5 MG-MCG 1 tablet Orally Twice a day Active Vitamin A Active Lisinopril Active clonazePAM Not-Takin g Linzess Active Acetaminophen ER 650 MG 2 tablets as nee ded Orally every 8 hrs Not-Taking Rosuvastatin Calcium 40 MG 1 tablet Oral ly Once a day Active Temazepam 30 MG 1 capsule at bedtime as needed Orally Once a day Not-Taking Multivitamin Active Fluticasone Propionate Not-Taking Ezetimibe Active Vitamin D3 Active Vitamin B12 Active Lansoprazole Active Orthopedic Extra Depth Shoes With Custom Heat Molded Multidensity Innersoles 1 Pair shoes with 3 Pair custom heat molded innersoles Wear Daily for 365 days 07/12/2023 Active hydroCHLOROthiazide Active Night Splint AFO - L1930 1 wear at rest for 30 days Active Social History Tobacco Use: Social History Observation Description Date Details (start date - stop date) Never Smoker NA - NA Alcohol Screen Question Answer Notes Did you have a drink contain ing alcohol in the past year? Yes How often did you have a dri nk containing alcohol in the past year? Monthly or less (1 point) Points 1 Interpretation Negative Tobacco use other than smoking: Question Answer Notes Are you an other tobacco user? No Tobacco Control (Standard) Question Answer Notes Tobacco use: Nonsmoker Problems Problem Type SNOMED Code ICD Code Onset Dates Problem Status W/U Status Risk Notes Problem Type 2 diabetes mellitus without complication (571706675) Type 2 diabetes mellitus without complication (E11.9) Active confirmed Vital Signs Height 5ft5in in 01/10/2024 Weight 192 lbs 01/10/2024 BMI 31.95 kg/m2 01/10/2024 Encounters Encounter Location Date [facility] [address] 07/12/2023 Maxwell Jeb Pain in right foot M79.671 ; Plantar fasciitis, bilateral M72.2 ; Calcaneal spur, right foot M77.31 ; Other myositis of right foot M60.871 ; Bursitis of right foot M77.51 ; Pain in left foot M79.672 ; Calcaneal spur, left foot M77.32 ; Other myositis of left foot M60.872 and Bursitis of left foot M77.52 [facility] [address] 01/10/2024 Maxwell Jeb Type 2 diabetes mellitus without complication E11.9 and Plantar fasciitis, bilateral M72.2 [facility] [address] [place] [address] 06/12/2023 Maxwell Russ [facility] [place] [address] [place] [address] 10/16/2023 Maxwell Jeb Assessments Encounter Date Diagnosis (ICD Code) Assessment Notes Treatment Notes Treatment Clinical Notes Section Notes 07/12/2023 Pain in right foot (ICD-10 - M79.671) 01/10/2024 Type 2 diabetes mellitus without complication (ICD-10 - E11.9) 01/10/2024 Plantar fasciitis, bilateral (ICD-10 - M72.2) 07/12/2023 Plantar fasciitis, bilateral (ICD-10 - M72.2) Patient Educated with: HEEL CORD STRETCHES.pdf (HEEL CORD STRETCHES.pdf) Patient Educated with: RICE THERAPY.pdf (RICE THERAPY.pdf) 07/12/2023 Calcaneal spur, right foot (ICD-10 - M77.31) 07/12/2023 Other myositis of right foot (ICD-10 - M60.871) 07/12/2023 Bursitis of right foot (ICD-10 - M77.51) 07/12/2023 Pain in left foot (ICD-10 - M79.672) 07/12/2023 Calcaneal spur, left foot (ICD-10 - M77.32) 07/12/2023 Other myositis of left foot (ICD-10 - M60.872) 07/12/2023 Bursitis of left foot (ICD-10 - M77.52) Plan Of Treatment Pending Test Test Name Order Date X ray : Foot, left 3V 07/12/2023 X ray : Foot, right 3V 07/12/2023 Next Appt Details Provider Name:Maxwell Shlomo MyersJeb , 06/27/2024 01:00:00 PM, [address] [facility] [address], [place], [address], Insurance Providers Payer Name Payer Address Payer Phone Subscriber Number Group Number Insured Name Patient Relationship to Insured Coverage Start Date Coverage End Date [facility] [employer] Claims [address] [place] [address] [phone] [id number] Shania Bustos Self - patient is the insured Medical (General) History Medical History History ICD Code Anxiety disorder Atherosclerotic cardiovascular disease ( ASCVD) Carpal tunnel colon cancer covid-19 Depression Diabetes mellitus Obesity Hyperlipidemia Hypertension hypoglycemia Insomnia Iron Deficiency Anemia (KEMAL) meralgia parasthetica Migraines osteoarthritis Sleep apnea Vitamin D deficiency Arthritis Back,Hip,and Knee pain CAD (Cholesterol) Fibromyalgia Headaches/Migraines High blood pressure Numbness Reflux ( GERD) Rheumatic fever sinusitis Chicken pox Surgical History Surgery Date(Month/Year) carpal tunnel surgery colonoscopy dilatation and curettage endoscopy gastric bypass 2017 knee surgery Laparoscopy melanoma excision 2010 myomectomy sleeve gastrectomy
== END 2024-03-12 13:57 | disposition home or self-care (01) ==
PROVIDERS: PCP Internal Medicine; Visit Provider Physician Assistant Medical
DX: G25.81 Restless legs syndrome (principal); G47.19 Other hypersomnia; R53.83 Other fatigue; G47.9 Sleep disorder, unspecified; R20.0 Anesthesia of skin; R20.2 Paresthesia of skin; Z86.69 Personal history of other diseases of the nervous system and sense organs
CPT/HCPCS: 99204

== ENCOUNTER → 2024-03-12 12:53 | Outpatient (BNVA) | payer OTHER, SELFPAY | PROVIDERS: PCP Internal Medicine; Visit Provider Physician Assistant Medical | DX: G47.33 Obstructive sleep apnea (adult) (pediatric) (principal); G25.81 Restless legs syndrome; G47.19 Other hypersomnia; R53.83 Other fatigue; G47.9 Sleep disorder, unspecified; R20.0 Anesthesia of skin; R20.2 Paresthesia of skin; Z86.69 Personal history of other diseases of the nervous system and sense organs; Z99.89 Dependence on other enabling machines and devices | CPT/HCPCS: 99202 ==

== ENCOUNTER 2024-03-14 12:30 | Outpatient (REF) | payer OTHER, SELFPAY ==
--- NOTE | ~2024-03-14 | XR_ITS ---
EXAMINATION: XR KNEE 3 VIEWS LEFT, XR KNEE 3 VIEWS RIGHT HISTORY: M25.562 - Pain in bilateral knees COMPARISON: There are no prior studies available for comparison. FINDINGS: Six views of the bilateral knees including standing bilateral AP views are submitted. Osseous mineralization is normal. There is no fracture or dislocation. There is moderate joint space narrowing involving the patellofemoral compartment of the right knee, and mild narrowing of the patellofemoral compartment on the left. The soft tissues are unremarkable. XR/XR knee RT 3V IMPRESSION: Narrowing of the bilateral patellofemoral compartments, moderate on the right and mild on the left. Electronically signed by: Gene Parson MD 03/15/2024 12:38 PM [facility]
--- NOTE | ~2024-03-14 | XR_ITS ---
EXAMINATION: XR KNEE 3 VIEWS LEFT, XR KNEE 3 VIEWS RIGHT HISTORY: M25.562 - Pain in bilateral knees COMPARISON: There are no prior studies available for comparison. FINDINGS: Six views of the bilateral knees including standing bilateral AP views are submitted. Osseous mineralization is normal. There is no fracture or dislocation. There is moderate joint space narrowing involving the patellofemoral compartment of the right knee, and mild narrowing of the patellofemoral compartment on the left. The soft tissues are unremarkable. XR/XR knee LT 3V IMPRESSION: Narrowing of the bilateral patellofemoral compartments, moderate on the right and mild on the left. Electronically signed by: Gene Parson MD 03/15/2024 12:38 PM [facility]
== END 2024-03-14 12:31 | disposition home or self-care (01) ==
LOC: HO.HOSX 12:30
PROVIDERS: Visit Provider Orthopaedic Surgery
DX: M25.561 Pain in right knee (principal); M25.562 Pain in left knee; M17.12 Unilateral primary osteoarthritis, left knee; M17.11 Unilateral primary osteoarthritis, right knee
CPT/HCPCS: 73562; 99212

== ENCOUNTER 2024-03-14 13:35 | Outpatient (AMB) | payer OTHER, SELFPAY ==
--- NOTE | 2024-03-14 13:38 | MHC.OFFVIS ---
Vital Signs 03/14/24 13:45 Height 5 ft 5 in Weight 205 lb BMI 34.1 Intake Visit Reasons: New prob- B/L knee pain Intake Note: Shania is a 58 year old female who presents today for a new problem visit with complaints of bilateral knee pain. Hx of bilateral knee cortisone injections, Left Knee Arthroscopy 02/12/2014 & 01/23/2013. Patient reports that she has had pain ongoing for quite some time now. she has pain all the time worsened with acitivty and difficult/painful ROM . Allergies cephalexin [From Keflex] Allergy (Mild, Verified 03/12/24 13:12) RASH HPI HPI New prob- B/L knee pain: Details: Shania is a 58 year old female who presents today for a new problem visit with complaints of bilateral knee pain. Hx of bilateral knee cortisone injections, Left Knee Arthroscopy 02/12/2014 & 01/23/2013. Patient reports that she has had pain ongoing for quite some time now. she has pain all the time worsened with acitivty and difficult/painful ROM . Her primary complaint is right knee pain with kneeling.. Wlaking is ok and she occasionally has pain with extended standing. [facility] Medical History Pure hypercholesterolemia Plantar fasciitis Obesity due to excess calories Atherosclerotic cardiovascular disease COVID-19 vaccine administered Colon cancer screening Family history of polyps in the colon Hypoglycemia after GI (gastrointestinal) surgery Postmenopausal bleeding Status post hysteroscopy (~06/11/13) Obesity (BMI 30-39.9) Depression Anxiety Insomnia Meralgia paresthetica Vitamin D deficiency Carpal tunnel syndrome of left wrist Osteoarthritis Obstructive sleep apnea Iron deficiency anemia Migraine Hyperlipidemia Diabetes mellitus Hypertension Surgical History H/O colonoscopy H/O melanoma excision (~2010) H/O endoscopy (~06/20/13) History of knee surgery (~01/30/13) S/P dilatation and curettage (~2011) History of carpal tunnel surgery H/O laparoscopy S/P myomectomy History of sleeve gastrectomy Family History Father Myocardial infarction Prostate cancer Mother Cervical cancer Ovarian cancer Mental health disorder Diabetes Alzheimer's dementia Sleep apnea Sister Ovarian cancer Maternal Aunt Colon cancer Social History Household Members: Children Housing: Apartment Are you a primary transitional care nurse to a significant other at home: Yes (Mother) Do you presently have visiting nurse or other home services: No Alcohol intake: current Alcohol intake frequency: holidays/special occasions only Patient Tobacco Use Status: Former Tobacco user Tobacco use type: Cigarette Cigarettes Per Day: 2 Years Smoked: 3 e-Cigarette/Vaping Use: Never Used Second Hand Smoke Exposure: Yes Advance Directives Date on File: 03/16/16 service: No Current occupational status: disabled Current occupation: right handed Cognitive needs: No Hearing needs: No Vision needs: Yes (glasses) Female Reproductive History Menstrual Age of Menarche: 12 Physical Exam Vital Signs: BMI result Body Mass Index 34.1 Extrem Other: Full ROM No effusion No JLT Stable to v/v/a/p stress Results Reviewed Results Reviewed: I personally reviewed relevant radiographs. Moderate PF OA bilaterally Assessment & Plan Assessment & Plan (1) Osteoarthritis of patellofemoral joint: Code(s): M17.10 - Unilateral primary osteoarthritis, unspecified knee Category: Medical Plan: Bilateral PF OA. No intervention warranted at ths time. Orders: Orders XR knee RT 3V Today M25.561 - Pain in right knee XR knee LT 3V Today M25.562 - Pain in left knee Coding Level of Care Code Est Pt Level 3 (24376) Diagnoses Osteoarthritis of patellofemoral joint M17.10
[2024-03-14 13:45] VITALS: BMI 34.1
== END 2024-03-14 14:00 | disposition home or self-care (01) ==
PROVIDERS: PCP Internal Medicine; Supervising Provider Orthopaedic Surgery; Visit Provider Orthopaedic Surgery
DX: M17.10 Unilateral primary osteoarthritis, unspecified knee (principal)
CPT/HCPCS: 99213

== ENCOUNTER 2024-03-20 09:26 | Outpatient (REF) | payer OTHER, SELFPAY ==
[2024-03-20 09:53] LABS: MANUAL DIFF FLAG NO
[2024-03-20 11:08] LABS: Basophils Percent Auto 0.4 % (0-2); Eosinophils Absolute Auto 0.1 X10*3/uL (0.0-0.4); Eosinophils Percent Auto 2.5 % (0-4); Hematocrit 42.7 % (37.0-47.0); Imm Gran Abs Auto 0.01 X10*3/uL (0.00-0.03); Imm Gran Pct Auto 0.2 % (0.0-0.4); Lymphocytes Absolute Auto 1.5 X10*3/uL (1.2-4.9); Lymphocytes Percent Auto 26.4 % (20-40); Mean Corpuscular HGB Conc 32.8 g/dl (31.0-35.0); Mean Corpuscular Hemoglobin 28.1 pg (27.0-33.0); Mean Corpuscular Volume 85.6 fL (80.0-98.0); Mean Platelet Volume 10.6 fL (9.4-12.3); Monocytes Absolute Auto 0.4 X10*3/uL (0.1-1.2); Monocytes Percent Auto 6.7 % (2-11); Neutrophils Absolute Auto 3.6 x10*3/uL (2.0-8.3); Neutrophils Percent Auto 63.8 % (45-73); Platelet Count 261 X10*3/uL (160-400); Red Blood Count 4.99 X10*6/uL (4.20-5.50); Red Cell Distribution Width 14.8 % (11.0-16.0); White Blood Count 5.7 X10*3/uL (4.8-10.8)
[2024-03-20 11:16] LABS: Estimated Average Glucose 160 mg/dL; Hemoglobin A1c % 7.2 % (<6.0); Total Hemoglobin (HGBA1C) 3553.1922 umol/L
[2024-03-20 11:17] LABS: Appearance Urine Hazy; Color Urine Yellow; Glucose Urine UA Negative (Negative); Leukocyte Esterase Urine Trace (Negative); Nitrite Urine Negative (Negative); Specific Gravity - Urine >= 1.030 (1.005-1.025); UMIC TRIGGER UACC YES; Urine Blood Negative (Negative); Urine Ketones Trace mg/dL (Negative); Urine Protein Negative (Neg-Trace)
[2024-03-20 11:32] LABS: UACC Culture Trigger YES
[2024-03-20 11:33] LABS: Bacteria Urine 3+ (None Seen); Hyaline Casts Urine 0-2 /LPF (0-2); RBC Urine 0-2 /HPF (0-2)
[2024-03-20 11:42] LABS: Creatinine Urine 262.38 mg/dL; Microalbum/Creatinine Ratio Ur 12.1 ug/mg cr (<30)
[2024-03-20 11:51] LABS: Alanine Aminotransferase 20 U/L (0-31); Albumin Level 4.3 g/dL (3.5-5.0); Alkaline Phosphatase 103 U/L (39-117); Anion Gap 11 (12-20); Aspartate Amino Transferase 19 U/L (5-31); Bilirubin Total 0.4 mg/dL (0.0-1.0); Blood Urea Nitrogen 14 mg/dL (9-16); Calcium 9.7 mg/dL (8.4-10.2); Carbon Dioxide 29 mmol/L (22-29); Chloride 107 mmol/L (96-108); Cholesterol 134 mg/dL (<200); Estimated Glomerular Filt Rate > 60; Glucose Fasting 137 mg/dL (60-99); HDL Cholesterol 60 mg/dL (>40); Iron 51 mcg/dL (30-160); LDL Cholesterol Calculated 57 mg/dL (<100); Percent Iron Saturation 15 % (15-50); Sodium 143 mmol/L (135-145); Total Iron Binding Capacity 340 mcg/dL (228-428); Total Protein 8.1 g/dL (6.5-8.0); Triglycerides 85 mg/dL (<150); Unsaturated Iron Binding 289 ug/dL
[2024-03-20 11:56] LABS: Ferritin 27 ng/mL (10-250)
[2024-03-20 11:59] LABS: TSH reflex Free T4 2.97 uIU/mL (0.32-4.0); Vitamin D 25-OH Total 19.6 ng/mL (>30)
[2024-03-20 12:05] LABS: Folate 13.6 ng/mL (> or = 4.0); Vitamin B12 310 pg/mL (200-900)
[2024-03-20 12:10] LABS: Folate 13.2 ng/mL (> or = 4.0); Vitamin B12 292 pg/mL (200-900)
[2024-03-21 20:23] LABS: Homocysteine 9.5 umol/L (<10.4)
[2024-03-23 11:58] LABS: Methylmalonic Acid 152 nmol/L (55-335)
== END 2024-03-20 09:27 | disposition home or self-care (01) ==
LOC: HO.LAB 09:26
PROVIDERS: Absent Provider Internal Medicine; PCP Internal Medicine; Visit Provider Physician Assistant Medical
DX: D64.9 Anemia, unspecified (principal); E78.00 Pure hypercholesterolemia, unspecified; E53.8 Deficiency of other specified B group vitamins; E55.9 Vitamin D deficiency, unspecified; E11.9 Type 2 diabetes mellitus without complications; R20.0 Anesthesia of skin; R20.2 Paresthesia of skin; R53.83 Other fatigue; G47.9 Sleep disorder, unspecified; G47.19 Other hypersomnia; R30.0 Dysuria
CPT/HCPCS: 36415; 80053; 80061; 81001; 82043; 82306; 82570; 82607; 82728; 82746; 83036; 83090; 83540; 83921; 84443; 85025; 87086

== ENCOUNTER 2024-03-22 10:49 | Outpatient (AMB) | payer OTHER, SELFPAY ==
[2024-03-22 11:26] VITALS: BP 142/90; PULSE 83; O2SAT 96; BMI 33.5
--- NOTE | 2024-03-22 11:26 | MHC.PC.OV ---
Vital Signs 03/22/24 11:26 Height 5 ft 5 in Weight 201 lb 2 oz BMI 33.5 BP 142/90 H Blood Pressure Location Lt brachial Position Sitting Pulse 83 Pulse Source Pulse Oximeter Pulse Oximetry (%) 96 Oxygen Delivery Method Room Air Intake Visit Reasons: 3 month f/u Debt Recovery Officer Required: No Accompanied by: Self / Same As Patient Allergies cephalexin [From Keflex] Allergy (Mild, Verified 03/22/24 12:02) RASH Medication List - Last Reconciled 03/22/24 by Aubrey Dhaliwal MD acarbose (Precose) 100 mg PO TID acetaminophen ER (Mapap Arthritis Pain) 650 mg PO Q8H PRN 30 days amitriptyline 10 mg PO BEDTIME 30 days blood pressure monitor As directed blood sugar diagnostic (FreeStyle Lite Strips) 1 strip miscellaneous TID 90 days blood-glucose meter (FreeStyle Lite Meter kit) As directed blood-glucose meter (FreeStyle Lite Meter kit) As directed calcium citrate-vitamin D3 315 mg-5 mcg (200 unit) (Calcium Citrate + D) 1 tab PO BID cholecalciferol (vitamin D3) 125 mcg PO DAILY clonazepam 1 mg PO DAILY PRN cyanocobalamin (vitamin B-12) 1,000 mcg PO DAILY 90 days diclofenac sodium 1% (Arthritis Pain (diclofenac)) 4 grams topical QID 30 days evolocumab (Repatha SureClick) 140 mg subcut Q2W 4 weeks ezetimibe 10 mg PO DAILY fluticasone propionate 50 mcg/actuation 2 sprays intranasal DAILY gabapentin 100 mg PO BEDTIME MDD 300mg hydrochlorothiazide 25 mg PO QAM lancets (FreeStyle Lancets) As directed 3 TIMES A DAY linaclotide (Linzess) 290 mcg PO QAM 30 days lisinopril 20 mg PO DAILY metoclopramide HCl (Reglan) 5 mg PO TID multivitamin 1 tab PO DAILY pantoprazole 40 mg PO BID [right wrist splint- carpal tunnel splint As directed] rosuvastatin 40 mg PO DAILY sucralfate 10 mL PO QID temazepam 30 mg PO BEDTIME PRN trazodone 50 mg PO DAILY PRN valacyclovir 500 mg PO BID 3 days vitamin A 1 cap PO DAILY zinc gluconate 30 mg PO DAILY Tobacco use date assessed: 03/22/24 Dental Screening Dental Screen Date: 03/22/24 HPI 3 month f/u HPI Details Patient comes in today for her follow up visit States that she feels okay She denies any headaches or dizziness Denies any chest pains, no increased SOB No nausea/vomiting, no abdominal pain No change in bowel habits noted She had her follow up labs done a couple of days ago - to discuss her results She would also like to get her flu shot today as she has not gotten that yet this flu season [facility] Medical History (Updated 03/24/24 @ 19:06 by Aubrey Dhaliwal MD) Essential hypertension Pure hypercholesterolemia Plantar fasciitis Atherosclerotic cardiovascular disease COVID-19 vaccine administered Colon cancer screening Family history of polyps in the colon Hypoglycemia after GI (gastrointestinal) surgery Postmenopausal bleeding Status post hysteroscopy (~06/11/13) Obesity (BMI 30-39.9) Depression Anxiety Insomnia Meralgia paresthetica Vitamin D deficiency Carpal tunnel syndrome of left wrist Osteoarthritis Obstructive sleep apnea Iron deficiency anemia Migraine Diabetes mellitus Surgical History H/O colonoscopy H/O melanoma excision (~2010) H/O endoscopy (~06/20/13) History of knee surgery (~01/30/13) S/P dilatation and curettage (~2011) History of carpal tunnel surgery H/O laparoscopy S/P myomectomy History of sleeve gastrectomy Family History Father Myocardial infarction Prostate cancer Mother Cervical cancer Ovarian cancer Mental health disorder Diabetes Alzheimer's dementia Sleep apnea Sister Ovarian cancer Maternal Aunt Colon cancer Social History Household Members: Children Housing: Apartment 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care director to a significant other at home: Yes (Mother) Do you presently have visiting nurse or other home services: No Alcohol intake: current Alcohol intake frequency: holidays/special occasions only Patient Tobacco Use Status: Former Tobacco user Tobacco use type: Cigarette Cigarettes Per Day: 2 Years Smoked: 3 e-Cigarette/Vaping Use: Never Used Second Hand Smoke Exposure: Yes Advance Directives Date on File: 03/16/16 service: No Current occupational status: disabled Current occupation: right handed Cognitive needs: No Hearing needs: No Vision needs: Yes (glasses) Female Reproductive History Menstrual Age of Menarche: 12 Questionnaire PHQ-9 Over the last 2 weeks, how often have you been bothered by any of the following problems? 1. Little interest or pleasure in doing things: more than half the days 2. Feeling down, depressed, or hopeless: nearly every day 3. Trouble falling or staying asleep, or sleeping too much: nearly every day 4. Feeling tired or having little energy: more than half the days 5. Poor appetite or overeating: nearly every day 6. Feeling bad about yourself - or that you are a failure or have let yourself or your family down: several days 7. Trouble concentrating on things, such as reading the newspaper or watching television: nearly every day 8. Moving or speaking so slowly that other people could have noticed. Or the opposite - being so fidgety or restless that you have been moving around a lot more than usual: not at all 9. Thoughts that you would be better off or of hurting yourself in some way: several days Total score: 18 Depression Screening Interpretation: Positive Depression Screening Follow-up: Existing condition and In treatment Depression Screening Done: Yes 23491 - PHQ-9 Billing: Yes Source: Developed by Drs. Gene Gar, Shanita Ivey, Jim Ta and colleagues, with an educational shabbir from [employer]. Thrive Questionnaire Date Thrive assessed: 03/22/24 I am a: Patient What is your living situation today?: I have a steady place to live Within the past 12 months, did the food you bought not last and you didn't have the money to get more?: Never true Within the past 12 months, did you worry whether your food would run out before you got money to buy more?: Never true Do you have trouble paying for medicines?: No Do you have trouble getting transportation to medical appointments?: No Do you have trouble paying your heating and electricity bill?: No Do you have trouble taking care of your child, family member or friend?: No Do you have trouble with day-to-day activities such as bathing, preparing meals, shopping, managing finances, etc.?: No Are you currently unemployed and looking for a job?: I choose not to answer this question Are you interested in more education?: No Please select the resources that you would like help with: None Currently or been in a relationship where the following occur: No concerns reported THRIVE Score: 0 AUDIT C Alcohol Use Questionnaire (AUDIT-C) 1. How often do you have a drink containing alcohol?: Monthly or less 2. How many drinks containing alcohol do you have on a typical day when you are drinking?: 1 or 2 Total Score: 1 Score Reviewed/Action Taken: Yes DOTTY-7 AMB Questionnaire DOTTY-7 Date DOTTY - 7 assessed: 03/22/24 Feeling nervous, anxious, or on edge: 0 = Not at all Not being able to stop or control worryin = Not at all Worrying too much about different things: 0 = Not at all Trouble relaxin = Not at all Being so restless that it is hard to sit still: 0 = Not at all Becoming easily annoyed or irritable: 0 = Not at all Feeling afraid as if something awful might happen: 0 = Not at all Total DOTTY-7 score (0-4 normal; 5-9 mild; 10-14 moderate; 15-21 severe): 0 Source: Developed by Drs. Gene Gar, Shanita Ivey, Jim Ta and colleagues, with an educational shabbir from [employer]. Review of Systems Const Denies chills, Denies fatigue, Denies fever(s) and Denies headache(s) ENT Denies dysphagia, Denies dizziness, Denies otalgia, Denies headache(s), Denies neck pain, Denies odynophagia and Denies sore throat Card Denies chest pain, Denies palpitations and Denies dyspnea Resp Denies chest congestion, Denies cough and Denies dyspnea GI Denies abdominal pain, Denies constipation, Denies dysphagia, Denies heartburn, Denies diarrhea, Denies nausea, Denies odynophagia and Denies vomiting Denies difficulty voiding, Denies nocturia, Denies dysuria and Denies urinary urgency Musc Details: (+) chronic pain in both feet; (+) pain over the dorsum of her right hand since she fell a couple of weeks ago Reports back pain (over her lower back - chronic and increasing lately), Reports arthralgias (involving multiple joints but especially over both knees) and Denies neck pain Skin/Breast Denies rash Neuro Denies dizziness and Denies headache(s) Endo Denies fatigue and Denies palpitations Physical exam (Primary Care) Vital Signs: Last Vital Signs Pulse 83 03/22/24 11:26 BP 142/90 H 03/22/24 11:26 Pulse Ox 96 03/22/24 11:26 Oxygen Delivery Method Room Air 03/22/24 11:26 BMI result Body Mass Index 33.5 Tobacco/Smoking Status: Tobacco use Status Tobacco use date assessed 03/22/24 03/22/24 11:35 Patient Tobacco Use Status Former Tobacco user 03/22/24 11:27 Tobacco use type Cigarette 03/22/24 11:27 e-Cigarette/Vaping Use Never Used 03/22/24 11:27 PHQ-9: PHQ-9 Score PHQ-9: Total score 18 03/22/24 12:24 Depression Screening Interpretation: Positive Depression Screening Follow-up: Existing condition and In treatment Thrive Assessment: Date of Thrive Assessment Date Thrive assessed 03/22/24 03/22/24 11:35 Currently or been in a relationship where the following occur: No concerns reported Const General: no acute distress and alert HENMT Ears: TM's normal bilaterally and EAC's normal Throat: Yes posterior oropharynx normal and Yes tonsils normal (no TP congestion) Neck Neck: Yes supple and No lymphadenopathy Thyroid: Thyroid normal Resp Auscultation: clear to auscultation bilaterally, no rales and no wheezes Cardio Rate: regular rate Rhythm: regular rhythm Heart sounds: no murmurs GI Palpation (GI): Soft to palpation and nontender Auscultation: normal bowel sounds General: Yes no CVA tenderness Back/Spine/Pelvis Back: no CVA tenderness Thoracic/Lumbar Spine: lumbar spinal tenderness Skin Rashes: no rashes Extrem General: Yes no clubbing, cyanosis or edema Right upper extremity: Extremity exam: right hand Details: tenderness Location: of the dorsal hand Location: over the 4th metacarpal and over the 5th metacarpal Right lower extremity: knee Details: tenderness; no swelling and foot Details: tenderness Location: of the plantar foot Location: proximally Left lower extremity: knee Details: tenderness; no swelling and foot Details: tenderness Location: of the plantar foot Location: proximally Office Procedures Flu Questionnaire Does the patient have a severe egg allergy?: No Does the patient have severe life threatening allergies?: No Does the patient have a fever or illness today?: No Has the patient ever had Guillain-[place] Syndrome?: No Has the patient ever had any past reaction to a flu shot?: No Immunizations Fluarix Triv 6908-0859 (PF) 45 mcg (15 mcg x 3)/0.5 mL IM syringe Performing Provider: Aubrey Dhaliwal MD [facility] Administered by: Cristy Gaston CMA on 03/22/24 12:24 Dose Route Admin Location Dispensed Lot Number Expiration Date NDC Tissue Coordinator 0.5 mL IM Left Deltoid 0.5 mL [id number] 08/26/24 [id number] [employer] VIS Given Date VIS Provided VIS Publication Date 03/22/24 Single Vaccine 20 Eligibility Eligibility Date Funding Source Not [facility] Eligible 03/22/24 Private Results Reviewed Results Reviewed: Laboratory Tests 03/20/24 03/20/24 09:49 09:50 WBC 5.7 Hgb 14.0 Hct 42.7 Plt Count 261 Sodium 143 Potassium 4.0 Creatinine 0.77 Estimated GFR > 60 Fasting Glucose 137 H Hemoglobin A1c % 7.2 H Calcium 9.7 Iron 51 TIBC 340 % Saturation 15 Ferritin 27 AST 19 ALT 20 Triglycerides 85 Cholesterol 134 LDL Cholesterol, Calc 57 HDL Cholesterol 60 Vitamin B12 292 25-OH Vitamin D Total 19.6 L Homocysteine 9.5 TSH 2.97 Ur Specific [place] >= 1.030 H Urine Protein Negative Urine Glucose (UA) Negative Urine Blood Negative Urine Nitrite Negative Ur Leukocyte Esterase Trace H Microalb/Creat Ratio 12.1 Coding Level of Care Code Est Pt Level 4 (87634) Diagnoses Pure hypercholesterolemia E78.00 Type 2 diabetes mellitus without complication, without long-term current use of insulin E11.9 Diabetes mellitus type: type 2 Diabetes mellitus senior care insulin use: without vermin exterminator use Diabetes mellitus complication status: without complication Essential hypertension I10 Migraine without status migrainosus, not intractable, unspecified migraine type G43.909 Migraine type: unspecified Status migrainosus presence: without status migrainosus Intractability: not intractable Plantar fasciitis, bilateral M72.2 Iron deficiency anemia secondary to inadequate dietary iron intake D50.8 Iron deficiency anemia type: inadequate dietary iron intake Obstructive sleep apnea G47.33 Gastroesophageal reflux disease without esophagitis K21.9 Esophagitis presence: without esophagitis Vitamin D deficiency E55.9 Primary osteoarthritis, unspecified site M19.91 Osteoarthritis location: unspecified site Osteoarthritis type: primary Meralgia paresthetica of right side G57.11 Laterality: right Primary insomnia F51.01 Insomnia type: primary Anxiety F41.9 Episode of recurrent major depressive disorder, unspecified depression episode severity F33.9 Depression Type: major depressive disorder Major depression recurrence: recurrent Active/Remission status: currently active Major depression episode severity: unspecified Obesity (BMI 30-39.9) E66.9 Additional Codes PHQ-9 - 33021 - PHQ-9 Billing: Yes ([id number]) Assessment & Plan Assessment & Plan (1) Pure hypercholesterolemia: Code(s): E78.00 - Pure hypercholesterolemia, unspecified Category: Medical Plan: Results of her labs done a couple of days ago reviewed and discussed with patient - her cholesterol levels have improved significantly from previous, with her LDL cholesterol improving from 161 mg/dl in October 2023 to now at 57 mg/dl Reinforced low-cholesterol diet Continue Repatha 140 mg SQ every 2 weeks - she could not tolerate all of the oral cholesterol medications that she has been tried on in the past, including most recently Rosuvastatin 40 mg and Ezetimibe 10 mg Will have patient recheck her labs and fasting lipids in 4 months for follow-up (2) Diabetes mellitus: Code(s): E11.9 - Type 2 diabetes mellitus without complications Category: Medical Qualifiers: Diabetes mellitus type: type 2 Diabetes mellitus senior care insulin use: without vermin exterminator use Diabetes mellitus complication status: without complication Qualified Code(s): E11.9 - Type 2 diabetes mellitus without complications Plan: Her HgbA1c is unchanged at 7.2% on her labs done a couple of days ago (her HgbA1c was also previously at 7.2% a few months ago) - goal is <7.0% Reinforced diabetic diet She was taking Acarbose 50 mg TID but has also stopped taking this a few months ago She used to see endocrinology (Dr. Mackay) for follow up but has not been seen since Dr. Mackay left [facility] a couple of years ago She has reportedly been advised that as her diabetes appears to be controlled, that she can just follow up with her PCP and check back with endocrinology only if her diabetes gets out of control again Will have her recheck her FBS and HgbA1c in 4 months for follow up (3) Essential hypertension: Code(s): I10 - Essential (primary) hypertension Category: Medical Plan: Reinforced low sodium diet - goal is systolic BP of at least 130 mm or less Continue Lisinopril 10 mg QD and HCTZ 25 mg QD Patient is reminded to continue monitoring her blood pressure regularly (4) Migraine: Code(s): G43.909 - Migraine, unspecified, not intractable, without status migrainosus Category: Medical Qualifiers: Migraine type: unspecified Status migrainosus presence: without status migrainosus Intractability: not intractable Qualified Code(s): G43.909 - Migraine, unspecified, not intractable, without status migrainosus Plan: Stable - follow up with neurology as scheduled Continue Amitriptyline 10 mg daily at bedtime for ROWE prophylaxis (5) Plantar fasciitis, bilateral: Code(s): M72.2 - Plantar fascial fibromatosis Category: Medical Plan: She previously had about 3 separate injections into her feet with Dr. Becerra, which she states did not help She was recommended surgery as a last resort but was advised to see someone else as Dr. Becerra supposedly does not perform this type of surgery States that she checked with [facility] recently and was advised as well that they do not perform the requested for surgical procedure She was referred to Dr. Granados at [facility] for the required surgical procedure for her plantar fasciitis if appropriate but she ended up being seen by Dr. Russ - to follow up with podiatry as scheduled (6) Iron deficiency anemia: Code(s): D50.9 - Iron deficiency anemia, unspecified Category: Medical Qualifiers: Iron deficiency anemia type: inadequate dietary iron intake Qualified Code(s): D50.8 - Other iron deficiency anemias Plan: Corrected - her H/H remained normal at 14.0/42.7 on her labs done a couple of days ago Will continue to monitor her CBC regularly (7) Obstructive sleep apnea: Comment: uses CPAP Code(s): G47.33 - Obstructive sleep apnea (adult) (pediatric) Category: Medical Plan: Repeat home sleep study showed (+) improvement in her sleep apnea when she was using her CPAP device regularly she required auto-CPAP mode of 5 to 15 cm pressure - but her device broke down recently and she needs a replacement Her last sleep study was done in 2017 so she will need to get this updated - repeat home sleep study has been ordered previously Follow up with Sleep Medicine as scheduled for continuing management (8) GERD (gastroesophageal reflux disease): Code(s): K21.9 - Gastro-esophageal reflux disease without esophagitis Category: Medical Qualifiers: Esophagitis presence: without esophagitis Qualified Code(s): K21.9 - Gastro-esophageal reflux disease without esophagitis Plan: Dietary restrictions reinforced Continue Lansoprazole 30 mg BID - states that her previous epigastric pain has improved with BID dosing of her Lansoprazole Follow up with GI as scheduled (9) Vitamin D deficiency: Code(s): E55.9 - Vitamin D deficiency, unspecified Category: Medical Plan: Continue Vitamin D3 2000 units QD? (10) Osteoarthritis: Code(s): M19.90 - Unspecified osteoarthritis, unspecified site Category: Medical Qualifiers: Osteoarthritis location: unspecified site Osteoarthritis type: primary Qualified Code(s): M19.91 - Primary osteoarthritis, unspecified site Plan: Continue Tylenol ER 650 mg every 8 hours as needed for pain Follow up with orthopedics as scheduled (11) Meralgia paresthetica: Code(s): G57.10 - Meralgia paresthetica, unspecified lower limb Category: Medical Qualifiers: Laterality: right Qualified Code(s): G57.11 - Meralgia paresthetica, right lower limb Plan: EMG & NCV done by neurology a couple of years ago came out mostly normal She has received a couple of injections (nerve block) already but states that they only helped with her burning sensation but not with her pain She was supposed to be set up for an MRI by pain management for further evaluation but states that she has not heard back from them about this since Follow up with pain management (Dr. Mercedes) as scheduled (12) Insomnia: Code(s): G47.00 - Insomnia, unspecified Category: Medical Qualifiers: Insomnia type: primary Qualified Code(s): F51.01 - Primary insomnia Plan: Sleep hygiene reinforced Continue Trazodone 50 mg Q HS PRN and Temazepam 30 mg Q HS PRN (13) Anxiety: Code(s): F41.9 - Anxiety disorder, unspecified Category: Medical Plan: Continue Clonazepam 1 mg Q HS and Hydroxyzine 25 mg BID PRN (14) Depression: Code(s): F32.9 - Major depressive disorder, single episode, unspecified Category: Medical Qualifiers: Depression Type: major depressive disorder Major depression recurrence: recurrent Active/Remission status: currently active Major depression episode severity: unspecified Qualified Code(s): F33.9 - Major depressive disorder, recurrent, unspecified Plan: She was on Quetiapine 100 mg QD previously but this was reportedly stopped by psychiatry at some point Her previous psychiatrist (Dr. Kelly) recently retired and she is currently still looking for a new psychiatric provider (15) Obesity (BMI 30-39.9): Code(s): E66.9 - Obesity, unspecified Category: Medical Plan: Reinforced diet/exercise as tolerated/lose weight Plan As requested, flu vaccine given to patient today Follow up in 4 months Orders: Orders Hemoglobin A1c 4 Months E11.9 - Type 2 diabetes mellitus without complications Lipid Panel 4 Months E78.00 - Pure hypercholesterolemia, unspecified Comprehensive [place]. Panel Fast 4 Months E78.00 - Pure hypercholesterolemia, unspecified TSH reflex Free T4 4 Months E78.00 - Pure hypercholesterolemia, unspecified Vitamin B12 and Folate 4 Months E53.8 - Deficiency of other specified B group vitamins Complete Blood Count Auto Diff 4 Months D64.9 - Anemia, unspecified Influenza [id number] Immunization 03/22/24 Z23 - Encounter for immunization Microalbumin, Random (w Creat) 4 Months E11.9 - Type 2 diabetes mellitus without complications UA CC w/rflx Micro + Cult 4 Months R30.0 - Dysuria Vitamin D 25-OH Total 4 Months E55.9 - Vitamin D deficiency, unspecified
--- OUTSIDE RECORDS SUMMARY | 2024-03-22 12:33 | XMS_ITS | Patient Health Record ---
Author Organization [facility] Address [address] [place] [address] Care Team Providers Care Radiology Assistant Name Role Phone Isra POWERS, Aubrey Primary Care Provider Gene Albert Unavailable [phone] ALLERGIES No Known Allergies REASON FOR REFERRAL No Information MEDICATIONS Medication SIG (Take, Route, Frequency, Duration) Notes Start Date End Date Status traMADol HCl 50mg Ac tive traZODone HCl 50 MG 1 tablet at bedtime as needed Orally Once a day for 30 day(s) Active Dulcolax (colon prep) 5 MG take at 3:00 p.m and 7:00p.m. Orally two tablets twice a day for one day for 1 day 11/08/2021 Active linaCLOtide 290 MCG 1 capsule at least 30 minutes before the first meal of the day on an empty stomach Orally Once a day Active MiraLax (colon prep) 17 GM/SCOOP 1 238Gm bottle mixed with Gatorade or Crystal Light Orally begin at 5:00 p.m. the day before the procedure for 1 day 11/08/2021 Active Fluticasone Propionate 0.05% Active Lipitor 40mg Active tiZANidine HCl 4 MG 1 tablet as needed Orally Three times a day Active Lisinopril 40mg Acti ve Temazepam 30 MG 1 capsule at bedtime as needed Orally Once a day Active Verapamil HCl 240mg Active Rosuvastatin Calcium 40 MG 1 tablet Oral ly Once a day for 30 day(s) Active Sertraline HCl 100mg Active Multivitamin - 1 tablet Orally Once a day for 30 day(s) Active Nitrostat 0.3mg Acti ve Ranitidine & Diet Manage Pro d 150mg Active ProAir HFA Active Fluticasone Propionate (Inhal) 50 MCG/BLIST 1 puff Inhalation Twice a day Active hydroCHLOROthiazide 25mg Active Ezetimibe 10 MG 1 tablet Orally Once a day for 30 day(s) Active Zolpidem Tartrate 5mg Active clonazePAM 1 MG 1 tablet Orally Once a day Active Cholecalciferol 25 MCG (1000 UT) 1 capsule Orally Once a day for 30 day(s) Active Lansoprazole 30 MG 1 capsule before a meal Orally Once a day Active amLODIPine Besylate 5mg Active Pantoprazole Sodium 40mg Not-Taking Calcium Citrate + D3 Maximum 315-250 MG-UNIT 1 tablet Orally Twice a day for 30 day(s) Active Sucralfate 1 GM/10ML 10 ml on an empty stomach Orally Twice a day for 30 day(s) Not-Taking Acetaminophen ER 650 MG 2 tablets as nee ded Orally every 8 hrs Active Byetta 5 MCG Pen 5mcg Not-Taking Acarbose 100 MG as directed Orally Active metFORMIN HCl 850mg Not-Taking LORazepam 1mg Active Colyte with Flavor Packs 240 GM As directed Orally 1 time only for 1 dose 08/04/2011 Not-Taking Amitriptyline HCl 10mg Active Cyclobenzaprine HCl 10mg Active hydrOXYzine HCl 10mg Active Gabapentin 400mg Act ritesh Piroxicam 20mg Activ e IMMUNIZATIONS Vaccine Route Administration Date Status Comme nts Influenza Unknown 01/12/2021 Administered SOCIAL HISTORY Sex Assigned At : Social History Observation Description Sex Assigned At Unknown Alcohol Screen Question Answer Notes Did you have a drink contain ing alcohol in the past year? Yes How often did you have a dri nk containing alcohol in the past year? Monthly or less (1 point) How many drinks did you have on a typical day when you were drinking in the past year? 1 or 2 drinks (0 point) How often did you have 6 or more drinks on one occasion in the past year? Never (0 point) Points 1 Interpretation Negative PROBLEMS Problem Type ICD Code Onset Dates Problem Status W/U Status Risk SNOMED Code Notes Problem Rectal bleeding (K62.5) Active confirmed Rectal bleeding (47585063) Problem Encounter for screening for malignant neoplasm of colon (Z12.11) Active confirmed Screening for malignant neoplasm of colon (907988206) Problem Constipation (K59.00) Active confirmed Constipation (82061361) Problem Diverticulosis of colon (K57.30) Active confirmed Diverticulosi s of colon (001261704) PLAN OF TREATMENT Pending Test Test Name Order Date Pathology 12/20/2021 Future Test Test Name Order Date COLONOSCOPY 08/03/2011 COLONOSCOPY 09/15/2021 Insurance Providers Payer Name Payer Address Payer Phone Subscriber Number Group Number Insured Name Patient Relationship to Insured Coverage Start Date Coverage End Date [facility] [address] [place] [phone] [id number] GLORIA GOODWIN Self - patient is the insured [facility] [address] [place] [address] [id number] GLORIA GOODWIN Self - patient is the insured MEDICAL (GENERAL) HISTORY Medical History History ICD Code Colonoscopy 07-18-2002 was neg. except a hyperplastic polyp Constipation--responds well to Linzess DM resolved weight loss after gastric by pass Migraine Negative screening colonoscopy in July HTN Asthma Arthritis Anxiety and panic attacks Denies NM,CVA,renal disease GERD-EGD in 07/[address] Jackson--normal-gastric remnant bx neg for H.pylori Hyperlipidemia Surgical History Surgery Date(Month/Year) Uterine fibroid surgery Parotid gland tumor Carpal tunnel release-right Gastric bypass with Dr. Jose at [facility] in 2017 and lost abot 80#
--- OUTSIDE RECORDS SUMMARY | 2024-03-22 12:33 | XMS_ITS | Patient Health Record ---
[facility] Address [address] [facility] [place] [address] Care Team Providers Care Life Claims Examiner Name Role Phone Doni Dhaliwal MDneth Primary Care Provider Unava ilMaxwell Car Unavailable [phone] Allergies Allergen (clinical drug ingredient) Drug/Non Drug [...] Problem Type 2 diabetes mellitus without complication (900012972) Type 2 diabetes mellitus without complication (E11.9) Active confirmed Vital Signs Height 5ft5in in 01/10/2024 Weight 192 lbs 01/10/2024 BMI 31.95 kg/m2 01/10/2024 Encounters Encounter Location Date [facility] [address] [facility]/12/2023 Maxwell Jeb Pain in right foot M79.671 ; Plantar fasciitis, bilateral M72.2 ; Calcaneal spur, right foot M77.31 ; Other myositis of right foot M60.871 ; Bursitis of right foot M77.51 ; Pain in left foot M79.672 ; Calcaneal spur, left foot M77.32 ; Other myositis of left foot M60.872 and Bursitis of left foot M77.52 [facility] [address] 01/10/2024 Maxwell Jeb Type 2 diabetes mellitus without complication E11.9 and Plantar fasciitis, bilateral M72.2 [facility] [address] [place] [address] 06/12/2023 Maxwell Russ [facility] [address] [place] [address] 10/16/2023 Maxwell Jeb Assessments Encounter Date Diagnosis [...] Shlomo MyersJeb , 06/27/2024 01:00:00 PM, [address] [facility] [facility] [address], [place], [address], Insurance Providers Payer Name Payer Address Payer Phone Subscriber Number Group Number Insured Name Patient Relationship to Insured Coverage Start Date Coverage End Date [facility] [employer] Claims [address] [place] [address] [phone] [id number] Shania Bustos Self - patient is the [...]
--- OUTSIDE RECORDS SUMMARY | 2024-03-22 12:33 | XMS_ITS ---
Author Organization [facility] Address [address] [place] [address] Care Team Providers Care Community Sports Coordinator Name Role Phone Isra POWERS Barnsdall Primary Care Provider Unava ilable Maxwell Russ Unavailable [phone] REASON FOR VISIT rs appt 10/18/23 Encounters Encounter Location Date Provider Diagnosis [facility] [address] [place] [address] 10/16/2023 Maxwell Russ Plan Of Treatment Next Appt Details Provider Name:Maxwell Russ , 06/27/2024 01:00:00 PM, [address] [facility], [place] [address], [place], [address], Progress Notes * Rogerio BUSTOSAlexOB:1965 (58 yo F)Acc No.[id number]:10/16/2023 Patient:?Shania Bustos :1965???Age:58 Y???Sex:Female Address:[facility], [facility] [address], [place], [address] * true * Date:? Generated for Printi carmenza/Eleazarg/eTransmitting on:?03/22/2024 12:33 PM EST
--- OUTSIDE RECORDS SUMMARY | 2024-03-22 12:33 | XMS_ITS ---
Author Organization [facility] Address [address] [facility] [place] [address] Care Team Providers Care Mechanical Service Representative Name Role Phone Aubrey Dhaliwal MD Primary Care Provider Unava ilMaxwell Car Unavailable [phone] Allergies Allergen (clinical drug ingredient) Drug/Non Drug Allergy documented on EMR Reaction Allergy Type Onset Date Status cephalexin Cephalexin rash Drug Allergy Activ e REASON FOR VISIT Heel pain Medications Medication SIG (Take, Route, Frequency, Duration) Notes Start Date End Date Status Metoclopramide HCl 5 MG Oral for 30 Days Active valACYclovir HCl Not -Taking clonazePAM Not-Takin g Temazepam 30 MG 1 capsule at bedtime as needed Orally Once a day Not-Taking Fluticasone Propionate Not-Taking Acetaminophen ER 650 MG 2 tablets as nee ded Orally every 8 hrs Not-Taking Vitamin D3 Active Vitamin B12 Active Orthopedic Extra Depth Shoes With Custom Heat Molded Multidensity Innersoles 1 Pair shoes with 3 Pair custom heat molded innersoles Wear Daily for 365 days 07/12/2023 Active Night Splint AFO - L1930 1 wear at rest for 30 days Active Trazodone & Diet Manage Prod Active Sucralfate Active Vitamin A Active Rosuvastatin Calcium 40 MG 1 tablet Oral ly Once a day Active Multivitamin Active Lisinopril Active Linzess Active Ezetimibe Active Lansoprazole Active hydroCHLOROthiazide Active Acarbose 100 MG as directed Orally Active Amitriptyline HCl 10 MG 1 tablet at bedt nik Orally Once a day Active Diclofenac Sodium Ac tive Calcium Citrate + D3 315-6.2 5 MG-MCG 1 tablet Orally Twice a day Active Social History Tobacco Use: Social History Observation Description Date Details (start date - stop date) Never Smoker NA - NA Tobacco use other than smoking: Question Answer Notes Are you an other tobacco user? No Tobacco Control (Standard) Question Answer Notes Tobacco use: Nonsmoker Problems Problem Type SNOMED Code ICD Code Onset Dates Problem Status W/U Status Risk Notes Problem Type 2 diabetes mellitus without complication (117817853) Type 2 diabetes mellitus without complication (E11.9) Active confirmed Vital Signs Height 5ft5in in 01/10/2024 Weight 192 lbs 01/10/2024 BMI 31.95 kg/m2 01/10/2024 Encounters Encounter Location Date Provider Diagnosis [facility] [address] [address] 01/10/2024 Maxwell Russ Type 2 diabetes mellitus without complication E11.9 and Plantar fasciitis, bilateral M72.2 Assessments Encounter Date Diagnosis (ICD Code) Assessment Notes Treatment Notes Treatment Clinical Notes Section Notes 01/10/2024 Type 2 diabetes mellitus without complication (ICD-10 - E11.9) 01/10/2024 Plantar fasciitis, bilateral (ICD-10 - M72.2) Plan Of Treatment Next Appt Details Follow Up: prn, Reason: Provider Name:Maxwell Russ , 06/27/2024 01:00:00 PM, [address] [place] [address], [place], [address], Progress Notes * Rogerio BUSTOSeDOB:1965 (58 yo F)Acc No.[id number]:01/10/2024 Progress Note Patient:?BUDDY Shania Provider:?Maxwell Russ DPM :1965???Age:58 Y???Sex:Female D ate:01/10/2024 Address:[address] [place] [address], [address], [place], [id number] Pcp:Aubrey Dhaliwal MD Subjective: * Chief Complaints: * ???Heel pain * HPI: ???At Risk footcare:?Pt States Last PCP Visit:?Date?12/06/2023 ???Heel pain:?Location:?Proximal plantar aspect of Heel , B/L.?Treatments:?rest/alter normal daily activity , change in shoes , gel cushions , medication ( Advil) , corticosteriod injection ( 3 shots per foot in 2022), stretching, massage, AFO-nightsplint.? * ROS:?General/Constitutional:?Nausea?denies.?Vomiting?denies.?Hunger Thirst?denies.?Loss appetite?denies.?Chills?denies.?Fatigue?denies.?Fever?denies.?Night Sweats?denies.?Unexplained weight loss?denies.?Unexplained weight gain?denies.?HEENTM:?Dentures?denies.?Dizziness?denies.?Glasses/contacts?admits.?Retinopathy?den ies.?Blurred/double vision?denies.?TMJ?denies.?Discharge/drainage?denies.?Implants?denies.?Sore throat?denies.?Dental implants?denies.?Hard of hearing ?denies.?Difficulty chewing/swallowing/speaking?denies.?Nose bleeds?denies.?Sore mouth?denies.?Respiratory:?On O xygen?denies.?Pneumonia/pleurisy?denies.?Bronchitis?denies.?Emphysema?denies.?Co ughing?denies.?Cough blood?denies.?Shortness of breath?denies.?Wheezing?denies.?Cardiovascular:?Pacemaker?denies.?MVP?denies.?WPW?denies.?CHF?denies.?Heart attack?denies.?Septal defect?denies.?Rapid beat?denies.?Chest pain ?denies.?Atrial Fib.?denies.?Murmur/Palpitations?denies.?Gastrointestinal:?Hemorrhoids?denies.?Stomach/Abdominal pain?denies.?Dark blood stool?denies.?Irritable bowel ?denies.?Constipation?denies.?Diarrhea?denies.?Hematology:?Swelling?denies.?Clots?denies.?Varicose Veins?denies.?Bruising?denies.?Bleeding problem?denies.?Genitourinary:?Blood urine?denies.?Frequent/Painfu/urination/bladder control?denies.?Kidney stones?denies.?Infection (UTI)?denies.?Nephropathy?denies.?sex trans dis (STD)?denies.?Prostate?denies.?Musculoskeletal:?Hammertoes?denies.?Bunions?denies.?Back Pain?denies.?Muscle Cramps/ Resting?denies.?Muscle cramps / walking?denies.?Generalized aches and pains?denies.?Weakness?denies.?Integ.:?Graham?denies.?Scars?denies.?Corns/calluses?denies.?Ingrown nails?denies.?Painful nails?denies.?Open Sores?denies.?Rashes?denies.?Neurologic:?Difficulty sleeping?admits.?Brain disorder?denies.?Numbness?denies.?Balance t rouble?denies.?Confusion?denies.?Fainting/blackouts?denies.?Tingling?denies.?Cristopher mors?denies.? * Medical History:? * Surgical History:?carpal melisa megha surgery colonoscopy dilatation and curettage endoscopy gastric bypass 2017knee surgery Laparoscopy melanoma excision 2011myomectomy sleeve gastrectomy * Hospitalization/Major Diagno stic Procedure:?Denies Past Hospitalization * Family History:?Mother: alexia e, cervical cancer, ovarian cancer, mental illness, alzheimer's dementia, sleep apnea, diagnosed with Other malignant neoplasm of unspecified site, Diabetic - NIDDM, Unspecified essential hypertension, Family history of arthritis.?Father: , Myocardial infarction, prostate cancer, diagnosed with Unspecified heart disease, Unspecified cerebral artery occlusion with cerebral infarction, Family history of arthritis.?Maternal aunt: , colon cancer.?Siblings: unknown, ovarian cancer.? * Social History:?Tobacco Use:?Tobacco use other than smoking?Are you an other tobacco user??No ?Tobacco Control (Standard)?Tobacco use:?Nonsmoker * Medications:?TakingAmitripty line HCl 10 MG Tablet 1 tablet at bedtime Orally Once a day Acarbose 100 MG Tablet as directed Orally Calcium Citrate + D3 315-6.25 MG- MCG Tablet 1 tablet Orally Twice a day Diclofenac Sodium Ezetimibe hydroCHLOROthiazide Lansoprazole Linzess Lisinopril Multivitamin Rosuvastatin Calcium 40 MG Tablet 1 tablet Orally Once a day Sucralfate Trazodone & Diet Manage Prod Vitamin A Vitamin B12 Vitamin D3 Night Splint AFO - L1930 1 wear at rest Orthopedic Extra Depth Shoes With Custom Heat Molded Multidensity Innersoles 1 Pair shoes with 3 Pair custom heat molded innersoles Wear Daily Metoclopramide HCl 5 MG Tablet Oral Taking Amitriptyline HCl 10 MG Tablet 1 tablet at bedtime Orally Once a day Taking Acarbose 100 MG Tablet as directed Orally Taking Calcium Citrate + D3 315-6.25 MG-MCG Tablet 1 tablet Orally Twice a day Taking Diclofenac Sodium Taking Ezetimibe Taking hydroCHLOROthiazide Taking Lansoprazole Taking Linzess Taking Lisinopril Taking Multivitamin Taking Rosuvastatin Calcium 40 MG Tablet 1 tablet Orally Once a day Taking Sucralfate Taking Trazodone & Diet Manage Prod Taking Vitamin A Taking Vitamin B12 Taking Vitamin D3 Taking Night Splint AFO - L1930 1 wear at rest Taking Orthopedic Extra Depth Shoes With Custom Heat Molded Multidensity Innersoles 1 Pair shoes with 3 Pair custom heat molded innersoles Wear Daily Taking Metoclopramide HCl 5 MG Tablet Oral Not-Taking/PRNAcetaminophen ER 650 MG Tablet Extended Release 2 tablets as needed Orally every 8 hrs clonazePAM Fluticasone Propionate Temazepam 30 MG Capsule 1 capsule at bedtime as needed Orally Once a day valACYclovir HCl Medication List reviewed and reconciled with the patientNot-Taking/PRN Acetaminophen ER 650 MG Tablet Extended Release 2 tablets as needed Orally every 8 hrs Not-Taking/PRN clonazePAM Not-Taking/PRN Fluticasone Propionate Not-Taking/PRN Temazepam 30 MG Capsule 1 capsule at bedtime as needed Orally Once a day Not-Taking/PRN valACYclovir HCl Medication List reviewed and reconciled with the patient * Allergies:?Cephalexin: rashy es[Allergies Verified] Objective: * Vitals:?Ht: 5ft5in, Wt:192, BMI:31.95, Shoe size: 11, BS: 132, Ht-cm: 165.1 cm, Wt-k.09 kg. * ???Past Orders: ???Lab:HEMOGLOBIN A1C (GLYCO HEMOGLOBIN) (Order Date - 07/12/2023) (Collection Date & Time - 07/12/2023 01:06 PM) ? Value Reference Range ?HEMOGLOBIN A1C % (HH) 7.0 * Examination: ???Heel Pain: ?INSPECTION REVEALS:?Approximately 80-90% LESS, Pain on Palpation to Plantar Fascia med. and central bands, intrinsic musc., infra-calcaneal bursa, and med calc tubercle, B/L.?Ophthalmology Referral: ?DIABETES EYE EXAM? Assessment: * Assessment: 1.?Type 2 diabetes mellitus without complication - E11.9???2.?Plantar fasciitis, bilateral - M72.2 (Primary)???Specify :Acute problem, Stable Response to treatment - Improvement??? Plan: * Treatment: * Procedure Codes:? * Preventive Medicine:? ??Counseling:?Discussion:?-13: Office or other outpatient visit for the evaluation and management of an established patient, which required a medically appropriate history and/or examination and LOW level of DECISION MAKING for: 1 STABLE ACUTE UNCOMPLICATED PROBLEM, 2 OR MORE MINOR PROBLEMS, OR 1 STABLE CHRONIC PROBLEM, THAT POSE(S) A LOW RISK FOR MORBIDITY/MORTALITY. The visit on the day of the encounter encompassed interpreting the data and educating the patient as to the nature of their condition, treatment options available according to their individual PMH, meds, allergies, and overall health/living conditions, as well as any potential risks or complications that may occur from a failure to adhere to, and participate in, the recommended course of therapy. The discussion included a complete verbal, and/or written explanation of the examination results, any x-rays taken, the proposed diagnosis, and outline of the treatment plan. A schedule for future care needs was also explained. The patient verbalized an understanding of the instructions at this time and agreed to be an active participant in their treatment. If the patient should think of any questions or concerns after the visit, I have encouraged the patient to call the office.?Heel pain:?Discussed other tx options for the patients condition, Given recent successful results to treatment, the patient wishes to continue with the present plan for their condition.?Shoe Gear Counseling:?A thorough inspection of the patients Rxed shoegear and inserts was performed and findings communicated. We reviewed the many important medical advantages for adhering to regularly wearing these shoe and insert accomidative devices daily as well as reviewed the fact that a failure in accepting these recommedations may be deleterious, unable to prevent, and disadvantagely result in, many pedal complications such as skin irritation, skin ulceration, infection, and even loss of toe/foot/leg/or even their life. Time was also spent reviewing the proper footcare techniques including daily skin moisturization, daily foot inspection for any interruption in skin integrity, open lesions, or sign of infection such as redness/malodor/drainage/swelling as well as daily shoe inspection for the presence of internal foreign bodies and shoe as well as insert wear. Patient questions re: shoes, inserts, and self foot inspections were answered to their satisfaction as the patient verbally confirmed a full understanding of the above information.? ??Screening/Special Tests:?Fall Risk?Screening:?No falls in the past year ?FALLS: Screening for Future Fall Risk?Have you had any falls with injury in the past year??No * Follow Up:?prn * Images: * Sign off status: Completed true * Provider:?Maxwell Russ DPM Date:?2023 Generated for Toyin herr/Antonette/Eufemia on:?03/22/2024 12:32 PM EST History and Physical Notes * HPI (History of Present Illness) Category Sub-Category Detail Notes Category Not es Heel pain Location: Proximal plantar aspect of H eel , B/L Treatments: rest/alter normal da yana activity , change in shoes , gel cushions , medication ( Advil) , corticosteriod injection ( 3 shots per foot in 2022), stretching, massage, AFO-nightsplint At Risk footcare Pt States Last PCP Visit: Date: 4 Examination Category Sub-Category Detail Notes Category Not es Heel Pain INSPECTION REVEALS: Approximatel y 80-90% LESS, Pain on Palpation to Plantar Fascia med. and central bands, intrinsic musc., infra-calcaneal bursa, and med calc tubercle, B/L Ophthalmology Referral DIABETES EYE EXAM Procedu re Performed:: Yes ?Date of Exam Performed: 06/20/2023 Findings of Diabetic Eye Exam:: no retin opathy
--- OUTSIDE RECORDS SUMMARY | 2024-03-22 12:34 | XMS_ITS ---
Author [facility] Address [address] [place] [address] Care Team Providers Care Tactical Debriefer Officer Name Role Phone Aubrey Dhaliwal MD Primary Care Provider Unava ilMaxwell Car Unavailable [phone] Encounters Encounter Location Date [facility] [address] 10/18/2023 Maxwell Russ Plan Of Treatment Next Appt Details Provider Name:Maxwell Russ , 06/27/2024 01:00:00 PM, [address] [place] [address], [place], [address], Progress Notes * Rogerio BUSTOSeDOB:1965 (58 yo F)Acc No.[id number]:10/18/2023 Progress Note Patient:?Shania BUSTOS Provider:?Maxwell Russ DPM :1965???Age:58 Y???Sex:Female D ate:10/18/2023 Address:[address] [place], [place] [address] , [address], [id number] Pcp:Aubrey Dhaliwal MD Subjective: * Chief Complaints: [...] DPM Date:?2023 Generated for Toyin herr/Antonette/Eufemia on:?03/22/2024 12:33 PM EST
== END 2024-03-22 12:35 | disposition home or self-care (01) ==
PROVIDERS: PCP Internal Medicine; Visit Provider Internal Medicine
DX: E78.00 Pure hypercholesterolemia, unspecified (principal); E11.9 Type 2 diabetes mellitus without complications; F33.9 Major depressive disorder, recurrent, unspecified; I10 Essential (primary) hypertension; G43.909 Migraine, unspecified, not intractable, without status migrainosus; M72.2 Plantar fascial fibromatosis; D50.8 Other iron deficiency anemias; G47.33 Obstructive sleep apnea (adult) (pediatric); K21.9 Gastro-esophageal reflux disease without esophagitis; E55.9 Vitamin D deficiency, unspecified; M19.91 Primary osteoarthritis, unspecified site; G57.11 Meralgia paresthetica, right lower limb

== ENCOUNTER → 2024-03-22 10:49 | Outpatient (BNVA) | payer OTHER, SELFPAY | PROVIDERS: PCP Internal Medicine; Visit Provider Internal Medicine | DX: Z23 Encounter for immunization (principal); E11.9 Type 2 diabetes mellitus without complications; E78.00 Pure hypercholesterolemia, unspecified; I10 Essential (primary) hypertension; G43.909 Migraine, unspecified, not intractable, without status migrainosus; M72.2 Plantar fascial fibromatosis; G47.33 Obstructive sleep apnea (adult) (pediatric); K21.9 Gastro-esophageal reflux disease without esophagitis; E55.9 Vitamin D deficiency, unspecified; M19.91 Primary osteoarthritis, unspecified site; G57.11 Meralgia paresthetica, right lower limb; F51.01 Primary insomnia; F41.9 Anxiety disorder, unspecified; F33.9 Major depressive disorder, recurrent, unspecified | CPT/HCPCS: 90471; 90656; 96127; 99212 ==

== ENCOUNTER 2024-04-02 12:55 | Outpatient (AMB) | payer OTHER, SELFPAY ==
--- NOTE | 2024-04-02 13:03 | MHC.AMNUTRGE ---
VS Expanded 04/02/24 13:04 04/02/24 13:22 Height 5 ft 5 in 5 ft 5 in Weight 200 lb 200 lb BMI 33.3 33.3 Intake Visit Reasons: T2DM/Confirmed Allergies cephalexin [From Keflex] Allergy (Mild, Verified 03/22/24 12:02) RASH Nutrition Presentation Details: Pt presents for MNT f/u for T2DM Pt reports doing well, working on reducing intake of fried foods typical meal AM Coffee black , diet sugar 1-2 pm : oatmeal, water 4-6 pm : ribs/rice with mixed veg, water 8 pm : fruit food frequency fried foods : 1x/m veg : 2-3 x/wk fruits: 1/d dairy: 0-1/d fish: 1/wk BS Monitoring Most Recent Diabetes Results: Microalb/Creat Ratio 12.1 ug/mg cr (<30) 03/20/24 Cholesterol 134 mg/dL (<200) 03/20/24 HDL Cholesterol 60 mg/dL (>40) 03/20/24 Triglycerides 85 mg/dL (<150) 03/20/24 Creatinine 0.77 mg/dL (0.5-1.4) 03/20/24 Blood Urea Nitrogen 14 mg/dL (9-16) 03/20/24 Sodium 143 mmol/L (135-145) 03/20/24 Potassium 4.0 mmol/L (3.3-5.1) 03/20/24 Chloride 107 mmol/L (96-108) 03/20/24 Carbon Dioxide 29 mmol/L (22-29) 03/20/24 Calcium 9.7 mg/dL (8.4-10.2) 03/20/24 AST 19 U/L (5-31) 03/20/24 ALT 20 U/L (0-31) 03/20/24 Total Protein 8.1 g/dL (6.5-8.0) H 03/20/24 Albumin 4.3 g/dL (3.5-5.0) 03/20/24 WOP-Cbiqzed-Ca.Jeor Equation Height: 5 ft 5 in Weight: 200 lb Resting Metabolic Rate: 1496.71 Calculated Activity Level: Sedentary Calories Needed to Maintain Weight: 1796.05 [facility] Medical History (Updated 03/24/24 @ 19:06 by Aubrey Dhaliwal MD) Essential hypertension Pure hypercholesterolemia Plantar fasciitis Atherosclerotic cardiovascular disease COVID-19 vaccine administered Colon cancer screening Family history of polyps in the colon Hypoglycemia after GI (gastrointestinal) surgery Postmenopausal bleeding Status post hysteroscopy (~06/11/13) Obesity (BMI 30-39.9) Depression Anxiety Insomnia Meralgia paresthetica Vitamin D deficiency Carpal tunnel syndrome of left wrist Osteoarthritis Obstructive sleep apnea Iron deficiency anemia Migraine Diabetes mellitus Surgical History H/O colonoscopy H/O melanoma excision (~2010) H/O endoscopy (~06/20/13) History of knee surgery (~01/30/13) S/P dilatation and curettage (~2011) History of carpal tunnel surgery H/O laparoscopy S/P myomectomy History of sleeve gastrectomy Family History Father Myocardial infarction Prostate cancer Mother Cervical cancer Ovarian cancer Mental health disorder Diabetes Alzheimer's dementia Sleep apnea Sister Ovarian cancer Maternal Aunt Colon cancer Social History Household Members: Children Housing: Apartment Are you a primary intensive care unit registered nurse to a significant other at home: Yes (Mother) Do you presently have visiting nurse or other home services: No Alcohol intake: current Alcohol intake frequency: holidays/special occasions only Patient Tobacco Use Status: Former Tobacco user Tobacco use type: Cigarette Cigarettes Per Day: 2 Years Smoked: 3 e-Cigarette/Vaping Use: Never Used Second Hand Smoke Exposure: Yes Advance Directives Date on File: 03/16/16 service: No Current occupational status: disabled Current occupation: right handed Cognitive needs: No Hearing needs: No Vision needs: Yes (glasses) Female Reproductive History Menstrual Age of Menarche: 12 Assessment & Plan Assessment & Plan (1) Type 2 diabetes mellitus with unspecified complications: Code(s): E11.8 - Type 2 diabetes mellitus with unspecified complications Category: Medical Plan: Educate Pt on 1500 - 1600 carrie meal plan ? Used wt : 90 kg(on 03/2024), Est kcal as per MSJ: 1802 (40% carb, 30% fat/prot) Est fluid needs: 2250 ml/d (25 ml/kg bw) Rec fiber: increase to 8-10 g per day and gradually increase to 25 g/d or as tolerated Rec Na: < 1500 mg /d Educate patient on: (R= Reviewed, V = verbalizes understanding N/R= Needs review N/A= not applicable) Relationship of food to blood glucose level : Reviewed Meaning of hemoglobin A1c and diabetes: Reviewed Difference between complex carbohydrates and simple carbohydrates, role of fiber: R V Differences between fats (MUFA/PUFA/saturated fats, trans fats) and food sources of various fats: R How to interpret food labels: R, V Healthy Plate method concept: R V Physical activity: benefits and precaution: R Low cholesterol food options : R omega 3 fatty acids: R Calcium and vitamin D sources of foods and its relationship to exercise: R Patient Instructions: Choose lean , low fat protein foods (escoja abram, pavo, pescado en vez de costiquilla Choose foods with calcium (chickpeas, spinach , seeds, nuts, sweet potato, almond milk fortified Engage in physical activity: chair exercises as an example Coding Level of Care Code Nutr Indiv Subseq (34586) Diagnoses Type 2 diabetes mellitus with unspecified complications E11.8 Time Spent (min) 30
[2024-04-02 13:04] VITALS: BMI 33.3
[2024-04-02 13:22] VITALS: BMI 33.3
== END 2024-04-02 13:32 | disposition home or self-care (01) ==
PROVIDERS: PCP Internal Medicine; Visit Provider Dietitian, Registered
DX: E11.8 Type 2 diabetes mellitus with unspecified complications (principal)

== ENCOUNTER → 2024-04-02 12:55 | Outpatient (BNVA) | payer OTHER, SELFPAY | PROVIDERS: PCP Internal Medicine; Visit Provider Dietitian, Registered | DX: E11.8 Type 2 diabetes mellitus with unspecified complications (principal) | CPT/HCPCS: 97803 ==

== ENCOUNTER 2024-04-09 13:51 | Outpatient (REF) | payer OTHER, SELFPAY ==
--- OUTSIDE RECORDS SUMMARY | 2024-04-09 16:02 | XMS_ITS ---
Author Organization [facility] Address [address] [place] [address] Care Team Providers Care Race And Sports Book Writer Name Role Phone Aubrey Dhaliwal MD Primary Care Provider Unava ilMaxwell Car Unavailable [phone] Encounters Encounter Location Date [facility] [address] 10/18/2023 Maxwell Russ Plan Of Treatment Next Appt Details Provider Name:Maxwell Russ , 06/27/2024 01:00:00 PM, [address] [place] [address], [place], [address], Progress Notes * Rogerio BUSTOSeDOB:1965 (58 yo F)Acc No.[id number]:10/18/2023 Progress Note Patient:?Shania BUSTOS Provider:?Maxwell Russ DPM :1965???Age:58 Y???Sex:Female D ate:10/18/2023 Address:[address] [place], [place] [address] , [address], [id number] Pcp:Aubrey Dhaliwal MD Subjective: * Chief Complaints: [...] Russ DPM Date:?2023 Generated for Toyin herr/Antonette/Eufemia on:?04/09/2024 04:01 PM EST
[2024-04-09 22:18] LABS: Bacterial Vaginosis PCR POSITIVE (Negative); Candida Group PCR NOT DETECTED (Not Detect); Candida glab krusei PCR NOT DETECTED (Not Detect); Trichomonas vaginalis PCR NOT DETECTED (Not Detect)
[2024-04-10 04:09] LABS: CT PCR NOT DETECTED (Not Detect.); NG PCR NOT DETECTED (Not Detect.)
== END 2024-04-09 13:52 | disposition home or self-care (01) ==
LOC: HO.LAB 13:51
PROVIDERS: PCP Internal Medicine; Visit Provider Advanced Practice Midwife
DX: Z13.89 Encounter for screening for other disorder (principal)
CPT/HCPCS: 81515; 87491; 87591; 99212

== ENCOUNTER 2024-04-09 13:51 | Outpatient (AMB) | payer OTHER, SELFPAY ==
--- NOTE | 2024-04-09 14:02 | MHC.OFFVIS ---
Vital Signs 04/09/24 14:06 Height 5 ft 5 in Weight 200 lb BMI 33.3 BP 138/80 Intake Visit Reasons: STD Testing Tug Captain Services: Tug Captain Present Information Interpreted: clinical only Drive Worker: Drive Worker Present Allergies cephalexin [From Keflex] Allergy (Mild, Verified 04/09/24 14:02) RASH Medication List - Last Reconciled 04/09/24 by Carol Ann Khoury CNM acarbose (Precose) 100 mg PO TID acetaminophen ER (Mapap Arthritis Pain) 650 mg PO Q8H PRN 30 days amitriptyline 10 mg PO BEDTIME 30 days blood pressure monitor As directed blood sugar diagnostic (FreeStyle Lite Strips) 1 strip miscellaneous TID 90 days blood-glucose meter (FreeStyle Lite Meter kit) As directed blood-glucose meter (FreeStyle Lite Meter kit) As directed calcium citrate-vitamin D3 315 mg-5 mcg (200 unit) 1 tab PO BID cholecalciferol (vitamin D3) 125 mcg PO DAILY clonazepam 1 mg PO DAILY PRN cyanocobalamin (vitamin B-12) 1,000 mcg PO DAILY 90 days diclofenac sodium 1% (Arthritis Pain (diclofenac)) 4 grams topical QID 30 days evolocumab (Repatha SureClick) 140 mg subcut Q2W 4 weeks ezetimibe 10 mg PO DAILY fluticasone propionate 50 mcg/actuation 2 sprays intranasal DAILY gabapentin 100 mg PO BEDTIME MDD 300mg hydrochlorothiazide 25 mg PO QAM lancets (FreeStyle Lancets) As directed 3 TIMES A DAY linaclotide (Linzess) 290 mcg PO QAM 30 days lisinopril 20 mg PO DAILY metoclopramide HCl (Reglan) 5 mg PO TID multivitamin 1 tab PO DAILY pantoprazole 40 mg PO BID [right wrist splint- carpal tunnel splint As directed] rosuvastatin 40 mg PO DAILY sucralfate 10 mL PO QID temazepam 30 mg PO BEDTIME PRN trazodone 50 mg PO DAILY PRN valacyclovir 500 mg PO BID 3 days vitamin A 1 cap PO DAILY zinc gluconate 30 mg PO DAILY Post menopausal: Yes (2020) HPI HPI STD Testing: Details: Patient is here because she wants to get checked for STDs her comes and goes and when he is here he is with her but when he is not she does not know and so she wants to get checked and she gets check periodically. She knows about herself but not his activities she is not really having any particular symptoms.. She does have a rash on her buttocks that comes and goes. She does not remember being prescribed a cream by Dr. Lake . She is also interested in getting tested for HIV etc. as well. She says she does not have diabetes anymore and her blood sugars much better since she had the bariatric surgery and it has been around 115 she says her primarydoctor is Dr. Dhaliwal. [facility] Medical History (Updated 04/09/24 @ 16:56 by Carol Ann Khoury CNM) Essential hypertension Pure hypercholesterolemia Plantar fasciitis Atherosclerotic cardiovascular disease COVID-19 vaccine administered Colon cancer screening Family history of polyps in the colon Hypoglycemia after GI (gastrointestinal) surgery Postmenopausal bleeding Status post hysteroscopy (~06/11/13) Obesity (BMI 30-39.9) Depression Anxiety Insomnia Meralgia paresthetica Vitamin D deficiency Carpal tunnel syndrome of left wrist Osteoarthritis Obstructive sleep apnea Iron deficiency anemia Migraine Diabetes mellitus Surgical History H/O colonoscopy H/O melanoma excision (~2010) H/O endoscopy (~06/20/13) History of knee surgery (~01/30/13) S/P dilatation and curettage (~2011) History of carpal tunnel surgery H/O laparoscopy S/P myomectomy History of sleeve gastrectomy Family History Father Myocardial infarction Prostate cancer Mother Cervical cancer Ovarian cancer Mental health disorder Diabetes Alzheimer's dementia Sleep apnea Sister Ovarian cancer Maternal Aunt Colon cancer Social History Household Members: Children Housing: Apartment Are you a primary care transport nurse to a significant other at home: Yes (Mother) Do you presently have visiting nurse or other home services: No Alcohol intake: current Alcohol intake frequency: holidays/special occasions only Patient Tobacco Use Status: Former Tobacco user Tobacco use type: Cigarette Cigarettes Per Day: 2 Years Smoked: 3 e-Cigarette/Vaping Use: Never Used Second Hand Smoke Exposure: Yes Advance Directives Date on File: 03/16/16 service: No Current occupational status: disabled Current occupation: right handed Cognitive needs: No Hearing needs: No Vision needs: Yes (glasses) Female Reproductive History Menstrual Age of Menarche: 12 Total pregnancies: 1 Full term: 0 Ab spontaneous: 1 Date of last pap smear: 12/07/22 (negative) Physical Exam Vital Signs: Last Vital Signs BP 138/80 04/09/24 14:06 Other: External exam within normal limits vagina pink and moist cervix appears healthy with normal mucus no abnormal discharge seen We will await testing results. Assessment & Plan Assessment & Plan (1) S/P gastric bypass: Code(s): Z98.84 - Bariatric surgery status Category: Surgical (2) Encounter for screening examination for sexually transmitted disease: Code(s): Z11.3 - Encounter for screening for infections with a predominantly sexual mode of transmission Category: Medical (3) Diabetes mellitus: Comment: Patient says it is much improved since her gastric bypass an 80 lb weight loss... Code(s): E11.9 - Type 2 diabetes mellitus without complications Category: Medical Qualifiers: Diabetes mellitus type: type 2 Diabetes mellitus intermediate insulin use: without intermediate use Diabetes mellitus complication status: without complication Qualified Code(s): E11.9 - Type 2 diabetes mellitus without complications Plan Discussed her careful screening for STIs as a good way to check on things. Discussed that we will call her if there any positive findings though if there is simply bacteria or yeast these are very common findings and if she has any symptoms she can elect for treatment either with gel or cream or pills if she so desires. She says she is on enough pills which I did acknowledge and she would only need to treat in any case if she had any symptoms which she does not have today. Congratulated on her weight loss and her trying to take care of herself she is feeling very much better and she is very happy that her diabetes is under much better control since she has lost all the weight. She checks in with her primary on a regular basis and has appointments coming up. In addition I reviewed previous notes from other gynecological providers. The statement was made that if patient did have any severe itching that perhaps steroid cream might be prescribed but it was not prescribed as she did not have any symptoms and she still does not. Orders: Orders Hepatitis B Surface Antigen Today Z11.3 - Encounter for screening for infections with a predominantly sexual mode of transmission, Z98.84 - Bariatric surgery status CT NG by PCR Today N89.8 - Other specified noninflammatory disorders of vagina, Z20.2 - Contact with and (suspected) exposure to infections with a predominantly sexual mode of transmission Hepatitis C Antibody Today Z11.3 - Encounter for screening for infections with a predominantly sexual mode of transmission, Z98.84 - Bariatric surgery status HIV Ab/Ag Today Z11.3 - Encounter for screening for infections with a predominantly sexual mode of transmission, Z98.84 - Bariatric surgery status Syphilis Screen Today Z11.3 - Encounter for screening for infections with a predominantly sexual mode of transmission, Z98.84 - Bariatric surgery status Bacterial Vaginosis Panel Today N89.8 - Other specified noninflammatory disorders of vagina Coding Level of Care Code Est Pt Level 3 (49034) Diagnoses S/P gastric bypass Z98.84 Encounter for screening examination for sexually transmitted disease Z11.3 Type 2 diabetes mellitus without complication, without long-term current use of insulin E11.9 Diabetes mellitus type: type 2 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
[2024-04-09 14:06] VITALS: BP 138/80; BMI 33.3
== END 2024-04-09 15:22 | disposition home or self-care (01) ==
PROVIDERS: PCP Internal Medicine; Visit Provider Advanced Practice Midwife
DX: Z98.84 Bariatric surgery status (principal); Z11.3 Encounter for screening for infections with a predominantly sexual mode of transmission; E11.9 Type 2 diabetes mellitus without complications
CPT/HCPCS: 99213

== ENCOUNTER 2024-04-09 15:08 | Outpatient (REF) | payer OTHER, SELFPAY ==
--- OUTSIDE RECORDS SUMMARY | 2024-04-09 15:56 | XMS_ITS | Patient Health Record ---
[facility] Address [address] [facility] [place] [address] Care Team Providers Care Medical Reception Specialist Name Role Phone Doni Dhaliwal MDneth Primary Care Provider Unava ilMaxwell Car Unavailable [phone] Allergies Allergen (clinical drug ingredient) Drug/Non Drug Allergy documented on EMR Reaction Allergy Type Onset Date Status cephalexin Cephalexin rash Drug Allergy Activ e Results Component Value Reference Range Notes HEMOGLOBIN A1C (GLYCOHEMOGLO BIN) Reviewed date:07/12/2023 01:06:53 PM Interpretation: Performing Lab: Notes/Report: HEMOGLOBIN A1C % (HH) 7.0 HEMOGLOBIN A1C (GLYCOHEMOGLO BIN) Reviewed date:06/29/2023 09:51:39 AM Interpretation: Performing Lab: Notes/Report: HEMOGLOBIN A1C % (HH) 7.5 H Reason For Referral No Information Medications Medication [...] Problem Type 2 diabetes mellitus without complication (520383384) Type 2 diabetes mellitus without complication (E11.9) Active confirmed Vital Signs Height 5ft5in in 01/10/2024 Weight 192 lbs 01/10/2024 BMI 31.95 kg/m2 01/10/2024 Encounters Encounter Location Date [facility] [address] [facility]/12/2023 Maxwell Jeb Pain in right foot M79.671 ; Plantar fasciitis, bilateral M72.2 ; Calcaneal spur, right foot M77.31 ; Other myositis of right foot M60.871 ; Bursitis of right foot M77.51 ; Pain in left foot M79.672 ; Calcaneal spur, left foot M77.32 ; Other myositis of left foot M60.872 and Bursitis of left foot M77.52 [facility] [address] 01/10/2024 Maxwell Jeb Type 2 diabetes mellitus without complication E11.9 and Plantar fasciitis, bilateral M72.2 [facility] [address] [place] [address] 06/12/2023 Maxwell Russ [facility] [place] [address] [place] [address] 10/16/2023 Maxwell Jeb Assessments Encounter Date Diagnosis [...] Shlomo MyersJeb , 06/27/2024 01:00:00 PM, [address] [facility] [facility] [address], [place], [address], Insurance Providers Payer Name Payer Address Payer Phone Subscriber Number Group Number Insured Name Patient Relationship to Insured Coverage Start Date Coverage End Date [facility] [employer] Claims [address] [place] [address] [phone] [id number] Shania Bustos Self - patient is the [...]
--- OUTSIDE RECORDS SUMMARY | 2024-04-09 15:57 | XMS_ITS ---
Author Organization [facility] Address [address] [facility] [place] [address] Care Team Providers Care Athletic Team Physician Name Role Phone Aubrey Dhaliwal MD Primary Care Provider Unava ilMaxwell Car Unavailable [phone] Allergies Allergen (clinical drug ingredient) Drug/Non Drug [...] Problem Type 2 diabetes mellitus without complication (430487949) Type 2 diabetes mellitus without complication (E11.9) Active confirmed Vital Signs Height 5ft5in in 01/10/2024 Weight 192 lbs 01/10/2024 BMI 31.95 kg/m2 01/10/2024 Encounters Encounter Location Date Provider Diagnosis [facility] [address] [address] 01/10/2024 Mxawell Russ Type 2 diabetes mellitus without complication E11.9 and Plantar fasciitis, bilateral M72.2 Assessments Encounter Date Diagnosis (ICD Code) Assessment Notes Treatment Notes Treatment Clinical Notes Section Notes 01/10/2024 Type 2 diabetes mellitus without complication (ICD-10 - E11.9) 01/10/2024 Plantar fasciitis, bilateral (ICD-10 - M72.2) Plan Of Treatment Next Appt Details Follow Up: prn, Reason: Provider Name:Maxwell Russ , 06/27/2024 01:00:00 PM, [address] [place] [address], [place], [address], Progress Notes * Rogerio BUSTOSeDOB:1965 (58 yo F)Acc No.[id number]:01/10/2024 Progress Note Patient:?BUDDY Shania Provider:?Maxwell Russ DPM :1965???Age:58 Y???Sex:Female D ate:01/10/2024 Address:[address] [place] [address], [address], [place], [id number] Pcp:Aubrey Dhaliwal MD Subjective: * Chief Complaints: [...] Provider:?Maxwell Russ DPM Date:?2023 Generated for Toyin herr/Antonetet/Eufemia on:?04/09/2024 03:56 PM EST History and Physical Notes * [...]
--- OUTSIDE RECORDS SUMMARY | 2024-04-09 15:57 | XMS_ITS ---
Author Organization [facility] Address [address] [place] [address] Care Team Providers Care Viscose Cellar Charge Hand Name Role Phone Isra POWERS [place] Primary Care Provider Unava ilable Maxwell Russ Unavailable [phone] REASON FOR VISIT rs appt 10/18/23 Encounters Encounter Location Date Provider Diagnosis [facility] [address] [place] [address] 10/16/2023 Maxwell Russ Plan Of Treatment Next Appt Details Provider Name:Maxwell Russ , 06/27/2024 01:00:00 PM, [address] [facility] [place] [address], [place], [address], Progress Notes * Rogerio BUSTOSAlexOB:1965 (58 yo F)Acc No.[id number]:10/16/2023 Patient:?Shania Bustos :1965???Age:58 Y???Sex:Female Address:[address] [place] [address] [address], [address], [place], [address] * true * Date:? Generated for Rondai carmenza/Antonette/eTransmitting on:?04/09/2024 03:57 PM EST
[2024-04-10 03:43] LABS: Syphilis Screen Nonreactive (Nonreactive)
[2024-04-10 03:55] LABS: HBsAGNum1 0.43 S/CO (0.00-0.99); HIV AB/AG Nonreactive (Nonreactive); HIV Num 1 0.06 S/CO (0.00-0.99); Hepatitis B Surface Antigen Negative (Negative); ~HepC Num1 0.15 S/CO (0.00-0.79); ~Hepatitis C Antibody Nonreactive (Nonreactive)
== END 2024-04-09 15:09 | disposition home or self-care (01) ==
LOC: HO.HHCL 15:08
PROVIDERS: Advanced Practice Midwife; Visit Provider Internal Medicine Gastroenterology
DX: Z11.4 Encounter for screening for human immunodeficiency virus [HIV] (principal); Z98.84 Bariatric surgery status; Z20.2 Contact with and (suspected) exposure to infections with a predominantly sexual mode of transmission; E11.9 Type 2 diabetes mellitus without complications
CPT/HCPCS: 36415; 81515; 86780; 86803; 87340; 87389; 87491; 87591; 99212

== ENCOUNTER 2024-04-10 14:48 | Outpatient (AMB) | payer OTHER, SELFPAY ==
[2024-04-10 14:49] VITALS: BP 140/80; BMI 33.3
--- NOTE | 2024-04-10 14:49 | MHC.OFFVIS ---
Vital Signs 04/10/24 14:49 Height 5 ft 5 in Weight 200 lb BMI 33.3 BP 140/80 H Intake Visit Reasons: Follow Up/BV Lathing Supervisor Required: No Lathing Supervisor Services: Lathing Supervisor Present Information Interpreted: clinical only Physician Office Secretary: Physician Office Secretary Present Allergies cephalexin [From Keflex] Allergy (Mild, Verified 04/10/24 14:49) RASH Medication List - Last Reconciled 04/10/24 by Carol Ann Khoury CNM acarbose (Precose) 100 mg PO TID acetaminophen ER (Mapap Arthritis Pain) 650 mg PO Q8H PRN 30 days amitriptyline 10 mg PO BEDTIME 30 days blood pressure monitor As directed blood sugar diagnostic (FreeStyle Lite Strips) 1 strip miscellaneous TID 90 days blood-glucose meter (FreeStyle Lite Meter kit) As directed blood-glucose meter (FreeStyle Lite Meter kit) As directed calcium citrate-vitamin D3 315 mg-5 mcg (200 unit) 1 tab PO BID cholecalciferol (vitamin D3) 125 mcg PO DAILY clonazepam 1 mg PO DAILY PRN cyanocobalamin (vitamin B-12) 1,000 mcg PO DAILY 90 days diclofenac sodium 1% (Arthritis Pain (diclofenac)) 4 grams topical QID 30 days evolocumab (Repatha SureClick) 140 mg subcut Q2W 4 weeks ezetimibe 10 mg PO DAILY fluticasone propionate 50 mcg/actuation 2 sprays intranasal DAILY gabapentin 100 mg PO BEDTIME MDD 300mg hydrochlorothiazide 25 mg PO QAM lancets (FreeStyle Lancets) As directed 3 TIMES A DAY linaclotide (Linzess) 290 mcg PO QAM 30 days lisinopril 20 mg PO DAILY metoclopramide HCl (Reglan) 5 mg PO TID multivitamin 1 tab PO DAILY pantoprazole 40 mg PO BID [right wrist splint- carpal tunnel splint As directed] rosuvastatin 40 mg PO DAILY sucralfate 10 mL PO QID temazepam 30 mg PO BEDTIME PRN trazodone 50 mg PO DAILY PRN valacyclovir 500 mg PO BID 3 days vitamin A 1 cap PO DAILY zinc gluconate 30 mg PO DAILY HPI HPI Follow Up/BV: Details: Patient presented to the office anxious because she had not gotten a call back from when the nurses had called her and she was anxious for fear of having some that infection or disease detected at yesterday's visit and blood work. She says she got a call back within 24 hours 20 years ago when she had a tumor diagnosed in her neck that needed to be removed and ever since then she has been traumatized when she gets phone calls from medical offices and she could not rest until she check this out. We set up a visit and I went over all of her results with her she had sought out a STD screen visit because her had just left to go back to the [employer] and she just makes it a practice to make sure that she is good and has not caught any infections as part of her own self-care we reviewed all of the results all of the STI screens were negative and all of the vaginal screens were negative as well it with the exception of the bacterial vaginosis she has no symptoms whatsoever and my exam reflected that her discharge was completely within normal limits yesterday as well. She elected to accept a prescription for Metrogel just so she can have it available to her should she ever have a fishy smelly unpleasant sticky discharge that would be consistent with bacterial vaginosis she does make it a have it to wear panty liners which I advise against and I discussed activities that can promote BV. Additionally in reviewing her medical history and her meds she has a prescription in there for valacyclovir but she has not taken it in years. She said it was prescribed by the manager of housekeeping that she sees yearly for her history of melanoma. She says she had the same kind of lesion that she had on her buttock yesterday years ago in 2021 and manager of housekeeping took a look and did a test and prescribe the valacyclovir for her but she did not really understand what it was for she only takes it if she needs it and she has not had an outbreak or a lesion on her buttock like this since 2021 she said that when she does get it right before it occurs she has some discomfort in her right groin area the lesion is on her right buttock. [facility] Medical History Essential hypertension Pure hypercholesterolemia Plantar fasciitis Atherosclerotic cardiovascular disease COVID-19 vaccine administered Colon cancer screening Family history of polyps in the colon Hypoglycemia after GI (gastrointestinal) surgery Postmenopausal bleeding Status post hysteroscopy (~06/11/13) Obesity (BMI 30-39.9) Depression Anxiety Insomnia Meralgia paresthetica Vitamin D deficiency Carpal tunnel syndrome of left wrist Osteoarthritis Obstructive sleep apnea Iron deficiency anemia Migraine Diabetes mellitus Surgical History H/O colonoscopy H/O melanoma excision (~2010) H/O endoscopy (~06/20/13) History of knee surgery (~01/30/13) S/P dilatation and curettage (~2011) History of carpal tunnel surgery H/O laparoscopy S/P myomectomy History of sleeve gastrectomy Family History Father Myocardial infarction Prostate cancer Mother Cervical cancer Ovarian cancer Mental health disorder Diabetes Alzheimer's dementia Sleep apnea Sister Ovarian cancer Maternal Aunt Colon cancer Social History Household Members: Children Housing: Apartment Are you a primary career technical counselor to a significant other at home: Yes (Mother) Do you presently have visiting nurse or other home services: No Alcohol intake: current Alcohol intake frequency: holidays/special occasions only Patient Tobacco Use Status: Former Tobacco user Tobacco use type: Cigarette Cigarettes Per Day: 2 Years Smoked: 3 e-Cigarette/Vaping Use: Never Used Second Hand Smoke Exposure: Yes Advance Directives Date on File: 03/16/16 service: No Current occupational status: disabled Current occupation: right handed Cognitive needs: No Hearing needs: No Vision needs: Yes (glasses) Female Reproductive History Menstrual Age of Menarche: 12 Physical Exam Vital Signs: Last Vital Signs BP 140/80 H 04/10/24 14:49 BMI result Body Mass Index 33.3 Assessment & Plan Assessment & Plan (1) Bacterial vaginosis: Code(s): N76.0 - Acute vaginitis; B96.89 - Other specified bacterial agents as the cause of diseases classified elsewhere Category: Medical (2) Herpes: Comment: Patient is having single area of outbreak on right buttock previously noted in 2021 by manager of housekeeping. Has valacyclovir for p.r.n. use does not even need it. Extensive teaching about HSV done today. Code(s): B00.9 - Herpesviral infection, unspecified Category: Medical (3) Anxiety: Code(s): F41.9 - Anxiety disorder, unspecified Category: Medical Plan Patient presented to the office anxious because she had not gotten a call back from when the nurses had called her and she was anxious for fear of having some that infection or disease detected at yesterday's visit and blood work. She says she got a call back within 24 hours 20 years ago when she had a tumor diagnosed in her neck that needed to be removed and ever since then she has been traumatized when she gets phone calls from medical offices and she could not rest until she check this out. We set up a visit and I went over all of her results with her she had sought out a STD screen visit because her had just left to go back to the [employer] and she just makes it a practice to make sure that she is good and has not caught any infections as part of her own self-care we reviewed all of the results all of the STI screens were negative and all of the vaginal screens were negative as well it with the exception of the bacterial vaginosis she has no symptoms whatsoever and my exam reflected that her discharge was completely within normal limits yesterday as well. She elected to accept a prescription for Metrogel just so she can have it available to her should she ever have a fishy smelly unpleasant sticky discharge that would be consistent with bacterial vaginosis she does make it a have it to wear panty liners which I advise against and I discussed activities that can promote BV. Additionally in reviewing her medical history and her meds she has a prescription in there for valacyclovir but she has not taken it in years. She said it was prescribed by the manager of housekeeping that she sees yearly for her history of melanoma. She says she had the same kind of lesion that she had on her buttock yesterday years ago in 2021 and manager of housekeeping took a look and did a test and prescribe the valacyclovir for her but she did not really understand what it was for she only takes it if she needs it and she has not had an outbreak or a lesion on her buttock like this since 2021 she said that when she does get it right before it occurs she has some discomfort in her right groin area the lesion is on her right buttock. I reviewed all of the screens that we did and I reviewed her history in detail and her history of the lesions and how they occur and what they are symptomology are and it is in fact consistent with a herpes outbreak on her buttock. She says she has an appointment with a manager of housekeeping coming up and I asked her to discuss with him the results of the testing that he had done in 2021 for her own peace of mind but I did extensive teaching with her about the natural history of herpes and how it can be shared from 1 person to the other and usually requires some either intimate contact or break in the skin and that it usually occurs more commonly orally or generally but it can be transmitted through cracks in the skin in other parts of the body as well and in her case she has it on her buttocks. All of her symptomology does not fact line up with this. Medications: New metronidazole 0.75%(37.5mg/5gram) 1 appful vaginal BID 5 days 70 grams 1RF Coding Level of Care Code Est Pt Level 3 (31460) Diagnoses Bacterial vaginosis N76.0; B96.89 Herpes B00.9 Anxiety F41.9 Time Spent (min) 35 Comment 100% spent reviewing patient history and doing teaching about issues including HSV and BV.
--- OUTSIDE RECORDS SUMMARY | 2024-04-10 16:03 | XMS_ITS | Patient Health Record ---
Author Organization [facility] Address [address] [place] [address] Care Team Providers Care Combiner Operator Name Role Phone Isra POWERS, Aubrey Primary Care Provider Gene Albert Unavailable [phone] ALLERGIES No Known Allergies REASON FOR REFERRAL [...] Rectal bleeding (K62.5) Active confirmed Rectal bleeding (19484319) Problem Encounter for screening for malignant neoplasm of colon (Z12.11) Active confirmed Screening for malignant neoplasm of colon (096879955) Problem Constipation (K59.00) Active confirmed Constipation (28902631) Problem Diverticulosis of colon (K57.30) Active confirmed Diverticulosi s of colon (007353808) PLAN OF TREATMENT Pending Test Test Name Order Date Pathology 12/20/2021 Future Test Test Name Order Date COLONOSCOPY 08/03/2011 COLONOSCOPY 09/15/2021 Insurance Providers Payer Name Payer Address Payer Phone Subscriber Number Group Number Insured Name Patient Relationship to Insured Coverage Start Date Coverage End Date [facility] [address] [place] [address] [id number] GLORIA GOODWNI Self - patient is the insured MEDICAID OF [employer] [address] [place] [address] [id number] GLORIA GOODWIN Self - patient is the insured MEDICAL (GENERAL) HISTORY Medical History History ICD Code Colonoscopy 07-18-2002 was neg. except a hyperplastic polyp Constipation--responds well to Linzess DM resolved weight loss after gastric by pass Migraine Negative screening colonoscopy in July HTN Asthma Arthritis Anxiety and panic attacks Denies [place],CVA,renal disease GERD-EGD in 07/[address] Jackson--normal-gastric remnant bx neg for H.pylori Hyperlipidemia Surgical History Surgery Date(Month/Year) Uterine fibroid surgery Parotid gland tumor Carpal tunnel release-right Gastric bypass with Dr. Jose at [facility] in 2017 and lost abot 80#
--- OUTSIDE RECORDS SUMMARY | 2024-04-10 16:03 | XMS_ITS ---
Author Organization [facility] Address [address] [facility] [place] [address] Care Team Providers Care Keno Manager Name Role Phone Aubrey Dhaliwal MD Primary Care Provider Unava ilMaxwell Car Unavailable [phone] Allergies Allergen (clinical drug ingredient) Drug/Non Drug [...] Problem Type 2 diabetes mellitus without complication (457794783) Type 2 diabetes mellitus without complication (E11.9) Active confirmed Vital Signs Height 5ft5in in 01/10/2024 Weight 192 lbs 01/10/2024 BMI 31.95 kg/m2 01/10/2024 Encounters Encounter Location Date Provider Diagnosis [facility] [address] [address] 01/10/2024 Maxwell Russ Type 2 diabetes mellitus [...] Provider Name:Maxwell Russ , 06/27/2024 01:00:00 PM, [address] [place] [address], [place], [address], Progress Notes * Rogerio BUSTOSeDOB:1965 (58 yo F)Acc No.[id number]:01/10/2024 Progress Note Patient:?BUDDY Shania Provider:?Maxwell Russ DPM :1965???Age:58 Y???Sex:Female D ate:01/10/2024 Address:[address] [place] [address], [address], [place], [id number] Pcp:Aubrey Dhaliwal MD Subjective: * Chief Complaints: [...] Russ DPM Date:?2023 Generated for Toyin herr/Antonette/Eufemia on:?04/10/2024 04:02 PM EST History and Physical Notes * [...]
--- OUTSIDE RECORDS SUMMARY | 2024-04-10 16:03 | XMS_ITS | Patient Health Record ---
[facility] Organization [facility] Address [address] [facility] [place] [address] Care Team Providers Care Transit Coach Operator Name Role Phone Doni Dhaliwal MDneth Primary Care Provider Unava ilMaxwell Car Unavailable [phone] Allergies Allergen (clinical drug ingredient) Drug/Non Drug [...] Problem Type 2 diabetes mellitus without complication (518748315) Type 2 diabetes mellitus without complication (E11.9) Active confirmed Vital Signs Height 5ft5in in 01/10/2024 Weight 192 lbs 01/10/2024 BMI 31.95 kg/m2 01/10/2024 Encounters Encounter Location Date [facility] [address] 07/12/2023 Maxwell Jeb Pain in right foot M79.671 ; Plantar fasciitis, bilateral M72.2 ; Calcaneal spur, right foot M77.31 ; Other myositis of right foot M60.871 ; Bursitis of right foot M77.51 ; Pain in left foot M79.672 ; Calcaneal spur, left foot M77.32 ; Other myositis of left foot M60.872 and Bursitis of left foot M77.[address] [facility] [address] 01/10/2024 Maxwell Jeb Type 2 diabetes mellitus without complication E11.9 and Plantar fasciitis, bilateral M72.2 [facility] [address] [place] [address] 06/12/2023 Maxwell Russ [facility] [place] [address] [place] [address] 10/16/2023 Maxwell Jeb Assessments Encounter Date Diagnosis [...] Shlomo MyersJeb , 06/27/2024 01:00:00 PM, [address] [facility], [facility] [address], [place], [address], Insurance Providers Payer Name Payer Address Payer Phone Subscriber Number Group Number Insured Name Patient Relationship to Insured Coverage Start Date Coverage End Date [facility] [employer] Claims [address] [place] [address] [phone] [id number] Shania Bustos Self - patient is the [...]
--- OUTSIDE RECORDS SUMMARY | 2024-04-10 16:03 | XMS_ITS ---
Author Organization [facility] Address [address] [place] [address] Care Team Providers Care Loader Operator/Ground Leader Name Role Phone Isra POWERS [place] Primary Care Provider Unava ilable Maxwell Russ Unavailable [phone] REASON FOR VISIT rs appt 10/18/23 Encounters Encounter Location Date Provider Diagnosis [facility] [address] [place] [address] 10/16/2023 Maxwell Russ Plan Of Treatment Next Appt Details Provider Name:Maxwell Russ , 06/27/2024 01:00:00 PM, [address] [facility], [place] [address], [place], [address], Progress Notes * Rogerio BUSTOSAlexOB:1965 (58 yo F)Acc No.[id number]:10/16/2023 Patient:?Shania Bustos :1965???Age:58 Y???Sex:Female Address:[address] [place] [address] [address], [address], [place], [address] * true * Date:? Generated for Rondai carmenza/Antonette/eTransmitting on:?04/10/2024 04:02 PM EST
--- OUTSIDE RECORDS SUMMARY | 2024-04-10 16:03 | XMS_ITS ---
Author [facility] Address [address] [place] [address] Care Team Providers Care Supervisor Photocomposition Name Role Phone Aubrey Dhaliwal MD Primary Care Provider Unava ilMaxwell Car Unavailable [phone] Encounters Encounter Location Date [facility] [address] 10/18/2023 Maxwell Russ Plan Of Treatment Next Appt Details Provider Name:Maxwell Russ , 06/27/2024 01:00:00 PM, [address] [place] [address], [place], [address], Progress Notes * Rogerio BUSTOSeDOB:1965 (58 yo F)Acc No.[id number]:10/18/2023 Progress Note Patient:?Shania BUSTOS Provider:?Maxwell Russ DPM :1965???Age:58 Y???Sex:Female D ate:10/18/2023 Address:[address] [place], [place] [address] , [address], [id number] Pcp:Aubrey Dhaliwal MD Subjective: * Chief Complaints: [...] DPM Date:?2023 Generated for Toyin herr/Antonette/Eufemia on:?04/10/2024 04:03 PM EST
== END 2024-04-10 15:57 | disposition home or self-care (01) ==
PROVIDERS: PCP Internal Medicine; Visit Provider Advanced Practice Midwife
DX: N76.0 Acute vaginitis (principal); B96.89 Other specified bacterial agents as the cause of diseases classified elsewhere; B00.9 Herpesviral infection, unspecified; F41.9 Anxiety disorder, unspecified
CPT/HCPCS: 99213

== ENCOUNTER → 2024-04-10 14:48 | Outpatient (BNVA) | payer OTHER, SELFPAY | PROVIDERS: PCP Internal Medicine; Visit Provider Advanced Practice Midwife | DX: N76.0 Acute vaginitis (principal); B96.89 Other specified bacterial agents as the cause of diseases classified elsewhere; B00.9 Herpesviral infection, unspecified; F41.9 Anxiety disorder, unspecified | CPT/HCPCS: 99212 ==

== ENCOUNTER 2024-06-12 07:28 | Outpatient (AMB) | payer OTHER, SELFPAY ==
--- OUTSIDE RECORDS SUMMARY | 2024-06-12 07:30 | XMS_ITS ---
Author Organization [facility] Address [address] [place] [address] Care Team Providers Care Quality Engineering Manager Name Role Phone Isra POWERS [place] Primary Care Provider Unava ilable Maxwell Russ Unavailable [phone] REASON FOR VISIT rs appt 10/18/23 Encounters Encounter Location Date Provider Diagnosis [facility] [address] [place] [address] 10/16/2023 Maxwell Russ Plan Of Treatment Next Appt Details Provider Name:Maxwell Russ , 06/27/2024 01:00:00 PM, [address] [facility], [place] [address], [place], [address], Progress Notes * Rogerio BUSTOSAlexOB:1965 (58 yo F)Acc No.[id number]:10/16/2023 Patient:?Shania Bustos :1965???Age:58 Y???Sex:Female Address:[address] [place] [address] [address], [address], [place], [address] * true * Date:? Generated for Printi carmenza/Famatthewg/eTransmitting on:?06/12/2024 07:29 AM EDT
--- OUTSIDE RECORDS SUMMARY | 2024-06-12 07:30 | XMS_ITS | Patient Health Record ---
Author Organization [facility] Address [address] [place] [address] Care Team Providers Care Assistant Controller Name Role Phone Isra POWERS, Aubrey Primary Care Provider Gene Albert Unavailable [phone] Allergies No Known Allergies Reason For Referral No Information Medications Medication [...] 400mg Act ritesh Piroxicam 20mg Activ e Immunizations Vaccine Route Administration Date Status Comme nts Influenza Unknown 01/12/2021 Administered Social History Alcohol Screen Question Answer Notes Did you [...] Never (0 point) Points 1 Interpretation Negative Section Notes: Nonsmoker x 2 years; no alco hol Nonsmoker x 2 years; no alco hol Problems Problem Type SNOMED Code ICD Code Onset Dates Problem Status W/U Status Risk Notes Problem Rectal bleeding (37050178) Rectal bleeding (K62.5) Active confirmed Problem Screening for malignant neoplasm of colon (664055724) Encounter for screening for malignant neoplasm of colon (Z12.11) Active confirmed Problem Constipation (40895749) Constipation (K59.00) Active confirmed Problem Diverticulosis of colon (011336759) Diverticulosis of colon (K57.30) Active confirmed Plan Of Treatment Pending Test Test Name Order Date Pathology 12/20/2021 Future Test Test Name Order Date COLONOSCOPY 08/03/2011 COLONOSCOPY 09/15/2021 Insurance Providers Payer Name Payer Address Payer Phone Subscriber Number Group Number Insured Name Patient Relationship to Insured Coverage Start Date Coverage End Date [facility] [address] [place] [phone] [id number] GLORIA GOODWIN Self - patient is the insured MEDICAID OF [employer] [address] [place] [address] [id number] GLORIA GOODWIN Self - patient is the insured Medical (General) History Medical History History ICD Code Colonoscopy 07-18-2002 was neg. except a hyperplastic polyp Constipation--responds well to Linzess DM resolved weight loss after gastric by pass Migraine Negative screening colonoscopy in July HTN Asthma Arthritis Anxiety and panic attacks Denies [place],CVA,renal disease GERD-EGD in 07/[address] Jackson--normal-gastric remnant bx neg for H.pylori Hyperlipidemia Surgical History Surgery Date(Month/Year) Uterine fibroid surgery Parotid gland tumor Carpal tunnel release-right Gastric bypass with Dr. Jose at [facility] in 2017 and lost abot 80#
--- OUTSIDE RECORDS SUMMARY | 2024-06-12 07:30 | XMS_ITS ---
Author [facility] Address [address] [place] [address] Care Team Providers Care Sound Mixer Name Role Phone Aubrey Dhaliwal MD Primary Care Provider Unava ilMaxwell Car Unavailable [phone] Encounters Encounter Location Date [facility] [address] 10/18/2023 Maxwell Russ Plan Of Treatment Next Appt Details Provider Name:Maxwell Russ , 06/27/2024 01:00:00 PM, [address] [place] [address], [place], [address], Progress Notes * Rogerio BUSTOSeDOB:1965 (58 yo F)Acc No.[id number]:10/18/2023 Progress Note Patient:?Shania BUSTOS Provider:?Maxwell Russ DPM :1965???Age:58 Y???Sex:Female D ate:10/18/2023 Address:[address] [place], [place] [address] , [address], [phone] Pcp:Aubrey Dhaliwal MD Subjective: * Chief Complaints: [...] Russ DPM Date:?2023 Generated for Toyin herr/Antonette/Eufemia on:?06/12/2024 07:30 AM EDT
--- OUTSIDE RECORDS SUMMARY | 2024-06-12 07:30 | XMS_ITS ---
Author Organization [facility] Address [address] [facility] [place] [address] Care Team Providers Care Collar Feller Name Role Phone Aubrey Dhaliwal MD Primary Care Provider Unava ilMaxwell Car Unavailable [phone] Allergies Allergen (clinical drug ingredient) Drug/Non Drug [...] Problem Type 2 diabetes mellitus without complication (072300151) Type 2 diabetes mellitus without complication (E11.9) Active confirmed Vital Signs Height 5ft5in in 01/10/2024 Weight 192 lbs 01/10/2024 BMI 31.95 kg/m2 01/10/2024 Encounters Encounter Location Date Provider Diagnosis [facility] [address] [address] 01/10/2024 Maxwell Russ Type 2 diabetes mellitus [...] Provider Name:Maxwell Russ , 06/27/2024 01:00:00 PM, [address] [place] [address], [place], [address], Progress Notes * Rogerio BUSTOSeDOB:1965 (58 yo F)Acc No.[id number]:01/10/2024 Progress Note Patient:?BUDDY Shania Provider:?Maxwell Russ DPM :1965???Age:58 Y???Sex:Female D ate:01/10/2024 Address:[address] [place] [address], [address], [place], [id number] Pcp:Aubrey Dhaliwal MD Subjective: * Chief Complaints: [...] med calc tubercle, B/L.?Ophthalmology Referral: ?DIABETES EYE EXAM?Procedure Performed:?Yes ?Date of Exam Performed?06/20/2023 ?Findings of Diabetic Eye Exam:?no retinopathy??? Assessment: * Assessment: 1.?Type 2 diabetes mellitus [...] Provider:?Maxwell Russ DPM Date:?2023 Generated for Toyin herr/Antonette/Josephinesmitting on:?06/12/2024 07:29 AM EDT History and Physical Notes * HPI (History [...]
--- NOTE | 2024-06-12 07:31 | A.OFFVIS_ITS ---
Vital Signs 06/12/24 07:33 Height 5 ft 5 in Weight 200 lb BMI 33.3 Intake Visit Reasons: vaginal itching/ burning urine Outside Sales Account Manager Required: No Information Interpreted: non-clinical & clinical Workforce Development Program Director: Workforce Development Program Director Present ([facility]) Accompanied by: Self / Same As Patient Allergies cephalexin [From Keflex] Allergy (Mild, Verified 06/12/24 07:40) RASH Post menopausal: Yes HPI Comments Details: Presenting complaining of vulvovaginal itching. The patient had BV after intercourse in March was treated with Metrogel followed by metronidazole p.o. tablets, her symptoms disappeared and came back after another episode of intercourse according to her. No associated vaginal discharge no odor other complaints except that the patient states that she had lack of lubrication during intercourse [facility] Medical History Essential hypertension Pure hypercholesterolemia Plantar fasciitis Atherosclerotic cardiovascular disease COVID-19 vaccine administered Colon cancer screening Family history of polyps in the colon Hypoglycemia after GI (gastrointestinal) surgery Postmenopausal bleeding Status post hysteroscopy (~06/11/13) Obesity (BMI 30-39.9) Depression Anxiety Insomnia Meralgia paresthetica Vitamin D deficiency Carpal tunnel syndrome of left wrist Osteoarthritis Obstructive sleep apnea Iron deficiency anemia Migraine Diabetes mellitus Surgical History H/O colonoscopy H/O melanoma excision (~2010) H/O endoscopy (~06/20/13) History of knee surgery (~01/30/13) S/P dilatation and curettage (~2011) History of carpal tunnel surgery H/O laparoscopy S/P myomectomy History of sleeve gastrectomy Family History Father Myocardial infarction Prostate cancer Mother Cervical cancer Ovarian cancer Mental health disorder Diabetes Alzheimer's dementia Sleep apnea Sister Ovarian cancer Maternal Aunt Colon cancer Social History Household Members: Children Housing: Apartment Are you a primary healthcare associate to a significant other at home: Yes (Mother) Do you presently have visiting nurse or other home services: No Alcohol intake: current Alcohol intake frequency: holidays/special occasions only Patient Tobacco Use Status: Former Tobacco user Tobacco use type: Cigarette Cigarettes Per Day: 2 Years Smoked: 3 e-Cigarette/Vaping Use: Never Used Second Hand Smoke Exposure: Yes Advance Directives Date on File: 03/16/16 service: No Current occupational status: disabled Current occupation: right handed Cognitive needs: No Hearing needs: No Vision needs: Yes (glasses) Female Reproductive History Menstrual Age of Menarche: 12 Review of Systems Const All systems reviewed & are unremarkable except as noted in HPI and below Physical Exam Vital Signs: BMI result Body Mass Index 33.3 General: Yes no CVA tenderness External Female Exam: normal external appearance and normal appearance of the urethra Speculum Exam - Vagina: normal appearance of the vagina, normal palpation, no lesions and no masses Speculum Exam - Cervix: normal appearance of the cervix, normal palpation, no lesions, no masses and nontender Bimanual exam- vagina & uterus: normal bimanual exam, normal palpation, uterine size normal, normal palpation, uterine shape normal, No Cervical tenderness present and non-tender Bimanual Exam- Adnexa, other: normal adnexae Back/Spine/Pelvis Back: no CVA tenderness Results AMB Urinalysis Dipstick UR Leukocytes Moderate Last Edit by [facility]cy Jarrett CMA on 06/12/24 09:25 UR Nitrite Negative Last Edit by [facility] Jarrett CMA on 06/12/24 09:25 UR Urobilinogen Normal Last Edit by [facility] Jarrett, SARAH on 06/12/24 09:25 UR Protein Negative Last Edit by [facility] Jarrett CMA on 06/12/24 09:25 UR Ph 6.0 Last Edit by [facility] Jarrett CMA on 06/12/24 09:25 UR Blood Negative Last Edit by [facility] Jarrett CMA on 06/12/24 09:25 UR Specific [place] 1.015 Last Edit by [facility] Jarrett, SARAH on 06/12/24 09:25 UR Ketone Negative Last Edit by [facility] Jarrett CMA on 06/12/24 09:25 UR Bilirubin Negative Last Edit by [facility] Jarrett, SARAH on 06/12/24 09:25 UR Glucose Negative Last Edit by [facility] Jarrett CMA on 06/12/24 09:25 Assessment & Plan Assessment & Plan (1) Vulvovaginitis: Code(s): N76.0 - Acute vaginitis Category: Medical Plan: GC/CT, Bacterial Vaginosis panel taken, Terazol 0.8% q.h.s. for 3 days was sent to the patient's pharmacy. The patient was instructed to call if symptoms don't improve in 48 hours. Orders: Orders AMB Urinalysis Dipstick Today R10.2 - Pelvic and perineal pain Urine Culture Today R10.2 - Pelvic and perineal pain Bacterial Vaginosis Panel Today N76.0 - Acute vaginitis CT NG by PCR Today N76.0 - Acute vaginitis AMB Urinalysis Automated Today R10.2 - Pelvic and perineal pain Medications: New terconazole 0.8% 1 appful vaginal BEDTIME 20 grams 0RF 3 days Coding Diagnoses Vulvovaginitis N76.0
[2024-06-12 07:33] VITALS: BMI 33.3
== END 2024-06-12 08:13 | disposition home or self-care (01) ==
LOC: HO.HWS 07:28
PROVIDERS: PCP Internal Medicine; Visit Provider Obstetrics & Gynecology
DX: R10.2 Pelvic and perineal pain (principal)

== ENCOUNTER 2024-06-12 07:28 | Outpatient (REF) | payer OTHER, SELFPAY ==
--- OUTSIDE RECORDS SUMMARY | 2024-06-12 08:09 | XMS_ITS | Patient Health Record ---
[facility] Address [address] [place] [address] Care Team Providers Care Pipe Organ Technician Name Role Phone Ruiz Dhaliwal MDh Primary Care Provider Unava ilMaxwell Car Unavailable [phone] Allergies Allergen (clinical drug ingredient) Drug/Non Drug [...] Problem Type 2 diabetes mellitus without complication (351714585) Type 2 diabetes mellitus without complication (E11.9) Active confirmed Vital Signs Height 5ft5in in 01/10/2024 Weight 192 lbs 01/10/2024 BMI 31.95 kg/m2 01/10/2024 Encounters Encounter Location Date [facility] [address] [facility]/12/2023 Maxwell Russ Pain in right foot M79.671 ; Plantar fasciitis, bilateral M72.2 ; Calcaneal spur, right foot M77.31 ; Other myositis of right foot M60.871 ; Bursitis of right foot M77.51 ; Pain in left foot M79.672 ; Calcaneal spur, left foot M77.32 ; Other myositis of left foot M60.872 and Bursitis of left foot M77.[address] [facility] [address] 01/10/2024 Maxwell Russ Type 2 diabetes mellitus without complication E11.9 and Plantar fasciitis, bilateral M72.2 [facility] [address] [place] [address] 10/16/2023 Maxwell Russ Assessments Encounter Date Diagnosis (ICD Code) Assessment [...] 3V 07/12/2023 Next Appt Details Provider Name:Maxwell Russ , 06/27/2024 01:00:00 PM, [facility] [address], [place], [address], Insurance Providers Payer Name Payer Address Payer Phone Subscriber Number Group Number Insured Name Patient Relationship to Insured Coverage Start Date Coverage End Date [facility] SCO Claims [address] [place] [address] [id number] Shania Bustos Self - patient is the [...] bypass 2017 knee surgery Laparoscopy melanoma excision 2011 myomectomy sleeve gastrectomy
[2024-06-12 15:38] LABS: Bacterial Vaginosis PCR NEGATIVE (Negative); Candida Group PCR DETECTED (Not Detect); Candida glab krusei PCR NOT DETECTED (Not Detect); Trichomonas vaginalis PCR NOT DETECTED (Not Detect)
[2024-06-12 16:09] LABS: CT PCR NOT DETECTED (Not Detect.); NG PCR NOT DETECTED (Not Detect.)
== END 2024-06-12 07:29 | disposition home or self-care (01) ==
LOC: HO.LNP 07:28
PROVIDERS: PCP Internal Medicine; Visit Provider Obstetrics & Gynecology
DX: R10.2 Pelvic and perineal pain (principal); N76.0 Acute vaginitis
CPT/HCPCS: 81002; 81515; 87086; 87491; 87591; 99212

== ENCOUNTER 2024-06-14 14:24 | Outpatient (AMB) | payer OTHER, SELFPAY ==
--- NOTE | 2024-06-14 14:30 | A.OFFVIS_ITS ---
Vital Signs 06/14/24 14:31 Height 5 ft 5 in Weight 203 lb 2 oz BMI 33.8 BP 136/88 Blood Pressure Location Lt brachial Position Sitting Pulse 82 Pulse Source Pulse Oximeter Pulse Oximetry (%) 95 Oxygen Delivery Method Room Air Intake Visit Reasons: follow up KEVON Intake Note: Patient presents for follow up gabapentin trial and cpap compliance. called regional today patient has not been compliant. not using due to them giving her nose piece and she breaths through her mouth. she just received her mask will be starting to use again. Allergies cephalexin [From Keflex] Allergy (Mild, Verified 06/14/24 14:33) RASH HPI Comments Details: 58 year old female referred to us for Sleep Apnea, by her PCP, Dr. Dhaliwal. HST 2023: AHI is 7.2 OAI 1.4, O2 desat to 80%. KEVON Mild snoring is minimal with CPAP use. In Mar she received a nasal mask, she explained to [facility], they sent her the wrong mask. Now she has the correct face mask (nose/mouth) as she is a mouth breather, however she is having some sinus issues and using saline daily. She goes to bed 2am, and takes amitriptyline 10mg, R. eye is now better, no twitching. She has migraines but they have improved to 1-2 times a month with photophobia, phonophobia and sometimes nausea, denies auras, dizziness, vertigo, vision changes, and n/v. 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 She has RLS, symptoms, with numbness, tingling sensation in her feet radiating to the shins and muscle spasms, in her feet R>L foot. She wakes up at night with muscle spasms and an uncomfortable sensation in her feet. She has Myalgia Paresthetica, compression of the LFCN, Plantar fasciitis, Ramirez's neuroma, and is unable to walk, she gets corticosteroid shots 1/ week R. foot, next week L. foot, for 3 treatments per year and sees a Clinical Pharmacy Specialist, who recommended she orthopedic shoes. She is motivated to lose weight sees a bell ringer, had Bariatric procedure in 2014, she lost 88lbs. Her mood is stable and takes a clonazepam 1mg PO to help with her anxiety and sleep. [facility] Medical History Essential hypertension Pure hypercholesterolemia Plantar fasciitis Atherosclerotic cardiovascular disease COVID-19 vaccine administered Colon cancer screening Family history of polyps in the colon Hypoglycemia after GI (gastrointestinal) surgery Postmenopausal bleeding Status post hysteroscopy (~06/11/13) Obesity (BMI 30-39.9) Depression Anxiety Insomnia Meralgia paresthetica Vitamin D deficiency Carpal tunnel syndrome of left wrist Osteoarthritis Obstructive sleep apnea Iron deficiency anemia Migraine Diabetes mellitus Surgical History H/O colonoscopy H/O melanoma excision (~2010) H/O endoscopy (~06/20/13) History of knee surgery (~01/30/13) S/P dilatation and curettage (~2011) History of carpal tunnel surgery H/O laparoscopy S/P myomectomy History of sleeve gastrectomy Family History Father Myocardial infarction Prostate cancer Mother Cervical cancer Ovarian cancer Mental health disorder Diabetes Alzheimer's dementia Sleep apnea Sister Ovarian cancer Maternal Aunt Colon cancer Social History Household Members: Children Housing: Apartment Are you a primary certified social workers in health care to a significant other at home: Yes (Mother) Do you presently have visiting nurse or other home services: No Alcohol intake: current Alcohol intake frequency: holidays/special occasions only Patient Tobacco Use Status: Former Tobacco user Tobacco use type: Cigarette Cigarettes Per Day: 2 Years Smoked: 3 e-Cigarette/Vaping Use: Never Used Second Hand Smoke Exposure: Yes Advance Directives Date on File: 03/16/16 service: No Current occupational status: disabled Current occupation: right handed Cognitive needs: No Hearing needs: No Vision needs: Yes (glasses) Female Reproductive History Menstrual Age of Menarche: 12 Physical Exam Vital Signs: Last Vital Signs Pulse 82 06/14/24 14:31 BP 136/88 06/14/24 14:31 Pulse Ox 95 06/14/24 14:31 Oxygen Delivery Method Room Air 06/14/24 14:31 BMI result Body Mass Index 33.8 Const General: cooperative, comfortable and no acute distress Nutritional Appearance: average body habitus, overweight and other (BMI is 34) Orientation/consciousness: patient oriented x3 HEENT Teeth and gingiva: other ([place] Score of 4) Eyes Pupils: Equal, round and reactive pupils present Neck Neck: Yes full ROM Resp Effort & Inspection: normal respiratory effort and able to speak in complete sentences Neuro General: patient oriented x3 Cranial nerves: Yes CN's II-XII intact bilaterally, Yes Facial sensation intact/muscles of mastication intact, Yes Equal, round and reactive pupils present, Yes Normal accommodation reflex present, Yes Bilaterally intact EOM present, Yes Nystagmus not present, Yes Normal facial strength present, Yes Midline tongue present, Yes Ability to bilaterally rotate head present and Yes Ability to bilaterally elevate shoulders present Cognition (Neuro): normal cognition Gait exam (Neuro): Normal gait present Motor exam (neuro): Pronator motor function not present, no tremor noted, Normal motor muscle tone present throughout and Abnormal motor strength present (LLE weaker than RLE) Deep tendon reflexes (DTR's): Right triceps reflex intensity grade: 2+, Left triceps reflex intensity grade: 2+, Rt Biceps (C5, C6): 2+, Left biceps reflex intensity grade: 2+, Right brachioradialis reflex intensity grade: 2+, Left brachioradialis reflex intensity grade: 2+, Right patellar reflex intensity grade: 2+, Left patellar reflex intensity grade: 2+, Right ankle reflex intensity grade: 2+ and Left ankle reflex intensity grade: 2+ Coordination: [id number] test normal Psych Appearance: grossly normal Mental Status: mental status grossly normal Speech and movement: Normal speech and movement present Affect: normal affect Attitude: cooperative Thought process: Normal thought process present Thought content: Normal thought content present Insight: Good insight present (Psych) Judgement: Good judgement present (Psych) Assessment & Plan Assessment & Plan (1) Fatigue due to sleep pattern disturbance: Code(s): R53.83 - Other fatigue; G47.9 - Sleep disorder, unspecified Category: Medical (2) Excessive daytime sleepiness: Code(s): G47.19 - Other hypersomnia Category: Medical (3) KEVON on CPAP: Code(s): G47.33 - Obstructive sleep apnea (adult) (pediatric); Z99.89 - Dependence on other enabling machines and devices Category: Medical (4) RLS (restless legs syndrome): Code(s): G25.81 - Restless legs syndrome Category: Medical (5) Numbness and tingling of both feet: Code(s): R20.0 - Anesthesia of skin; R20.2 - Paresthesia of skin Category: Medical Plan KEVON cpap compliance is stressed today, we reviewed compliance requirements, and sleep hygiene. She has a new mask now. Vitamin D was low, she is taking an otc, Glucose was high, A1c was high, however she says it has been lower now since taking Acarbose, will recheck her labs. Migraines continue taking Amitriptyline 10mg daily. Mood, reach out to your therapist and establish a weekly meeting with her/him. RLS: Continue Gabapentin 100mg PO daily at bedtime, if it is too sedating you may use Magnilife Restless Leg Cream topically. She declines PT today for her feet. F/U in 3 months for compliance. Medications: New magnesium oxide 400 mg PO DAILY 30 days 30 tabs 0RF G47.9 - Sleep disorder, unspecified, R20.0 - Anesthesia of skin, R20.2 - Paresthesia of skin, R53.83 - Other fatigue pyridoxine (vitamin B6) 100 mg PO DAILY 30 tabs 3RF numbness and tingling in feet MDD 100mg G25.81 - Restless legs syndrome Discontinued valacyclovir Discontinued Reason: Doctor's Order 500 mg PO BID 3 days 6 tabs 0RF Patient Instructions: Sleep Hygiene provided: set a scheduled bedtime and wake time to help regulate the circadian rhythm and balance the release of pituitary hormones. Sleep in a dark room, temperatures below 68 degrees, and no devices n bed. Limit caffeinated products 6 hours prior to bed, and limit fluids 2-4 hours prior to bed. Gentle night yoga, diffusing essential oils, and playing soft music can be relaxing. RLS magnilife topically at bedtime, B12, Magnesium 400mg PO daily, and B6 daily at night. Coding Level of Care Code Est Pt Level 4 (22854) Diagnoses Fatigue due to sleep pattern disturbance R53.83; G47.9 Excessive daytime sleepiness G47.19 KEVON on CPAP G47.33; Z99.89 RLS (restless legs syndrome) G25.81 Numbness and tingling of both feet R20.0; R20.2 Time Spent (min) 30
[2024-06-14 14:31] VITALS: BP 136/88; PULSE 82; O2SAT 95; BMI 33.8
--- OUTSIDE RECORDS SUMMARY | 2024-06-14 14:43 | XMS_ITS ---
Author Organization [facility] Address [address] [facility] [address] Care Team Providers Care Engraving Plate Maker Name Role Phone Aubrey Dhaliwal MD Primary Care Provider Unava ilMaxwell Car Unavailable [phone] Allergies Allergen (clinical drug ingredient) Drug/Non Drug [...] Problem Type 2 diabetes mellitus without complication (895130210) Type 2 diabetes mellitus without complication (E11.9) Active confirmed Vital Signs Height 5ft5in in 01/10/2024 Weight 192 lbs 01/10/2024 BMI 31.95 kg/m2 01/10/2024 Encounters Encounter Location Date Provider Diagnosis [facility] [address] [address] 01/10/2024 Maxwell Russ Type 2 diabetes mellitus [...] Provider Name:Maxwell Russ , 06/27/2024 01:00:00 PM, [address] [place] [address], [place], [address], Progress Notes * Rogerio BUSTOSeDOB:1965 (58 yo F)Acc No.[id number]:01/10/2024 Progress Note Patient:?BUDDY Shania Provider:?Maxwell Russ DPM :1965???Age:58 Y???Sex:Female D ate:01/10/2024 Address:[address] [place] [address], [address], [place], [id number] Pcp:Aubrey Dhaliwal MD Subjective: * Chief Complaints: [...] Provider:?Maxwell Russ DPM Date:?2023 Generated for Toyin herr/Antonette/eTransmitting on:?06/14/2024 02:42 PM EDT History and Physical Notes * HPI [...]
--- OUTSIDE RECORDS SUMMARY | 2024-06-14 14:43 | XMS_ITS | Patient Health Record ---
Author Organization [facility] Address [address] [place] [address] Care Team Providers Care Rice Field Worker Name Role Phone Isra POWERS, Aubrey Primary Care Provider Gene Albert Unavailable [phone] Allergies No Known Allergies Reason For Referral [...] W/U Status Risk Notes Problem Rectal bleeding (54320216) Rectal bleeding (K62.5) Active confirmed Problem Screening for malignant neoplasm of colon (919772246) Encounter for screening for malignant neoplasm of colon (Z12.11) Active confirmed Problem Constipation (89587207) Constipation (K59.00) Active confirmed Problem Diverticulosis of colon (319536478) Diverticulosis of colon (K57.30) Active confirmed Plan Of Treatment Pending Test Test Name Order Date Pathology 12/20/2021 Future Test Test Name Order Date COLONOSCOPY 08/03/2011 COLONOSCOPY 09/15/2021 Insurance Providers Payer Name Payer Address Payer Phone Subscriber Number Group Number Insured Name Patient Relationship to Insured Coverage Start Date Coverage End Date [facility] [address] [place] [address] [id number] GLORIA GOODWIN Self - patient is the insured MEDICA[place] OF [place] [address] [place] [address] [id number] GLORIA GOODWIN Self - patient is the insured Medical (General) History Medical History History ICD Code Colonoscopy 07-18-2002 was neg. except a hyperplastic polyp Constipation--responds well to Linzess DM resolved weight loss after gastric by pass Migraine Negative screening colonoscopy in July HTN Asthma Arthritis Anxiety and panic attacks Denies [place],CVA,renal disease GERD-EGD in 07/[address] Jackson--normal-gastric remnant bx neg for H.pylori Hyperlipidemia Surgical History Surgery Date(Month/Year) Uterine fibroid surgery Parotid gland tumor Carpal tunnel release-right Gastric bypass with Dr. Jose at [facility] in 2017 and lost abot 80#
--- OUTSIDE RECORDS SUMMARY | 2024-06-14 14:43 | XMS_ITS | Patient Health Record ---
[facility] Address [address] [facility] [place] [address] Care Team Providers Care Belt Glass Sander Name Role Phone Ruiz Dhaliwal MDh Primary Care Provider Unava ilMawxell Car Unavailable [phone] Allergies Allergen (clinical drug ingredient) Drug/Non Drug [...] Problem Type 2 diabetes mellitus without complication (516238664) Type 2 diabetes mellitus without complication (E11.9) Active confirmed Vital Signs Height 5ft5in in 01/10/2024 Weight 192 lbs 01/10/2024 BMI 31.95 kg/m2 01/10/2024 Encounters Encounter Location Date [facility] [address] 07/12/2023 Maxwell Russ Pain in right foot M79.671 ; Plantar fasciitis, bilateral M72.2 ; Calcaneal spur, right foot M77.31 ; Other myositis of right foot M60.871 ; Bursitis of right foot M77.51 ; Pain in left foot M79.672 ; Calcaneal spur, left foot M77.32 ; Other myositis of left foot M60.872 and Bursitis of left foot M77.[address] [facility] [address] 01/10/2024 Maxwell Russ Type 2 diabetes mellitus without complication E11.9 and Plantar fasciitis, bilateral M72.2 [facility] [address] [place] [address] 10/16/2023 Maxwell Russ Assessments Encounter Date Diagnosis [...] Provider Name:Maxwell Russ , 06/27/2024 01:00:00 PM, [facility] [address], [place], [address], Insurance Providers Payer Name Payer Address Payer Phone Subscriber Number Group Number Insured Name Patient Relationship to Insured Coverage Start Date Coverage End Date [facility] SCO Claims [address] [place] [address] [id number] Shania Bustos Self - patient is the [...]
--- OUTSIDE RECORDS SUMMARY | 2024-06-14 14:44 | XMS_ITS ---
[facility] Address [address] [place] [address] Care Team Providers Care Grinding And Polishing Laborer Name Role Phone Aubrey Dhaliwal MD Primary Care Provider Unava ilMaxwell Car Unavailable [phone] Encounters Encounter Location Date [facility] [address] 10/18/2023 Maxwell Russ Plan Of Treatment Next Appt Details Provider Name:Maxwell Russ , 06/27/2024 01:00:00 PM, [address] [place] [address], [place], [address], Progress Notes * Rogerio BUSTOSeDOB:1965 (58 yo F)Acc No.[id number]:10/18/2023 Progress Note Patient:?Shania BUSTOS Provider:?Maxwell Russ DPM :1965???Age:58 Y???Sex:Female D ate:10/18/2023 Address:[address] [place], [place] [address] , [address], [id number] Pcp:Aubrey Dhaliwal MD Subjective: * Chief Complaints: [...] Russ DPM Date:?2023 Generated for Toyin herr/Antonette/Eufemia on:?06/14/2024 02:43 PM EDT
--- OUTSIDE RECORDS SUMMARY | 2024-06-14 14:44 | XMS_ITS ---
Author Organization [facility] Address [address] [place] [address] Care Team Providers Care Director Software Development Name Role Phone Isra POWERS, [place] Primary Care Provider Unava ilable Maxwell Russ Unavailable [phone] REASON FOR VISIT rs appt 10/18/23 Encounters Encounter Location Date Provider [facility] [address] [place] [address] 10/16/2023 Maxwell Russ Plan Of Treatment Next Appt Details Provider Name:Maxwell Russ , 06/27/2024 01:00:00 PM, [address] [facility] [address], [place], [address], Progress Notes * Rogerio BUSTOSAlexOB:1965 (58 yo F)Acc No.[id number]:10/16/2023 Patient:?Shania Bustos :1965???Age:58 Y???Sex:Female Address:[address] [place] [address] [address], [address], [place], [address] * true * Date:? Generated for Printi carmenza/Famatthewg/eTransmitting on:?06/14/2024 02:43 PM EDT
== END 2024-06-14 15:06 | disposition home or self-care (01) ==
LOC: HO.HSMS 14:25
PROVIDERS: PCP Internal Medicine; Visit Provider Physician Assistant Medical
DX: R53.83 Other fatigue (principal); G47.9 Sleep disorder, unspecified; G47.19 Other hypersomnia; G47.33 Obstructive sleep apnea (adult) (pediatric); Z99.89 Dependence on other enabling machines and devices; G25.81 Restless legs syndrome; R20.0 Anesthesia of skin; R20.2 Paresthesia of skin
CPT/HCPCS: 99214

== ENCOUNTER → 2024-06-14 14:24 | Outpatient (BNVA) | payer OTHER, SELFPAY | PROVIDERS: PCP Internal Medicine; Visit Provider Physician Assistant Medical | DX: R53.83 Other fatigue (principal); G47.33 Obstructive sleep apnea (adult) (pediatric); G47.9 Sleep disorder, unspecified; G47.19 Other hypersomnia; G25.81 Restless legs syndrome; R20.0 Anesthesia of skin; R20.2 Paresthesia of skin; Z99.89 Dependence on other enabling machines and devices | CPT/HCPCS: 99212 ==

== ENCOUNTER 2024-07-10 08:41 | Outpatient (REF) | payer OTHER, SELFPAY ==
--- OUTSIDE RECORDS SUMMARY | 2024-07-10 08:58 | XMS_ITS ---
Author Organization [facility] Address [address] [place] [address] Care Team Providers Care Purse Maker Name Role Phone Aubrey Dhaliwal MD Primary Care Provider Unava ilMaxwell Car Unavailable [phone] Allergies Allergen (clinical drug ingredient) Drug/Non Drug [...] Problem Type 2 diabetes mellitus without complication ([id number]) Type 2 diabetes mellitus without complication (E11.9) Active confirmed Vital Signs Height 5ft5in in 01/10/2024 Weight 192 lbs 01/10/2024 BMI 31.95 kg/m2 01/10/2024 Encounters Encounter Location Date Provider Diagnosis [facility] [address] [address] 01/10/2024 Maxwell Russ Type 2 diabetes mellitus without complication E11.9 and Plantar fasciitis, bilateral M72.2 Assessments Encounter Date Diagnosis (ICD Code) Assessment Notes Treatment Notes Treatment Clinical Notes Section Notes 01/10/2024 Type 2 diabetes mellitus without complication (ICD-10 - E11.9) 01/10/2024 Plantar fasciitis, bilateral (ICD-10 - M72.2) Plan Of Treatment Next Appt Details Follow Up: prn, Reason: Provider Name:Maxwell Russ , 07/03/2025 01:30:00 PM, [address] [place] [address], [place], [address], Progress Notes * Rogerio BUSTOSeDOB:1965 (58 yo F)Acc No.[id number]:01/10/2024 Progress Note Patient:?BUDDY Shania Provider:?Maxwell Russ DPM :1965???Age:58 Y???Sex:Female D ate:01/10/2024 Address:[address] [place] [address], [address], [place], [id number] Pcp:Aubrey Dhaliwal MD Subjective: * Chief Complaints: [...] Russ DPM Date:?2023 Generated for Toyin herr/Antonette/Josephinesmitting on:?07/10/2024 08:58 AM EDT History and Physical Notes * [...]
--- OUTSIDE RECORDS SUMMARY | 2024-07-10 08:58 | XMS_ITS ---
[facility] Address [address] [place] [address] Care Team Providers Care Inserting Operator Name Role Phone Aubrey Dhaliwal MD Primary Care Provider Unava ilMaxwell Car Unavailable [phone] Encounters Encounter Location Date [facility] [address] 10/18/2023 Maxwell Russ Plan Of Treatment Next Appt Details Provider Name:Maxwell Russ , 07/03/2025 01:30:00 PM, [address] [place] [address], [place], [address], Progress Notes * Rogerio BUSTOSeDOB:1965 (58 yo F)Acc No.[id number]:10/18/2023 Progress Note Patient:?Shania BUSTOS Provider:?Maxwell Russ DPM :1965???Age:58 Y???Sex:Female D ate:10/18/2023 Address:[address] [place], [place] [address] , [address], [id number] Pcp:Aubrey Dhaliwal MD Subjective: * Chief Complaints: [...] Russ DPM Date:?2023 Generated for Toyin herr/Antonette/Eufemia on:?07/10/2024 08:58 AM EDT
--- OUTSIDE RECORDS SUMMARY | 2024-07-10 08:58 | XMS_ITS ---
Author Organization [facility] Address [address] [facility] [place] [address] Care Team Providers Care Associate Director Of Sales Name Role Phone Aubrey Dhaliwal MD Primary Care Provider Unava Maxwell Meredith Unavailable [phone] Allergies Allergen (clinical drug ingredient) Drug/Non Drug Allergy documented on EMR Reaction Allergy Type Onset Date Status cephalexin Cephalexin rash Drug Allergy Activ e REASON FOR VISIT At Risk Footcare, Toe Irritation Medications Medication SIG (Take, Route, Frequency, Duration) Notes Start Date End Date Status Fluticasone Propionate Not-Taking clonazePAM Not-Takin g valACYclovir HCl Not -Taking Temazepam 30 MG 1 capsule at bedtime as needed Orally Once a day Not-Taking Acetaminophen ER 650 MG 2 tablets as nee ded Orally every 8 hrs Not-Taking Vitamin A Active Metoclopramide HCl 5 MG Oral for 30 Days Active Vitamin D3 Active Night Splint AFO - L1930 1 wear at rest for 30 days Not-Taking Vitamin B12 Active Trazodone & Diet Manage Prod Active Multivitamin Active Lisinopril Active Sucralfate Active Rosuvastatin Calcium 40 MG 1 tablet Oral ly Once a day Active hydroCHLOROthiazide Active Ezetimibe Active Linzess Active Lansoprazole Active Diclofenac Sodium Ac tive Extra Depth Orthopedic Shoes (1 Pair) with Customized Heat Molded Multidensity Innersoles (3 Pair) as directed Dx: NIDDM (E11.9), Hammertoe Foot Deformity (M20.41,M20.42), Preulcerative Skin Lesion(s) (L85.1) 06/27/2024 Active Acarbose 100 MG as directed Orally Active Amitriptyline HCl 10 MG 1 tablet at bedt nik Orally Once a day Active Calcium Citrate + D3 315-6.25 MG-MCG 1 tablet Orally Twice a day [...] (Standard) Question Answer Notes Tobacco use: Nonsmoker Additional Findings: Tobacco non-user Current no nsmoker Problems Problem Type SNOMED Code ICD Code Onset Dates Problem Status W/U Status Risk Notes Problem Acquired hammer toe of right foot (9397203483036 105) Other hammer toe(s) (acquired), right foot (M20.41) Active confirmed Problem Acquired hammer toe of left foot (9626073721948 103) Other hammer toe(s) (acquired), left foot (M20.42) Active confirmed Vital Signs Height 5ft 5in in 06/27/2024 Weight 192 lbs 06/27/2024 BMI 31.95 kg/m2 06/27/2024 Encounters Encounter Location Date Provider Diagnosis [facility] [address] [address] 06/27/2024 Maxwell Russ Type 2 diabetes mellitus without complication E11.9 ; Other hammer toe(s) (acquired), right foot M20.41 and Other hammer toe(s) (acquired), left foot M20.42 Assessments Encounter Date Diagnosis (ICD Code) Assessment Notes Treatment Notes Treatment Clinical Notes Section Notes 06/27/2024 Type 2 diabetes mellitus without complication (ICD-10 - E11.9) 06/27/2024 Other hammer toe(s) (acquired), right foot (ICD-10 - M20.41) Patient Educated with: DIABETIC FOOT CARE INSTRUCTIONS.p df (DIABETIC FOOT CARE INSTRUCTIONS.p df) 06/27/2024 Other hammer toe(s) (acquired), left foot (ICD-10 - M20.42) Plan Of Treatment Medication Medication Name Sig Start Date Stop Date Notes Extra Depth Orthopedic Shoes (1 Pair) with Customized Heat Molded Multidensity Innersoles (3 Pair) as directed Dx: NIDDM (E11.9), Hammertoe Foot Deformity (M20.41,M20.42), Preulcerative Skin Lesion(s) (L85.1) 06/27/2024 Treatment Notes Assessment Notes Other hammer toe(s) (acquired), right fo ot Patient Educated with: DIABETIC FOOT CARE INSTRUCTIONS.pdf (DIABETIC FOOT CARE INSTRUCTIONS.pdf) Next Appt Details Follow Up: 1 Year, Reason: Provider Name:Maxwell Russ , 07/03/2025 01:30:00 PM, [address] [facility], [place] [address], [place], [address], Progress Notes * Kyung BUSTOSOB:1965 (58 yo F)Acc No.[id number]:06/27/2024 Progress Note Patient:?BUDDY Shania Provider:?Maxwell Russ DPM :1965???Age:58 Y???Sex:Female D ate:06/27/2024 Address:[address] [place] [address], [address] Pcp:Aubrey Dhaliwal MD Subjective: * Chief Complaints: * ???At Risk FootcareToe Irrit ation * HPI: ???At Risk footcare:?Pt States Last PCP Visit:?Date?04/18/2024 ???Toe pain:?Location:?B/L feet.?Duration:?several years.?Course:?worse.?Aggravated by:?shoes, any pressure.?Treatments:?change in shoes.? * ROS:?General/Constitutional:?Nausea?denies.?Vomiting?denies.?Hunger Thirst?denies.?Loss appetite?denies.?Chills?denies.?Fatigue?denies.?Fever?denies.?Night Sweats?denies.?Unexplained weight loss?denies.?Unexplained [...] 2011myomectomy sleeve gastrectomy * Hospitalization/Major Diagno stic Procedure:?No Hospitalization History. * Family History:?Mother: aliv e, cervical cancer, ovarian cancer, mental illness, alzheimer's dementia, sleep apnea, diagnosed with Family history of arthritis, Other malignant neoplasm of unspecified site, Diabetic - NIDDM, Unspecified essential hypertension.?Father: , Myocardial infarction, prostate cancer, diagnosed with Unspecified heart disease, Unspecified cerebral artery occlusion with cerebral infarction, Family history of arthritis.?Maternal aunt: , colon cancer.?Siblings: unknown, ovarian cancer.? * Social History:?Tobacco Use:?Tobacco use other than smoking?Are you an other tobacco user??No ?Tobacco Control (Standard)?Tobacco use:?Nonsmoker ?Additional Findings: Tobacco non-user?Current nonsmoker ???Drugs/Alcohol:?Drugs?Have you used drugs other than those for medical reasons in the past 12 months??No ?Alcohol Screen?Did you have a drink containing alcohol in the past year??Yes ?How often did you have a drink containing alcohol in the past year??Monthly or less (1 point) ?Points?1 ?Interpretation?Negative ???Miscellaneous:?Children: yes. ?Exercise: no. ?Occupation: Disabled. * Medications:?TakingAmitripty line HCl 10 MG Tablet [...] Prod Vitamin A Vitamin B12 Vitamin D3 Metoclopramide HCl 5 MG Tablet Oral Taking [...] Taking Vitamin B12 Taking Vitamin D3 Taking Metoclopramide HCl 5 MG Tablet Oral Not-Taking/PRNNight Splint AFO - L1930 1 wear at rest Acetaminophen ER 650 MG Tablet Extended Release 2 tablets as needed Orally every 8 hrs clonazePAM Fluticasone Propionate Temazepam 30 MG Capsule 1 capsule at bedtime as needed Orally Once a day valACYclovir HCl Medication List reviewed and reconciled with the patientNot-Taking/PRN Night Splint AFO - L1930 1 wear at rest Not-Taking/PRN Acetaminophen ER 650 MG Tablet Extended Release 2 tablets as needed Orally every 8 hrs Not-Taking/PRN clonazePAM Not-Taking/PRN Fluticasone Propionate Not-Taking/PRN Temazepam 30 MG Capsule 1 capsule at bedtime as needed Orally Once a day Not-Taking/PRN valACYclovir HCl Medication List reviewed and reconciled with the patient * Allergies:?Cephalexin: rashy es[Allergies Verified] Objective: * Vitals:?Ht: 5ft 5in, Wt:192, BMI:31.95, Shoe size: 11, BS: did not test, Ht-cm: 165.1 cm, Wt-k.09 kg. * ???Past Orders: ???Lab:HEMOGLOBIN A1C (GLYCO HEMOGLOBIN) (Order Date - 03/31/2024) (Collection Date & Time - 04/01/2024 01:05 PM) ? Value Reference Range ?HEMOGLOBIN A1C % (HH) 7.1 * Examination: ???Ophthalmology Referral: ?DIABETES EYE EXAM?Procedure Performed:?Yes ?Date of Exam Performed?03/01/2024 ?Diabetic Retinopathy Screening:?Yes ?Retinal Screening Performed:?Yes ?Findings of Diabetic Eye Exam:?no retinopathy?Orthopedic: ?MUSCLE STRENGTH:?5/5 all groups in a symmetrical fashion , B/L.?FOOT MORPHOLOGY:? Pes Planus structure,(-) Charcot collapse/destruction noted at [facility].?DIGITAL DEFORMITIES:?Digital contracture, PIPJ, 2-5 B/L, incompl-reducible with WB, or to push-up test, no over, nor underlapping.?FOOTWEAR EVALUATION:?worn, non-supportive , shoe gear properties exacerbate patients foot/toe deformity.?Dermatologic: ?SKIN FINDINGS:?Skin exam reveals normal texture, elasticity, and turgor. There are no masses. The interspaces are clear, Skin exam reveals Keratotic lesion(s) located at, SUB MTH (s), 2, Right, Plantar Heel(s), B/L.?Neurological: ?SENSORY:?Neurological exam reveals intact sensorium, pain sensation normal, vibration sensation intact, pinprick sensation is normal in the lower extremities, 5.07 monofilament test performed at plantar aspects of 5 varied sites per foot shows sensation, normal, B/L, Pt denies, anesthesia, burning, paresthesia, tingling, B/L.?DEEP TENDON REFLEXES:?Achilles, 2/4, B/L.?Vascular: ?DP PULSES (B):?2/4, B/L.?PT PULSES (B):?2/4, B/L.?CAPILLARY FILL TIME:?immediate, all digits, B/L.?TROPHIC CONDITION-TEXTURE/ELASTICITY/TURGOR/HAIR GROWTH (B):?normal, B/L.?TEMPERTURE GRADIENT (C):?warm to cool, proximal to distal, B/L.?PIGMENTATION:?normal, B/L.?EDEMA (C):?absent, B/L.?CLAUDICATION (C):?denies, B/L.?REST PAIN:?denies, B/L.?PARESTHESIA (C):?absent, B/L.?BURNING (C):?absent, B/L.?General Examination: ?GENERAL APPEARANCE:?Reveals a pleasant, alert, well-nourished, well- developed, well hydrated individual, who demonstrates proper attention to hygiene/body habitus, and is in no acute distress, Pt serves as own?historian for office visit today.?ORIENTED:?person, place, and time.?FOOT EXAM:?Lower Extremity Neurological Exam performed:?Yes ?Visual exam of foot performed:?Yes ?Date?06/27/2024 ?Footwear Evaluation?Footwear Evaluation performed:?Yes??? Assessment: * Assessment: 1.?Other hammer toe(s) (acqu ired), right foot - M20.41???Specify :Chronic problem, Worse (4),Rx Management (4)???2.?Type 2 diabetes mellitus without complication - E11.9 (Primary)???3.?Other hammer toe(s) (acquired), left foot - M20.42???Specify :Chronic problem, Worse (4),Rx Management (4)??? Plan: * Treatment: * Procedure Codes:? * Preventive Medicine:? ??Counseling:?Discussion:?-14: Office or other outpatient visit for the evaluation and management of an established patient, which required a medically appropriate history and/or examination and MODERATE level of DECISION MAKING for: 1 OR MORE CHRONIC PROBLEM(S) THATS WORSENING, 2 STABLE CHRONIC PROBLEMS, A NEWLY DIAGNOSED PROBLEM WITH UNCERTAIN PROGNOSIS, AN ACUTE COMPLICATED INJURY WITH MULTIPLE TREATMENT OPTIONS, OR AN ACUTE PROBLEM WITH ACCOMPANYING SYSTEMIC SYMPTOMS, THAT POSE(S) A MODERATE RISK OF MORBIDITY. THIS CONDITION MAY ALSO INCLUDE RX DRUG MANAGEMENT, OR A DECISON FOR MINOR SURGERY. The visit on the day of the [...] have encouraged the patient to call the office.?Digital Surgery:?Digital surgery was discussed with the patient, We elected to try conservative treatment at the present time, due to the patients medical history and increased asssociated post-operative risks.?Digital Treatment:?HT- I explained to the patient the possible etiologies of Hammertoes, including genetics/foot type/shoegear/activity level/exercise routine and the risks/benefits of all the different treatment options for their pain including: No treatment at all, Rest, Ice, New/supportive/wider/deeper Shoegear, Digital Padding/Strapping/Taping/Bracing/Gel protective sleeves, Foot/Ankle AFO Bracing, Stretching exercises, Deep Tissue Massage, Arch support/shoe inserts with splay metatarsal padding, and Custom orthoses. I insisted that any digital devices be removed daily and not worn overnight for safety. The patient is to carefully examine the toes daily for any skin irritation while using any splinting or padding device. The advantages and disadvantages of each option were discussed and the patients questions re: shoegear, padding, custom vs prefabricated inserts, activity level, and consistency in home treatment regimens for optimal success were answered to their verbally confirmed satisfaction.?Shoe Gear Counseling:?SHOE Rx - The patient was counseled in great detail on their muscoloskeletal foot and toe deformities which coincided with the dermatological presentations visualized on exam. We discussed how their deformities put the integrity of their feet at risk for potential pedal complications which makes the accomidative diabetic shoes and cutomizable inserts medically necessary. We discussed the different shoe and insert treatment types and options, as well as the important advantages for adhering to regularly wearing these accomidative devices daily. The patient was made aware of the fact that a failure to abide by these recommedations may be deleterious to their foot health as they are able to prevent many pedal complications such as skin irritation, skin ulceration, infection, and even loss of toe/foot/leg/or life. Time was also spent with the patient dispensing and discussing proper diabetic footcare techniques including daily skin moisturization, daily foot inspection for any interruption in skin integrity including open lesions, or sign of infection such as redness/malodor/drainage/swelling. Also discussed and recommended were procedures regarding daily shoe inspection for the presence of internal foreign bodies as well as any visualized irregular shoe or insert wear. Patient questions re: shoes, inserts, and self foot inspections were answered to their satisfaction as the patient verbally confirmed a full understanding of the above information. A Rx for Extra Depth Orthopedic Shoes with 3 pair of custom heat-molded inserts was dispensed.? ??Screening/Special Tests:?Fall Risk?Screening:?No falls in the past year ?FALLS: Screening for Future Fall Risk?Have you had any falls with injury in the past year??No * Follow Up:?1 Year * Images: * Sign off status: Completed true * Provider:?Maxwell Russ DPM Date:?2024 Generated for Toyin herr/Antonette/uEfemia on:?07/10/2024 08:58 AM EDT History and Physical Notes * HPI (History of Present Illness) Category Sub-Category Detail Notes Category Not es Toe pain Location: B/L feet Duration: several years Course: worse Aggravated by: shoes, any pressure Treatments: change in shoes At Risk footcare Pt States Last PCP Visit: Date: 5 Examination Category Sub-Category Detail Notes Category Not es Neurological SENSORY: Neurological exa m reveals intact sensorium, pain sensation normal, vibration sensation intact, pinprick sensation is normal in the lower extremities, 5.07 monofilament test performed at plantar aspects of 5 varied sites per foot shows sensation, normal, B/L, Pt denies, anesthesia, burning, paresthesia, tingling, B/L DEEP TENDON REFLEXES: Achilles, 2/4, B/L Dermatologic SKIN FINDINGS: Skin exam reveal s normal texture, elasticity, and turgor. There are no masses. The interspaces are clear, Skin exam reveals Keratotic lesion(s) located at, SUB MTH (s), 2, Right, Plantar Heel(s), B/L Orthopedic FOOT MORPHOLOGY: Pes Planus stru cture,(-) Charcot collapse/destruction noted at [facility] FOOTWEAR EVALUATION: worn, non-supportiv e , shoe gear properties exacerbate patients foot/toe deformity DIGITAL DEFORMITIES: Digital contracture , PIPJ, 2-5 B/L, incompl-reducible with WB, or to push-up test, no over, nor underlapping MUSCLE STRENGTH: 5/5 all groups in a symmetrical fashion , B/L General Examination GENERAL APPEARANCE: Reveals a pleasant, alert, well- nourished, well-developed, well hydrated individual, who demonstrates proper attention to hygiene/body habitus, and is in no acute distress, Pt serves as own historian for office visit today FOOT EXAM: Lower Extremity Neurological Exa m performed:: Yes Visual exam of foot performed:: Yes Date: 06/27/2024 ORIENTED: person, place, and t nik Footwear Evaluation Footwear Evaluation performe d:: Yes Ophthalmology Referral DIABETES EYE EXAM Procedure Perform ed:: Yes ?Date of Exam Performed: 03/01/2024 Diabetic Retinopathy Screening:: Yes Retinal Screening Performed:: Yes Findings of Diabetic Eye Exam:: no retin opathy Vascular DP PULSES (B): 2/4, B/L PT PULSES (B): 2/4, B/L CAPILLARY FILL TIME: immediate, all digi ts, B/L TEMPERTURE GRADIENT (C): warm to cool, p roximal to distal, B/L TROPHIC CONDITION-TEXTURE/ELASTICITY/TURGOR/HAIR GROWTH (B): normal, B/L EDEMA (C): absent, B/L CLAUDICATION (C): denies, B/L REST PAIN: denies, B/L PIGMENTATION: normal, B/L PARESTHESIA (C): absent, B/L BURNING (C): absent, B/L
--- OUTSIDE RECORDS SUMMARY | 2024-07-10 08:58 | XMS_ITS | Patient Health Record ---
Author [facility] Address [address] [facility] [place] [address] Care Team Providers Care Food Products Tester Name Role Phone Doni Dhaliwal MDneth Primary Care Provider Unava ilMaxwell Car Unavailable [phone] Allergies Allergen (clinical drug ingredient) Drug/Non Drug Allergy documented on EMR Reaction Allergy Type Onset Date Status cephalexin Cephalexin rash Drug Allergy Activ e Results Component Value Reference Range Notes HEMOGLOBIN A1C (GLYCOHEMOGLO BIN) Reviewed date:07/12/2023 01:06:53 PM Interpretation: Performing Lab: Notes/Report: HEMOGLOBIN A1C % (HH) 7.0 HEMOGLOBIN A1C (GLYCOHEMOGLO BIN) Reviewed date:06/27/2024 01:06:11 PM Interpretation: Performing Lab: Notes/Report: HEMOGLOBIN A1C % (HH) 7.1 Reason For Referral No Information Medications Medication SIG (Take, Route, Frequency, Duration) Notes Start Date End Date Status Vitamin A Active Trazodone & Diet Manage Prod Active Multivitamin Active Fluticasone Propionate Not-Taking Lisinopril Active clonazePAM Not-Takin g Sucralfate Active valACYclovir HCl Not -Taking Extra Depth Orthopedic Shoes (1 Pair) with Customized Heat Molded Multidensity Innersoles (3 Pair) as directed Dx: NIDDM (E11.9), Hammertoe Foot Deformity (M20.41,M20.42), Preulcerative Skin Lesion(s) (L85.1) 06/27/2024 Active Rosuvastatin Calcium 40 MG 1 tablet Oral ly Once a day Active Temazepam 30 MG 1 capsule at bedtime as needed Orally Once a day Not-Taking hydroCHLOROthiazide Active Metoclopramide HCl 5 MG Oral for 30 Days Active Ezetimibe Active Vitamin D3 Active Linzess Active Acetaminophen ER 650 MG 2 tablets as nee ded Orally every 8 hrs Not-Taking Lansoprazole Active Night Splint AFO - L1930 1 wear at rest for 30 days Not-Taking Acarbose 100 MG as directed Orally Active Amitriptyline HCl 10 MG 1 tablet at bedt nik Orally Once a day Active Diclofenac Sodium Ac tive Vitamin B12 Active Calcium Citrate + D3 315-6.25 MG-MCG [...] Problem Acquired hammer toe of right foot (913652012664042 5) Other hammer toe(s) (acquired), right foot (M20.41) Active confirmed Problem Acquired hammer toe of left foot (430141517639393 3) Other hammer toe(s) (acquired), left foot (M20.42) Active confirmed Problem Type 2 diabetes mellitus without complication (650595573) Type 2 diabetes mellitus without complication (E11.9) Active confirmed Vital Signs Height 5ft 5in in 06/27/2024 Weight 192 lbs 06/27/2024 BMI 31.95 kg/m2 06/27/2024 Encounters Encounter Location Date Provider Diagnosis [facility] [address] [address] 07/12/2023 Maxwell Jeb Pain in right foot M79.671 ; Plantar fasciitis, bilateral M72.2 ; Calcaneal spur, right foot M77.31 ; Other myositis of right foot M60.871 ; Bursitis of right foot M77.51 ; Pain in left foot M79.672 ; Calcaneal spur, left foot M77.32 ; Other myositis of left foot M60.872 and Bursitis of left foot M77.[address] [address] 01/10/2024 Maxwellsagar MyersJeb Type 2 diabetes mellitus without complication E11.9 and Plantar fasciitis, bilateral M72.[address] [address] 06/27/2024 Maxwell Russ Type 2 diabetes mellitus without complication E11.9 ; Other hammer toe(s) (acquired), right foot M20.41 and Other hammer toe(s) (acquired), left foot M20.[address] [address] 10/16/2023 Maxwell Russ Assessments Encounter Date Diagnosis (ICD Code) Assessment Notes Treatment Notes Treatment Clinical Notes Section Notes 07/12/2023 Pain in right foot (ICD-10 - M79.671) 01/10/2024 Type 2 diabetes mellitus without complication (ICD-10 - E11.9) 01/10/2024 Plantar fasciitis, bilateral (ICD-10 - M72.2) 06/27/2024 Other hammer toe(s) (acquired), right foot (ICD-10 - M20.41) Patient Educated with: DIABETIC FOOT CARE INSTRUCTIONS.p df (DIABETIC FOOT CARE INSTRUCTIONS.p df) 06/27/2024 Type 2 diabetes mellitus without complication (ICD-10 - E11.9) 06/27/2024 Other hammer toe(s) (acquired), left foot (ICD-10 - M20.42) 07/12/2023 Plantar fasciitis, bilateral (ICD-10 - M72.2) [...] 3V 07/12/2023 Next Appt Details Provider Name:Maxwell Keenan Jeb , 07/03/2025 01:30:00 PM, [address] [facility], [facility] [address], [place], [address], Insurance Providers Payer Name Payer Address Payer Phone Subscriber Number Group Number Insured Name Patient Relationship to Insured Coverage Start Date Coverage End Date [facility] [employer] Claims [address] [place] [address] [id number] Shania Bustos Self - patient is the [...]
--- OUTSIDE RECORDS SUMMARY | 2024-07-10 08:58 | XMS_ITS | Patient Health Record ---
Author Organization [facility] Address [address] [place] [address] Care Team Providers Care Build And Deployment Engineer Name Role Phone Isra POWERS, Aubrey Primary Care Provider Gene Albert Unavailable [phone] Allergies No Known Allergies Reason For Referral [...] W/U Status Risk Notes Problem Rectal bleeding (22378983) Rectal bleeding (K62.5) Active confirmed Problem Screening for malignant neoplasm of colon (839005792) Encounter for screening for malignant neoplasm of colon (Z12.11) Active confirmed Problem Constipation (96485041) Constipation (K59.00) Active confirmed Problem Diverticulosis of colon (758293141) Diverticulosis of colon (K57.30) Active confirmed Plan Of Treatment Pending Test Test Name Order Date Pathology 12/20/2021 Future Test Test Name Order Date COLONOSCOPY 08/03/2011 COLONOSCOPY 09/15/2021 Insurance Providers Payer Name Payer Address Payer Phone Subscriber Number Group Number Insured Name Patient Relationship to Insured Coverage Start Date Coverage End Date [facility] [address] [place] [phone] [id number] GLORIA GOODWIN Self - patient is the insured MED[place] [place] [address] [place] [phone] [id number] GLORIA GOODWIN Self - patient is the insured Medical (General) History Medical History History ICD Code Colonoscopy 07-18-2002 was neg. except a hyperplastic polyp Constipation--responds well to Linzess DM resolved weight loss after gastric by pass Migraine Negative screening colonoscopy in July HTN Asthma Arthritis Anxiety and panic attacks Denies ND,CVA,renal disease GERD-EGD in 07/[address] Jackson--normal-gastric remnant bx neg for H.pylori Hyperlipidemia Surgical History Surgery Date(Month/Year) Uterine fibroid surgery Parotid gland tumor Carpal tunnel release-right Gastric bypass with Dr. Jose at [facility] in 2016 and lost abot 80#
[2024-07-10 09:00] LABS: MANUAL DIFF FLAG NO
[2024-07-10 09:14] LABS: Basophils Percent Auto 0.2 % (0-2); Eosinophils Absolute Auto 0.1 X10*3/uL (0.0-0.4); Eosinophils Percent Auto 1.3 % (0-4); Hematocrit 40.4 % (37.0-47.0); Hemoglobin 13.2 g/dl (12.0-16.0); Imm Gran Abs Auto 0.01 X10*3/uL (0.00-0.03); Imm Gran Pct Auto 0.2 % (0.0-0.4); Lymphocytes Absolute Auto 1.5 X10*3/uL (1.2-4.9); Lymphocytes Percent Auto 29.1 % (20-40); Mean Corpuscular HGB Conc 32.7 g/dl (31.0-35.0); Mean Corpuscular Hemoglobin 27.7 pg (27.0-33.0); Mean Corpuscular Volume 84.9 fL (80.0-98.0); Mean Platelet Volume 10.5 fL (9.4-12.3); Monocytes Absolute Auto 0.3 X10*3/uL (0.1-1.2); Monocytes Percent Auto 5.1 % (2-11); Neutrophils Absolute Auto 3.4 x10*3/uL (2.0-8.3); Neutrophils Percent Auto 64.1 % (45-73); Platelet Count 219 X10*3/uL (160-400); Red Blood Count 4.76 X10*6/uL (4.20-5.50); Red Cell Distribution Width 15.5 % (11.0-16.0); White Blood Count 5.3 X10*3/uL (4.8-10.8)
[2024-07-10 09:16] LABS: Appearance Urine Clear; Color Urine Yellow; Glucose Urine UA Negative (Negative); Leukocyte Esterase Urine Trace (Negative); Nitrite Urine Negative (Negative); PH 6.5 (5.0-9.0); Specific Gravity - Urine 1.015 (1.005-1.025); UMIC TRIGGER UACC YES; Urine Blood Negative (Negative); Urine Ketones Negative (Negative); Urine Protein Negative (Neg-Trace)
[2024-07-10 09:19] LABS: Bacteria Urine None Seen (None Seen); Hyaline Casts Urine 0-2 /LPF (0-2); RBC Urine 0-2 /HPF (0-2); WBC Urine 0-5 /HPF (0-5)
[2024-07-10 09:25] LABS: Estimated Average Glucose 174 mg/dL; Hemoglobin A1C 209.7932 umol/L; Hemoglobin A1c % 7.7 % (<6.0); Total Hemoglobin (HGBA1C) 3460.5235 umol/L
[2024-07-10 10:26] LABS: Creatinine Urine 65.36 mg/dL; Microalbum/Creatinine Ratio Ur 15.2 ug/mg cr (<30)
[2024-07-10 10:28] LABS: Alanine Aminotransferase 21 U/L (0-31); Alkaline Phosphatase 94 U/L (39-117); Anion Gap 11 (12-20); Aspartate Amino Transferase 20 U/L (5-31); Bilirubin Total 0.5 mg/dL (0.0-1.0); Blood Urea Nitrogen 15 mg/dL (9-16); Calcium 8.9 mg/dL (8.4-10.2); Carbon Dioxide 28 mmol/L (22-29); Chloride 109 mmol/L (96-108); Cholesterol 123 mg/dL (<200); Estimated Glomerular Filt Rate > 60; Glucose Fasting 154 mg/dL (60-99); HDL Cholesterol 54 mg/dL (>40); LDL Cholesterol Calculated 49 mg/dL (<100); Potassium 4.3 mmol/L (3.3-5.1); Sodium 144 mmol/L (135-145); Triglycerides 104 mg/dL (<150)
[2024-07-10 10:51] LABS: TSH reflex Free T4 1.89 uIU/mL (0.32-4.0)
[2024-07-10 10:53] LABS: Folate 12.3 ng/mL (> or = 4.0); Vitamin B12 257 pg/mL (200-900)
== END 2024-07-10 08:42 | disposition home or self-care (01) ==
LOC: HO.LAB 08:41
PROVIDERS: PCP Internal Medicine; Visit Provider Internal Medicine
DX: E78.00 Pure hypercholesterolemia, unspecified (principal); D64.9 Anemia, unspecified; E11.9 Type 2 diabetes mellitus without complications; E55.9 Vitamin D deficiency, unspecified; E53.8 Deficiency of other specified B group vitamins
CPT/HCPCS: 36415; 80053; 80061; 81001; 82043; 82306; 82570; 82607; 82746; 83036; 84443; 85025

== ENCOUNTER 2024-07-25 09:02 | Outpatient (AMB) | payer OTHER, SELFPAY ==
--- OUTSIDE RECORDS SUMMARY | 2024-07-25 09:24 | XMS_ITS | Patient Health Record ---
[facility] Address [address] [place] [address] Care Team Providers Care Plater Printed Circuit Board Panels Name Role Phone Ruiz Dhaliwal MDh Primary Care Provider Unava ilMaxwell Car Unavailable [phone] Allergies Allergen (clinical drug ingredient) Drug/Non Drug Allergy documented on EMR Reaction Allergy Type Onset Date Status cephalexin Cephalexin rash Drug Allergy Activ e Results Component Value Reference Range Notes HEMOGLOBIN A1C (GLYCOHEMOGLO BIN) Reviewed date:06/27/2024 01:06:11 [...] Problem Acquired hammer toe of right foot (935270906130197 5) Other hammer toe(s) (acquired), right foot (M20.41) Active confirmed Problem Acquired hammer toe of left foot (716457056615257 3) Other hammer toe(s) (acquired), left foot (M20.42) Active confirmed Problem Type 2 diabetes mellitus without complication (214711367) Type 2 diabetes mellitus without complication (E11.9) Active confirmed Vital Signs Height 5ft 5in in 06/27/2024 Weight 192 lbs 06/27/2024 BMI 31.95 kg/m2 06/27/2024 Encounters Encounter Location Date Provider Diagnosis [facility] [place] [address] [place] [id number] 01/10/2024 Maxwell Jeb Type 2 diabetes mellitus without complication E11.9 and Plantar fasciitis, bilateral M72.[address] [facility] [address] 06/27/2024 Maxwell Jeb Type 2 diabetes mellitus without complication E11.9 ; Other hammer toe(s) (acquired), right foot M20.41 and Other hammer toe(s) (acquired), left foot M20.42 [facility] [address] [address] [place] [address] 10/16/2023 Maxwell Russ Assessments Encounter Date Diagnosis [...] foot (ICD-10 - M20.42) Plan Of Treatment Pending Test Test Name Order Date X ray : Foot, left 3V 07/12/2023 X ray : Foot, right 3V 07/12/2023 Next Appt Details Provider Name:Maxwell Russ , 07/03/2025 01:30:00 PM, [address] [facility], [facility] [address], [place], [address], Insurance Providers Payer Name Payer Address Payer Phone Subscriber Number Group Number Insured Name Patient Relationship to Insured Coverage Start Date Coverage End Date [facility] [employer] Claims [address] [facility] [place] [address] [phone] [id number] Shania Bustos Self - patient is the [...]
[2024-07-25 09:48] VITALS: BP 126/84; PULSE 78; O2SAT 96; BMI 33.8
--- NOTE | 2024-07-25 09:48 | MHC.PC.OV ---
Vital Signs 07/25/24 09:48 Height 5 ft 5 in Weight 203 lb BMI 33.8 BP 126/84 Blood Pressure Location Rt brachial Position Sitting Pulse 78 Pulse Source Pulse Oximeter Pulse Oximetry (%) 96 Oxygen Delivery Method Room Air Intake Visit Reasons: 4 Month F/U Night Supervisor Required: No Accompanied by: Self / Same As Patient Allergies cephalexin [From Keflex] Allergy (Mild, Verified 07/25/24 10:41) RASH Medication List - Last Reconciled 07/25/24 by Aubrey Dhaliwal MD acarbose (Precose) 100 mg PO TID acetaminophen ER (Mapap Arthritis Pain) 650 mg PO Q8H PRN 30 days amitriptyline 10 mg PO BEDTIME 30 days blood pressure monitor As directed blood sugar diagnostic (FreeStyle Lite Strips) 1 strip miscellaneous TID 90 days blood-glucose meter (FreeStyle Lite Meter kit) As directed blood-glucose meter (FreeStyle Lite Meter kit) As directed calcium citrate-vitamin D3 315 mg-5 mcg (200 unit) 1 tab PO BID cholecalciferol (vitamin D3) 125 mcg PO DAILY clonazepam 1 mg PO DAILY PRN cyanocobalamin (vitamin B-12) 1,000 mcg PO DAILY 90 days diclofenac sodium 1% (Arthritis Pain (diclofenac)) 4 grams topical QID 30 days evolocumab (Repatha SureClick) 140 mg subcut Q2W 4 weeks ezetimibe 10 mg PO DAILY gabapentin 100 mg PO BEDTIME MDD 300mg hydrochlorothiazide 25 mg PO QAM lancets (FreeStyle Lancets) As directed 3 TIMES A DAY linaclotide (Linzess) 290 mcg PO QAM 30 days lisinopril 20 mg PO DAILY magnesium oxide 400 mg PO DAILY metoclopramide HCl (Reglan) 5 mg PO TID metronidazole 500 mg PO Q12H metronidazole 0.75%(37.5mg/5gram) 1 appful vaginal BID 5 days multivitamin 1 tab PO DAILY pantoprazole 40 mg PO BID pyridoxine (vitamin B6) 100 mg PO DAILY MDD 100mg [right wrist splint- carpal tunnel splint As directed] rosuvastatin 40 mg PO DAILY sucralfate 10 mL PO QID temazepam 30 mg PO BEDTIME PRN terconazole 0.8% 1 appful vaginal BEDTIME 3 days trazodone 50 mg PO DAILY PRN vitamin A 1 cap PO DAILY zinc gluconate 30 mg PO DAILY Tobacco use date assessed: 07/25/24 Dental Screening Dental Screen Date: 07/25/24 Did you have a dental visit in the last 12 months?: Yes Did you have a dental problem in the last 6 months where you did not have access to dental care?: No Was dental information given to patient?: Patient has dentist HPI 4 Month F/U HPI Details Patient comes in today for her follow up visit for her diabetes, hyperlipidemia, HTN States that she feels okay She denies any headaches or dizziness Denies any chest pains, no increased SOB No nausea/vomiting, no abdominal pain No change in bowel habits noted She had her follow up labs done a couple of weeks ago - to discuss her results [facility] Medical History Essential hypertension Pure hypercholesterolemia Plantar fasciitis Atherosclerotic cardiovascular disease COVID-19 vaccine administered Colon cancer screening Family history of polyps in the colon Hypoglycemia after GI (gastrointestinal) surgery Postmenopausal bleeding Status post hysteroscopy (~06/11/13) Obesity (BMI 30-39.9) Depression Anxiety Insomnia Meralgia paresthetica Vitamin D deficiency Carpal tunnel syndrome of left wrist Osteoarthritis Obstructive sleep apnea Iron deficiency anemia Migraine Diabetes mellitus Surgical History H/O colonoscopy H/O melanoma excision (~2010) H/O endoscopy (~06/20/13) History of knee surgery (~01/30/13) S/P dilatation and curettage (~2011) History of carpal tunnel surgery H/O laparoscopy S/P myomectomy History of sleeve gastrectomy Family History Father Myocardial infarction Prostate cancer Mother Cervical cancer Ovarian cancer Mental health disorder Diabetes Alzheimer's dementia Sleep apnea Sister Ovarian cancer Maternal Aunt Colon cancer Social History Household Members: Children Housing: Apartment 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care center director to a significant other at home: Yes (Mother) Do you presently have visiting nurse or other home services: No Alcohol intake: current Alcohol intake frequency: holidays/special occasions only Patient Tobacco Use Status: Former Tobacco user Tobacco use type: Cigarette Cigarettes Per Day: 2 Years Smoked: 3 e-Cigarette/Vaping Use: Never Used Second Hand Smoke Exposure: Yes Advance Directives Date on File: 03/16/16 service: No Current occupational status: disabled Current occupation: right handed Cognitive needs: No Hearing needs: No Vision needs: Yes (glasses) Female Reproductive History Menstrual Age of Menarche: 12 Questionnaire PHQ-9 Over the last 2 weeks, how often have you been bothered by any of the following problems? 1. Little interest or pleasure in doing things: not at all 2. Feeling down, depressed, or hopeless: not at all 3. Trouble falling or staying asleep, or sleeping too much: not at all 4. Feeling tired or having little energy: not at all 5. Poor appetite or overeating: not at all 6. Feeling bad about yourself - or that you are a failure or have let yourself or your family down: not at all 7. Trouble concentrating on things, such as reading the newspaper or watching television: not at all 8. Moving or speaking so slowly that other people could have noticed. Or the opposite - being so fidgety or restless that you have been moving around a lot more than usual: not at all 9. Thoughts that you would be better off or of hurting yourself in some way: not at all Total score: 0 Depression Screening Interpretation: Negative Depression Screening Done: Yes 69633 - PHQ-9 Billing: Yes Source: Developed by Drs. Gene Gar, Shanita Ivey, Jim Ta and colleagues, with an educational shabbir from [employer]. Thrive Questionnaire Date Thrive assessed: 07/25/24 I am a: Patient What is your living situation today?: I have a steady place to live Within the past 12 months, did the food you bought not last and you didn't have the money to get more?: Never true Within the past 12 months, did you worry whether your food would run out before you got money to buy more?: I choose not to answer this question Do you have trouble paying for medicines?: I choose not to answer this question Do you have trouble getting transportation to medical appointments?: I choose not to answer this question Do you have trouble paying your heating and electricity bill?: Yes Do you have trouble taking care of your child, family member or friend?: I choose not to answer this question Do you have trouble with day-to-day activities such as bathing, preparing meals, shopping, managing finances, etc.?: I choose not to answer this question Are you currently unemployed and looking for a job?: I choose not to answer this question Are you interested in more education?: I choose not to answer this question Please select the resources that you would like help with: Utilities Currently or been in a relationship where the following occur: I choose not to answer THRIVE Score: 1 AUDIT C Alcohol Use Questionnaire (AUDIT-C) 1. How often do you have a drink containing alcohol?: Monthly or less 2. How many drinks containing alcohol do you have on a typical day when you are drinking?: 1 or 2 3. How often do you have six or more drinks on one occasion?: Never Total Score: 1 Score Reviewed/Action Taken: Yes DOTTY-7 AMB Questionnaire DOTTY-7 Date DOTTY - 7 assessed: 07/25/24 Feeling nervous, anxious, or on edge: 1 = Several days Not being able to stop or control worryin = Several days Worrying too much about different things: 1 = Several days Trouble relaxin = Several days Being so restless that it is hard to sit still: 1 = Several days Becoming easily annoyed or irritable: 1 = Several days Feeling afraid as if something awful might happen: 1 = Several days Total DOTTY-7 score (0-4 normal; 5-9 mild; 10-14 moderate; 15-21 severe): 7 Source: Developed by Drs. Gene Gar, Shanita Ivey, Jim Ta and colleagues, with an educational shabbir from [employer]. Review of Systems Const Denies chills, Denies fatigue, Denies fever(s) and Denies headache(s) ENT Denies dysphagia, Denies dizziness, Denies otalgia, Denies headache(s), Denies neck pain, Denies odynophagia and Denies sore throat Card Denies chest pain, Denies palpitations and Denies dyspnea Resp Denies chest congestion, Denies cough and Denies dyspnea GI Denies abdominal pain, Denies constipation, Denies dysphagia, Denies heartburn, Denies diarrhea, Denies nausea, Denies odynophagia and Denies vomiting Denies difficulty voiding, Denies nocturia, Denies dysuria and Denies urinary urgency Musc Details: (+) chronic pain in both feet Reports back pain (over her lower back - chronic and increasing lately), Reports arthralgias (involving multiple joints but especially over both knees) and Denies neck pain Skin/Breast Denies rash Neuro Denies dizziness and Denies headache(s) Endo Denies fatigue and Denies palpitations Physical exam (Primary Care) Vital Signs: Last Vital Signs Pulse 78 07/25/24 09:48 BP 126/84 07/25/24 09:48 Pulse Ox 96 07/25/24 09:48 Oxygen Delivery Method Room Air 07/25/24 09:48 BMI result Body Mass Index 33.8 Tobacco/Smoking Status: Tobacco use Status Tobacco use date assessed 07/25/24 07/25/24 09:51 Patient Tobacco Use Status Former Tobacco user 07/25/24 09:51 Tobacco use type Cigarette 07/25/24 09:51 e-Cigarette/Vaping Use Never Used 07/25/24 09:51 PHQ-9: PHQ-9 Score PHQ-9: Total score 0 07/25/24 09:51 Depression Screening Interpretation: Negative Thrive Assessment: Date of Thrive Assessment Date Thrive assessed 07/25/24 07/25/24 09:51 Currently or been in a relationship where the following occur: I choose not to answer Const General: no acute distress and alert HENMT Ears: TM's normal bilaterally and EAC's normal Throat: Yes posterior oropharynx normal and Yes tonsils normal (no TP congestion) Neck Neck: Yes supple and No lymphadenopathy Thyroid: Thyroid normal Resp Auscultation: clear to auscultation bilaterally, no rales and no wheezes Cardio Rate: regular rate Rhythm: regular rhythm Heart sounds: no murmurs GI Palpation (GI): Soft to palpation and nontender Auscultation: normal bowel sounds General: Yes no CVA tenderness Back/Spine/Pelvis Back: no CVA tenderness Thoracic/Lumbar Spine: lumbar spinal tenderness Skin Rashes: no rashes Extrem General: Yes no clubbing, cyanosis or edema Right upper extremity: Extremity exam: right hand Details: tenderness Location: of the dorsal hand Location: over the 4th metacarpal and over the 5th metacarpal Right lower extremity: knee Details: tenderness; no swelling and foot Details: tenderness Location: of the plantar foot Location: proximally Left lower extremity: knee Details: tenderness; no swelling and foot Details: tenderness Location: of the plantar foot Location: proximally Results Reviewed Results Reviewed: Laboratory Tests 07/10/24 07/10/24 08:52 08:58 WBC 5.3 Hgb 13.2 Hct 40.4 Plt Count 219 Sodium 144 Potassium 4.3 Creatinine 0.72 Estimated GFR > 60 Fasting Glucose 154 H Hemoglobin A1c % 7.7 H Calcium 8.9 D AST 20 ALT 21 Triglycerides 104 Cholesterol 123 LDL Cholesterol, Calc 49 HDL Cholesterol 54 Vitamin B12 257 25-OH Vitamin D Total 11.0 L TSH 1.89 Ur Specific Leslie 1.015 Urine Protein Negative Urine Glucose (UA) Negative Urine Blood Negative Urine Nitrite Negative Ur Leukocyte Esterase Trace H Urine Microalbumin 10.0 Microalb/Creat Ratio 15.2 Coding Level of Care Code Est Pt Level 4 (46940) Complex EM visit Add On G2211 Diagnoses Pure hypercholesterolemia E78.00 Type 2 diabetes mellitus without complication, without long-term current use of insulin E11.9 Diabetes mellitus type: type 2 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 [employer] insulin use: without superintendent [employer] use Diabetes mellitus complication status: without complication Essential hypertension I10 Migraine without status migrainosus, not intractable, unspecified migraine type G43.909 Migraine type: unspecified Status migrainosus presence: without status migrainosus Intractability: not intractable Obstructive sleep apnea G47.33 Iron deficiency anemia secondary to inadequate dietary iron intake D50.8 Iron deficiency anemia type: inadequate dietary iron intake Gastroesophageal reflux disease without esophagitis K21.9 Esophagitis presence: without esophagitis Vitamin D deficiency E55.9 Plantar fasciitis, bilateral M72.2 Primary osteoarthritis, unspecified site M19.91 Osteoarthritis location: unspecified site Osteoarthritis type: primary Meralgia paresthetica of right side G57.11 Laterality: right Primary insomnia F51.01 Insomnia type: primary Anxiety F41.9 Episode of recurrent major depressive disorder, unspecified depression episode severity F33.9 Depression Type: major depressive disorder Major depression recurrence: recurrent Active/Remission status: currently active Major depression episode severity: unspecified Obesity (BMI 30-39.9) E66.9 Additional Codes PHQ-9 - 71254 - PHQ-9 Billing: Yes ([id number]) Assessment & Plan Assessment & Plan (1) Pure hypercholesterolemia: Code(s): E78.00 - Pure hypercholesterolemia, unspecified Category: Medical Plan: Results of her labs done a couple of weeks ago reviewed and discussed with patient - her cholesterol levels have again improved from previous Reinforced low-cholesterol diet Continue Repatha 140 mg SQ every 2 weeks - she could not tolerate all of the oral cholesterol medications that she has been tried on in the past, including most recently Rosuvastatin 40 mg and Ezetimibe 10 mg Will have patient recheck her labs and fasting lipids in 4 months for follow-up (2) Diabetes mellitus: Comment: Patient says it is much improved since her gastric bypass an 80 lb weight loss... 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 Mackay) for follow up but has not been seen since Dr. Mackay left [facility] a couple of years ago She has reportedly been advised that as her diabetes appears to be controlled, that she can just follow up with her PCP and check back with endocrinology only if her diabetes gets out of control again States that she is still following up with her case operator regularly Will refer her back to endocrinology for further management as it appears that her glycemic control and HgbA1c are heading in the wrong direction lately Will have her recheck her FBS and HgbA1c in 4 months for follow up (3) Essential hypertension: Code(s): I10 - Essential (primary) hypertension Category: Medical Plan: Reinforced low sodium diet - goal is systolic BP of at least 130 mm or less Continue Lisinopril 10 mg QD and HCTZ 25 mg QD Patient is reminded to continue monitoring her blood pressure regularly (4) Migraine: Code(s): G43.909 - Migraine, unspecified, not intractable, without status migrainosus Category: Medical Qualifiers: Migraine type: unspecified Status migrainosus presence: without status migrainosus Intractability: not intractable Qualified Code(s): G43.909 - Migraine, unspecified, not intractable, without status migrainosus Plan: Stable - follow up with neurology as scheduled Continue Amitriptyline 10 mg daily at bedtime for ROWE prophylaxis (5) Obstructive sleep apnea: Comment: uses CPAP Code(s): G47.33 - Obstructive sleep apnea (adult) (pediatric) Category: Medical Plan: Repeat home sleep study showed (+) improvement in her sleep apnea when she was using her CPAP device regularly she required auto-CPAP mode of 5 to 15 cm pressure - but her device broke down recently and she needs a replacement Her last sleep study was done in 2017 so she will need to get this updated - repeat home sleep study has been ordered previously Follow up with Sleep Medicine as scheduled for continuing management (6) Iron deficiency anemia: Code(s): D50.9 - Iron deficiency anemia, unspecified Category: Medical Qualifiers: Iron deficiency anemia type: inadequate dietary iron intake Qualified Code(s): D50.8 - Other iron deficiency anemias Plan: Corrected - her H/H remained normal at 13.2/40.4 on her labs done a couple of weeks ago Will continue to monitor her CBC regularly (7) GERD (gastroesophageal reflux disease): Code(s): K21.9 - Gastro-esophageal reflux disease without esophagitis Category: Medical Qualifiers: Esophagitis presence: without esophagitis Qualified Code(s): K21.9 - Gastro-esophageal reflux disease without esophagitis Plan: Dietary restrictions reinforced Continue Lansoprazole 30 mg BID - states that her previous epigastric pain has improved with BID dosing of her Lansoprazole Follow up with GI as scheduled (8) Vitamin D deficiency: Code(s): E55.9 - Vitamin D deficiency, unspecified Category: Medical Plan: Continue Vitamin D3 2000 units QD? (9) Plantar fasciitis, bilateral: Code(s): M72.2 - Plantar fascial fibromatosis Category: Medical Plan: She previously had about 3 separate injections into her feet with Dr. Becerra, which she states did not help She was recommended surgery as a last resort but was advised to see someone else as Dr. Becerra supposedly does not perform this type of surgery States that she checked with [facility] recently and was advised as well that they do not perform the requested for surgical procedure She was referred to Dr. Granados at [facility] for the required surgical procedure for her plantar fasciitis if appropriate but she ended up being seen by Dr. Rsus - to follow up with podiatry as scheduled (10) Osteoarthritis: Code(s): M19.90 - Unspecified osteoarthritis, unspecified site Category: Medical Qualifiers: Osteoarthritis location: unspecified site Osteoarthritis type: primary Qualified Code(s): M19.91 - Primary osteoarthritis, unspecified site Plan: Continue Tylenol ER 650 mg every 8 hours as needed for pain Follow up with orthopedics as scheduled (11) Meralgia paresthetica: Code(s): G57.10 - Meralgia paresthetica, unspecified lower limb Category: Medical Qualifiers: Laterality: right Qualified Code(s): G57.11 - Meralgia paresthetica, right lower limb Plan: EMG & NCV done by neurology a couple of years ago came out mostly normal She has received a couple of injections (nerve block) already but states that they only helped with her burning sensation but not with her pain She was supposed to be set up for an MRI by pain management for further evaluation but states that she has not heard back from them about this since Follow up with pain management (Dr. Mercedes) as scheduled (12) Insomnia: Code(s): G47.00 - Insomnia, unspecified Category: Medical Qualifiers: Insomnia type: primary Qualified Code(s): F51.01 - Primary insomnia Plan: Sleep hygiene reinforced Continue Trazodone 50 mg Q HS PRN and Temazepam 30 mg Q HS PRN (13) Anxiety: Code(s): F41.9 - Anxiety disorder, unspecified Category: Medical Plan: Continue Clonazepam 1 mg Q HS and Hydroxyzine 25 mg BID PRN (14) Depression: Code(s): F32.9 - Major depressive disorder, single episode, unspecified Category: Medical Qualifiers: Depression Type: major depressive disorder Major depression recurrence: recurrent Active/Remission status: currently active Major depression episode severity: unspecified Qualified Code(s): F33.9 - Major depressive disorder, recurrent, unspecified Plan: She was on Quetiapine 100 mg QD previously but this was reportedly stopped by psychiatry at some point Her previous psychiatrist (Dr. Kelly) recently retired and she is currently still looking for a new psychiatric provider (15) Obesity (BMI 30-39.9): Code(s): E66.9 - Obesity, unspecified Category: Medical Plan: Reinforced diet/exercise as tolerated/lose weight Plan Follow up in 4 months Orders: Orders Lipid Panel 4 Months E78.00 - Pure hypercholesterolemia, unspecified TSH reflex Free T4 4 Months E78.00 - Pure hypercholesterolemia, unspecified UA CC w/rflx Micro + Cult 4 Months R30.0 - Dysuria Hemoglobin A1c 4 Months E11.9 - Type 2 diabetes mellitus without complications Vitamin D 25-OH Total 4 Months E55.9 - Vitamin D deficiency, unspecified Complete Blood Count Auto Diff 4 Months D64.9 - Anemia, unspecified Comprehensive [place]. Panel Fast 4 Months E78.00 - Pure hypercholesterolemia, unspecified Microalbumin, Random (w Creat) 4 Months E11.9 - Type 2 diabetes mellitus without complications Vitamin B12 and Folate 4 Months E53.8 - Deficiency of other specified B group vitamins Referrals Endocrinology Referral E11.9 - Type 2 diabetes mellitus without complications Medications: Changed From metoclopramide HCl (Reglan) 5 mg PO TID 90 tabs 6RF R11.2 - Nausea with vomiting, unspecified To metoclopramide HCl (Reglan) 5 mg PO TID PRN 90 tabs 6RF nausea and vomiting R11.2 - Nausea with vomiting, unspecified
== END 2024-07-25 10:41 | disposition home or self-care (01) ==
LOC: HO.HMCH 09:03
PROVIDERS: PCP Internal Medicine; Visit Provider Internal Medicine
DX: E78.00 Pure hypercholesterolemia, unspecified (principal); E11.9 Type 2 diabetes mellitus without complications; I10 Essential (primary) hypertension; G43.909 Migraine, unspecified, not intractable, without status migrainosus; G47.33 Obstructive sleep apnea (adult) (pediatric); D50.8 Other iron deficiency anemias; K21.9 Gastro-esophageal reflux disease without esophagitis; E55.9 Vitamin D deficiency, unspecified; M72.2 Plantar fascial fibromatosis; M19.91 Primary osteoarthritis, unspecified site; G57.11 Meralgia paresthetica, right lower limb; F51.01 Primary insomnia

== ENCOUNTER → 2024-07-25 09:02 | Outpatient (BNVA) | payer OTHER, SELFPAY | PROVIDERS: PCP Internal Medicine; Visit Provider Internal Medicine | DX: E11.9 Type 2 diabetes mellitus without complications (principal); E78.00 Pure hypercholesterolemia, unspecified; I10 Essential (primary) hypertension; G43.909 Migraine, unspecified, not intractable, without status migrainosus; G47.33 Obstructive sleep apnea (adult) (pediatric); D50.8 Other iron deficiency anemias; K21.9 Gastro-esophageal reflux disease without esophagitis; E55.9 Vitamin D deficiency, unspecified; M72.2 Plantar fascial fibromatosis; M19.91 Primary osteoarthritis, unspecified site; G57.11 Meralgia paresthetica, right lower limb; F51.01 Primary insomnia; F41.9 Anxiety disorder, unspecified; F33.9 Major depressive disorder, recurrent, unspecified; E66.9 Obesity, unspecified; Z68.33 Body mass index [BMI] 33.0-33.9, adult; Z79.899 Other long term (current) drug therapy | CPT/HCPCS: 96127; 99212 ==

== ENCOUNTER 2024-08-16 09:03 | Outpatient (AMB) | payer OTHER, SELFPAY ==
--- OUTSIDE RECORDS SUMMARY | 2024-08-16 09:15 | XMS_ITS | Patient Health Record ---
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 Name Role Phone Ruiz Dhaliwal MDh Primary Care Provider Unava ilMaxwell Car Unavailable [phone] Allergies Allergen (clinical drug ingredient) Drug/Non Drug [...] Problem Acquired hammer toe of right foot ([id number] 5) Other hammer toe(s) (acquired), right foot (M20.41) Active confirmed Problem Acquired hammer toe of left foot ([id number] 3) Other hammer toe(s) (acquired), left foot (M20.42) Active confirmed Problem Type 2 diabetes mellitus without complication ([id number]) Type 2 diabetes mellitus without complication (E11.9) Active confirmed Vital Signs Height 5ft 5in in 06/27/2024 Weight 192 lbs 06/27/2024 BMI 31.95 kg/m2 06/27/2024 Encounters Encounter Location Date Provider Diagnosis [facility] [place] [address] [place] [id number] 01/10/2024 Maxwell Jeb Type 2 diabetes mellitus without complication E11.9 and Plantar fasciitis, bilateral M72.[address] [facility] [address] 06/27/2024 Maxwell Jeb Type 2 diabetes mellitus without complication E11.9 ; Other hammer toe(s) (acquired), right foot M20.41 and Other hammer toe(s) (acquired), left foot M20.42 [facility] [address] [place] [address] 10/16/2023 Maxwell Russ Assessments Encounter Date Diagnosis [...] Name:Maxwell Russ , 07/03/2025 01:30:00 PM, [address] [facility], [facility] [address], [place], [address], Insurance Providers Payer Name Payer Address Payer Phone Subscriber Number Group Number Insured Name Patient Relationship to Insured Coverage Start Date Coverage End Date [facility] [employer] Claims [address] [facility] [place] [address] [phone] [id number] Shania Bustos Self - patient is the [...]
--- NOTE | 2024-08-16 09:19 | MHC.OFFVIS ---
Vital Signs 08/16/24 09:23 Height 5 ft 5 in Weight 200 lb 9.93 oz BMI 33.4 BP 152/68 H Blood Pressure Location Lt brachial Position Sitting Pulse 68 Pulse Source Pulse Oximeter Pulse Oximetry (%) 96 Oxygen Delivery Method Room Air Intake Visit Reasons: Type 2 diabetes mellitus without complications Intake Note: New patient internally referred by PCP to establish care for T2DM. 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 Required: No Accompanied by: Mother Allergies cephalexin (From Keflex) Allergy (Mild, Verified 08/16/24 09:23) RASH Medication List - Last Reconciled 08/16/24 by VELIA Mackay acarbose (Precose) 100 mg PO TID acetaminophen ER (Mapap Arthritis Pain) 650 mg PO Q8H PRN 30 days amitriptyline 10 mg PO BEDTIME 30 days blood pressure monitor As directed blood sugar diagnostic (FreeStyle Lite Strips) 1 strip miscellaneous TID 90 days blood-glucose meter (FreeStyle Lite Meter kit) As directed blood-glucose meter (FreeStyle Lite Meter kit) As directed blood-glucose sensor (FreeStyle Alexei 3 Plus Sensor device) Apply 1 new sensor every 15 days as directed to monitor blood glucose continuously. blood-glucose,feather sawyer,cont (FreeStyle Alexei 3 [place]) Use daily to monitor blood glucose levels continuously. calcium citrate-vitamin D3 315 mg-5 mcg (200 unit) 1 tab PO BID cholecalciferol (vitamin D3) 125 mcg PO DAILY clonazepam 1 mg PO DAILY PRN cyanocobalamin (vitamin B-12) 1,000 mcg PO DAILY 90 days diclofenac sodium 1% (Arthritis Pain (diclofenac)) 4 grams topical QID 30 days dulaglutide (Trulicity) 0.75 mg (0.5 mL) subcut QWEEK evolocumab (Repatha SureClick) 140 mg subcut Q2W 4 weeks ezetimibe 10 mg PO DAILY gabapentin 100 mg PO BEDTIME MDD 300mg glucagon 3 mg/actuation (Baqsimi) 3 mg intranasal ONCE hydrochlorothiazide 25 mg PO QAM lancets (FreeStyle Lancets) As directed 3 TIMES A DAY linaclotide (Linzess) 290 mcg PO QAM 30 days lisinopril 20 mg PO DAILY magnesium oxide 400 mg PO DAILY metoclopramide HCl (Reglan) 5 mg PO TID PRN metronidazole 500 mg PO Q12H metronidazole 0.75%(37.5mg/5gram) 1 appful vaginal BID 5 days multivitamin 1 tab PO DAILY pantoprazole 40 mg PO BID pyridoxine (vitamin B6) 100 mg PO DAILY MDD 100mg [right wrist splint- carpal tunnel splint As directed] rosuvastatin 40 mg PO DAILY sucralfate 10 mL PO QID temazepam 30 mg PO BEDTIME PRN terconazole 0.8% 1 appful vaginal BEDTIME 3 days trazodone 50 mg PO DAILY PRN vitamin A 1 cap PO DAILY zinc gluconate 30 mg PO DAILY HPI Comments Details: This is a 58-year-old female with a past medical history of migraines, RLS, hyperlipidemia, gastric bypass surgery, KEVON on CPAP, hypertension, type 2 diabetes, melanoma, constipation, GERD, CAD and obesity presenting for diabetic management. Last seen December [address] Vargas. She was diagnosed 15 years ago. She has a family history of type 2 diabetes. Hemoglobin A1c 7.7% 07/10/2024. No glucometer data today. Current medication regimen: Acarbose 100 mg 3 times a day Past medication: Metformin, Trulicity, insulin pump, Lantus. Medications were discontinued after bariatric surgery 7 years ago. Compliance issues: None Followed by [facility] dietitian. She has a history of hypoglycemia. She recalls 2 severe episodes in the past. She was hospitalized once for a blood glucose of 26. She drove herself to the ER and was conscious. He had not eaten for a long duration. She had another episode a couple of years ago, and her blood sugar was 56. Symptoms included sweating profusely and confusion. Hyperglycemia symptoms: Denies Microvascular complications: neuropathy Macrovascular complications: CAD (followed by Cardiology) Hypertension: treated with hydrochlorothiazide, lisinopril Hyperlipidemia: treated with Repatha, Zetia, rosuvastatin ROS: Constitutional: No unexplained weight loss, fever, chills Eyes: No vision changes, blurry vision, double vision, Respiratory: No shortness of breath, cough or sputum production. Cardiovascular: No chest pain, chest pressure or chest discomfort. No palpitations or pedal edema. Gastrointestinal: No anorexia, nausea, vomiting or diarrhea. No abdominal pain or blood in stool. Neurologic: No headache, dizziness, syncope Endocrine: No cold or heat intolerance. No polyuria or polydipsia. Physical exam: Constitutional: Alert, in no distress. Head: Normocephalic. Neck: Supple, Full range of motion. No lymphadenopathy. No palpable thyroid masses. Respiratory: Clear to auscultation. Cardiovascular: S1 S2 regular. No murmurs. Right foot: Warm and well perfused. No clubbing, cyanosis or edema. Intact DP pulse. Decreased vibratory sensation. Intact sensation to monofilament. No open wounds. Left foot: Absent great toenail. Warm and well perfused. No clubbing, cyanosis or edema. Intact DP pulse. Decreased vibratory sensation. Intact sensation to monofilament. No open wounds. [facility] Medical History Essential hypertension Pure hypercholesterolemia Plantar fasciitis Atherosclerotic cardiovascular disease COVID-19 vaccine administered Colon cancer screening Family history of polyps in the colon Hypoglycemia after GI (gastrointestinal) surgery Postmenopausal bleeding Status post hysteroscopy (~06/11/13) Obesity (BMI 30-39.9) Depression Anxiety Insomnia Meralgia paresthetica Vitamin D deficiency Carpal tunnel syndrome of left wrist Osteoarthritis Obstructive sleep apnea Iron deficiency anemia Migraine Diabetes mellitus Surgical History H/O colonoscopy H/O melanoma excision (~2010) H/O endoscopy (~06/20/13) History of knee surgery (~01/30/13) S/P dilatation and curettage (~2011) History of carpal tunnel surgery H/O laparoscopy S/P myomectomy History of sleeve gastrectomy Family History Father Myocardial infarction Prostate cancer Mother Cervical cancer Ovarian cancer Mental health disorder Diabetes Alzheimer's dementia Sleep apnea Sister Ovarian cancer Maternal Aunt Colon cancer Social History Household Members: Children Housing: Apartment Are you a primary special needs caregiver to a significant other at home: Yes (Mother) Do you presently have visiting nurse or other home services: No Alcohol intake: current Alcohol intake frequency: holidays/special occasions only Patient Tobacco Use Status: Former Tobacco user Tobacco use type: Cigarette Cigarettes Per Day: 2 Years Smoked: 3 e-Cigarette/Vaping Use: Never Used Second Hand Smoke Exposure: Yes Advance Directives Date on File: 03/16/16 service: No Current occupational status: disabled Current occupation: right handed Cognitive needs: No Hearing needs: No Vision needs: Yes (glasses) Female Reproductive History Menstrual Age of Menarche: 12 Physical Exam Vital Signs: Last Vital Signs Pulse 68 08/16/24 09:23 BP 152/68 H 08/16/24 09:23 Pulse Ox 96 08/16/24 09:23 Oxygen Delivery Method Room Air 08/16/24 09:23 BMI result Body Mass Index 33.4 Results Reviewed Results Reviewed: Laboratory Last Values Glucose (Clinic) 185 mg/dL (60-115) H 08/16/24 09:31 Laboratory Tests 07/10/24 07/10/24 08:52 08:58 Plt Count 219 Creatinine 0.72 Estimated GFR > 60 Hemoglobin A1c % 7.7 H AST 20 ALT 21 Triglycerides 104 Cholesterol 123 LDL Cholesterol, Calc 49 HDL Cholesterol 54 Vitamin B12 257 25-OH Vitamin D Total 11.0 L TSH 1.89 Urine Creatinine 65.36 Urine Microalbumin 10.0 Microalb/Creat Ratio 15.2 Assessment & Plan Assessment & Plan (1) Type 2 diabetes mellitus with unspecified complications: Code(s): E11.8 - Type 2 diabetes mellitus with unspecified complications Category: Medical Plan: In summary this is a 58-year-old female with a past medical history of obesity, type 2 diabetes with complications and bariatric surgery reestablishing with endocrinology for diabetic management. Given history of coronary artery disease and uncontrolled diabetes and obesity we will start her on a GLP 1. Sent Trulicity to the pharmacy. Side effects and administration reviewed. She denies contraindications. Continue acarbose 100 mg 3 times daily for now. If she tolerates Trulicity we will increase the dose and slowly decrease Acarbose. See below regarding CGM. Lifestyle modifications reviewed. Followed by dietitian. We reviewed complications of type 2 diabetes. (2) Hypoglycemia after GI (gastrointestinal) surgery: Code(s): K91.2 - Postsurgical malabsorption, not elsewhere classified Category: Medical Plan: She works with the dietitian. We reviewed treatment of hypoglycemia. Written instructions provided to patient. She has glucose tablets. Given severe, problematic hypoglycemia in the past and history of bariatric surgery which puts her at increased risk of this Baqsimi is medically necessary as well as a continuous glucose monitor. I submitted the prescriptions. Informed patient they will likely require prior authorization. Advised patient not to drive if she does not have an accurate way to test her blood sugar or if she has symptoms of low blood sugar. Plan Follow up in 1 month for type 2 diabetes. Medications: New blood-glucose,feather sawyer,cont (FreeStyle Alexei 3 [place]) Use daily to monitor blood glucose levels continuously. 1 ea 0RF blood-glucose sensor (FreeStyle Alexei 3 Plus Sensor device) Apply 1 new sensor every 15 days as directed to monitor blood glucose continuously. 2 ea 11RF blood-glucose,feather sawyer,cont (FreeStyle Alexei 3 [place]) Use daily to monitor blood glucose levels continuously. 1 ea 0RF dulaglutide (Trulicity) 0.75 mg (0.5 mL) subcut QWEEK 2 mL 1RF glucagon 3 mg/actuation (Baqsimi) 3 mg (one actuation) into a single nostril; if no response, may repeat in 15 minutes using a new intranasal device. 3 mg intranasal ONCE 2 ea 3RF blood-glucose sensor (FreeStyle Alexei 3 Plus Sensor device) Apply 1 new sensor every 15 days as directed to monitor blood glucose continuously. 2 ea 11RF Patient Instructions: Continue Acarbose 100 mg three times daily with meals Start Trulicity 0.75 mg weekly If you experience low blood sugar, treat this by eating a chewable fruit candy like skittles or jelly beans (about 8 pieces), 4 ounces (1/2 cup) of fruit juice (not diet), 1 tablespoon of honey or 4 glucose tablets. If your blood sugar is under 55, take double the amount of one of the above. Recheck your blood sugar in 15 minutes. Coding Level of Care Code Est Pt Level 5 (19944) Complex EM visit Add On G2211 Diagnoses Type 2 diabetes mellitus with unspecified complications E11.8 Hypoglycemia after GI (gastrointestinal) surgery K91.2 Time Spent (min) 50 Comment Chart review, direct patient care, completing documentation
[2024-08-16 09:23] VITALS: BP 152/68; PULSE 68; O2SAT 96; BMI 33.4
[2024-08-16 09:35] LABS: Glucose, Whole Blood 185 mg/dL (60-115)
== END 2024-08-16 10:40 | disposition home or self-care (01) ==
LOC: HO.ENCR 09:04
PROVIDERS: PCP Internal Medicine; Visit Provider Physician Assistant Medical
DX: E11.8 Type 2 diabetes mellitus with unspecified complications (principal); K91.2 Postsurgical malabsorption, not elsewhere classified

== ENCOUNTER → 2024-08-16 09:03 | Outpatient (BNVA) | payer OTHER, SELFPAY | PROVIDERS: PCP Internal Medicine; Visit Provider Physician Assistant Medical | DX: E11.8 Type 2 diabetes mellitus with unspecified complications (principal); K91.2 Postsurgical malabsorption, not elsewhere classified | CPT/HCPCS: 82947; 99212 ==

== ENCOUNTER 2024-08-20 14:15 | Outpatient (AMB) | payer OTHER, SELFPAY ==
--- NOTE | 2024-08-20 14:27 | A.OFFVIS_ITS ---
Vital Signs 08/20/24 14:39 Height 5 ft 5 in Weight 202 lb 13.204 oz BMI 33.7 BP 132/90 H Blood Pressure Location Rt brachial Position Sitting Pulse 84 Pulse Source Pulse Oximeter Pulse Oximetry (%) 96 Oxygen Delivery Method Room Air Intake Visit Reasons: OA Intake Note: Patient presents for OA follow up. Allergies cephalexin (From Keflex) Allergy (Mild, Verified 08/20/24 14:32) RASH Medication List - Last Reconciled 08/20/24 by Aura Jean-Baptiste MD acetaminophen ER (Mapap Arthritis Pain) 650 mg PO Q8H PRN 30 days amitriptyline 10 mg PO BEDTIME 30 days blood pressure monitor As directed blood sugar diagnostic (FreeStyle Lite Strips) 1 strip miscellaneous TID 90 days blood-glucose meter (FreeStyle Lite Meter kit) As directed blood-glucose sensor (FreeStyle Alexie 3 Plus Sensor device) Apply 1 new sensor every 15 days as directed to monitor blood glucose continuously. blood-glucose,freight receiver,cont (FreeStyle Alexei 3 [place]) Use daily to monitor blood glucose levels continuously. calcium citrate-vitamin D3 315 mg-5 mcg (200 unit) 1 tab PO BID cholecalciferol (vitamin D3) 1,250 mcg PO QWEEK clonazepam 1 mg PO DAILY PRN cyanocobalamin (vitamin B-12) 1,000 mcg PO DAILY 90 days diclofenac sodium 1% (Arthritis Pain (diclofenac)) 4 grams topical QID 30 days dulaglutide (Trulicity) 0.75 mg (0.5 mL) subcut QWEEK evolocumab (Repatha SureClick) 140 mg subcut Q2W 4 weeks ezetimibe 10 mg PO DAILY gabapentin 100 mg PO BEDTIME MDD 300mg glucagon 3 mg/actuation (Baqsimi) 3 mg intranasal ONCE hydrochlorothiazide 25 mg PO QAM lancets (FreeStyle Lancets) As directed 3 TIMES A DAY linaclotide (Linzess) 290 mcg PO QAM 30 days lisinopril 20 mg PO DAILY magnesium oxide 400 mg PO DAILY metoclopramide HCl (Reglan) 5 mg PO TID PRN metronidazole 500 mg PO Q12H multivitamin 1 tab PO DAILY pantoprazole 40 mg PO BID pyridoxine (vitamin B6) 100 mg PO DAILY MDD 100mg [right wrist splint- carpal tunnel splint As directed] rosuvastatin 40 mg PO DAILY sucralfate 10 mL PO QID temazepam 30 mg PO BEDTIME PRN terconazole 0.8% 1 appful vaginal BEDTIME 3 days trazodone 50 mg PO DAILY PRN vitamin A 1 cap PO DAILY zinc gluconate 30 mg PO DAILY HPI Comments Details: Patient is a 58-year-old female with obesity complicated by KEVON, depression/anxiety, diabetes, hyperlipidemia, hypertension, GERD, restless legs syndrome, fibromyalgia and polyarticular osteoarthritis here today for follow up Interval History: Patient last seen 04/19/[address] Chang. At that time she was following up for her polyarticular osteoarthritis. Continued to complain of pain in the back of her right foot as well as diffuse pain everywhere with the majority of pain located in her right upper extremity including the shoulder, forearms and hands. Today, She is complaining of pain to her back after a mechanical fall with trauma to her back 3 months ago Since then she has been having pain to her left lower extremity and anterior thigh Rheumatologic History: Initial history: 56-year-old female presents for evaluation of right hand pain. Condition started about 3-4 weeks ago with pain in her right hand associated with radiating pain towards her medial epicondyle and the right shoulder & right arm. 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 She has difficulty making a fist due to the pain. She had a carpal tunnel surgery in that right hand a few years ago. She continues to have numbness and pain in the right anterolateral thigh area. She also has lower back pain radiating down her towards her right leg. She was offered an epidural injection in L5-S1 by pain management last year but patient refused. Current Rheumatology Medication(s): [facility] Medical History Essential hypertension Pure hypercholesterolemia Plantar fasciitis Atherosclerotic cardiovascular disease COVID-19 vaccine administered Colon cancer screening Family history of polyps in the colon Hypoglycemia after GI (gastrointestinal) surgery Postmenopausal bleeding Status post hysteroscopy (~06/11/13) Obesity (BMI 30-39.9) Depression Anxiety Insomnia Meralgia paresthetica Vitamin D deficiency Carpal tunnel syndrome of left wrist Osteoarthritis Obstructive sleep apnea Iron deficiency anemia Migraine Diabetes mellitus Surgical History H/O colonoscopy H/O melanoma excision (~2010) H/O endoscopy (~06/20/13) History of knee surgery (~01/30/13) S/P dilatation and curettage (~2011) History of carpal tunnel surgery H/O laparoscopy S/P myomectomy History of sleeve gastrectomy Family History Father Myocardial infarction Prostate cancer Mother Cervical cancer Ovarian cancer Mental health disorder Diabetes Alzheimer's dementia Sleep apnea Sister Ovarian cancer Maternal Aunt Colon cancer Social History Household Members: Children Housing: Apartment Are you a primary wound care nurse to a significant other at home: Yes (Mother) Do you presently have visiting nurse or other home services: No Alcohol intake: current Alcohol intake frequency: holidays/special occasions only Patient Tobacco Use Status: Former Tobacco user Tobacco use type: Cigarette Cigarettes Per Day: 2 Years Smoked: 3 e-Cigarette/Vaping Use: Never Used Second Hand Smoke Exposure: Yes Advance Directives Date on File: 03/16/16 service: No Current occupational status: disabled Current occupation: right handed Cognitive needs: No Hearing needs: No Vision needs: Yes (glasses) Female Reproductive History Menstrual Age of Menarche: 12 Review of Systems Const Details: Review of Systems Constitutional: Denies fever, chills, weight loss ENT: Denies vision changes, eye pain or eye redness, dental caries, dry mouth GI: Denies nausea, vomiting, diarrhea, abdominal pain, change in BM Pulm: Denies SOB, [facility]ILSON, hemoptysis, wheezing Cards: Denies chest pain, palpitations Skin: Denies Raynaud's, rash, nail changes, photosensitivity, MACHINE STAMPER: Denies headaches, weakness, paresthesias, recurrent falls MSK: as per HPI All other systems reviewed and are unremarkable except noted above Physical Exam Vital Signs: Last Vital Signs Pulse 84 08/20/24 14:39 BP 132/90 H 08/20/24 14:39 Pulse Ox 96 08/20/24 14:39 Oxygen Delivery Method Room Air 08/20/24 14:39 BMI result Body Mass Index 33.7 Vital signs reviewed Physical Examination CONSTITUITIONAL Patient alert and cooperative. Well appearing and in no apparent painful distress HEENT Conjunctiva and sclera clear. No lymphadenopathy. CHEST/RESPIRATORY SYSTEM Normal respiratory effort and able to speak in complete sentences. Clear to auscultation bilaterally. No crackles, rales, rhonchi, wheezes heard. CARDIAC SYSTEM Regular rate and rhythm. S1 and S2 heard no murmurs. Radial pulses intact bilaterally MSK Hands * Right Hand: Able to make a fist. No swelling or tenderness to palpation of these joints. No deformities noted. Herbeden's nodes noted to the 2nd PIP only * Left Hand: Able to make a fist. No swelling or tenderness to palpation of these joints. No deformities noted. Wrists * Right Wrist: Full ROM. 70 degrees of wrist flexion, 80 degrees of wrist extension. No swelling or TTP * Left Wrist: Full ROM. 70 degrees of wrist flexion, 80 degrees of wrist extension. No swelling or TTP Elbows * Right Elbow: Full ROM. No swelling or TTP. No TTP of the medial and lateral epicondyles * Left Elbow: Full ROM. No swelling or TTP. No TTP of the medial and lateral epicondyles Shoulders * Right shoulder: Full ROM. No swelling noted. No TTP of the AC joint, subacromial bursa or posterior shoulder * Left shoulder: Full ROM. No swelling noted. No TTP of the AC joint, subacromial bursa or posterior shoulder Hips * Right hip: Good ROM. No pain elicited with hip flexion/internal rotation/external rotation * Left hip: Good ROM. No pain elicited with hip flexion/internal rotation/external rotation Negative straight leg raise bilaterally Hip bursa: No tenderness to palpation bilaterally Knees * Right knee: Full ROM. No swelling noted. No TTP of the knee joint lie or pes anserine bursa * Left knee: Full ROM. No swelling noted. No TTP of the knee joint lie or pes anserine bursa. Ankles * Right ankle: Good ankle dorsiflexion and plantar flexion. No swelling. No TTP of the ankle joint * Left ankle: Good ankle dorsiflexion and plantar flexion. No swelling. No TTP of the ankle joint Feet * Right foot: Negative squeeze test * Left foot: Negative squeeze test Tender points? * No tenderness to palpation of the bilateral trapezius, supraspinatus, anterior costochondral junctions, bilateral suboccipital muscle insertions Spine * TTP of the lumbar spine and paraspinal muscles * Negative straight leg raise SKIN No rashes Results Reviewed Results Reviewed: Laboratory Tests 07/10/24 08:58 WBC 5.3 RBC 4.76 Hgb 13.2 Hct 40.4 Plt Count 219 Sodium 144 Potassium 4.3 Chloride 109 H Carbon Dioxide 28 BUN 15 Creatinine 0.72 AST 20 ALT 21 Alkaline Phosphatase 94 Total Protein 7.0 25-OH Vitamin D Total 11.0 L Assessment & Plan Assessment & Plan (1) Polyarticular osteoarthritis: Code(s): M15.9 - Polyosteoarthritis, unspecified Plan: #Polyarticular OA Patient is a 58 y.o. female with polyarticular OA here today for follow up. Patient complaining of back pain today after fall. Check XRs Plan - Check L spine XR - Increase gabapentin 300mg one to two times a day - RTC 6 months (2) Vitamin D deficiency: Code(s): E55.9 - Vitamin D deficiency, unspecified Category: Medical Plan: #Vitamin D deficiency Vitamin D extremely low Plan - Vit D [id number] every week - Check Vit D in 6 months Plan I spent 25 minutes reviewing the record and labs, taking a history, examining the patient, discussing the treatment plan, ordering diagnostic work up and documenting in the medical record Orders: Orders XR lumbar spine 2-3V Today M54.9 - Dorsalgia, unspecified, W19.XXXA - Unspecified fall, initial encounter Medications: New gabapentin 300 mg PO BID 60 caps 5RF M15.9 - Polyosteoarthritis, unspecified cholecalciferol (vitamin D3) 1,250 mcg PO QWEEK 12 caps 1RF E55.9 - Vitamin D deficiency, unspecified Discontinued cholecalciferol (vitamin D3) Discontinued Reason: Doctor's Order 125 mcg PO DAILY 90 caps 3RF gabapentin May take 1-3 capsules daily as needed. Do not take more than 3 capsules at bedtime. Discontinued Reason: Doctor's Order 100 mg PO BEDTIME 90 caps 3RF Restless Leg Syndrome MDD 300mg G25.81 - Restless legs syndrome Coding Level of Care Code Est Pt Level 3 (53639) Diagnoses Polyarticular osteoarthritis M15.9 Vitamin D deficiency E55.9
[2024-08-20 14:39] VITALS: BP 132/90; PULSE 84; O2SAT 96; BMI 33.7
--- OUTSIDE RECORDS SUMMARY | 2024-08-20 17:23 | XMS_ITS | Patient Health Record ---
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 Name Role Phone Ruiz Dhaliwal MDh Primary Care Provider Unava ilMaxwell Car Unavailable [phone] Allergies Allergen (clinical drug ingredient) Drug/Non Drug [...] Problem Acquired hammer toe of right foot ([id number] 5) Other hammer toe(s) (acquired), right foot (M20.41) Active confirmed Problem Acquired hammer toe of left foot ([id number] 3) Other hammer toe(s) (acquired), left foot (M20.42) Active confirmed Problem Type 2 diabetes mellitus without complication (741974571) Type 2 diabetes mellitus without complication (E11.9) Active confirmed Vital Signs Height 5ft 5in in 06/27/2024 Weight 192 lbs 06/27/2024 BMI 31.95 kg/m2 06/27/2024 Encounters Encounter Location Date Provider Diagnosis [facility] [place] [address] [place] [id number] 01/10/2024 Maxwell Jeb Type 2 diabetes mellitus without complication E11.9 and Plantar fasciitis, bilateral M72.[address] [facility] [address] 06/27/2024 Maxwell Jeb Type 2 diabetes mellitus without complication E11.9 ; Other hammer toe(s) (acquired), right foot M20.41 and Other hammer toe(s) (acquired), left foot M20.42 [facility] [place] [address] [place] [address] 10/16/2023 Maxwell Russ Assessments Encounter Date Diagnosis [...] Name:Maxwell Russ , 07/03/2025 01:30:00 PM, [address] [facility], [facility] [address], [place], [address], Insurance Providers Payer Name Payer Address Payer Phone Subscriber Number Group Number Insured Name Patient Relationship to Insured Coverage Start Date Coverage End Date [facility] [employer] Claims [address] [facility] [place] [address] [phone] [id number] Shania Bustos Self - patient is the [...]
== END 2024-08-20 15:18 | disposition home or self-care (01) ==
LOC: HO.RHE 14:16
PROVIDERS: PCP Internal Medicine; Visit Provider Student in an Organized Health Care Education/Training Program
DX: M15.9 Polyosteoarthritis, unspecified (principal); E55.9 Vitamin D deficiency, unspecified
CPT/HCPCS: 99213

== ENCOUNTER → 2024-08-20 14:15 | Outpatient (BNVA) | payer OTHER, SELFPAY | PROVIDERS: PCP Internal Medicine; Visit Provider Student in an Organized Health Care Education/Training Program | DX: M79.671 Pain in right foot (principal); M15.9 Polyosteoarthritis, unspecified; E55.9 Vitamin D deficiency, unspecified; E66.9 Obesity, unspecified; M25.511 Pain in right shoulder; M79.641 Pain in right hand | CPT/HCPCS: 99212 ==

== ENCOUNTER 2024-08-21 07:59 | Outpatient (REF) | payer OTHER, SELFPAY ==
--- NOTE | ~2024-08-21 | XR_ITS ---
CLINICAL HISTORY: W19.XXXA - Unspecified fall, initial encounter Lumbar spine three views Comparison: None provided Findings: No acute fracture or dislocation. Posterior alignment is normal. Mild to moderate degenerative change. Left upper quadrant surgical clips. Impression: No acute processes This document has been electronically signed by: Pratik Christy MD on 08/21/2024 19:28:36
== END 2024-08-21 08:00 | disposition home or self-care (01) ==
LOC: HO.XRAY 07:59
PROVIDERS: PCP Internal Medicine; Visit Provider Student in an Organized Health Care Education/Training Program
DX: M54.9 Dorsalgia, unspecified (principal); Z91.81 History of falling
CPT/HCPCS: 72100

== ENCOUNTER → 2024-08-21 08:05 | Outpatient (BNV) | payer OTHER, SELFPAY | PROVIDERS: PCP Internal Medicine; Visit Provider Radiology Diagnostic Radiology | DX: M54.50 Low back pain, unspecified (principal); W19.XXXA Unspecified fall, initial encounter | CPT/HCPCS: 72100 ==

== ENCOUNTER 2024-09-20 12:39 | Outpatient (AMB) | payer OTHER, SELFPAY ==
--- OUTSIDE RECORDS SUMMARY | 2024-09-20 12:42 | XMS_ITS | Clinical Summary ---
Author Organization [facility] Address [address] [address] Phone Care Team Providers Care Certified Pharmacist Assistant Name Role Phone Pcp, Unknown Primary Care Provider Unavailabl e Social History Tobacco Use Types Packs/Day Years Used Date Smoking Tobacco: Never Assessed Education Answer Date Recorded Are you interested in more education? Not on sade e 06/24/2022 Are you concerned about learning? Not on file 06/24/2022 No 06/24/2022 No 06/24/2022 Digital Access Answer Date Recorded No 07/23/2022 No 07/23/2022 No 07/23/2022 Reliable internet access at home? Not on file 07/23/2022 Device with a working camera? Not on file Comments Unknown Sex and Gender Information Value Date Recorded Sex Assigned at Not on file Legal Sex Female 1:20 PM EDT Gender Identity Not on file Sexual Orientation Not on file Plan of Treatment Health Maintenance Due Date Last Done Comments Adult Td,Tdap Booster 1966 LIPID PANEL 1966 DEPRESSION SCREENING 1978 SMOKING Hx and SMOKELESS TOBACCO SCREENING 09/21/1979 HEPATITIS C SCREENING 1984 HIV ONE-TIME SCREENING (18-6 5 YEARS) 1984 PAP SMEAR 09/21/1987 MAMMOGRAM 2006 COLOGUARD 09/21/2011 COLONOSCOPY 09/21/2011 COLORECTAL CANCER SCREENING 09/21/2011 FIT TEST 09/21/2011 FOBT 09/21/2011 SIGMOIDOSCOPY 09/21/2011 VIRTUAL COLONOSCOPY 09/21/2011 PNEUMOCOCCAL VACCINES (50+ years) (1 of 1 - PCV) 2016 ZOSTER VACCINES (1 of 2) 2016 COVID-19 VACCINE (3 - 2023-2 5 season) 2023 07/09/2020, 06/11/2020 HEPATITIS A VACCINES Aged Out No long er eligible based on patient's age to complete this topic HIB VACCINES Aged Out No longer eligi ble based on patient's age to complete this topic MENINGOCOCCAL VACCINES (ACWY) Aged Out No longer eligible based on patient's age to complete this topic MENINGOCOCCAL VACCINES (B) Aged Out N o longer eligible based on patient's age to complete this topic Medical Devices Not on file Insurance MEDICARE REPLACEMENT MEDICARE REPLACEMENT MEDICARE REPLACEMENT CARE MEDICARE REPLACEMENT MEDICARE REPLACEMENT CARE MEDICARE REPLACEMENT MEDICARE REPLACEMENT MEDICARE REPLACEMENT Care Teams Certified Pharmacist Assistant Relationship Specialty Start Date End Date Pcp, Unknown PCP - General 06/27/19 Additional Source Comments The information contained in this document represents components of the legal health record. It is not the complete legal health record.[facility]
--- OUTSIDE RECORDS SUMMARY | 2024-09-20 12:42 | XMS_ITS | Patient Health Record ---
[facility] Address [address] [facility] [address] Care Team Providers Care Environmental Associate Name Role Phone Ruiz Dhaliwal MDh Primary Care Provider Unava ilMaxwell Car Unavailable [phone] Allergies Allergen (clinical drug ingredient) Drug/Non Drug [...] Not-Taking hydroCHLOROthiazide Active Metoclopramide HCl 5 MG Oral; Duration: 30 Days Active Ezetimibe Active Vitamin D3 Active Linzess Active Acetaminophen ER 650 MG 2 tablets as nee ded Orally every 8 hrs Not-Taking Lansoprazole Active Night Splint AFO - L1930 1 wear at rest; Duration: 30 days Not-Taking Acarbose 100 MG as [...] Problem Acquired hammer toe of right foot ([id number] 9105) Other hammer toe(s) (acquired), right foot (M20.41) Active confirmed Problem Acquired hammer toe of left foot (257582257093 9103) Other hammer toe(s) (acquired), left foot (M20.42) Active confirmed Problem Type 2 diabetes mellitus without complication (E11.9) Active confirmed Vital Signs Height 5ft 5in in 06/27/2024 Weight 192 lbs 06/27/2024 BMI 31.95 kg/m2 06/27/2024 Encounters Encounter Location Date Provider Diagnosis [address] [address] 01/10/2024 Maxwell Jeb Type 2 diabetes mellitus without complication E11.9 and Plantar fasciitis, bilateral M72.[address] [address] 06/27/2024 Maxwell Jeb Type 2 diabetes mellitus without complication E11.9 ; Other hammer toe(s) (acquired), right foot M20.41 and Other hammer toe(s) (acquired), left foot M20.42 [facility] [place] [address] [place] [address] 10/16/2023 Maxwell Russ Assessments Encounter Date Diagnosis [...] Appt Details Provider Name:Maxwell Shlomo MyersJeb , 07/03/2025 01:30:00 PM, [address] [facility], [address], [place], [address], Insurance Providers Payer Name Payer Address Payer Phone Subscriber Number Group Number Insured Name Patient Relationship to Insured Coverage Start Date Coverage End Date [facility] [employer] SCO Claims [address] [place] [address] [phone] [id number] Shania Bustos Self - patient is the [...]
--- OUTSIDE RECORDS SUMMARY | 2024-09-20 12:42 | XMS_ITS | Patient Health Record ---
Author Organization [facility] Address [address] [place] [address] Care Team Providers Care Mold Press Operator Name Role Phone Isra POWERS, Aubrey Primary Care Provider Gene Albert Unavailable [phone] Allergies No Known Allergies Reason For Referral [...] W/U Status Risk Notes Problem Rectal bleeding (18100950) Rectal bleeding (K62.5) Active confirmed Problem Screening for malignant neoplasm of colon (014106177) Encounter for screening for malignant neoplasm of colon (Z12.11) Active confirmed Problem Constipation (76325117) Constipation (K59.00) Active confirmed Problem Diverticulosis of colon (488289028) Diverticulosis of colon (K57.30) Active confirmed Plan Of Treatment Pending Test Test Name Order Date Pathology 12/20/2021 Future Test Test Name Order Date COLONOSCOPY 08/03/2011 COLONOSCOPY 09/15/2021 Insurance Providers Payer Name Payer Address Payer Phone Subscriber Number Group Number Insured Name Patient Relationship to Insured Coverage Start Date Coverage End Date [facility] [address] [place] [phone] [id number] GLORIA GOODWIN Self - patient is the insured MEDICAID OF [employer] [address] [place] [phone] [id number] GLORIA GOODWIN Self - patient is the insured Medical (General) History Medical History History ICD Code Colonoscopy 07-18-2002 was neg. except a hyperplastic polyp Constipation--responds well to Linzess DM resolved weight loss after gastric by pass Migraine Negative screening colonoscopy in July HTN Asthma Arthritis Anxiety and panic attacks Denies [place],CVA,renal disease GERD-EGD in 07/[address] Jackson--normal-gastric remnant bx neg for H.pylori Hyperlipidemia Surgical History Surgery Date(Month/Year) Uterine fibroid surgery Parotid gland tumor Carpal tunnel release-right Gastric bypass with Dr. Jose at [facility] in 2016 and lost abot 80#
--- NOTE | 2024-09-20 12:55 | A.OFFVIS_ITS ---
Vital Signs 09/20/24 12:56 Height 5 ft 5 in Weight 204 lb 6 oz BMI 34.0 Pulse 81 Pulse Source Pulse Oximeter Pulse Oximetry (%) 97 Oxygen Delivery Method Room Air Intake Visit Reasons: 3 mnts f/u Intake Note: Patient presents follow up KEVON medication. Compliance in chart(days, >=4hrs-24%, Average usage-2hrs 8min, Med pressure-9.3, Med Leaks-2.1, AHI-2.1). Patient states can fall asleep. patient states falls asleep around 12-1am and wakes up around 5 and cant fall back asleep. Accompanied by: Self / Same As Patient Allergies cephalexin (From Keflex) Allergy (Mild, Verified 09/20/24 12:58) RASH HPI Comments Details: 59 year old female presents for f/u of KEVON. Nov 2023 HST c/w AHI is 7.2 OAI 1.4, O2 desaturation to 80%. [facility] Bariatric procedure in 2014 she lost 88lbs. KEVON Compliance Report 05/2024- 08/2024 Total avg use is 2 hours and 8 min. and >4 hours 54/ days press median [id number], Leaks Median 2.1 AHI 2.1/hr She has the correct mask, is a mouth breather and started having congestion of sinuses. She uses saline daily and now is able to breath better. She has improved her use and is trying to be more compliant. She feels better when she uses the cpap machine as she wakes up more refreshed. She goes to bed from mid- night to 2am, and takes Amitriptyline 10mg daily. Migraines have improved now about 1-2 times a month with photo/ phonophobia and sometimes nausea. She denies auras, dizziness, vertigo, vision changes, the severity can be 10/10 during a migraine. She travels back and forth to [place] and did not have her machine for this period of 2 weeks and was unable to use it. She has RLS, symptoms, numbness, and tingling sensation bilaterally in her feet radiating to the shins with muscle spasms, r>l. She wakes up at night with cramps, spasms, and an uncomfortable sensation in her feet. She is seeing pain management for corticosteroid shots every 3 months. Her mood is stable on clonazepam 1mg PO to help with her anxiety and falling asleep as she needs it. She washes her mask, and hoses, changes filters, fills the reservoir with water daily. [facility] Medical History Essential hypertension Pure hypercholesterolemia Plantar fasciitis Atherosclerotic cardiovascular disease COVID-19 vaccine administered Colon cancer screening Family history of polyps in the colon Hypoglycemia after GI (gastrointestinal) surgery Postmenopausal bleeding Status post hysteroscopy (~06/11/13) Obesity (BMI 30-39.9) Depression Anxiety Insomnia Meralgia paresthetica Vitamin D deficiency Carpal tunnel syndrome of left wrist Osteoarthritis Obstructive sleep apnea Iron deficiency anemia Migraine Diabetes mellitus Surgical History H/O colonoscopy H/O melanoma excision (~2010) H/O endoscopy (~06/20/13) History of knee surgery (~01/30/13) S/P dilatation and curettage (~2011) History of carpal tunnel surgery H/O laparoscopy S/P myomectomy History of sleeve gastrectomy Family History Father Myocardial infarction Prostate cancer Mother Cervical cancer Ovarian cancer Mental health disorder Diabetes Alzheimer's dementia Sleep apnea Sister Ovarian cancer Maternal Aunt Colon cancer Social History Household Members: Children Housing: Apartment Are you a primary chronic care nurse to a significant other at home: Yes (Mother) Do you presently have visiting nurse or other home services: No Alcohol intake: current Alcohol intake frequency: holidays/special occasions only Patient Tobacco Use Status: Former Tobacco user Tobacco use type: Cigarette Cigarettes Per Day: 2 Years Smoked: 3 e-Cigarette/Vaping Use: Never Used Second Hand Smoke Exposure: Yes Advance Directives Date on File: 03/16/16 service: No Current occupational status: disabled Current occupation: right handed Cognitive needs: No Hearing needs: No Vision needs: Yes (glasses) Female Reproductive History Menstrual Age of Menarche: 12 Physical Exam Vital Signs: Last Vital Signs Pulse 81 09/20/24 12:56 Pulse Ox 97 09/20/24 12:56 Oxygen Delivery Method Room Air 09/20/24 12:56 BMI result Body Mass Index 34.0 Const General: cooperative, comfortable and no acute distress Nutritional Appearance: average body habitus, overweight and other (BMI is 34) Orientation/consciousness: patient oriented x3 HEENT Teeth and gingiva: other ([place] Score of 4) Eyes Pupils: Equal, round and reactive pupils present Neck Neck: Yes full ROM Resp Effort & Inspection: normal respiratory effort and able to speak in complete sentences Neuro General: patient oriented x3 and moves all extremities Cranial nerves: Yes Equal, round and reactive pupils present, Yes Normal accommodation reflex present, Yes Nystagmus not present, Yes Normal facial strength present, Yes Midline tongue present, Yes Ability to bilaterally rotate head present and Yes Ability to bilaterally elevate shoulders present Cognition (Neuro): normal cognition Gait exam (Neuro): Normal gait present Motor exam (neuro): no tremor noted, Normal motor muscle tone present throughout and Abnormal motor strength present (LLE weaker than RLE) Psych Appearance: grossly normal Mental Status: mental status grossly normal Affect: normal affect Attitude: cooperative Thought process: Normal thought process present Thought content: Normal thought content present Results Reviewed Results Reviewed: KEVON Compliance Report 05/2024- 08/2024 Total avg use is 2 hours and 8 min. and >4 hours 54/90 days press median [id number], Leaks Median 2.1 AHI 2.1/hr Assessment & Plan Assessment & Plan (1) KEVON on CPAP: Comment: patient education provided re >4 hours for compliance and she is acclimating. Code(s): G47.33 - Obstructive sleep apnea (adult) (pediatric); Z99.89 - Dependence on other enabling machines and devices Category: Medical (2) RLS (restless legs syndrome): Code(s): G25.81 - Restless legs syndrome Category: Medical (3) Numbness and tingling of both feet: Comment: will check b6/ prior to giving her a b6, she is on magnesium and b12 is low normal will check mma and homocystein Code(s): R20.0 - Anesthesia of skin; R20.2 - Paresthesia of skin Category: Medical (4) Fatigue: Code(s): R53.83 - Other fatigue Category: Medical Qualifiers: Fatigue type: chronic, unspecified Qualified Code(s): R53.82 - Chronic fatigue, unspecified Plan KEVON cpap compliance is reviewed today >4 hours nightly use and her compliance is improving. She has refreshed sleep with use. Vitamin D was low, continue vitamin D daily. Migraines continue magnesium 400mg po and Amitriptyline 10mg daily. RLS: use Magnilife Restless Leg Cream topically, will check B6, B12 is low norm al, will check homocystein and MMA. Her A1c is still 7.7, blood glucose is still elevated. F/U in 3 months for compliance. Orders: Orders Homocysteine Today G47.9 - Sleep disorder, unspecified, R53.83 - Other fatigue Methylmalonic Acid Today G47.9 - Sleep disorder, unspecified, R53.83 - Other fatigue Vitamin B6 Today R53.83 - Other fatigue Patient Instructions: Patient Education: Use CPAP therapy as directed accordingly for a minimum of 4-6 hours per night. Each sleep cycle is 90 min. N1, N2, N3 and REM, thus cycling through these 4 phases reaching REM allows the Hypothalamus signalling to the Pituitary gland to release GNRH, GHRH, TSH, CRH etc. for growth tissue repair, mood and immunity. If you experience any difficulties with your machine reach out to your cpap provider, and or C for replacements, adjustments of masks, or pressure settings. Download the The Bully Tracker cole to monitor your own sleep cycle nightly. Write down your questions and lets discuss them to improve your quality of sleep. Wash the mask daily,replace hoses, change filters, fill your reservoir with distilled water as needed. Coding Level of Care Code Est Pt Level 4 (43206) Diagnoses KEVON on CPAP G47.33; Z99.89 RLS (restless legs syndrome) G25.81 Numbness and tingling of both feet R20.0; R20.2 Chronic fatigue R53.82 Fatigue type: chronic, unspecified Time Spent (min) 30 Comment improving compliance and acclimating to cpap therapy
[2024-09-20 12:56] VITALS: PULSE 81; O2SAT 97; BMI 34.0
== END 2024-09-20 13:46 | disposition home or self-care (01) ==
LOC: HO.HSMS 12:40
PROVIDERS: PCP Internal Medicine; Visit Provider Physician Assistant Medical
DX: G47.33 Obstructive sleep apnea (adult) (pediatric) (principal); Z99.89 Dependence on other enabling machines and devices; G25.81 Restless legs syndrome; R20.0 Anesthesia of skin; R20.2 Paresthesia of skin; R53.82 Chronic fatigue, unspecified
CPT/HCPCS: 99214

== ENCOUNTER → 2024-09-20 12:39 | Outpatient (BNVA) | payer OTHER, SELFPAY | PROVIDERS: PCP Internal Medicine; Visit Provider Physician Assistant Medical | DX: G47.33 Obstructive sleep apnea (adult) (pediatric) (principal); G25.81 Restless legs syndrome; R53.82 Chronic fatigue, unspecified; R20.0 Anesthesia of skin; R20.2 Paresthesia of skin; Z99.89 Dependence on other enabling machines and devices | CPT/HCPCS: 99212 ==

== ENCOUNTER 2024-10-01 12:00 | Outpatient (AMB) | payer OTHER, SELFPAY ==
[2024-10-01 12:31] VITALS: BMI 32.6
--- NOTE | 2024-10-01 12:31 | A.OFFVIS_ITS ---
VS Expanded 10/01/24 12:31 Height 5 ft 5 in Weight 195 lb 15.855 oz BMI 32.6 Intake Visit Reasons: T2DM Allergies cephalexin (From Keflex) Allergy (Mild, Verified 09/20/24 12:58) RASH Nutrition Presentation Details: Pt presents for MNT f/u for T2DM Pt reports having reduced appetite since starting Trulicity in August 2024 B: farina with 2% milk , coffee diet sugar L: scrambled eggs/ 1 toast or pork chop and fries in air fryer dinner:rice/chicken lettuce tomato snack : bread or Elo happy meals food frequency fruits: 0-1/d ve/d dairy: 1/d starches:18 fish 0-1/wk air frying PFSH Medical History Essential hypertension Pure hypercholesterolemia Plantar fasciitis Atherosclerotic cardiovascular disease COVID-19 vaccine administered Colon cancer screening Family history of polyps in the colon Hypoglycemia after GI (gastrointestinal) surgery Postmenopausal bleeding Status post hysteroscopy (~06/11/13) Obesity (BMI 30-39.9) Depression Anxiety Insomnia Meralgia paresthetica Vitamin D deficiency Carpal tunnel syndrome of left wrist Osteoarthritis Obstructive sleep apnea Iron deficiency anemia Migraine Diabetes mellitus Surgical History H/O colonoscopy H/O melanoma excision (~2010) H/O endoscopy (~06/20/13) History of knee surgery (~01/30/13) S/P dilatation and curettage (~2011) History of carpal tunnel surgery H/O laparoscopy S/P myomectomy History of sleeve gastrectomy Family History Father Myocardial infarction Prostate cancer Mother Cervical cancer Ovarian cancer Mental health disorder Diabetes Alzheimer's dementia Sleep apnea Sister Ovarian cancer Maternal Aunt Colon cancer Social History Household Members: Children Housing: Apartment Are you a primary outdoor emergency care technician to a significant other at home: Yes (Mother) Do you presently have visiting nurse or other home services: No Alcohol intake: current Alcohol intake frequency: holidays/special occasions only Patient Tobacco Use Status: Former Tobacco user Tobacco use type: Cigarette Cigarettes Per Day: 2 Years Smoked: 3 e-Cigarette/Vaping Use: Never Used Second Hand Smoke Exposure: Yes Advance Directives Date on File: 03/16/16 service: No Current occupational status: disabled Current occupation: right handed Cognitive needs: No Hearing needs: No Vision needs: Yes (glasses) Female Reproductive History Menstrual Age of Menarche: 12 Assessment & Plan Assessment & Plan (1) Type 2 diabetes mellitus with unspecified complications: Code(s): E11.8 - Type 2 diabetes mellitus with unspecified complications Category: Medical Plan: Educate Pt on 1500 - 1600 carrie meal plan ? Used wt : 90 kg(on 03/2024), 89(10/21) Est kcal as per MSJ: 1802 (40% carb, 30% fat/prot) Est fluid needs: 2250 ml/d (25 ml/kg bw) Rec fiber: increase to 8-10 g per day and gradually increase to 25 g/d or as tolerated Rec Na: < 1500 mg /d Educate patient on: (R= Reviewed, V = verbalizes understanding N/R= Needs review N/A= not applicable) * Relationship of food to blood glucose level : Reviewed * Meaning of hemoglobin A1c and diabetes: Reviewed * Difference between complex carbohydrates and simple carbohydrates, role of fiber: R V * Differences between fats (MUFA/PUFA/saturated fats, trans fats) and food sources of various fats: R * How to interpret food labels: R, V * Healthy Plate method concept: R V * Physical activity: benefits and precaution: R * Low cholesterol food options : R * omega 3 fatty acids: R * Calcium and vitamin D sources of foods and its relationship to exercise: R Patient Instructions: Incorporate fiber rich foods in your diet (see list of low carb high fiber options),reduce carbs to 30-45 g oper meal ex : veg lasagna with lean protein , see list of low carrie/carb meal options Coding Level of Care Code Nutr Indiv Subseq (64230) Diagnoses Type 2 diabetes mellitus with unspecified complications E11.8
--- OUTSIDE RECORDS SUMMARY | 2024-10-01 12:48 | XMS_ITS | Clinical Summary ---
Author Organization [facility] Address [address] [address] Phone Care Team Providers Care Home Care Manager Name Role Phone Pcp, Unknown Primary Care [...] REPLACEMENT MEDICARE REPLACEMENT MEDICARE REPLACEMENT Care Teams Home Care Manager Relationship Specialty Start Date End Date Pcp, Unknown PCP - General 06/27/19 Additional Source Comments The information contained in this document represents components of the legal health record. It is not the complete legal health record.[facility]
--- OUTSIDE RECORDS SUMMARY | 2024-10-01 12:49 | XMS_ITS | Patient Health Record ---
Author [facility] Address [address] [facility] [place] [address] Care Team Providers Care Kitchen Mechanic Name Role Phone Ruiz Dhaliwal MDh Primary Care Provider Unava ilMaxwell Car Unavailable [phone] Allergies Allergen (clinical drug ingredient) Drug/Non Drug [...] Problem Acquired hammer toe of right foot (689099985214429 5) Other hammer toe(s) (acquired), right foot (M20.41) Active confirmed Problem Acquired hammer toe of left foot (224478035025597 3) Other hammer toe(s) (acquired), left foot (M20.42) Active confirmed Problem Type II diabetes mellitus without complication (487775881) Type 2 diabetes mellitus without complication (E11.9) Active confirmed Vital Signs Height 5ft 5in in 06/27/2024 Weight 192 lbs 06/27/2024 BMI 31.95 kg/m2 06/27/2024 Encounters Encounter Location Date Provider Diagnosis [facility] [address] [address] 01/10/2024 Maxwell Jeb Type 2 diabetes mellitus without complication E11.9 and Plantar fasciitis, bilateral M72.2 [facility] [address] [place] [address] 06/27/2024 Maxwell Jeb Type 2 diabetes mellitus without complication E11.9 ; Other hammer toe(s) (acquired), right foot M20.41 and Other hammer toe(s) (acquired), left foot M20.42 [facility] [place] [address] [place] [address] 10/16/2023 Maxwell Russ Assessments Encounter Date Diagnosis [...] Name:Maxwell Russ , 07/03/2025 01:30:00 PM, [address] [facility] [address], [place], [address], Insurance Providers Payer Name Payer Address Payer Phone Subscriber Number Group Number Insured Name Patient Relationship to Insured Coverage Start Date Coverage End Date [facility] SCO Claims [address] [place] [address] [phone] [id number] Shania Bustos Self - patient is the [...]
--- OUTSIDE RECORDS SUMMARY | 2024-10-01 12:49 | XMS_ITS | Patient Health Record ---
Author Organization [facility] Address [address] [place] [address] Care Team Providers Care Skeiner Name Role Phone Isra POWERS, Aubrey Primary Care Provider Gene Albert Unavailable [phone] Allergies No Known Allergies Reason For Referral [...] W/U Status Risk Notes Problem Rectal bleeding (20269352) Rectal bleeding (K62.5) Active confirmed Problem Screening for malignant neoplasm of colon (904122307) Encounter for screening for malignant neoplasm of colon (Z12.11) Active confirmed Problem Constipation (91712315) Constipation (K59.00) Active confirmed Problem Diverticulosis of colon (663099109) Diverticulosis of colon (K57.30) Active confirmed Plan Of Treatment Pending Test Test Name Order Date Pathology 12/20/2021 Future Test Test Name Order Date COLONOSCOPY 08/03/2011 COLONOSCOPY 09/15/2021 Insurance Providers Payer Name Payer Address Payer Phone Subscriber Number Group Number Insured Name Patient Relationship to Insured Coverage Start Date Coverage End Date [facility] [address] [place] [phone] [id number] GLORIA GOODWIN Self - patient is the insured MEDICAID OF [employer] [address] [place] [address] [id number] GLORIA GOODWIN Self - patient is the insured Medical (General) History Medical History History ICD Code Colonoscopy 07-18-2002 was neg. except a hyperplastic polyp Constipation--responds well to Linzess DM resolved weight loss after gastric by pass Migraine Negative screening colonoscopy in July HTN Asthma Arthritis Anxiety and panic attacks Denies [place],CVA,renal disease GERD-EGD in 07/[address] Jackson--normal-gastric remnant bx neg for H.pylori Hyperlipidemia Surgical History Surgery Date(Month/Year) Uterine fibroid surgery Parotid gland tumor Carpal tunnel release-right Gastric bypass with Dr. Jose at [facility] in 2016 and lost abot 80#
== END 2024-10-01 13:00 | disposition home or self-care (01) ==
LOC: HO.ENCR 12:00
PROVIDERS: PCP Internal Medicine; Visit Provider Dietitian, Registered
DX: E11.8 Type 2 diabetes mellitus with unspecified complications (principal)

== ENCOUNTER → 2024-10-01 12:00 | Outpatient (BNVA) | payer OTHER, SELFPAY | PROVIDERS: PCP Internal Medicine; Visit Provider Dietitian, Registered | DX: E11.8 Type 2 diabetes mellitus with unspecified complications (principal) | CPT/HCPCS: 97803 ==

== ENCOUNTER 2024-10-16 14:51 | Outpatient (AMB) | payer OTHER, SELFPAY ==
--- NOTE | 2024-10-16 14:58 | MHC.OFFVIS ---
Vital Signs 10/16/24 15:01 Height 5 ft 5 in Weight 196 lb BMI 32.6 BP 156/88 H Blood Pressure Location Rt brachial Position Sitting Pulse 80 Pulse Source Pulse Oximeter Pulse Oximetry (%) 98 Oxygen Delivery Method Room Air Intake Visit Reasons: Follow up US results Intake Note: Est pt for CIC + GERD mgmt. CC; Pt denies any GI sx or concerns at this time and confirms that her Rx are effective as intended. 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 Required: No Accompanied by: Self / Same As Patient Allergies cephalexin (From [employer]) Allergy (Mild, Verified 10/16/24 14:59) RASH Medication List - Last Reconciled 10/16/24 by TOSHIA Huddleston acetaminophen ER 650 mg PO Q8H PRN 30 days amitriptyline 10 mg PO BEDTIME 30 days blood pressure monitor As directed blood sugar diagnostic (FreeStyle Lite Strips) 1 strip miscellaneous TID 90 days blood-glucose meter (FreeStyle Lite Meter kit) As directed blood-glucose sensor (FreeStyle Alexei 3 Plus Sensor device) Apply 1 new sensor every 15 days as directed to monitor blood glucose continuously. blood-glucose,cigar making supervisor,cont (FreeStyle Alexei 3 Neffs) Use daily to monitor blood glucose levels continuously. calcium carbonate-vitamin D2 500-125 mg-unit 1 tab PO DAILY cholecalciferol (vitamin D3) 125 mcg PO DAILY cyanocobalamin (vitamin B-12) 1,000 mcg PO DAILY 90 days diclofenac sodium 1% (Arthritis Pain (diclofenac)) 4 grams topical QID 30 days dulaglutide (Trulicity) 0.75 mg (0.5 mL) subcut QWEEK evolocumab (Repatha SureClick) 140 mg subcut Q2W 4 weeks ezetimibe 10 mg PO DAILY gabapentin 300 mg PO BID glucagon 3 mg/actuation (Baqsimi) 3 mg intranasal ONCE hydrochlorothiazide 25 mg PO QAM lancets (FreeStyle Lancets) As directed 3 TIMES A DAY lidocaine 5% 1 patch topical DAILY linaclotide (Linzess) 290 mcg PO QAM 30 days lisinopril 20 mg PO DAILY magnesium oxide 400 mg PO DAILY metoclopramide HCl (Reglan) 5 mg PO TID PRN multivitamin 1 tab PO DAILY pantoprazole 40 mg PO BID pyridoxine (vitamin B6) 100 mg PO DAILY MDD 100mg [right wrist splint- carpal tunnel splint As directed] rosuvastatin 40 mg PO DAILY trazodone 50 mg PO DAILY PRN triamcinolone acetonide 0.1% appl topical DAILY PRN vitamin A 1 cap PO DAILY zinc gluconate 30 mg PO DAILY HPI HPI Follow up US results: Details: Assessment & Plan (1) Chronic idiopathic constipation: Code(s): K59.04 - Chronic idiopathic constipation Category: Medical (2) GERD (gastroesophageal reflux disease): Code(s): K21.9 - Gastro-esophageal reflux disease without esophagitis Category: Medical Qualifiers: Esophagitis presence: without esophagitis Qualified Code(s): K21.9 - Gastro-esophageal reflux disease without esophagitis (3) Nausea and vomiting: Comment: Resolved with twice a day lansoprazole 30 mg.Really more nausea not much vomiting in this gastric bypass patient with a history of hemorrhagic gastritis. EGD 07/2020 showed no more problems with inactive biopsies. Ultrasound did not show any gallbladder problems. if recurs consider gastric emptying study Code(s): R11.2 - Nausea with vomiting, unspecified Category: Medical Plan Patient has been lost follow-up since 08/2022. She continues to do well with the Linzess 290 and she is happy with this dose. She is here today because she has developed over the last 3 months relatively severe midline gastric pain. The pain is pretty much always there are never moves it is right up under the epigastric area. It is greatly worsened with eating and ranges from 6 to 7 2 at times 10/10 in intensity. She describes it like someone is ?punching me in the stomach.? It is not worse with time a day or movement and she can identify any foods except for heavy sauces and stools that seem to be more aggravating than others. She had an ultrasound in 2020 that showed gallbladder sludge so I think we should repeat this to see if there is a biliary problem. She is also a diabetic who recently has had less than optimal sugar control so gastroparesis is also in the differential diagnosis and will get a gastric emptying study. Her nausea is severe associated symptom and is worsening. Because of this I think will do a trial of Reglan 3 times a day to give her some relief and it also will be a bit of a test to see if gastroparesis is part of the problem. She was given sucralfate by her primary care provider but it was not helpful so we stopped that at this time to simplify the regimen. Return office visit in 6 weeks Orders: Orders NM gastric emptying study Today R11.2 - Nausea with vomiting, unspecified US abdomen complete Today R11.2 - Nausea with vomiting, unspecified Medications: New metoclopramide HCl (Reglan) 5 mg PO TID 90 tabs 6RF R11.2 - Nausea with vomiting, unspecified Discontinued sucralfate Discontinued Reason: Doctor's Order 10 mL PO BID 420 mL 3RF GASTRIC EMPTYING STUDY That obtained ULTRASOUND OF THE ABDOMEN 12/20/2023 FINDINGS: PANCREAS: Normal. ABDOMINAL AORTA: The proximal, mid, and distal segments are normal in caliber. INFERIOR VENA CAVA: Visualized portions are normal. LIVER: Normal. The liver is normal in size. The liver contour is normal. Parenchymal echogenicity is normal. No focal hepatic lesion. There is no intrahepatic biliary duct dilatation seen. GALLBLADDER: The gallbladder is physiologically distended without evidence of stones, polyps, wall thickening or pericholecystic fluid. There is a small volume of echogenic sludge. COMMON BILE DUCT: Normal in caliber measuring 0.4 cm in diameter. RIGHT KIDNEY: Normal. No hydronephrosis. No renal calculi or focal parenchymal lesions. The kidney measures 11.4 cm in maximum dimension. LEFT KIDNEY: Normal. No hydronephrosis. No renal calculi or focal parenchymal lesions. The kidney measures 11.0 cm in maximum dimension. SPLEEN: Normal. The spleen measures 11.2 cm in maximum dimension. FREE FLUID: None. US/US abdomen complete IMPRESSION: Small volume of echogenic sludge within the gallbladder. No evidence of acute cholecystitis. TODAY'S VISIT Her current GI regimen would consist of metoclopramide 5 mg 3 times a day, and Linzess 290 micro g. She had a colonoscopy performed in [address] Cruz. [facility] Medical History (Updated 10/16/24 @ 15:33 by TOSHIA Huddleston) Adult general medical exam Annual physical exam Encounter for screening examination for sexually transmitted disease Essential hypertension Pure hypercholesterolemia Plantar fasciitis Atherosclerotic cardiovascular disease COVID-19 vaccine administered Colon cancer screening Family history of polyps in the colon Hypoglycemia after GI (gastrointestinal) surgery Postmenopausal bleeding Status post hysteroscopy (~06/11/13) Obesity (BMI 30-39.9) Depression Anxiety Insomnia Meralgia paresthetica Vitamin D deficiency Carpal tunnel syndrome of left wrist Osteoarthritis Obstructive sleep apnea Iron deficiency anemia Migraine Diabetes mellitus Surgical History H/O colonoscopy H/O melanoma excision (~2010) H/O endoscopy (~06/20/13) History of knee surgery (~01/30/13) S/P dilatation and curettage (~2011) History of carpal tunnel surgery H/O laparoscopy S/P myomectomy History of sleeve gastrectomy Family History Father Myocardial infarction Prostate cancer Mother Cervical cancer Ovarian cancer Mental health disorder Diabetes Alzheimer's dementia Sleep apnea Sister Ovarian cancer Maternal Aunt Colon cancer Social History Household Members: Children Housing: Apartment 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 day care 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 other at home: Yes (Mother) Do you presently have visiting nurse or other home services: No Alcohol intake: current Alcohol intake frequency: holidays/special occasions only Patient Tobacco Use Status: Former Tobacco user Tobacco use type: Cigarette Cigarettes Per Day: 2 Years Smoked: 3 e-Cigarette/Vaping Use: Never Used Second Hand Smoke Exposure: Yes Advance Directives Date on File: 03/16/16 service: No Current occupational status: disabled Current occupation: right handed Cognitive needs: No Hearing needs: No Vision needs: Yes (glasses) Female Reproductive History Menstrual Age of Menarche: 12 Review of Systems Const Denies fatigue, Denies fever(s), Denies night sweats, Denies poor appetite and Denies weight loss Eyes Details: glasses ENT Reports Normal hearing present, Denies dental pain, Denies dysphagia, Denies hearing loss, Denies mouth pain, Denies odynophagia, Denies throat swelling, Denies tongue swelling and Reports other (Dentition adequate) Card Reports no additional complaints Resp Reports no additional complaints GI Details: Denies abdominal pain, Denies melena, Denies bloating, Denies hematochezia, Reports constipation, Denies GI cramping, Denies dysphagia, Denies excessive flatus, Denies early satiety, Reports heartburn, Denies diarrhea, Reports nausea, Denies odynophagia, Denies vomiting and Denies hematemesis Musc Reports myalgias, Reports arthralgias and Reports stiffness Skin/Breast Denies pruritus, Denies lesions, Denies rash and Denies jaundice Neuro Reports Normal hearing present and Denies Abnormal speech present Psych Reports abnormal sleep pattern Endo Denies fatigue Aller/Immun Denies throat swelling and Denies tongue swelling Physical Exam Vital Signs: Last Vital Signs Pulse 80 10/16/24 15:01 BP 156/88 H 10/16/24 15:01 Pulse Ox 98 10/16/24 15:01 Oxygen Delivery Method Room Air 10/16/24 15:01 BMI result Body Mass Index 32.6 Const General: cooperative, no acute distress, well developed and well groomed Nutritional Appearance: well nourished and obese Orientation/consciousness: oriented to person, oriented to place and oriented to time Limitations: No language barrier HEENT Head: Yes normocephalic and Yes atraumatic Eyes General: appearance normal, both eyes and all related structures Pupils: Equal, round and reactive pupils present Neck Neck: Yes normal visual inspection and Yes no lymphadenopathy Thyroid: Thyroid normal Resp Effort & Inspection: normal respiratory effort and able to speak in complete sentences Auscultation: clear to auscultation bilaterally Cardio Rate: regular rate Rhythm: regular rhythm Heart sounds: Normal, physiologic split S2 sound present Peripheral pulses: radial pulses present and posterior tibial pulses present GI Inspection: No distended, Yes Abdominal panniculus present and Yes obesity Palpation (GI): Soft to palpation, nontender, no guarding, not rigid and No hepatosplenomegaly present Percussion: Yes normal to percussion Auscultation: normal bowel sounds Rectal Exam - Female: deferred Skin General skin exam: no rashes or lesions noted, turgor normal, skin not dry, no jaundice, No spider nevi and no striae Rashes: no rashes Nails: normal Neuro General: oriented to person, oriented to place and oriented to time Cranial nerves: Yes Equal, round and reactive pupils present and Yes Normal hearing present Speech: No Abnormal speech present Extrem General: Yes normal to inspection, No clubbing, No cyanosis and No edema Psych Appearance: grossly normal and well kempt Mental Status: mental status grossly normal Speech and movement: Normal speech and movement present Affect: normal affect Attitude: cooperative Thought process: Normal thought process present and not confabulating Thought content: Normal thought content present Insight: Fair insight present (Psych) Judgement: Fair judgement present (Psych) Results Reviewed Results Reviewed: ULTRASOUND OF THE ABDOMEN 12/20/2023 FINDINGS: PANCREAS: Normal. ABDOMINAL AORTA: The proximal, mid, and distal segments are normal in caliber. INFERIOR VENA CAVA: Visualized portions are normal. LIVER: Normal. The liver is normal in size. The liver contour is normal. Parenchymal echogenicity is normal. No focal hepatic lesion. There is no intrahepatic biliary duct dilatation seen. GALLBLADDER: The gallbladder is physiologically distended without evidence of stones, polyps, wall thickening or pericholecystic fluid. There is a small volume of echogenic sludge. COMMON BILE DUCT: Normal in caliber measuring 0.4 cm in diameter. RIGHT KIDNEY: Normal. No hydronephrosis. No renal calculi or focal parenchymal lesions. The kidney measures 11.4 cm in maximum dimension. LEFT KIDNEY: Normal. No hydronephrosis. No renal calculi or focal parenchymal lesions. The kidney measures 11.0 cm in maximum dimension. SPLEEN: Normal. The spleen measures 11.2 cm in maximum dimension. FREE FLUID: None. US/US abdomen complete IMPRESSION: Small volume of echogenic sludge within the gallbladder. No evidence of acute cholecystitis. Assessment & Plan Assessment & Plan (1) GERD (gastroesophageal reflux disease): Code(s): K21.9 - Gastro-esophageal reflux disease without esophagitis Category: Medical Qualifiers: Esophagitis presence: without esophagitis Qualified Code(s): K21.9 - Gastro-esophageal reflux disease without esophagitis (2) Nausea and vomiting: Comment: Code(s): R11.2 - Nausea with vomiting, unspecified Category: Medical (3) Chronic idiopathic constipation: Code(s): K59.04 - Chronic idiopathic constipation Category: Medical (4) Family history of polyps in the colon: Comment: Mother and maternal uncle had polyps, scope 2018 with Panitch no polyps Code(s): Z83.71 - Family history of colonic polyps Category: Medical (5) Gallbladder sludge: Code(s): K82.8 - Other specified diseases of gallbladder Category: Medical Plan Her current GI regimen would consist of pantoprazole twice a day, metoclopramide 5 mg 3 times a day, and Linzess 290 micro g. She had a colonoscopy performed in [address] Cruz. History of Present Illness - The patient is a 59-year-old female presenting with follow-up for nausea and vomiting along with constipation and GERD. In the past we also discovered she had gallbladder sludge of uncertain contribution to her presentation. Fortunately, she reports that the symptoms have all lessened since I last saw her, this may be due to the metoclopramide. - Gallbladder sludge identified during a previous sonogram. - Reports burning gastric pain when stomach is empty, stable in severity, without postprandial worsening. - Occasional nausea triggered by greasy food smells or certain aromas. - Persistent constipation managed with medications. - Hyperlipidemia managed with Repatha. Plan - Order a HIDA scan to assess gallbladder function. - Continue metoclopramide for nausea. - Maintain pantoprazole and linaclotide regimen. - Discontinue sucralfate. Patient was informed and verbally consented to the use of an ambient scribe for clinic note documentation during this visit. Patient Instructions - Schedule a HIDA scan to see if the gallbladder sludge is contributing in any way to her nausea. - Continue taking metoclopramide for nausea relief. - Keep using pantoprazole and linaclotide as directed. - Stop taking sucralfate to reduce constipation risk. - Ensure follow-up visits every six months for condition checks. For now on CAT and sling the gastric emptying study that was not obtained prior, she just started on Trulicity and so far is tolerating it well and so well diabetic gastroparesis is not completely excluded from the differential diagnosis, obtaining this study would not change the treatment plan so instead we will just press forward with a HIDA scan to make sure there is nothing else that will complicate her current regimen. Orders: Orders NM hepatobiliary w pharm Today K82.8 - Other specified diseases of gallbladder, R11.2 - Nausea with vomiting, unspecified Medications: Refilled linaclotide (Linzess) 290 mcg PO QAM 30 caps 6RF 30 days K59.04 - Chronic idiopathic constipation metoclopramide HCl (Reglan) 5 mg PO TID PRN 90 tabs 6RF nausea and vomiting R11.2 - Nausea with vomiting, unspecified pantoprazole 40 mg PO BID 180 tabs 1RF Discontinued clonazepam Discontinued Reason: Patient no longer taking 1 mg PO DAILY PRN 30 tabs 0RF anxiety metronidazole Discontinued Reason: Patient Completed Course 500 mg PO Q12H 14 tabs 0RF sucralfate Discontinued Reason: Doctor's Order 10 mL PO QID 414 mL 3RF Coding Level of Care Code Est Pt Level 3 (25330) Diagnoses Gastroesophageal reflux disease without esophagitis K21.9 Esophagitis presence: without esophagitis Nausea and vomiting R11.2 Chronic idiopathic constipation K59.04 Family history of polyps in the colon Z83.71 Gallbladder sludge K82.8
[2024-10-16 15:01] VITALS: BP 156/88; PULSE 80; O2SAT 98; BMI 32.6
--- OUTSIDE RECORDS SUMMARY | 2024-10-16 15:49 | XMS_ITS | Patient Health Record ---
[facility] Address [address] [facility] [place] [address] Care Team Providers Care Heat Seal Operator Name Role Phone Ruiz Dhaliwal MDh Primary Care Provider Unava ilMaxwell Car Unavailable [phone] Allergies Allergen (clinical drug ingredient) Drug/Non Drug [...] Problem Acquired hammer toe of right foot (583859227639980 5) Other hammer toe(s) (acquired), right foot (M20.41) Active confirmed Problem Acquired hammer toe of left foot (621956501246380 3) Other hammer toe(s) (acquired), left foot (M20.42) Active confirmed Problem Type II diabetes mellitus without complication (783661856) Type 2 diabetes mellitus without complication (E11.9) Active confirmed Vital Signs Height 5ft 5in in 06/27/2024 Weight 192 lbs 06/27/2024 BMI 31.95 kg/m2 06/27/2024 Encounters Encounter Location Date Provider Diagnosis [facility] [place] [address] [address] 01/10/2024 Maxwell Jeb Type 2 diabetes mellitus without complication E11.9 and Plantar fasciitis, bilateral M72.2 [facility] [address] [place] [id number] 06/27/2024 Maxwell Jeb Type 2 diabetes mellitus [...] Provider Name:Maxwell Russ , 07/03/2025 01:30:00 PM, [address] [place] [address], [facility] [address], [place], [address], Insurance Providers Payer Name Payer Address Payer Phone Subscriber Number Group Number Insured Name Patient Relationship to Insured Coverage Start Date Coverage End Date [facility] [employer] Claims [address] [place] [address] [id number] Shania Bustos Self - patient is the [...]
--- OUTSIDE RECORDS SUMMARY | 2024-10-16 15:49 | XMS_ITS | Clinical Summary ---
Author Organization [facility] Address [address] [address] Phone Care Team Providers Care Title Searcher Name Role Phone Pcp, Unknown Primary Care [...] REPLACEMENT MEDICARE REPLACEMENT MEDICARE REPLACEMENT Care Teams Title Searcher Relationship Specialty Start Date End Date Pcp, Unknown PCP - General 06/27/19 Additional Source Comments The information contained in this document represents components of the legal health record. It is not the complete legal health record.[facility]
--- OUTSIDE RECORDS SUMMARY | 2024-10-16 15:50 | XMS_ITS | Patient Health Record ---
Author Organization [facility] Address [address] [place] [address] Care Team Providers Care Mimeograph Operator Name Role Phone Isra POWERS, Aubrey Primary Care Provider Gene Albert Unavailable [phone] Allergies No Known Allergies Reason For Referral [...] W/U Status Risk Notes Problem Rectal bleeding (47403643) Rectal bleeding (K62.5) Active confirmed Problem Screening for malignant neoplasm of colon (801641466) Encounter for screening for malignant neoplasm of colon (Z12.11) Active confirmed Problem Constipation (21232428) Constipation (K59.00) Active confirmed Problem Diverticulosis of colon (040800319) Diverticulosis of colon (K57.30) Active confirmed Plan Of Treatment Pending Test Test Name Order Date Pathology 12/20/2021 Future Test Test Name Order Date COLONOSCOPY 08/03/2011 COLONOSCOPY 09/15/2021 Insurance Providers Payer Name Payer Address Payer Phone Subscriber Number Group Number Insured Name Patient Relationship to Insured Coverage Start Date Coverage End Date [facility] [address] [place] [address] [id number] GLORIA GOODWIN Self - patient is the insured [employer] [address] [place] [address] [id number] GLORIA GOODWIN Self - patient is the insured Medical (General) History Medical History History ICD Code Colonoscopy 07-18-2002 was neg. except a hyperplastic polyp Constipation--responds well to Linzess DM resolved weight loss after gastric by pass Migraine Negative screening colonoscopy in July HTN Asthma Arthritis Anxiety and panic attacks Denies PA,CVA,renal disease GERD-EGD in 07/[address] Jackson--normal-gastric remnant bx neg for H.pylori Hyperlipidemia Surgical History Surgery Date(Month/Year) Uterine fibroid surgery Parotid gland tumor Carpal tunnel release-right Gastric bypass with Dr. Jose at [facility] in 2016 and lost abot 80#
== END 2024-10-16 15:38 | disposition home or self-care (01) ==
LOC: HO.HGI 14:52
PROVIDERS: PCP Internal Medicine; Visit Provider Nurse Practitioner
DX: K21.9 Gastro-esophageal reflux disease without esophagitis (principal); R11.2 Nausea with vomiting, unspecified; K59.04 Chronic idiopathic constipation; Z83.719 Family history of colon polyps, unspecified; K82.8 Other specified diseases of gallbladder
CPT/HCPCS: 99213

== ENCOUNTER → 2024-10-16 14:51 | Outpatient (BNVA) | payer OTHER, SELFPAY | PROVIDERS: PCP Internal Medicine; Visit Provider Nurse Practitioner | DX: K59.04 Chronic idiopathic constipation (principal); K21.9 Gastro-esophageal reflux disease without esophagitis; R11.2 Nausea with vomiting, unspecified; K82.8 Other specified diseases of gallbladder; Z83.719 Family history of colon polyps, unspecified | CPT/HCPCS: 99212 ==

== ENCOUNTER 2024-10-25 13:40 | Outpatient (AMB) | payer OTHER, SELFPAY ==
--- OUTSIDE RECORDS SUMMARY | 2023-10-18 06:30 | XMS_ITS ---
Author Organization [facility] Address [address] [place] [address] Care Team Providers Care Belling Machine Operator Name Role Phone Aubrey Dhaliwal MD Primary Care Provider Unava ilMaxwell Cra Unavailable [phone] Encounters Encounter Location Date [facility] [address] 10/18/2023 Maxwell Russ Plan Of Treatment Next Appt Details Provider Name:Maxwell Russ , 07/03/2025 01:30:00 PM, [address] [place] [address], [place], [address], Progress Notes * Rogerio BUSTOSeDOB:1965 (59 yo F)Acc No.[id number]:10/18/2023 Progress Note Patient: Shania TORIBIO Provider: Kirsten Russ DPM :1965 A ge:58 Y S ex:Female Date:10/18/2023 Address:[address] [place] [address] [address], [address], [phone] Pcp:Aubrey Dhaliwal MD Subjective: * Chief Complaints: * * Medical History: Objective: * Vitals: Assessment: Plan: * Treatment: * Images: * The named appointment provid er may or may not be the originator of this progress note, and it is not deemed complete until electronically signed by the appointment provider. Sign off status: Pending * Provider: Kirsten Russ DPM Date: 10/18/2023 Generated for Toyin Knight on: 10/25/2024 01:43 PM EDT
--- OUTSIDE RECORDS SUMMARY | 2024-10-25 13:43 | XMS_ITS | Patient Health Record ---
[facility] Address [address] [facility] [place] [address] Care Team Providers Care Shell Maker Lockstitch Name Role Phone Ruiz Dhaliwal MDh Primary Care Provider Unava ilMaxwell Car Unavailable [phone] Allergies Allergen (clinical drug ingredient) Drug/Non Drug [...] Problem Acquired hammer toe of right foot (018113917715374 5) Other hammer toe(s) (acquired), right foot (M20.41) Active confirmed Problem Acquired hammer toe of left foot (728324906712375 3) Other hammer toe(s) (acquired), left foot (M20.42) Active confirmed Problem Type II diabetes mellitus without complication (460652547) Type 2 diabetes mellitus without complication (E11.9) Active confirmed Vital Signs Height 5ft 5in in 06/27/2024 Weight 192 lbs 06/27/2024 BMI 31.95 kg/m2 06/27/2024 Encounters Encounter Location Date Provider Diagnosis [facility] [place] [address] [address] 01/10/2024 Maxwell Jeb Type 2 diabetes mellitus without complication E11.9 and Plantar fasciitis, bilateral M72.2 [facility] [address] [place] [id number] 06/27/2024 Maxwell Jeb Type 2 diabetes mellitus [...] Provider Name:Maxwell Russ , 07/03/2025 01:30:00 PM, [address] [place] [address], [facility] [address], [place], [address], Insurance Providers Payer Name Payer Address Payer Phone Subscriber Number Group Number Insured Name Patient Relationship to Insured Coverage Start Date Coverage End Date [facility] [employer] S[employer] Claims [address] [place] [address] [id number] Shania Bustos Self - patient is the [...]
--- OUTSIDE RECORDS SUMMARY | 2024-10-25 13:43 | XMS_ITS | Clinical Summary ---
Author Organization [facility] Address [address] [address] Phone Care Team Providers Care Assistant Production Editor Name Role Phone Pcp, Unknown Primary Care [...] REPLACEMENT MEDICARE REPLACEMENT MEDICARE REPLACEMENT Care Teams Assistant Production Editor Relationship Specialty Start Date End Date Pcp, Unknown PCP - General 06/27/19 Additional Source Comments The information contained in this document represents components of the legal health record. It is not the complete legal health record.[facility]
--- OUTSIDE RECORDS SUMMARY | 2024-10-25 13:43 | XMS_ITS | Patient Health Record ---
Author Organization [facility] Address [address] [place] [address] Care Team Providers Care Agate Setter Name Role Phone Isra POWERS, Aubrey Primary Care Provider Gene Albert Unavailable [phone] Allergies No Known Allergies Reason For Referral [...] W/U Status Risk Notes Problem Rectal bleeding (58442998) Rectal bleeding (K62.5) Active confirmed Problem Screening for malignant neoplasm of colon (577147899) Encounter for screening for malignant neoplasm of colon (Z12.11) Active confirmed Problem Constipation (16058534) Constipation (K59.00) Active confirmed Problem Diverticulosis of colon (553939284) Diverticulosis of colon (K57.30) Active confirmed Plan Of Treatment Pending Test Test Name Order Date Pathology 12/20/2021 Future Test Test Name Order Date COLONOSCOPY 08/03/2011 COLONOSCOPY 09/15/2021 Insurance Providers Payer Name Payer Address Payer Phone Subscriber Number Group Number Insured Name Patient Relationship to Insured Coverage Start Date Coverage End Date [facility] [address] [place] [phone] [id number] GLORIA GOODWIN Self - patient is the insured MEDICAID OF [employer] [address] [place] [address] [id number] GLORIA GOODWIN Self - patient is the insured Medical (General) History Medical History History ICD Code Colonoscopy 07-18-2002 was neg. except a hyperplastic polyp Constipation--responds well to Linzess DM resolved weight loss after gastric by pass Migraine Negative screening colonoscopy in July HTN Asthma Arthritis Anxiety and panic attacks Denies [place],CVA,renal disease GERD-EGD in 07/[address] Jackson--normal-gastric remnant bx neg for H.pylori Hyperlipidemia Surgical History Surgery Date(Month/Year) Uterine fibroid surgery Parotid gland tumor Carpal tunnel release-right Gastric bypass with Dr. Jose at [facility] in 2016 and lost abot 80#
--- NOTE | 2024-10-25 13:46 | A.OFFVIS_ITS ---
Vital Signs 10/25/24 14:00 10/25/24 14:37 Height 5 ft 5 in Weight 199 lb 1.239 oz BMI 33.1 BP 168/88 H 160/86 H Blood Pressure Location Lt brachial Position Sitting Pulse 66 Pulse Source Pulse Oximeter Pulse Oximetry (%) 98 Oxygen Delivery Method Room Air Intake Visit Reasons: Type II diabetes Intake Note: Patient present today for Type 2 Diabetes Mellitus follow up. Last Diabetic Eye exam: Feb 2024 Last Podiatry Visit: April 2024 Random Glucose: 94 mg/dl HgA1C: 6.9% 10/25/2024 Splicing Supervisor Required: No Accompanied by: Mother Allergies cephalexin (From Keflex) Allergy (Mild, Verified 10/25/24 14:01) RASH Medication List - Last Reconciled 10/25/24 by VELIA Mackay acarbose 100 mg PO DAILY acetaminophen ER 650 mg PO Q8H PRN 30 days amitriptyline 10 mg PO BEDTIME 30 days blood pressure monitor As directed blood sugar diagnostic (FreeStyle Lite Strips) 1 strip miscellaneous TID 90 days blood-glucose meter (FreeStyle Lite Meter kit) As directed blood-glucose sensor (Chauffeur PriveStyle Alexei 3 Plus Sensor device) Apply 1 new sensor every 15 days as directed to monitor blood glucose continuously. blood-glucose,nocturnist,cont (FreeStyle Alexei 3 Friendship) Use daily to monitor blood glucose levels continuously. calcium carbonate-vitamin D2 500-125 mg-unit 1 tab PO DAILY cholecalciferol (vitamin D3) 125 mcg PO DAILY cyanocobalamin (vitamin B-12) 1,000 mcg PO DAILY 90 days diclofenac sodium 1% (Arthritis Pain (diclofenac)) 4 grams topical QID 30 days evolocumab (Repatha SureClick) 140 mg subcut Q2W 4 weeks ezetimibe 10 mg PO DAILY gabapentin 300 mg PO BID glucagon 3 mg/actuation (Baqsimi) 3 mg intranasal ONCE hydrochlorothiazide 25 mg PO QAM lancets (FreeStyle Lancets) As directed 3 TIMES A DAY lidocaine 5% 1 patch topical DAILY linaclotide (Linzess) 290 mcg PO QAM 30 days lisinopril 20 mg PO DAILY magnesium oxide 400 mg PO DAILY metoclopramide HCl (Reglan) 5 mg PO TID PRN multivitamin 1 tab PO DAILY pantoprazole 40 mg PO BID pyridoxine (vitamin B6) 100 mg PO DAILY MDD 100mg [right wrist splint- carpal tunnel splint As directed] rosuvastatin 40 mg PO DAILY tirzepatide (Mounjaro) 2.5 mg (0.5 mL) subcut QWEEK trazodone 50 mg PO DAILY PRN triamcinolone acetonide 0.1% appl topical DAILY PRN vitamin A 1 cap PO DAILY zinc gluconate 30 mg PO DAILY HPI Comments Details: This is a 59-year-old female with a past medical history of migraines, RLS, hyperlipidemia, gastric bypass surgery, KEVON on CPAP, hypertension, type 2 diabetes, melanoma, constipation, GERD, CAD and obesity presenting for diabetic management. She was diagnosed 15 years ago. She has a family history of type 2 diabetes. Hemoglobin A1c 6.9% down from 7.7%. I reviewed her CGM data for the past 14 days G SC 6.4% 0% hypoglycemia 89% target range 9% high 2% very high She has a pattern of normal glucose readings throughout 24 hours with occasional hyperglycemia during the day and evening. Current medication regimen: Acarbose 100 mg once daily and Trulicity 0.75 mg weekly She is upset that she has gained 3 lb since starting Trulicity. It is not helping with weight loss. She is trying to follow a healthier low carb diet and avoid sugary foods. Past medication: Metformin, insulin pump, Lantus. Medications were discontinued after bariatric surgery 7 years ago. Compliance issues: None Followed by [facility] dietitian. Previously documented: She has a history of hypoglycemia. She recalls 2 severe episodes in the past. She was hospitalized once for a blood glucose of 26. She drove herself to the ER and was conscious. He had not eaten for a long duration. She had another episode a couple of years ago, and her blood sugar was 56. Symptoms included sweating profusely and confusion. No interval hypoglycemic episodes. She has a prescription for Baqsimi. Hyperglycemia symptoms: Denies Microvascular complications: neuropathy Macrovascular complications: CAD (followed by Cardiology) Hypertension: treated with hydrochlorothiazide, lisinopril. Her blood pressure is elevated today. She reports this is common at office visits. Hyperlipidemia: treated with Repatha, Zetia, rosuvastatin ROS: Constitutional: No unexplained weight loss, fever, chills Eyes: No vision changes, blurry vision, double vision, Respiratory: No shortness of breath, cough or sputum production. Cardiovascular: No chest pain, chest pressure or chest discomfort. No palpitations or pedal edema. Gastrointestinal: No anorexia, nausea, vomiting or diarrhea. No abdominal pain or blood in stool. Neurologic: No headache, dizziness, syncope Endocrine: No cold or heat intolerance. No polyuria or polydipsia. Physical exam: Constitutional: Alert, in no distress. Head: Normocephalic. Neck: Supple, Full range of motion. No lymphadenopathy. No palpable thyroid masses. Respiratory: Clear to auscultation. Cardiovascular: S1 S2 regular. No murmurs. [facility] Medical History (Updated 10/16/24 @ 15:33 by TOSHIA Huddleston) Adult general medical exam Annual physical exam Encounter for screening examination for sexually transmitted disease Essential hypertension Pure hypercholesterolemia Plantar fasciitis Atherosclerotic cardiovascular disease COVID-19 vaccine administered Colon cancer screening Family history of polyps in the colon Hypoglycemia after GI (gastrointestinal) surgery Postmenopausal bleeding Status post hysteroscopy (~06/11/13) Obesity (BMI 30-39.9) Depression Anxiety Insomnia Meralgia paresthetica Vitamin D deficiency Carpal tunnel syndrome of left wrist Osteoarthritis Obstructive sleep apnea Iron deficiency anemia Migraine Diabetes mellitus Surgical History H/O colonoscopy H/O melanoma excision (~2010) H/O endoscopy (~06/20/13) History of knee surgery (~01/30/13) S/P dilatation and curettage (~2011) History of carpal tunnel surgery H/O laparoscopy S/P myomectomy History of sleeve gastrectomy Family History Father Myocardial infarction Prostate cancer Mother Cervical cancer Ovarian cancer Mental health disorder Diabetes Alzheimer's dementia Sleep apnea Sister Ovarian cancer Maternal Aunt Colon cancer Social History Household Members: Children Housing: Apartment Are you a primary career resource technician to a significant other at home: Yes (Mother) Do you presently have visiting nurse or other home services: No Alcohol intake: current Alcohol intake frequency: holidays/special occasions only Patient Tobacco Use Status: Former Tobacco user Tobacco use type: Cigarette Cigarettes Per Day: 2 Years Smoked: 3 e-Cigarette/Vaping Use: Never Used Second Hand Smoke Exposure: Yes Advance Directives Date on File: 03/16/16 service: No Current occupational status: disabled Current occupation: right handed Cognitive needs: No Hearing needs: No Vision needs: Yes (glasses) Female Reproductive History Menstrual Age of Menarche: 12 Physical Exam Vital Signs: Last Vital Signs Pulse 66 10/25/24 14:00 BP 160/86 H 10/25/24 14:37 Pulse Ox 98 10/25/24 14:00 Oxygen Delivery Method Room Air 10/25/24 14:00 BMI result Body Mass Index 33.1 Office Procedures Glucose Monitoring Details Details: see HPI 67090 - Glucose monitoring, continuous-physician I&R Procedure code (CPT) selection complete Results AMB Hemoglobin A1c AMB Hemoglobin A1c 6.9 % Last Edit by AWAIS Conklin on 10/25/24 14:17 Results Reviewed Results Reviewed: Laboratory Last Values Glucose (Clinic) 94 mg/dL (60-115) 10/25/24 14:06 Hgb A1c (Clinic) 6.9 % (4.0-6.0) H 10/25/24 14:10 Laboratory Tests 07/10/24 07/10/24 08:52 08:58 Plt Count 219 Creatinine 0.72 Estimated GFR > 60 Hemoglobin A1c % 7.7 H AST 20 ALT 21 Triglycerides 104 Cholesterol 123 LDL Cholesterol, Calc 49 HDL Cholesterol 54 Vitamin B12 257 25-OH Vitamin D Total 11.0 L TSH 1.89 Urine Creatinine 65.36 Urine Microalbumin 10.0 Microalb/Creat Ratio 15.2 Assessment & Plan Assessment & Plan (1) Type 2 diabetes mellitus with unspecified complications: Code(s): E11.8 - Type 2 diabetes mellitus with unspecified complications Category: Medical Plan: In summary this is a 58-year-old female with a past medical history of obesity, type 2 diabetes with complications and bariatric surgery. Type 2 diabetes is controlled. She has gained weight since starting Trulicity. Discontinue medication and start Mounjaro 2.5 mg weekly. Continue acarbose 100 mg daily. Lifestyle modifications reviewed. Followed by dietitian. We reviewed complications of type 2 diabetes. (2) Hypoglycemia after GI (gastrointestinal) surgery: Code(s): K91.2 - Postsurgical malabsorption, not elsewhere classified Category: Medical Plan: She works with the dietitian. We reviewed treatment of hypoglycemia. Written instructions provided to patient. She has glucose tablets and Baqsimi. Advised patient not to drive if she does not have an accurate way to test her blood sugar or if she has symptoms of low blood sugar. (3) Essential hypertension: Code(s): I10 - Essential (primary) hypertension Category: Medical Plan: Recommended low sodium diet. Patient advised to use home cuff to monitor blood pressure and bring readings to her next visit. Continue current medications. Plan Follow up in 1 month for type 2 diabetes. Orders: Orders AMB Hemoglobin A1c Today E11.8 - Type 2 diabetes mellitus with unspecified complications AMB Glucose Monitoring Today E11.9 - Type 2 diabetes mellitus without complications Medications: New tirzepatide (Mounjaro) for 4 weeks 2.5 mg (0.5 mL) subcut QWEEK 2 mL 0RF Refilled blood-glucose sensor (FreeStyle Alexei 3 Plus Sensor device) Apply 1 new sensor every 15 days as directed to monitor blood glucose continuously. 6 ea 1RF Discontinued dulaglutide (Trulicity) Discontinued Reason: Doctor's Order 0.75 mg (0.5 mL) subcut QWEEK 2 mL 1RF Coding Level of Care Code Est Pt Level 4 (84686) Diagnoses Type 2 diabetes mellitus with unspecified complications E11.8 Hypoglycemia after GI (gastrointestinal) surgery K91.2 Essential hypertension I10 CPT Codes Details - CPT: 91110 - Glucose monitoring, continuous-physician I&R ([id number])
[2024-10-25 14:00] VITALS: BP 168/88; PULSE 66; O2SAT 98; BMI 33.1
[2024-10-25 14:16] LABS: Glucose, Whole Blood 94 mg/dL (60-115)
[2024-10-25 14:37] VITALS: BP 160/86
== END 2024-10-25 14:44 | disposition home or self-care (01) ==
LOC: HO.ENCR 13:40
PROVIDERS: PCP Internal Medicine; Visit Provider Physician Assistant Medical
DX: E11.8 Type 2 diabetes mellitus with unspecified complications (principal); K91.2 Postsurgical malabsorption, not elsewhere classified; I10 Essential (primary) hypertension

== ENCOUNTER → 2024-10-25 13:40 | Outpatient (BNVA) | payer OTHER, SELFPAY | PROVIDERS: PCP Internal Medicine; Visit Provider Physician Assistant Medical | DX: E11.40 Type 2 diabetes mellitus with diabetic neuropathy, unspecified (principal); K91.2 Postsurgical malabsorption, not elsewhere classified; I10 Essential (primary) hypertension; I25.10 Atherosclerotic heart disease of native coronary artery without angina pectoris | CPT/HCPCS: 82947; 83036; 99212 ==

== ENCOUNTER 2024-11-21 09:34 | Outpatient (AMB) | payer OTHER, SELFPAY ==
--- OUTSIDE RECORDS SUMMARY | 2023-10-18 06:30 | XMS_ITS ---
Author Organization [facility] Address [address] [place] [address] Care Team Providers Care Fabric Cutter Name Role Phone Aubrey Dhaliwal MD Primary Care Provider Unava ilMaxwell Car Unavailable [phone] Encounters Encounter Location Date [facility] [address] 10/18/2023 Maxwell Russ Plan Of Treatment Next Appt Details Provider Name:Maxwell Russ , 07/03/2025 01:30:00 PM, [address] [place] [address], [place], [address], Progress Notes * Rogerio BUSTOSeDOB:1965 (59 yo F)Acc No.[id number]:10/18/2023 Progress Note Patient: Shania TORIBIO Provider: Kirsten Russ DPM :1965 A ge:58 Y S ex:Female Date:10/18/2023 Address:[address] [place] [address] [address], [address], [id number] Pcp:Aubrey Dhaliwal MD Subjective: * Chief Complaints: [...] 0 10/18/2023 Generated for Toyin Knight on: 0 11/21/2024 11:06 AM EDT
[2024-11-21 09:52] VITALS: BP 140/78; BMI 31.6
--- NOTE | 2024-11-21 09:52 | MHC.OFFVIS ---
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 No complaints. The patient is interested in STD screening Last Pap/HPV was negative in 12/19 Last Mammogram was BI-RADS 1 in 11/20 Last Colonoscopy was in 12/18, the recommendation was to repeat in 5 years [facility] Medical History (Updated 11/21/24 @ 10:06 by Simba Lake MD) Encounter for screening examination for sexually transmitted disease Adult general medical exam Annual physical exam Essential hypertension Pure hypercholesterolemia Plantar fasciitis Atherosclerotic cardiovascular disease COVID-19 vaccine administered Colon cancer screening Family history of polyps in the colon Hypoglycemia after GI (gastrointestinal) surgery Postmenopausal bleeding Status post hysteroscopy (~06/11/13) Obesity (BMI 30-39.9) Depression Anxiety Insomnia Meralgia paresthetica Vitamin D deficiency Carpal tunnel syndrome of left wrist Osteoarthritis Obstructive sleep apnea Iron deficiency anemia Migraine Diabetes mellitus Surgical History H/O colonoscopy H/O melanoma excision (~2010) H/O endoscopy (~06/20/13) History of knee surgery (~01/30/13) S/P dilatation and curettage (~2011) History of carpal tunnel surgery H/O laparoscopy S/P myomectomy History of sleeve gastrectomy Family History Father Myocardial infarction Prostate cancer Mother Cervical cancer Ovarian cancer Mental health disorder Diabetes Alzheimer's dementia Sleep apnea Sister Ovarian cancer Maternal Aunt Colon cancer Social History Household Members: Children Housing: Apartment Are you a primary doggy daycare activities director to a significant other at home: Yes (Mother) Do you presently have visiting nurse or other home services: No Alcohol intake: current Alcohol intake frequency: holidays/special occasions only Patient Tobacco Use Status: Former Tobacco user Tobacco use type: Cigarette Cigarettes Per Day: 2 Years Smoked: 3 e-Cigarette/Vaping Use: Never Used Second Hand Smoke Exposure: Yes Advance Directives Date on File: 03/16/16 service: No Current occupational status: disabled Current occupation: right handed Cognitive needs: No Hearing needs: No Vision needs: Yes (glasses) Female Reproductive History Menstrual Age of Menarche: 12 Date of last pap smear: 12/07/22 Date of Mammogram: 11/22/23 Review of Systems Const All systems reviewed & are unremarkable except as noted in HPI and below Card Reports as per HPI Resp Reports as per HPI GI Reports as per HPI and Reports no additional complaints Reports as per HPI Physical Exam Vital Signs: Last Vital Signs BP 140/78 H 11/21/24 09:52 BMI result Body Mass Index 31.6 Const General: cooperative, healthy appearing and comfortable Chest Chest palpation & inspection: normal inspection of the chest and normal palpation of entire chest wall Breast/axilla inspection: normal inspection of the breasts and normal inspection of the axillae Breast/axilla palpation: normal palpation of the breasts, normal palpation of the axillae and no axillary lymphadenopathy Resp Effort & Inspection: normal respiratory effort Auscultation: clear to auscultation bilaterally Percussion: percussion normal Cardio Palpation: normal PMI Rate: regular rate Rhythm: regular rhythm Heart sounds: no murmurs and no rubs Peripheral pulses: Peripheral pulses 2+ throughout GI Inspection: Yes normal to inspection Palpation (GI): Soft to palpation, nontender, no guarding, not rigid and No hepatosplenomegaly present Percussion: Yes normal to percussion Auscultation: normal bowel sounds Rectal Exam - Female: deferred General: Yes bladder normal to palpation External Female Exam: No lesion Speculum Exam - Vagina: normal appearance of the vagina, normal palpation, normal vaginal discharge and not erythematous Speculum Exam - Cervix: normal appearance of the cervix and normal palpation Bimanual exam- vagina & uterus: normal bimanual exam, normal palpation, uterine size normal, bladder normal to palpation, consistency normal and normal palpation Bimanual Exam- Adnexa, other: normal adnexae, no masses and no tenderness Assessment & Plan Assessment & Plan (1) Well woman exam: Code(s): Z01.419 - Encounter for gynecological examination (general) (routine) without abnormal findings Category: Medical Plan: Co testing not indicated this year. Counseled the patient about the recommended dietary allowance of 1200 mg of Calcium & 600 IU of vitamin D. Mammogram ordered. The patient was instructed to perform monthly self-breast exams and schedule annual exam in a year. All questions answered and the patient verbalized understanding. (2) Encounter for screening examination for sexually transmitted disease: Code(s): Z11.3 - Encounter for screening for infections with a predominantly sexual mode of transmission Category: Medical Plan: STD screening tests done includes: BV panel for trichomonas, GC/CT will send patient for serology std screening for HIV, RPR, Hep b s Ag, HepC Ab. Instructions given the patient to schedule a follow-up appointment for repeat serology screen in 6 months for possible false negatives. Orders: Orders Hepatitis C Antibody Today Z20.2 - Contact with and (suspected) exposure to infections with a predominantly sexual mode of transmission MM tomosynthesis screening BI Today Z12.31 - Encounter for screening mammogram for malignant neoplasm of breast Hepatitis B Surface Antigen Today Z20.2 - Contact with and (suspected) exposure to infections with a predominantly sexual mode of transmission HIV Ab/Ag Today Z20.2 - Contact with and (suspected) exposure to infections with a predominantly sexual mode of transmission Syphilis Screen Today Z20.2 - Contact with and (suspected) exposure to infections with a predominantly sexual mode of transmission Coding Level of Care Code New Pt Prev Care 40-64y(67404) Diagnoses Well woman exam Z01.419 Encounter for screening examination for sexually transmitted disease Z11.3
--- OUTSIDE RECORDS SUMMARY | 2024-11-21 11:06 | XMS_ITS | Clinical Summary ---
Author Organization [facility] Address [address] [address] Phone Care Team Providers Care Horticultural Specialty Grower Field Name Role Phone Pcp, Unknown Primary Care [...] 2016 ZOSTER VACCINES (1 of 2) 2016 INFLUENZA VACCINE (#1) 2024 , 12/26/2017 COVID-19 VACCINE (3 - 2024-2 6 season) 2024 07/09/2020, 06/11/2020 HEPATITIS A VACCINES Aged Out [...] topic Medical Devices Not on file Insurance [place] [id number] MEDICARE REPLACEMENT [place] [id number] [place] [id number] MEDICARE REPLACEMENT MEDICARE REPLACEMENT MEDICARE REPLACEMENT MEDICARE REPLACEMENT MEDICARE REPLACEMENT MEDICARE REPLACEMENT Care Teams Horticultural Specialty Grower Field Relationship Specialty Start Date End Date Pcp, Unknown PCP - General 06/27/19 Additional Source Comments The information contained in this document represents components of the legal health record. It is not the complete legal health record.[facility]
--- OUTSIDE RECORDS SUMMARY | 2024-11-21 11:07 | XMS_ITS | Patient Health Record ---
[facility] Organization [facility] Address [address] [facility] [place] [address] Care Team Providers Care Director Of Convention Services Name Role Phone Ruiz Dhaliwal MDh Primary Care Provider Unava ilMaxwell Car Unavailable [phone] Allergies Allergen (clinical drug ingredient) Drug/Non Drug [...] Problem Acquired hammer toe of right foot (069212090585226 5) Other hammer toe(s) (acquired), right foot (M20.41) Active confirmed Problem Acquired hammer toe of left foot (647450487044127 3) Other hammer toe(s) (acquired), left foot (M20.42) Active confirmed Problem Type II diabetes mellitus without complication (145346605) Type 2 diabetes mellitus without complication (E11.9) Active confirmed Vital Signs Height 5ft 5in in 06/27/2024 Weight 192 lbs 06/27/2024 BMI 31.95 kg/m2 06/27/2024 Encounters Encounter Location Date Provider Diagnosis [facility] [address] [address] 01/10/2024 Maxwell Jeb Type 2 diabetes mellitus without complication E11.9 and Plantar fasciitis, bilateral M72.2 [facility] [address] [place] [id number] 06/27/2024 Maxwell Jeb Type 2 diabetes mellitus [...] Provider Name:Maxwell Russ , 07/03/2025 01:30:00 PM, [address] [place] [address], [facility] [address], [place], [address], Insurance Providers Payer Name Payer Address Payer Phone Subscriber Number Group Number Insured Name Patient Relationship to Insured Coverage Start Date Coverage End Date [facility] [employer] Claims [address] [place] [id number] Shania Bustos Self - patient is the [...]
--- OUTSIDE RECORDS SUMMARY | 2024-11-21 11:07 | XMS_ITS | Patient Health Record ---
Author Organization [facility] Address [address] [place] [address] Care Team Providers Care Hospital Personnel Director Name Role Phone Isra POWERS, Aubrey Primary Care Provider Gene Albert Unavailable [phone] Allergies No Known Allergies Reason For Referral [...] W/U Status Risk Notes Problem Rectal bleeding (06675348) Rectal bleeding (K62.5) Active confirmed Problem Screening for malignant neoplasm of colon (412043127) Encounter for screening for malignant neoplasm of colon (Z12.11) Active confirmed Problem Constipation (26810054) Constipation (K59.00) Active confirmed Problem Diverticulosis of colon (510952120) Diverticulosis of colon (K57.30) Active confirmed Plan Of Treatment Pending Test Test Name Order Date Pathology 12/20/2021 Future Test Test Name Order Date COLONOSCOPY 08/03/2011 COLONOSCOPY 09/15/2021 Insurance Providers Payer Name Payer Address Payer Phone Subscriber Number Group Number Insured Name Patient Relationship to Insured Coverage Start Date Coverage End Date [facility] [address] [place] [phone] [id number] GLORIA GOODWIN Self - patient is the insured MEDICAID OF [employer] [address] [place] [address] [id number] GLORIA GOODWIN Self - patient is the insured Medical (General) History Medical History History ICD Code Colonoscopy 07-18-2002 was neg. except a hyperplastic polyp Constipation--responds well to Linzess DM resolved weight loss after gastric by pass Migraine Negative screening colonoscopy in July HTN Asthma Arthritis Anxiety and panic attacks Denies [place],CVA,renal disease GERD-EGD in 07/[address] Jackson--normal-gastric remnant bx neg for H.pylori Hyperlipidemia Surgical History Surgery Date(Month/Year) Uterine fibroid surgery Parotid gland tumor Carpal tunnel release-right Gastric bypass with Dr. Jose at [facility] in 2016 and lost abot 80#
== END 2024-11-21 10:19 | disposition home or self-care (01) ==
LOC: HO.HWS 09:34
PROVIDERS: PCP Internal Medicine; Visit Provider Obstetrics & Gynecology
DX: Z01.419 Encounter for gynecological examination (general) (routine) without abnormal findings (principal); Z11.3 Encounter for screening for infections with a predominantly sexual mode of transmission
CPT/HCPCS: 99396; 99459

== ENCOUNTER 2024-11-21 09:34 | Outpatient (REF) | payer OTHER, SELFPAY ==
[2024-11-21 10:44] LABS: MANUAL DIFF FLAG NO
[2024-11-21 11:21] LABS: Hematocrit 42.6 % (37.0-47.0); Hemoglobin 14.1 g/dl (12.0-16.0); Imm Gran Abs Auto 0.01 X10*3/uL (0.00-0.03); Imm Gran Pct Auto 0.2 % (0.0-0.4); Lymphocytes Absolute Auto 1.4 X10*3/uL (1.2-4.9); Mean Corpuscular HGB Conc 33.1 g/dl (31.0-35.0); Mean Corpuscular Hemoglobin 28.4 pg (27.0-33.0); Mean Corpuscular Volume 85.9 fL (80.0-98.0); NRBC Abs Auto 0.000 X10*3/uL (0.0-0.012); NRBC Pct Auto 0.0 /100WBC (0.0-0.2); Platelet Count 230 X10*3/uL (160-400); Red Blood Count 4.96 X10*6/uL (4.20-5.50); White Blood Count 4.8 X10*3/uL (4.8-10.8)
[2024-11-21 11:34] LABS: Total Hemoglobin (HGBA1C) 3574.5972 umol/L
[2024-11-21 11:46] LABS: Appearance Urine Cloudy; Glucose Urine UA Negative (Negative); PH 6.0 (5.0-9.0); Specific Gravity - Urine 1.020 (1.005-1.025); UMIC TRIGGER UACC YES
[2024-11-21 11:52] LABS: UACC Culture Trigger YES
[2024-11-21 12:09] LABS: Microalbum/Creatinine Ratio Ur 11.2 ug/mg cr (<30)
[2024-11-21 12:43] LABS: Folate 14.6 ng/mL (> or = 4.0); Vitamin B12 257 pg/mL (200-900)
[2024-11-21 12:47] LABS: Alanine Aminotransferase 12 U/L (0-31); Albumin Level 4.6 g/dL (3.5-5.0); Alkaline Phosphatase 97 U/L (39-117); Anion Gap 12 (12-20); Aspartate Amino Transferase 18 U/L (5-31); Blood Urea Nitrogen 15 mg/dL (9-16); Calcium 9.6 mg/dL (8.4-10.2); Carbon Dioxide 30 mmol/L (22-29); Chloride 108 mmol/L (96-108); Cholesterol 141 mg/dL (<200); Estimated Glomerular Filt Rate > 60; HDL Cholesterol 62 mg/dL (>40); Potassium 5.5 mmol/L (3.3-5.1); Sodium 144 mmol/L (135-145); Total Protein 7.5 g/dL (6.5-8.0); Triglycerides 94 mg/dL (<150)
[2024-11-21 17:35] LABS: Bacterial Vaginosis PCR POSITIVE (Negative); Candida Group PCR NOT DETECTED (Not Detect); Candida glab krusei PCR NOT DETECTED (Not Detect); Trichomonas vaginalis PCR NOT DETECTED (Not Detect)
[2024-11-21 18:03] LABS: CT PCR NOT DETECTED (Not Detect.); NG PCR NOT DETECTED (Not Detect.)
[2024-11-22 08:15] LABS: Syphilis Screen Nonreactive (Nonreactive)
[2024-11-22 09:08] LABS: HBsAGNum1 0.23 S/CO (0.00-0.99); HIV Num 1 0.05 S/CO (0.00-0.99); Hepatitis B Surface Antigen Negative (Negative); ~HepC Num1 0.08 S/CO (0.00-0.79); ~Hepatitis C Antibody Nonreactive (Nonreactive)
== END 2024-11-21 09:35 | disposition home or self-care (01) ==
LOC: HO.LAB 09:34
PROVIDERS: Physician Assistant Medical; Absent Provider Internal Medicine; PCP Internal Medicine; Visit Provider Obstetrics & Gynecology
DX: Z01.419 Encounter for gynecological examination (general) (routine) without abnormal findings (principal); Z01.84 Encounter for antibody response examination; Z11.59 Encounter for screening for other viral diseases; Z11.4 Encounter for screening for human immunodeficiency virus [HIV]; Z12.31 Encounter for screening mammogram for malignant neoplasm of breast; E11.9 Type 2 diabetes mellitus without complications; E53.8 Deficiency of other specified B group vitamins; E78.00 Pure hypercholesterolemia, unspecified; E55.9 Vitamin D deficiency, unspecified; N76.0 Acute vaginitis; D64.9 Anemia, unspecified; R53.83 Other fatigue; G47.9 Sleep disorder, unspecified; Z20.2 Contact with and (suspected) exposure to infections with a predominantly sexual mode of transmission
CPT/HCPCS: 36415; 80053; 80061; 81001; 81515; 82043; 82306; 82570; 82607; 82746; 83036; 83090; 83921; 84207; 84443; 85025; 86780; 86803; 87086; 87088; 87186; 87340; 87389; 87491; 87591; 99396

== ENCOUNTER 2024-11-26 15:26 | Outpatient (AMB) | payer OTHER, SELFPAY ==
--- OUTSIDE RECORDS SUMMARY | 2023-10-18 06:30 | XMS_ITS ---
Author Organization [facility] Address [address] [place] [address] Care Team Providers Care Traffic Checker Name Role Phone Aubrey Dhaliwal MD Primary Care Provider Unava ilMaxwell Car Unavailable [phone] Encounters Encounter Location Date [facility] [address] 10/18/2023 Maxwell Russ Plan Of Treatment Next Appt Details Provider Name:Maxwell Russ , 07/03/2025 01:30:00 PM, [address] [place] [address], [place], [address], Progress Notes * Rogerio BUSTOSeDOB:1965 (59 yo F)Acc No.[id number]:10/18/2023 Progress Note Patient: Shania TORIBIO Provider: Kirsten Russ DPM :1965 A ge:58 Y S ex:Female Date:10/18/2023 Address:[address] [place] [address] [address], [address], [id number] Pcp:Aubrey Dhaliwal MD Subjective: * Chief Complaints: [...] 0 10/18/2023 Generated for Toyin Knight on: 11/26/2024 04:42 PM EDT
[2024-11-26 16:00] VITALS: BP 120/80; PULSE 65; O2SAT 97; BMI 32.0
--- NOTE | 2024-11-26 16:00 | A.OFFPC_ITS ---
Vital Signs 11/26/24 16:00 Height 5 ft 5 in Weight 192 lb 2 oz BMI 32.0 BP 120/80 Blood Pressure Location Lt brachial Position Sitting Pulse 65 Pulse Source Pulse Oximeter Pulse Oximetry (%) 97 Oxygen Delivery Method Room Air Intake Visit Reasons: 4mth f/u Delivery Architect Required: No Accompanied by: Self / Same As Patient Allergies cephalexin (From Keflex) Allergy (Mild, Verified 11/26/24 16:35) RASH ezetimibe Adverse Reaction (Intermediate, Verified 11/27/24 05:20) myalgia Phbhbov-CJA-NcI Reductase Inhibitor Adverse Reaction (Intermediate, Verified 11/27/24 05:20) myalgia Medication List - Last Reconciled 11/27/24 by Aubrey Dhaliwal MD acarbose 100 mg PO DAILY acetaminophen ER 650 mg PO Q8H PRN 30 days amitriptyline 10 mg PO BEDTIME 30 days blood pressure monitor As directed blood sugar diagnostic (FreeStyle Lite Strips) 1 strip miscellaneous TID 90 days blood-glucose meter (FreeStyle Lite Meter kit) As directed blood-glucose sensor (FreeStyle Alexei 3 Plus Sensor device) Apply 1 new sensor every 15 days as directed to monitor blood glucose continuously. blood-glucose,social media content manager,cont (FreeStyle Alexei 3 [place]) Use daily to monitor blood glucose levels continuously. calcium carbonate-vitamin D2 500-125 mg-unit 1 tab PO DAILY cholecalciferol (vitamin D3) 125 mcg PO DAILY cyanocobalamin (vitamin B-12) 1,000 mcg PO DAILY 90 days diclofenac sodium 1% (Arthritis Pain (diclofenac)) 4 grams topical QID 30 days evolocumab (Repatha SureClick) 140 mg subcut Q2W 4 weeks gabapentin 300 mg PO BID glucagon 3 mg/actuation (Baqsimi) 3 mg intranasal ONCE hydrochlorothiazide 25 mg PO QAM lancets (FreeStyle Lancets) As directed 3 TIMES A DAY lidocaine 5% 1 patch topical DAILY linaclotide (Linzess) 290 mcg PO QAM 30 days lisinopril 20 mg PO DAILY magnesium oxide 400 mg PO DAILY metoclopramide HCl (Reglan) 5 mg PO TID PRN metronidazole 500 mg PO BID 7 days multivitamin 1 tab PO DAILY pantoprazole 40 mg PO BID pyridoxine (vitamin B6) 100 mg PO DAILY MDD 100mg [right wrist splint- carpal tunnel splint As directed] tirzepatide (Mounjaro) 2.5 mg (0.5 mL) subcut QWEEK trazodone 50 mg PO DAILY PRN triamcinolone acetonide 0.1% appl topical DAILY PRN vitamin A 1 cap PO DAILY zinc gluconate 30 mg PO DAILY Tobacco use date assessed: 11/26/24 Dental Screening Dental Screen Date: 11/26/24 Did you have a dental visit in the last 12 months?: Yes Did you have a dental problem in the last 6 months where you did not have access to dental care?: No Was dental information given to patient?: Patient has dentist HPI 4mth f/u HPI Details Patient comes in today for her follow up visit States that she feels okay She denies any headaches or dizziness Denies any chest pains, no increased SOB No nausea/vomiting, no abdominal pain No change in bowel habits noted She had her follow up labs done a few days ago - to discuss her results [facility] Medical History Encounter for screening examination for sexually transmitted disease Adult general medical exam Annual physical exam Essential hypertension Pure hypercholesterolemia Plantar fasciitis Atherosclerotic cardiovascular disease COVID-19 vaccine administered Colon cancer screening Family history of polyps in the colon Hypoglycemia after GI (gastrointestinal) surgery Postmenopausal bleeding Status post hysteroscopy (~06/11/13) Obesity (BMI 30-39.9) Depression Anxiety Insomnia Meralgia paresthetica Vitamin D deficiency Carpal tunnel syndrome of left wrist Osteoarthritis Obstructive sleep apnea Iron deficiency anemia Migraine Diabetes mellitus Surgical History H/O colonoscopy H/O melanoma excision (~2010) H/O endoscopy (~06/20/13) History of knee surgery (~01/30/13) S/P dilatation and curettage (~2011) History of carpal tunnel surgery H/O laparoscopy S/P myomectomy History of sleeve gastrectomy Family History Father Myocardial infarction Prostate cancer Mother Cervical cancer Ovarian cancer Mental health disorder Diabetes Alzheimer's dementia Sleep apnea Sister Ovarian cancer Maternal Aunt Colon cancer Social History Household Members: Children Housing: Apartment Are you a primary healthcare administrator to a significant other at home: Yes (Mother) Do you presently have visiting nurse or other home services: No Alcohol intake: current Alcohol intake frequency: holidays/special occasions only Patient Tobacco Use Status: Former Tobacco user Tobacco use type: Cigarette Cigarettes Per Day: 2 Years Smoked: 3 e-Cigarette/Vaping Use: Never Used Second Hand Smoke Exposure: Yes Advance Directives Date on File: 03/16/16 service: No Current occupational status: disabled Current occupation: right handed Cognitive needs: No Hearing needs: No Vision needs: Yes (glasses) Female Reproductive History Menstrual Age of Menarche: 12 Questionnaire PHQ-9 Over the last 2 weeks, how often have you been bothered by any of the following problems? Depression Screening Interpretation: Negative Depression Screening Done: Yes Source: Developed by Drs. Gene Gar, Shanita Ivey, Jim Ta and colleagues, with an educational shabbir from [employer]. Thrive Questionnaire Date Thrive assessed: 07/18/24 I am a: Patient What is your living situation today?: I have a steady place to live Within the past 12 months, did the food you bought not last and you didn't have the money to get more?: Never true Within the past 12 months, did you worry whether your food would run out before you got money to buy more?: I choose not to answer this question Do you have trouble paying for medicines?: I choose not to answer this question Do you have trouble getting transportation to medical appointments?: I choose not to answer this question Do you have trouble paying your heating and electricity bill?: Yes Do you have trouble taking care of your child, family member or friend?: I choose not to answer this question Do you have trouble with day-to-day activities such as bathing, preparing meals, shopping, managing finances, etc.?: I choose not to answer this question Are you currently unemployed and looking for a job?: I choose not to answer this question Are you interested in more education?: I choose not to answer this question Please select the resources that you would like help with: Utilities Currently or been in a relationship where the following occur: I choose not to answer THRIVE Score: 1 AUDIT C Alcohol Use Questionnaire (AUDIT-C) 1. How often do you have a drink containing alcohol?: Monthly or less 2. How many drinks containing alcohol do you have on a typical day when you are drinking?: 1 or 2 3. How often do you have six or more drinks on one occasion?: Never Total Score: 1 Score Reviewed/Action Taken: Yes DOTTY-7 AMB Questionnaire DOTTY-7 Date DOTTY - 7 assessed: 07/25/24 Source: Developed by Drs. Gene Gar, Shanita Ivey, Jim Ta and colleagues, with an educational shabbir from [employer]. Review of Systems Const Denies chills, Denies fatigue, Denies fever(s) and Denies headache(s) ENT Denies dysphagia, Denies dizziness, Denies otalgia, Denies headache(s), Denies neck pain, Denies odynophagia and Denies sore throat Card Denies chest pain, Denies palpitations and Denies dyspnea Resp Denies chest congestion, Denies cough and Denies dyspnea GI Denies abdominal pain, Denies constipation, Denies dysphagia, Denies heartburn, Denies diarrhea, Denies nausea, Denies odynophagia and Denies vomiting Denies difficulty voiding, Denies nocturia, Denies dysuria and Denies urinary urgency Musc Details: (+) chronic pain in both feet Reports back pain (over her lower back - chronic and increasing lately), Reports arthralgias (involving multiple joints but especially over both knees) and Denies neck pain Skin/Breast Denies rash Neuro Denies dizziness and Denies headache(s) Endo Denies fatigue and Denies palpitations Physical exam (Primary Care) Vital Signs: Last Vital Signs Pulse 65 11/26/24 16:00 BP 120/80 11/26/24 16:00 Pulse Ox 97 11/26/24 16:00 Oxygen Delivery Method Room Air 11/26/24 16:00 BMI result Body Mass Index 32.0 Tobacco/Smoking Status: Tobacco use Status Tobacco use date assessed 11/26/24 11/26/24 16:01 Patient Tobacco Use Status Former Tobacco user 11/26/24 16:01 Tobacco use type Cigarette 11/26/24 16:01 e-Cigarette/Vaping Use Never Used 11/26/24 16:01 Depression Screening Interpretation: Negative Thrive Assessment: Date of Thrive Assessment Date Thrive assessed 07/18/24 11/26/24 16:01 Currently or been in a relationship where the following occur: I choose not to answer Const General: no acute distress and alert HENMT Ears: TM's normal bilaterally and EAC's normal Throat: Yes posterior oropharynx normal and Yes tonsils normal (no TP congestion) Neck Neck: Yes supple and No lymphadenopathy Thyroid: Thyroid normal Resp Auscultation: clear to auscultation bilaterally, no rales and no wheezes Cardio Rate: regular rate Rhythm: regular rhythm Heart sounds: no murmurs GI Palpation (GI): Soft to palpation and nontender Auscultation: normal bowel sounds General: Yes no CVA tenderness Back/Spine/Pelvis Back: no CVA tenderness Thoracic/Lumbar Spine: lumbar spinal tenderness Skin Rashes: no rashes Extrem General: Yes no clubbing, cyanosis or edema Right lower extremity: knee Details: tenderness; no swelling Left lower extremity: knee Details: tenderness; no swelling Results Reviewed Results Reviewed: Laboratory Tests 11/21/24 11/21/24 10:31 10:43 WBC 4.8 Hgb 14.1 Hct 42.6 Plt Count 230 Sodium 144 Potassium 5.5 H D Creatinine 0.68 Estimated GFR > 60 Fasting Glucose 104 H Hemoglobin A1c % 6.4 H Calcium 9.6 D AST 18 ALT 12 Triglycerides 94 Cholesterol 141 LDL Cholesterol, Calc 61 HDL Cholesterol 62 Vitamin B12 257 25-OH Vitamin D Total 27.3 L Homocysteine 10.8 TSH 1.02 Ur Specific [place] 1.020 Urine Protein Negative Urine Glucose (UA) Negative Urine Blood Negative Urine Nitrite Positive H Ur Leukocyte Esterase Moderate (2+) H Microalb/Creat Ratio 11.2 Coding Level of Care Code Est Pt Level 4 (30191) Diagnoses Pure hypercholesterolemia E78.00 Type 2 diabetes mellitus without complication, without long-term current use of insulin E11.9 Diabetes mellitus complication status: without complication Diabetes mellitus alf insulin use: without watermelon inspector use Diabetes mellitus type: type 2 Essential hypertension I10 Migraine without status migrainosus, not intractable, unspecified migraine type G43.909 Intractability: not intractable Migraine type: unspecified Status migrainosus presence: without status migrainosus Obstructive sleep apnea G47.33 Iron deficiency anemia secondary to inadequate dietary iron intake D50.8 Iron deficiency anemia type: inadequate dietary iron intake Gastroesophageal reflux disease without esophagitis K21.9 Esophagitis presence: without esophagitis Vitamin D deficiency E55.9 Plantar fasciitis, bilateral M72.2 Primary osteoarthritis, unspecified site M19.91 Osteoarthritis location: unspecified site Osteoarthritis type: primary Meralgia paresthetica of right side G57.11 Laterality: right Primary insomnia F51.01 Insomnia type: primary Anxiety F41.9 Episode of recurrent major depressive disorder, unspecified depression episode severity F33.9 Active/Remission status: currently active Depression Type: major depressive disorder Major depression episode severity: unspecified Major depression recurrence: recurrent Obesity (BMI 30-39.9) E66.9 Assessment & Plan Assessment & Plan (1) Pure hypercholesterolemia: Code(s): E78.00 - Pure hypercholesterolemia, unspecified Category: Medical Plan: Results of her labs done a few days ago reviewed and discussed with patient Reinforced low-cholesterol diet Continue Repatha 140 mg SQ every 2 weeks (she could not tolerate all of the oral cholesterol medications that she has been tried on in the past, including Rosuvastatin and Ezetimibe) Will have patient recheck her labs and fasting lipids in 4 months for follow-up (2) Diabetes mellitus: Comment: Patient says it is much improved since her gastric bypass an 80 lb weight loss... Code(s): E11.9 - Type 2 diabetes mellitus without complications Category: Medical Qualifiers: Diabetes mellitus complication status: without complication Diabetes mellitus watermelon inspector insulin use: without watermelon inspector use Diabetes mellitus type: type 2 Qualified Code(s): E11.9 - Type 2 diabetes mellitus without complications Plan: Her HgbA1c has impoved to 6.4% on her labs done a few days ago (HgbA1c was previously at 7.7 a few months ago) - goal is <7.0% Reinforced diabetic diet Continue Acarbose 100 mg QD and Mounjaro 2.5 mg once a week - she was previously on Trulicity but it did not help and she was also gaining weight while on Trulicity, for unclear reasons Follow up with endocrinology as scheduled (3) Essential hypertension: Code(s): I10 - Essential (primary) hypertension Category: Medical Plan: Reinforced low sodium diet - goal is systolic BP of at least 130 mm or less Continue Lisinopril 10 mg QD and HCTZ 25 mg QD Patient is reminded to continue monitoring her blood pressure regularly (4) Migraine: Code(s): G43.909 - Migraine, unspecified, not intractable, without status migrainosus Category: Medical Qualifiers: Intractability: not intractable Migraine type: unspecified Status migrainosus presence: without status migrainosus Qualified Code(s): G43.909 - Migraine, unspecified, not intractable, without status migrainosus Plan: Stable/controlled - follow up with neurology as scheduled Continue Amitriptyline 10 mg daily at bedtime for ROWE prophylaxis (5) Obstructive sleep apnea: Comment: uses CPAP Code(s): G47.33 - Obstructive sleep apnea (adult) (pediatric) Category: Medical Plan: Repeat home sleep study showed (+) improvement in her sleep apnea when she was using her CPAP device regularly She required auto-CPAP mode of 5 to 15 cm pressure but her device broke down and she needed a replacement unit Her last sleep study was done in 2017 so she will need to get this updated - repeat home sleep study has been ordered previously Follow up with Sleep Medicine as scheduled for continuing management (6) Iron deficiency anemia: Code(s): D50.9 - Iron deficiency anemia, unspecified Category: Medical Qualifiers: Iron deficiency anemia type: inadequate dietary iron intake Qualified Code(s): D50.8 - Other iron deficiency anemias Plan: Corrected - her H/H remained normal at 14.1/42.6 on her labs done a few days ago Will continue to monitor her CBC regularly (7) GERD (gastroesophageal reflux disease): Code(s): K21.9 - Gastro-esophageal reflux disease without esophagitis Category: Medical Qualifiers: Esophagitis presence: without esophagitis Qualified Code(s): K21.9 - Gastro-esophageal reflux disease without esophagitis Plan: Dietary restrictions reinforced Continue Lansoprazole 30 mg BID - states that her previous epigastric pain has improved when dosing was increased to BID Follow up with GI as scheduled (8) Vitamin D deficiency: Code(s): E55.9 - Vitamin D deficiency, unspecified Category: Medical Plan: Continue Vitamin D3 2000 units QD? (9) Plantar fasciitis, bilateral: Code(s): M72.2 - Plantar fascial fibromatosis Category: Medical Plan: She previously had about 3 separate injections into her feet with Dr. Becerra, which she states did not help She was recommended surgery as a last resort but was advised to see someone else as Dr. Becerra supposedly does not perform this type of surgery States that she checked with [facility] recently and was advised as well that they do not perform the requested for surgical procedure She was referred to Dr. Granados at [facility] for the required surgical procedure for her plantar fasciitis if appropriate but she ended up being seen by Dr. Russ - to follow up with podiatry as scheduled (10) Osteoarthritis: Code(s): M19.90 - Unspecified osteoarthritis, unspecified site Category: Medical Qualifiers: Osteoarthritis location: unspecified site Osteoarthritis type: primary Qualified Code(s): M19.91 - Primary osteoarthritis, unspecified site Plan: Continue Tylenol ER 650 mg every 8 hours as needed for pain Follow up with orthopedics as scheduled (11) Meralgia paresthetica: Code(s): G57.10 - Meralgia paresthetica, unspecified lower limb Category: Medical Qualifiers: Laterality: right Qualified Code(s): G57.11 - Meralgia paresthetica, right lower limb Plan: EMG & NCV done by neurology a couple of years ago came out mostly normal She has received a couple of injections (nerve block) already but states that they only helped with her burning sensation but not with her pain She was supposed to be set up for an MRI by pain management for further evaluation but states that she has not heard back from them about this since Follow up with pain management (Dr. Mercedes) as scheduled (12) Insomnia: Code(s): G47.00 - Insomnia, unspecified Category: Medical Qualifiers: Insomnia type: primary Qualified Code(s): F51.01 - Primary insomnia Plan: Sleep hygiene reinforced Continue Trazodone 50 mg Q HS PRN and Temazepam 30 mg Q HS PRN (13) Anxiety: Code(s): F41.9 - Anxiety disorder, unspecified Category: Medical Plan: Continue Clonazepam 1 mg Q HS and Hydroxyzine 25 mg BID PRN (14) Depression: Code(s): F32.9 - Major depressive disorder, single episode, unspecified Category: Medical Qualifiers: Active/Remission status: currently active Depression Type: major depressive disorder Major depression episode severity: unspecified Major depression recurrence: recurrent Qualified Code(s): F33.9 - Major depressive disorder, recurrent, unspecified Plan: She was on Quetiapine 100 mg QD previously but this was reportedly stopped by psychiatry at some point Her previous psychiatrist (Dr. Kelly) recently retired and she is currently still looking for a new psychiatric provider (15) Obesity (BMI 30-39.9): Code(s): E66.9 - Obesity, unspecified Category: Medical Plan: Reinforced diet/exercise as tolerated/lose weight Plan Follow up in 4 months Orders: Orders Comprehensive Hestand. Panel Fast 4 Months E78.00 - Pure hypercholesterolemia, unspecified Lipid Panel 4 Months E78.00 - Pure hypercholesterolemia, unspecified Hemoglobin A1c 4 Months E11.9 - Type 2 diabetes mellitus without complications UA CC w/rflx Micro + Cult 4 Months R30.0 - Dysuria Vitamin B12 and Folate 4 Months E53.8 - Deficiency of other specified B group vitamins Complete Blood Count Auto Diff 4 Months D64.9 - Anemia, unspecified Microalbumin, Random (w Creat) 4 Months E11.9 - Type 2 diabetes mellitus without complications TSH reflex Free T4 4 Months E78.00 - Pure hypercholesterolemia, unspecified Vitamin D 25-OH Total 4 Months E55.9 - Vitamin D deficiency, unspecified
--- OUTSIDE RECORDS SUMMARY | 2024-11-26 16:42 | XMS_ITS | Patient Health Record ---
[facility] Address [address] [place] [address] Care Team Providers Care Bicycle Designer Name Role Phone Ruiz Dhaliwal MDh Primary Care Provider Unava ilMaxwell Car Unavailable [phone] Allergies Allergen (clinical drug ingredient) Drug/Non Drug [...] Problem Acquired hammer toe of right foot (130394304263181 5) Other hammer toe(s) (acquired), right foot (M20.41) Active confirmed Problem Acquired hammer toe of left foot ([id number] 3) Other hammer toe(s) (acquired), left foot (M20.42) Active confirmed Problem Type II diabetes mellitus without complication (636839258) Type 2 diabetes mellitus without complication (E11.9) Active confirmed Vital Signs Height 5ft 5in in 06/27/2024 Weight 192 lbs 06/27/2024 BMI 31.95 kg/m2 06/27/2024 Encounters Encounter Location Date Provider Diagnosis [facility] [place] [address] [address] 01/10/2024 Maxwell Jeb Type 2 diabetes mellitus without complication E11.9 and Plantar fasciitis, bilateral M72.2 [facility] [address] [place] [id number] 06/27/2024 Maxwell Jeb Type 2 diabetes mellitus [...] Provider Name:Maxwell Russ , 07/03/2025 01:30:00 PM, [address] [place] [address], [facility] [address], [place], [address], Insurance Providers Payer Name Payer Address Payer Phone Subscriber Number Group Number Insured Name Patient Relationship to Insured Coverage Start Date Coverage End Date [facility] [employer] Claims [address] [place] [address] [id number] Shania Bustos Self - patient is the [...]
--- OUTSIDE RECORDS SUMMARY | 2024-11-26 16:42 | XMS_ITS | Clinical Summary ---
Author Organization [facility] Address [address] [address] Phone Care Team Providers Care Mobile Heavy Equipment Operator Name Role Phone Pcp, Unknown Primary Care [...] of 2) 2016 INFLUENZA VACCINE (#1) 2024 9, 12/26/2017 COVID-19 VACCINE (3 - 2024-2 6 [...] Medical Devices Not on file Insurance [place] [id number] MEDICARE REPLACEMENT [place] [address] [place] [id number] MEDICARE REPLACEMENT MEDICARE REPLACEMENT MEDICARE REPLACEMENT MEDICARE REPLACEMENT MEDICARE REPLACEMENT MEDICARE REPLACEMENT Care Teams Mobile Heavy Equipment Operator Relationship Specialty Start Date End Date Pcp, Unknown PCP - General 06/27/19 Additional Source Comments The information contained in this document represents components of the legal health record. It is not the complete legal health record.[facility]
--- OUTSIDE RECORDS SUMMARY | 2024-11-26 16:42 | XMS_ITS | Patient Health Record ---
Author Organization [facility] Address [address] [place] [address] Care Team Providers Care Mold Yard Crane Operator Name Role Phone Isra POWERS, Aubrey Primary Care Provider Gene Albert Unavailable [phone] Allergies No Known Allergies Reason For Referral [...] W/U Status Risk Notes Problem Rectal bleeding (93077854) Rectal bleeding (K62.5) Active confirmed Problem Screening for malignant neoplasm of colon (575933770) Encounter for screening for malignant neoplasm of colon (Z12.11) Active confirmed Problem Constipation (63023359) Constipation (K59.00) Active confirmed Problem Diverticulosis of colon (939497384) Diverticulosis of colon (K57.30) Active confirmed Plan Of Treatment Pending Test Test Name Order Date Pathology 12/20/2021 Future Test Test Name Order Date COLONOSCOPY 08/03/2011 COLONOSCOPY 09/15/2021 Insurance Providers Payer Name Payer Address Payer Phone Subscriber Number Group Number Insured Name Patient Relationship to Insured Coverage Start Date Coverage End Date [facility] [address] [place] [phone] [id number] GLORIA GOODWIN Self - patient is the insured [place] [address] [place] [address] [id number] GLORIA GOODWIN Self - patient is the [...] release-right Gastric bypass with Dr. Jose at [facility] in 2016 and lost abot 80#
== END 2024-11-26 16:52 | disposition home or self-care (01) ==
LOC: HO.HMCH 15:27
PROVIDERS: PCP Internal Medicine; Visit Provider Internal Medicine
DX: E78.00 Pure hypercholesterolemia, unspecified (principal); E11.9 Type 2 diabetes mellitus without complications; I10 Essential (primary) hypertension; G43.909 Migraine, unspecified, not intractable, without status migrainosus; G47.33 Obstructive sleep apnea (adult) (pediatric); D50.8 Other iron deficiency anemias; K21.9 Gastro-esophageal reflux disease without esophagitis; E55.9 Vitamin D deficiency, unspecified; M72.2 Plantar fascial fibromatosis; M19.91 Primary osteoarthritis, unspecified site; G57.11 Meralgia paresthetica, right lower limb; F51.01 Primary insomnia

== ENCOUNTER → 2024-11-26 15:26 | Outpatient (BNVA) | payer OTHER, SELFPAY | PROVIDERS: PCP Internal Medicine; Visit Provider Internal Medicine | DX: E11.9 Type 2 diabetes mellitus without complications (principal); E78.00 Pure hypercholesterolemia, unspecified; I10 Essential (primary) hypertension; G43.909 Migraine, unspecified, not intractable, without status migrainosus; G47.33 Obstructive sleep apnea (adult) (pediatric); D50.8 Other iron deficiency anemias; K21.9 Gastro-esophageal reflux disease without esophagitis; E55.9 Vitamin D deficiency, unspecified; G57.11 Meralgia paresthetica, right lower limb; M72.2 Plantar fascial fibromatosis; F51.01 Primary insomnia; F41.9 Anxiety disorder, unspecified; F33.9 Major depressive disorder, recurrent, unspecified; E66.9 Obesity, unspecified; R30.0 Dysuria; E53.8 Deficiency of other specified B group vitamins; Z68.32 Body mass index [BMI] 32.0-32.9, adult | CPT/HCPCS: 99212 ==

== ENCOUNTER 2024-11-29 15:00 | Outpatient (AMB) | payer OTHER, SELFPAY ==
--- OUTSIDE RECORDS SUMMARY | 2023-10-18 06:30 | XMS_ITS ---
Author Organization [facility] Address [address] [place] [address] Care Team Providers Care Rubber Block Layer Name Role Phone Aubrey Dhaliwal MD Primary Care Provider Unava ilMaxwell Car Unavailable [phone] Encounters Encounter Location Date [facility] [address] 10/18/2023 Maxwell Russ Plan Of Treatment Next Appt Details Provider Name:Maxwell Russ , 07/03/2025 01:30:00 PM, [address] [place] [address], [place], [address], Progress Notes * Roegrio BUSTOSeDOB:1965 (59 yo F)Acc No.[id number]:10/18/2023 Progress Note Patient: Shania TORIBIO Provider: Kirsten Russ DPM :1965 A ge:58 Y S ex:Female Date:10/18/2023 Address:[address] [place] [address] [address], [address], [id number] Pcp:Aubrey Dhlaiwal MD Subjective: * Chief Complaints: * * [...] 0 10/18/2023 Generated for Toyin Knight on: 03:03 PM EDT
--- OUTSIDE RECORDS SUMMARY | 2024-11-29 15:03 | XMS_ITS | Clinical Summary ---
Author Organization [facility] Address [address] [address] Phone Care Team Providers Care Electric Blanket Wirer Name Role Phone Pcp, Unknown Primary Care [...] Medical Devices Not on file Insurance [place] [id number] MEDICARE REPLACEMENT [place] [address] [place] [address] MEDICARE REPLACEMENT MEDICARE REPLACEMENT MEDICARE REPLACEMENT MEDICARE REPLACEMENT MEDICARE REPLACEMENT MEDICARE REPLACEMENT Care Teams Electric Blanket Wirer Relationship Specialty Start Date End Date Pcp, Unknown PCP - General 06/27/19 Additional Source Comments The information contained in this document represents components of the legal health record. It is not the complete legal health record.[facility]
--- OUTSIDE RECORDS SUMMARY | 2024-11-29 15:03 | XMS_ITS | Patient Health Record ---
Author Organization [facility] Address [address] [place] [address] Care Team Providers Care Association Executive Name Role Phone Isra POWERS, Aubrey Primary Care Provider Gene Albert Unavailable [phone] Allergies No Known Allergies Reason For Referral [...] W/U Status Risk Notes Problem Rectal bleeding (18265309) Rectal bleeding (K62.5) Active confirmed Problem Screening for malignant neoplasm of colon (910349889) Encounter for screening for malignant neoplasm of colon (Z12.11) Active confirmed Problem Constipation (36539439) Constipation (K59.00) Active confirmed Problem Diverticulosis of colon (037390713) Diverticulosis of colon (K57.30) Active confirmed Plan Of Treatment Pending Test Test Name Order Date Pathology 12/20/2021 Future Test Test Name Order Date COLONOSCOPY 08/03/2011 COLONOSCOPY 09/15/2021 Insurance Providers Payer Name Payer Address Payer Phone Subscriber Number Group Number Insured Name Patient Relationship to Insured Coverage Start Date Coverage End Date [facility] [address] [place] [address] [id number] GLORIA GOODWIN Self - patient is the insured MEDICAID OF [employer] [address] [place] [address] [id number] GLORIA GOODWIN Self - patient is the [...] release-right Gastric bypass with Dr. Jose at [facility] in 2016 and lost abot 80#
--- OUTSIDE RECORDS SUMMARY | 2024-11-29 15:03 | XMS_ITS | Patient Health Record ---
Author Organization [facility] Address [address] [facility] [place] [address] Care Team Providers Care Hoop Cutter Name Role Phone Ruiz Dhaliwal MDh Primary Care Provider Unava ilMaxwell Car Unavailable [phone] Allergies Allergen (clinical drug ingredient) Drug/Non Drug [...] Problem Acquired hammer toe of right foot (301475515521784 5) Other hammer toe(s) (acquired), right foot (M20.41) Active confirmed Problem Acquired hammer toe of left foot (802908413389961 3) Other hammer toe(s) (acquired), left foot (M20.42) Active confirmed Problem Type II diabetes mellitus without complication (178147650) Type 2 diabetes mellitus without complication (E11.9) Active confirmed Vital Signs Height 5ft 5in in 06/27/2024 Weight 192 lbs 06/27/2024 BMI 31.95 kg/m2 06/27/2024 Encounters Encounter Location Date Provider Diagnosis [facility] [place] [address] [address] 01/10/2024 Maxwell Jeb Type 2 diabetes mellitus without complication E11.9 and Plantar fasciitis, bilateral M72.2 [facility] [address] [place] [address] 06/27/2024 Maxewll Jeb Type 2 diabetes mellitus without complication [...] Provider Name:Maxwell Russ , 07/03/2025 01:30:00 PM, [address] [place] [address], [facility] [address], [place], [address], Insurance Providers Payer Name Payer Address Payer Phone Subscriber Number Group Number Insured Name Patient Relationship to Insured Coverage Start Date Coverage End Date [facility] CCA SCO Claims [address] [place] [address] [id number] Shania Bustos Self - patient is the [...]
--- NOTE | 2024-11-29 15:20 | A.OFFVIS_ITS ---
Vital Signs 11/29/24 15:21 Height 5 ft 5 in Weight 194 lb 10.691 oz BMI 32.4 BP 126/72 Blood Pressure Location Lt brachial Position Sitting Pulse 69 Pulse Source Pulse Oximeter Pulse Oximetry (%) 92 Oxygen Delivery Method Room Air Intake Visit Reasons: Type II diabetes Intake Note: Patient present today for Type 2 Diabetes Mellitus follow up.? Last Diabetic Eye exam: Feb 2024 Last Podiatry Visit: April 2024 Random Glucose:109 mg/dl HgA1C: 6.4% 11/21/2024 Allergies cephalexin (From Keflex) Allergy (Mild, Verified 11/29/24 15:22) RASH ezetimibe Adverse Reaction (Intermediate, Verified 11/29/24 15:22) myalgia Yismzbn-NHS-XdM Reductase Inhibitor Adverse Reaction (Intermediate, Verified 11/29/24 15:22) myalgia HPI Comments Details: This is a 59-year-old female with a past medical history of migraines, RLS, hyperlipidemia, gastric bypass surgery, KEVON on CPAP, hypertension, type 2 diabetes, melanoma, constipation, GERD, CAD and obesity presenting for diabetic management. She was diagnosed 15 years ago. She has a family history of type 2 diabetes. Hemoglobin A1c 6.4% down from 7.7%. G MS 6% Very high 0% High 5% Target range 94% Low 1% Very low 0% My interpretation is that she has blood sugars within target range the majority of the time with very occasional postprandial hyperglycemia. Patient says her CGM alerted her to a low blood sugar 1 time. It was 68, but her fingerstick was 74. She had no symptoms of hypoglycemia. Current medication regimen: Mounjaro 2.5 mg weekly and acarbose 100 mg daily. She has not lost weight on the initial dose of Mounjaro. Past medication: Metformin, insulin pump, Lantus. Medications were disconti nued after bariatric surgery 7 years ago. Trulicity switch to Mounjaro due to weight gain on Trulicity. Compliance issues: None Followed by [facility] dietitian. Previously documented: She has a history of hypoglycemia. She recalls 2 severe episodes in the past. She was hospitalized once for a blood glucose of 26. She drove herself to the ER and was conscious. He had not eaten for a long duration. She had another episode a couple of years ago, and her blood sugar was 56. Symptoms included sweating profusely and confusion. Microvascular complications: neuropathy Macrovascular complications: CAD (followed by Cardiology) Hypertension: treated with hydrochlorothiazide, lisinopril. Hyperlipidemia: treated with Repatha and Zetia ROS: Constitutional: No unexplained weight loss, fever, chills Eyes: No vision changes, blurry vision, double vision, Respiratory: No shortness of breath, cough or sputum production. Cardiovascular: No chest pain, chest pressure or chest discomfort. No palpitations or pedal edema. Gastrointestinal: No anorexia, nausea, vomiting or diarrhea. No abdominal pain or blood in stool. Neurologic: No headache, dizziness, syncope Endocrine: No cold or heat intolerance. No polyuria or polydipsia. Physical exam: Constitutional: Alert, in no distress. Head: Normocephalic. Neck: Supple, Full range of motion. No lymphadenopathy. No palpable thyroid masses. Respiratory: Clear to auscultation. Cardiovascular: S1 S2 regular. No murmurs. [facility] Medical History Encounter for screening examination for sexually transmitted disease Adult general medical exam Annual physical exam Essential hypertension Pure hypercholesterolemia Plantar fasciitis Atherosclerotic cardiovascular disease COVID-19 vaccine administered Colon cancer screening Family history of polyps in the colon Hypoglycemia after GI (gastrointestinal) surgery Postmenopausal bleeding Status post hysteroscopy (~06/11/13) Obesity (BMI 30-39.9) Depression Anxiety Insomnia Meralgia paresthetica Vitamin D deficiency Carpal tunnel syndrome of left wrist Osteoarthritis Obstructive sleep apnea Iron deficiency anemia Migraine Diabetes mellitus Surgical History H/O colonoscopy H/O melanoma excision (~2010) H/O endoscopy (~06/20/13) History of knee surgery (~01/30/13) S/P dilatation and curettage (~2011) History of carpal tunnel surgery H/O laparoscopy S/P myomectomy History of sleeve gastrectomy Family History Father Myocardial infarction Prostate cancer Mother Cervical cancer Ovarian cancer Mental health disorder Diabetes Alzheimer's dementia Sleep apnea Sister Ovarian cancer Maternal Aunt Colon cancer Social History (Reviewed 11/29/24 @ 15:23 by COLLIN Cartwright Household Members: Children Housing: Apartment Are you a primary human services care specialist to a significant other at home: Yes (Mother) Do you presently have visiting nurse or other home services: No Alcohol intake: current Alcohol intake frequency: holidays/special occasions only Patient Tobacco Use Status: Former Tobacco user Tobacco use type: Cigarette Cigarettes Per Day: 2 Years Smoked: 3 e-Cigarette/Vaping Use: Never Used Second Hand Smoke Exposure: Yes Advance Directives Date on File: 03/16/16 service: No Current occupational status: disabled Current occupation: right handed Cognitive needs: No Hearing needs: No Vision needs: Yes (glasses) Female Reproductive History Menstrual Age of Menarche: 12 Physical Exam Vital Signs: Last Vital Signs Pulse 69 11/29/24 15:21 BP 126/72 11/29/24 15:21 Pulse Ox 92 11/29/24 15:21 Oxygen Delivery Method Room Air 11/29/24 15:21 BMI result Body Mass Index 32.4 Office Procedures Glucose Monitoring Details Details: See [facility] [address] - Glucose monitoring, continuous-physician I&R Procedure code (CPT) selection complete Results Reviewed Results Reviewed: Laboratory Last Values Glucose (Clinic) 109 mg/dL (60-115) 11/29/24 15:31 Laboratory Tests 11/21/24 11/21/24 10:31 10:43 Creatinine 0.68 Estimated GFR > 60 AST 18 ALT 12 Triglycerides 94 Cholesterol 141 LDL Cholesterol, Calc 61 HDL Cholesterol 62 Urine Creatinine 151.35 Urine Microalbumin 17.0 Microalb/Creat Ratio 11.2 Assessment & Plan Assessment & Plan (1) Type 2 diabetes mellitus with unspecified complications: Code(s): E11.8 - Type 2 diabetes mellitus with unspecified complications Category: Medical Plan: In summary this is a 58-year-old female with a past medical history of obesity, type 2 diabetes with complications and bariatric surgery. Type 2 diabetes is controlled. She would like to target weight loss. She will stop acarbose and increase Mounjaro to 5 mg weekly. Lifestyle modifications reviewed. Followed by dietitian. We reviewed complications of type 2 diabetes. (2) Hypoglycemia after GI (gastrointestinal) surgery: Code(s): K91.2 - Postsurgical malabsorption, not elsewhere classified Category: Medical Plan: She works with the dietitian. We reviewed treatment of hypoglycemia. Written instructions provided to patient. She has glucose tablets and Baqsimi. Patient is aware that if she has hypoglycemia after increasing her GLP 1 she jonathan l need to revert to the prior dosing. She is okay with this. Advised patient not to drive if she does not have an accurate way to test her blood sugar or if she has symptoms of low blood sugar. (3) Essential hypertension: Code(s): I10 - Essential (primary) hypertension Category: Medical Plan: Controlled. Continue current regimen. Plan Follow up in 3 months for type 2 diabetes. Orders: Orders AMB Glucose Monitoring Today E11.9 - Type 2 diabetes mellitus without complications Medications: New tirzepatide (Mounjaro) 5 mg (0.5 mL) subcut QWEEK 2 mL 5RF Discontinued tirzepatide (Mounjaro) Discontinued Reason: Duplicate 2.5 mg (0.5 mL) subcut QWEEK 2 mL 0RF Coding Level of Care Code Est Pt Level 4 (57480) Diagnoses Type 2 diabetes mellitus with unspecified complications E11.8 Hypoglycemia after GI (gastrointestinal) surgery K91.2 Essential hypertension I10 CPT Codes Details - CPT: 11372 - Glucose monitoring, continuous-physician I&R ([id number])
[2024-11-29 15:21] VITALS: BP 126/72; PULSE 69; O2SAT 92; BMI 32.4
[2024-11-29 15:36] LABS: Glucose, Whole Blood 109 mg/dL (60-115)
== END 2024-11-29 15:56 | disposition home or self-care (01) ==
LOC: HO.ENCR 15:01
PROVIDERS: PCP Internal Medicine; Visit Provider Physician Assistant Medical
DX: E11.8 Type 2 diabetes mellitus with unspecified complications (principal); K91.2 Postsurgical malabsorption, not elsewhere classified; I10 Essential (primary) hypertension

== ENCOUNTER → 2024-11-29 15:00 | Outpatient (BNVA) | payer OTHER, SELFPAY | PROVIDERS: PCP Internal Medicine; Visit Provider Physician Assistant Medical | DX: I10 Essential (primary) hypertension (principal); K91.2 Postsurgical malabsorption, not elsewhere classified; E11.9 Type 2 diabetes mellitus without complications | CPT/HCPCS: 82947; 99212 ==

== ENCOUNTER 2024-12-06 11:42 | Outpatient (REF) | payer OTHER, SELFPAY | END 2024-12-06 11:43 | disposition home or self-care (01) | LOC: HO.MAMMO 11:42 | PROVIDERS: PCP Internal Medicine; Visit Provider Internal Medicine | DX: Z12.31 Encounter for screening mammogram for malignant neoplasm of breast (principal) | CPT/HCPCS: 77063; 77067 ==

== ENCOUNTER → 2024-12-06 12:15 | Outpatient (BNV) | payer OTHER, SELFPAY | PROVIDERS: PCP Internal Medicine; Visit Provider Radiology Body Imaging | DX: Z12.31 Encounter for screening mammogram for malignant neoplasm of breast (principal) | CPT/HCPCS: 77063; 77067 ==

== ENCOUNTER 2024-12-11 13:31 | Outpatient (AMB) | payer OTHER, SELFPAY ==
--- OUTSIDE RECORDS SUMMARY | 2023-10-18 06:30 | XMS_ITS ---
Author [facility] Address [address] [place] [address] Care Team Providers Care Vault Custodian Name Role Phone Aubrey Dhaliwal MD Primary Care Provider Unava ilMaxwell Car Unavailable [phone] Encounters Encounter Location Date [facility] [address] 10/18/2023 Maxwell Russ Plan Of Treatment Next Appt Details Provider Name:Maxwell Russ , 07/03/2025 01:30:00 PM, [address] [place] [address], [place], [address], Progress Notes * Rogerio BUSTOSeDOB:1965 (59 yo F)Acc No.[id number]:10/18/2023 Progress Note Patient: Shania TORIBIO Provider: Kirsten Russ DPM :1965 A ge:58 Y S ex:Female Date:10/18/2023 Address:[address] [place] [address] [address], [address], [id number] Pcp:Aubrey Dhaliwal MD Subjective: * Chief Complaints: [...] 0 10/18/2023 Generated for Toyin Knight on: 1 05:11 PM EDT
--- NOTE | 2024-12-11 13:50 | AM.OFFVISNUR ---
Intake Visit Reasons: flu shot Allergies cephalexin (From Keflex) Allergy (Mild, Verified 11/29/24 15:22) RASH ezetimibe Adverse Reaction (Intermediate, Verified 11/29/24 15:22) myalgia Ikurjhk-PAK-CtJ Reductase Inhibitor Adverse Reaction (Intermediate, Verified 11/29/24 15:22) myalgia Office Procedures Flu Questionnaire Does the patient have a severe egg allergy?: No Does the patient have severe life threatening allergies?: No Does the patient have a fever or illness today?: No Has the patient ever had Guillain-Stratton Syndrome?: No Has the patient ever had any past reaction to a flu shot?: No Immunizations Fluarix [id number] (PF) 45 mcg (15 mcg x 3)/0.5 mL IM syringe Performing Provider: Aubrey Dhaliwal MD [facility] Administered by: Sarah Ashley LPN on 12/11/24 13:50 Dose Route Admin Location Dispensed Lot Number Expiration Date [facility] Paid Search Marketing Strategist 0.5 mL IM Left Deltoid 0.5 mL [id number] 08/26/25 [id number] [employer] VIS Given Date VIS Provided VIS Publication Date 12/11/24 Single Vaccine 24 Eligibility Eligibility Date Funding Source Not [facility] Eligible 12/11/24 Private Assessment & Plan Assessment & Plan Orders: Orders Influenza [id number] Immunization Today Z23 - Encounter for immunization Coding
--- OUTSIDE RECORDS SUMMARY | 2024-12-11 17:11 | XMS_ITS | Clinical Summary ---
Author Organization [facility] Address [address] [address] Phone Care Team Providers Care Jute Bag Cutting Machine Operator Name Role Phone Pcp, Unknown Primary [...] - 2024-2 6 season) 2024 07/09/2020, 06/11/2020 RSV VACCINE (1 - 1-dose 75+ series) 2041 HEPATITIS A VACCINES Aged Out No long [...] Devices Not on file Insurance MEDICARE REPLACEMENT [place] [address] MEDICARE REPLACEMENT MEDICARE REPLACEMENT MEDICARE REPLACEMENT MEDICARE REPLACEMENT MEDICARE REPLACEMENT MEDICARE REPLACEMENT MEDICARE REPLACEMENT Care Teams Jute Bag Cutting Machine Operator Relationship Specialty Start Date End Date Pcp, Unknown PCP - General 06/27/19 Additional Source Comments The information contained in this document represents components of the legal health record. It is not the complete legal health record.[facility]
--- OUTSIDE RECORDS SUMMARY | 2024-12-11 17:11 | XMS_ITS | Patient Health Record ---
Author Organization [facility] Address [address] [place] [address] Care Team Providers Care Electric Meter Tester Shop Name Role Phone Isra POWERS, Aubrey Primary Care Provider Gene Albert Unavailable [phone] Allergies No Known Allergies Reason For Referral No Information Medications Medication SIG (Take, Route, Frequency, Duration) Notes Start Date End Date Status traMADol HCl 50mg Ac tive traZODone HCl 50 MG 1 tablet at bedtime as needed Orally Once a day; Duration: 30 day(s) Active Dulcolax (colon prep) 5 MG take at 3:00 p.m and 7:00p.m. Orally two tablets twice a day for one day; Duration: 1 day 11/08/2021 Active linaCLOtide 290 MCG 1 capsule at least 30 minutes before the first meal of the day on an empty stomach Orally Once a day Active MiraLax (colon prep) 17 GM/SCOOP 1 238Gm bottle mixed with Gatorade or Crystal Light Orally begin at 5:00 p.m. the day before the procedure; Duration: 1 day 11/08/2021 Active Fluticasone Propionate 0.05% Active Lipitor 40mg Active tiZANidine HCl 4 MG 1 tablet as needed Orally Three times a day Active Lisinopril 40mg Acti ve Temazepam 30 MG 1 capsule at bedtime as needed Orally Once a day Active Verapamil HCl 240mg Active Rosuvastatin Calcium 40 MG 1 tablet Oral ly Once a day; Duration: 30 day(s) Active Sertraline HCl 100mg Active Multivitamin - 1 tablet Orally Once a day; Duration: 30 day(s) Active Nitrostat 0.3mg Acti ve Ranitidine & Diet Manage Pro d 150mg Active ProAir HFA Active Fluticasone Propionate (Inhal) 50 MCG/BLIST 1 puff Inhalation Twice a day Active hydroCHLOROthiazide 25mg Active Ezetimibe 10 MG 1 tablet Orally Once a day; Duration: 30 day(s) Active Zolpidem Tartrate 5mg Active clonazePAM 1 MG 1 tablet Orally Once a day Active Cholecalciferol 25 MCG (1000 UT) 1 capsule Orally Once a day; Duration: 30 day(s) Active Lansoprazole 30 MG 1 capsule before a meal Orally Once a day Active amLODIPine Besylate 5mg Active Pantoprazole Sodium 40mg Not-Taking Calcium Citrate + D3 Maximum 315-250 MG-UNIT 1 tablet Orally Twice a day; Duration: 30 day(s) Active Sucralfate 1 GM/10ML 10 ml on an empty stomach Orally Twice a day; Duration: 30 day(s) Not-Taking Acetaminophen ER 650 MG 2 tablets as nee ded Orally every 8 hrs Active Byetta 5 MCG Pen 5mcg Not-Taking Acarbose 100 MG as directed Orally Active metFORMIN HCl 850mg Not-Taking LORazepam 1mg Active Colyte with Flavor Packs 240 GM As directed Orally 1 time only; Duration: 1 dose 08/04/2011 Not-Taking Amitriptyline HCl 10mg [...] W/U Status Risk Notes Problem Rectal bleeding (07014524) Rectal bleeding (K62.5) Active confirmed Problem Screening for malignant neoplasm of colon (344107477) Encounter for screening for malignant neoplasm of colon (Z12.11) Active confirmed Problem Constipation (10797790) Constipation (K59.00) Active confirmed Problem Diverticulosis of colon (592704194) Diverticulosis of colon (K57.30) Active confirmed Plan Of Treatment Pending Test Test Name Order Date Pathology 12/20/2021 Future Test Test Name Order Date COLONOSCOPY 08/03/2011 COLONOSCOPY 09/15/2021 Insurance Providers Payer Name Payer Address Payer Phone Subscriber Number Group Number Insured Name Patient Relationship to Insured Coverage Start Date Coverage End Date [facility] [address] [place] [address] [id number] GLORIA GOODWIN Self - patient is the insured MEDICAID OF [employer] [facility] [address] [place] [address] [id number] GLORIA GOODWIN Self - patient is the insured Medical (General) History Medical History History ICD Code Colonoscopy 07-18-2002 was neg. except a hyperplastic polyp Constipation--responds well to Linzess DM resolved weight loss after gastric by pass Migraine Negative screening colonoscopy in July HTN Asthma Arthritis Anxiety and panic attacks Denies SC,CVA,renal disease GERD-EGD in 07/[address] Jackson--normal-gastric remnant bx neg for H.pylori Hyperlipidemia Surgical History Surgery Date(Month/Year) Uterine fibroid surgery Parotid gland tumor Carpal tunnel release-right Gastric bypass with Dr. Jose at [facility] in 2017 and lost abot 80#
--- OUTSIDE RECORDS SUMMARY | 2024-12-11 17:11 | XMS_ITS | Patient Health Record ---
Author Organization [facility] Address [address] [facility] [place] [address] Care Team Providers Care Derrick Follower Name Role Phone Ruiz Dhaliwal MDh Primary Care Provider Unava ilMaxwell Car Unavailable [phone] Allergies Allergen (clinical drug ingredient) Drug/Non Drug [...] Problem Acquired hammer toe of right foot (522997199952481 5) Other hammer toe(s) (acquired), right foot (M20.41) Active confirmed Problem Acquired hammer toe of left foot (374110651674312 3) Other hammer toe(s) (acquired), left foot (M20.42) Active confirmed Problem Type II diabetes mellitus without complication (616443482) Type 2 diabetes mellitus without complication (E11.9) Active confirmed Vital Signs Height 5ft 5in in 06/27/2024 Weight 192 lbs 06/27/2024 BMI 31.95 kg/m2 06/27/2024 Encounters Encounter Location Date Provider Diagnosis [facility] [address] [address] 01/10/2024 Maxwell Jeb Type 2 diabetes mellitus without complication E11.9 and Plantar fasciitis, bilateral M72.2 [facility] [address] [place] [address] 06/27/2024 Maxwell Jeb Type 2 diabetes mellitus [...] Provider Name:Maxwell Russ , 07/03/2025 01:30:00 PM, [address] [place] [address], [facility] [address], [place], [address], Insurance Providers Payer Name Payer Address Payer Phone Subscriber Number Group Number Insured Name Patient Relationship to Insured Coverage Start Date Coverage End Date [facility] CCA SCO Claims [address] [place] [address] [id number] Shania Bustos Self - patient is the [...]
== END 2024-12-11 13:51 | disposition home or self-care (01) ==
LOC: HO.HMCH 13:32
PROVIDERS: PCP Internal Medicine; Visit Provider Internal Medicine
DX: Z23 Encounter for immunization (principal)

== ENCOUNTER → 2024-12-11 13:31 | Outpatient (BNVA) | payer OTHER, SELFPAY | PROVIDERS: PCP Internal Medicine; Visit Provider Internal Medicine | DX: Z23 Encounter for immunization (principal) | CPT/HCPCS: 90471; 90656 ==

== ENCOUNTER → 2024-12-13 08:52 | Outpatient (REF) | payer OTHER, SELFPAY ==
--- OUTSIDE RECORDS SUMMARY | 2023-10-18 06:30 | XMS_ITS ---
Author Organization [facility] Address [address] [place] [address] Care Team Providers Care Barber Shop Manager Name Role Phone Aubrey Dhaliwal MD Primary Care Provider Unava ilMaxwell Car Unavailable [phone] Encounters Encounter Location Date [facility] [address] 10/18/2023 Maxwell Russ Plan Of Treatment Next Appt Details Provider Name:Maxwell Russ , 07/03/2025 01:30:00 PM, [address] [place] [address], [place], [address], Progress Notes * Rogerio BUSTOSeDOB:1965 (59 yo F)Acc No.[id number]:10/18/2023 Progress Note Patient: Shania TORIBIO Provider: Kirsten Russ DPM :1965 A ge:58 Y S ex:Female Date:10/18/2023 Address:[address] [place] [address] [address], [address], [id number] Pcp:Aubrey Dhaliwal MD Subjective: * Chief Complaints: [...] 0 10/18/2023 Generated for Toyin Knight on: 09:26 AM EDT
--- NOTE | ~2024-12-13 | NM_ITS ---
EXAMINATION: NM HEPATOBILIARY WITH PHARM HISTORY: K82.8 - Other specified diseases of gallbladder. TECHNIQUE: An hepatobiliary scan was performed following the intravenous administration of 5 mCi technetium 99m-mebrofenin. Sequential images were obtained over 1 hour. Subsequently, the patient received 1.7 microgram of IV CCK over 30 minutes and additional imaging was performed. COMPARISON: Correlation is made with an abdominal ultrasound dated 12/20/2023. FINDINGS: There is normal uptake and excretion of the radiopharmaceutical by the liver. Gallbladder activity is noted at 12 minutes. Common bile duct activity is seen at 22 minutes. Small bowel activity is noted at 32 minutes. After the administration of intravenous CCK, the estimated gallbladder ejection fraction is 13%, which is abnormally low (normal 35-80%), suggestive of biliary dyskinesia. NM/NM hepatobiliary w pharm IMPRESSION: No evidence of cystic duct obstruction. Abnormally low gallbladder ejection fraction, compatible with biliary dyskinesia. Electronically signed by: Gene Parson MD 12/13/2024 11:22 AM EDT
--- OUTSIDE RECORDS SUMMARY | 2024-12-13 09:26 | XMS_ITS | Clinical Summary ---
Author Organization [facility] Address [address] [address] Phone Care Team Providers Care Maid Cleaning Cooking Name Role Phone Pcp, Unknown Primary Care [...] Not on file Insurance MEDICARE REPLACEMENT [place] [id number] MEDICARE REPLACEMENT MEDICARE REPLACEMENT MEDICARE REPLACEMENT MEDICARE REPLACEMENT MEDICARE REPLACEMENT MEDICARE REPLACEMENT MEDICARE REPLACEMENT Care Teams Maid Cleaning Cooking Relationship Specialty Start Date End Date Pcp, Unknown PCP - General 06/27/19 Additional Source Comments The information contained in this document represents components of the legal health record. It is not the complete legal health record.[facility]
--- OUTSIDE RECORDS SUMMARY | 2024-12-13 09:26 | XMS_ITS | Patient Health Record ---
Author Organization [facility] Address [address] [place] [address] Care Team Providers Care Conference Planner Name Role Phone Ruiz Dhaliwal MDh Primary Care Provider Unava ilMaxwell Car Unavailable [phone] Allergies Allergen (clinical drug ingredient) Drug/Non Drug [...] Problem Acquired hammer toe of right foot (654775449688933 5) Other hammer toe(s) (acquired), right foot (M20.41) Active confirmed Problem Acquired hammer toe of left foot (527321761610635 3) Other hammer toe(s) (acquired), left foot (M20.42) Active confirmed Problem Type II diabetes mellitus without complication (028877273) Type 2 diabetes mellitus without complication (E11.9) Active confirmed Vital Signs Height 5ft 5in in 06/27/2024 Weight 192 lbs 06/27/2024 BMI 31.95 kg/m2 06/27/2024 Encounters Encounter Location Date Provider Diagnosis [facility] [place] [address] [address] 01/10/2024 Maxwell Jeb Type 2 diabetes mellitus without complication E11.9 and Plantar fasciitis, bilateral M72.2 [facility] [address] [place] [address] 06/27/2024 Maxwell Jeb Type 2 diabetes mellitus [...] Provider Name:Maxwell Russ , 07/03/2025 01:30:00 PM, [address] [place] [address], [facility] [address], [place], [address], Insurance Providers Payer Name Payer Address Payer Phone Subscriber Number Group Number Insured Name Patient Relationship to Insured Coverage Start Date Coverage End Date [facility] CCA SCO Claims [address] [place] [address] [id number] Shania Bustos Self - patient is the [...]
--- OUTSIDE RECORDS SUMMARY | 2024-12-13 09:26 | XMS_ITS | Patient Health Record ---
Author Organization [facility] Address [address] [place] [address] Care Team Providers Care Corporate Trainer Name Role Phone Isra POWERS, Aubrey Primary Care Provider Gene Albert Unavailable [phone] Allergies No Known Allergies Reason For Referral [...] W/U Status Risk Notes Problem Rectal bleeding (11312917) Rectal bleeding (K62.5) Active confirmed Problem Screening for malignant neoplasm of colon (052982809) Encounter for screening for malignant neoplasm of colon (Z12.11) Active confirmed Problem Constipation (21062845) Constipation (K59.00) Active confirmed Problem Diverticulosis of colon (669613302) Diverticulosis of colon (K57.30) Active confirmed Plan Of Treatment Pending Test Test Name Order Date Pathology 12/20/2021 Future Test Test Name Order Date COLONOSCOPY 08/03/2011 COLONOSCOPY 09/15/2021 Insurance Providers Payer Name Payer Address Payer Phone Subscriber Number Group Number Insured Name Patient Relationship to Insured Coverage Start Date Coverage End Date [facility] [address] [place] [address] [id number] GLORIA GOODWIN Self - patient is the insured MEDICAID OF [id number] [address] [place] [address] [id number] GLORIA GOODWIN Self - patient is the insured Medical (General) History Medical History History ICD Code Colonoscopy 07-18-2002 was neg. except a hyperplastic polyp Constipation--responds well to Linzess DM resolved weight loss after gastric by pass Migraine Negative screening colonoscopy in July HTN Asthma Arthritis Anxiety and panic attacks Denies [place],CVA,renal disease GERD-EGD in 07/[address] Jackson--normal-gastric remnant bx neg for H.pylori Hyperlipidemia Surgical History Surgery Date(Month/Year) Uterine fibroid surgery Parotid gland tumor Carpal tunnel release-right Gastric bypass with Dr. Jose at [facility] in 2017 and lost abot 80#
== END ==
LOC: HO.NUCMED 08:52
PROVIDERS: PCP Internal Medicine; Visit Provider Nurse Practitioner
DX: K82.8 Other specified diseases of gallbladder (principal); R11.2 Nausea with vomiting, unspecified
CPT/HCPCS: 78227; A9537; J2805

== ENCOUNTER → 2024-12-13 08:54 | Outpatient (BNV) | payer OTHER, SELFPAY | PROVIDERS: PCP Internal Medicine; Visit Provider Radiology Diagnostic Radiology | DX: K82.8 Other specified diseases of gallbladder (principal) | CPT/HCPCS: 78227 ==

== ENCOUNTER 2024-12-25 12:59 | Outpatient (AMB) | payer OTHER, SELFPAY ==
--- OUTSIDE RECORDS SUMMARY | 2023-10-18 06:30 | XMS_ITS ---
[facility] Organization [facility] Address [address] [place] [address] Care Team Providers Care Sporting Goods Sales Associate Name Role Phone Aubrey Dhaliwal MD Primary Care Provider Unava ilMaxwell Car Unavailable [phone] Encounters Encounter Location Date [facility] [address] 10/18/2023 Maxwell Russ Plan Of Treatment Next Appt Details Provider Name:Maxwell Russ , 07/03/2025 01:30:00 PM, [address] [place] [address], [place], [address], Progress Notes * Rogerio BUSTOSeDOB:1965 (59 yo F)Acc No.[id number]:10/18/2023 Progress Note Patient: Shania TORIBIO Provider: Kirsten Russ DPM :1965 A ge:58 Y S ex:Female Date:10/18/2023 Address:[address] [place] [address] [address], [address], [phone] Pcp:Aubrey Dhaliwal MD Subjective: * Chief Complaints: [...] 0 10/18/2023 Generated for Toyin Knight on: 04:29 PM EDT
[2024-12-25 13:06] VITALS: BP 138/80; PULSE 74; O2SAT 96; BMI 31.8
--- NOTE | 2024-12-25 13:06 | MHC.OFFVIS ---
Vital Signs 12/25/24 13:06 Height 5 ft 5 in Weight 191 lb 6 oz BMI 31.8 BP 138/80 Blood Pressure Location Lt brachial Position Sitting Pulse 74 Pulse Source Pulse Oximeter Pulse Oximetry (%) 96 Intake Visit Reasons: 3 mo follow up Intake Note: Patient presents follow up KEVON. Not using CPAP. PSG booked 12/26. Accompanied by: Self / Same As Patient Allergies cephalexin (From Keflex) Allergy (Mild, Verified 12/25/24 13:09) RASH ezetimibe Adverse Reaction (Intermediate, Verified 12/25/24 13:09) myalgia Ccfzkdw-GRG-SkV Reductase Inhibitor Adverse Reaction (Intermediate, Verified 12/25/24 13:09) myalgia HPI Comments Details: 59 year old female with myelgia paresthetica presents for f/u of KEVON. PSG is pending December 2024. Reviewed HST with pt. from Nov 2023 HST c/w mild kevon AHI is 7.2 OAI 1.4, O2 desaturation to 80%. PMH Bariatric procedure in 2016 she lost 88lbs. She started taking Monjarou in September and her weight continues to improve. Her A1c is also well managed. She has allergies and is no longer able to tolerate the cpap. She is a mouth breather and started having daily congestion of sinuses. She uses saline daily and now is able to breath better. She has headaches 1-2x a week, no longer has the migraines. She has photo/ phonophobia with nausea, denies vomitting. She denies auras, dizziness, vertigo, vision changes, the severity can be 6/10 and they do go away with Amitriptyline 10mg qpm. 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 and says the amitriptyline also helps with r. leg pain due to myelgia paresthica. She did see Controls Design Engineer for the symptoms of joint pain bilaterally shoulders, knees, ankles, and cortisone shots releived the pain symptoms temporarily. She denies RLS, symptoms, numbness, and tingling sensation bilaterally in her feet, the peripheral neuropathy has improved since managing the A1cs. She takes trazadone with acetaminophen only if she needs to when she has insomnia and can not stay asleep. Her mood is stable on clonazepam 1mg prn anxiety attacks. [facility] Medical History Encounter for screening examination for sexually transmitted disease Adult general medical exam Annual physical exam Essential hypertension Pure hypercholesterolemia Plantar fasciitis Atherosclerotic cardiovascular disease COVID-19 vaccine administered Colon cancer screening Family history of polyps in the colon Hypoglycemia after GI (gastrointestinal) surgery Postmenopausal bleeding Status post hysteroscopy (~06/11/13) Obesity (BMI 30-39.9) Depression Anxiety Insomnia Meralgia paresthetica Vitamin D deficiency Carpal tunnel syndrome of left wrist Osteoarthritis Obstructive sleep apnea Iron deficiency anemia Migraine Diabetes mellitus Surgical History H/O colonoscopy H/O melanoma excision (~2010) H/O endoscopy (~06/20/13) History of knee surgery (~01/30/13) S/P dilatation and curettage (~2011) History of carpal tunnel surgery H/O laparoscopy S/P myomectomy History of sleeve gastrectomy Family History Father Myocardial infarction Prostate cancer Mother Cervical cancer Ovarian cancer Mental health disorder Diabetes Alzheimer's dementia Sleep apnea Sister Ovarian cancer Maternal Aunt Colon cancer Social History Household Members: Children Housing: Apartment Are you a primary landcare facilitator to a significant other at home: Yes (Mother) Do you presently have visiting nurse or other home services: No Alcohol intake: current Alcohol intake frequency: holidays/special occasions only Patient Tobacco Use Status: Former Tobacco user Tobacco use type: Cigarette Cigarettes Per Day: 2 Years Smoked: 3 e-Cigarette/Vaping Use: Never Used Second Hand Smoke Exposure: Yes Advance Directives Date on File: 03/16/16 service: No Current occupational status: disabled Current occupation: right handed Cognitive needs: No Hearing needs: No Vision needs: Yes (glasses) Female Reproductive History Menstrual Age of Menarche: 12 Physical Exam Vital Signs: Last Vital Signs Pulse 74 12/25/24 13:06 BP 138/80 12/25/24 13:06 Pulse Ox 96 12/25/24 13:06 BMI result Body Mass Index 31.8 Const General: cooperative, comfortable and no acute distress Nutritional Appearance: average body habitus, overweight and other (BMI is 34) Orientation/consciousness: patient oriented x3 HEENT Teeth and gingiva: other ([place] Score of 4) Eyes Pupils: Equal, round and reactive pupils present Neck Neck: Yes full ROM Resp Effort & Inspection: normal respiratory effort and able to speak in complete sentences Neuro Other: r. hip pain due to myelgia parestheica General: patient oriented x3 and moves all extremities Cranial nerves: Yes Equal, round and reactive pupils present, Yes Normal accommodation reflex present, Yes Nystagmus not present, Yes Normal facial strength present, Yes Midline tongue present, Yes Ability to bilaterally rotate head present and Yes Ability to bilaterally elevate shoulders present Cognition (Neuro): normal cognition Gait exam (Neuro): Normal gait present Motor exam (neuro): no tremor noted, Normal motor muscle tone present throughout and Abnormal motor strength present (LLE weaker than RLE) Psych Appearance: grossly normal Mental Status: mental status grossly normal Affect: normal affect Attitude: cooperative Thought process: Normal thought process present Thought content: Normal thought content present Assessment & Plan Assessment & Plan (1) KEVON on CPAP: Comment: discontinue cpap - pending psg Code(s): G47.33 - Obstructive sleep apnea (adult) (pediatric); Z99.89 - Dependence on other enabling machines and devices Category: Medical (2) RLS (restless legs syndrome): Code(s): G25.81 - Restless legs syndrome Category: Medical (3) Numbness and tingling of both feet: Comment: will check b6/ prior to giving her a b6, she is on magnesium and b12 is low normal will check mma and homocystein Code(s): R20.0 - Anesthesia of skin; R20.2 - Paresthesia of skin Category: Medical (4) Fatigue: Code(s): R53.83 - Other fatigue Category: Medical Qualifiers: Fatigue type: chronic, unspecified Qualified Code(s): R53.82 - Chronic fatigue, unspecified (5) Chronic fatigue: Code(s): R53.82 - Chronic fatigue, unspecified Category: Medical (6) Excessive daytime sleepiness: Code(s): G47.19 - Other hypersomnia Category: Medical (7) Low vitamin D level: Code(s): R79.89 - Other specified abnormal findings of blood chemistry Category: Medical Plan KEVON is mild reviewed HST, will evaluate with PSG pending in Dec 2024. Vitamin D was low, continue vitamin D daily. Migraines continue magnesium 400mg po and Amitriptyline 10mg daily. RLS: use Magnilife Restless Leg Cream topically, will check B6, B12 is low normal, will check homocystein and MMA. F/U in 3 months for compliance. Orders: Orders Methylmalonic Acid Today G47.19 - Other hypersomnia, G47.9 - Sleep disorder, unspecified, R53.83 - Other fatigue Homocysteine Today G47.19 - Other hypersomnia, G47.9 - Sleep disorder, unspecified, R53.83 - Other fatigue Complete Blood Count no Diff Today G47.19 - Other hypersomnia Vitamin D 25-OH Total Today G47.19 - Other hypersomnia Vitamin B12 and Folate Today G47.19 - Other hypersomnia TSH reflex Free T4 Today G47.19 - Other hypersomnia Ferritin Today G47.19 - Other hypersomnia Comprehensive Met. Panel Today G47.19 - Other hypersomnia Medications: Changed From cholecalciferol (vitamin D3) 125 mcg PO DAILY R79.89 - Other specified abnormal findings of blood chemistry To cholecalciferol (vitamin D3) 125 mcg PO DAILY 90 caps 0RF 3 months MDD 5000 unit R79.89 - Other specified abnormal findings of blood chemistry Refilled magnesium oxide 400 mg PO DAILY 90 tabs 1RF G47.9 - Sleep disorder, unspecified, R20.0 - Anesthesia of skin, R20.2 - Paresthesia of skin, R53.83 - Other fatigue Patient Instructions: Sleep Hygiene provided: set a scheduled bedtime and wake time to help regulate the circadian rhythm and balance the release of pituitary hormones. Sleep in a dark room, temperatures below 68 degrees, and no devices n bed. Limit caffeinated products 6 hours prior to bed, and limit fluids 2-4 hours prior to bed. Gentle night yoga, diffusing essential oils, and playing soft music can be relaxing. Coding Level of Care Code Est Pt Level 4 (15416) Diagnoses KEVON on CPAP G47.33; Z99.89 RLS (restless legs syndrome) G25.81 Numbness and tingling of both feet R20.0; R20.2 Chronic fatigue R53.82 Fatigue type: chronic, unspecified Chronic fatigue R53.82 Excessive daytime sleepiness G47.19 Low vitamin D level R79.89
--- OUTSIDE RECORDS SUMMARY | 2024-12-25 16:29 | XMS_ITS | Clinical Summary ---
Author Organization [facility] Address [address] [address] Phone Care Team Providers Care [place]ory [place] Tender Name Role Phone Pcp, Unknown Primary Care [...] Not on file Insurance MEDICARE REPLACEMENT [place] [address] MEDICARE REPLACEMENT MEDICARE REPLACEMENT MEDICARE REPLACEMENT MEDICARE REPLACEMENT MEDICARE REPLACEMENT MEDICARE REPLACEMENT MEDICARE REPLACEMENT Care Teams Glory Hole Tender Relationship Specialty Start Date End Date Pcp, Unknown PCP - General 06/27/19 Additional Source Comments The information contained in this document represents components of the legal health record. It is not the complete legal health record.[facility]
--- OUTSIDE RECORDS SUMMARY | 2024-12-25 16:29 | XMS_ITS | Patient Health Record ---
Author [facility] Address [address] [facility] [place] [address] Care Team Providers Care Geography Instructor Name Role Phone Ruiz Dhaliwal MDh Primary Care Provider Unava ilMaxwell Car Unavailable [phone] Allergies Allergen (clinical drug ingredient) Drug/Non Drug [...] Problem Acquired hammer toe of right foot (583508502827279 5) Other hammer toe(s) (acquired), right foot (M20.41) Active confirmed Problem Acquired hammer toe of left foot (177960433737089 3) Other hammer toe(s) (acquired), left foot (M20.42) Active confirmed Problem Type II diabetes mellitus without complication (708734508) Type 2 diabetes mellitus without complication (E11.9) Active confirmed Vital Signs Height 5ft 5in in 06/27/2024 Weight 192 lbs 06/27/2024 BMI 31.95 kg/m2 06/27/2024 Encounters Encounter Location Date Provider Diagnosis [facility] [place] [address] [address] 01/10/2024 Maxwell Jeb Type 2 diabetes mellitus without complication E11.9 and Plantar fasciitis, bilateral M72.2 [facility] [address] [place] [id number] 06/27/2024 Maxwell Jeb Type 2 diabetes mellitus [...] Name:Maxwell Russ , 07/03/2025 01:30:00 PM, [address] [place] [address], [facility] [address], [place], [address], Insurance Providers Payer Name Payer Address Payer Phone Subscriber Number Group Number Insured Name Patient Relationship to Insured Coverage Start Date Coverage End Date [facility] [employer] S[employer] Claims [address] [place] [address] [id number] Shania Bustos Self - patient is the [...]
--- OUTSIDE RECORDS SUMMARY | 2024-12-25 16:29 | XMS_ITS | Patient Health Record ---
Author Organization [facility] Address [address] [place] [address] Care Team Providers Care Set Up / Operator Name Role Phone Isra POWERS, Aubrey Primary Care Provider Gene Albert Unavailable [phone] Allergies No Known Allergies Reason For Referral [...] W/U Status Risk Notes Problem Rectal bleeding (87054226) Rectal bleeding (K62.5) Active confirmed Problem Screening for malignant neoplasm of colon (204976828) Encounter for screening for malignant neoplasm of colon (Z12.11) Active confirmed Problem Constipation (28980549) Constipation (K59.00) Active confirmed Problem Diverticulosis of colon (091890482) Diverticulosis of colon (K57.30) Active confirmed Plan Of Treatment Pending Test Test Name Order Date Pathology 12/20/2021 Future Test Test Name Order Date COLONOSCOPY 08/03/2011 COLONOSCOPY 09/15/2021 Insurance Providers Payer Name Payer Address Payer Phone Subscriber Number Group Number Insured Name Patient Relationship to Insured Coverage Start Date Coverage End Date [facility] [address] [place] [address] [id number] GLORIA GOODWIN Self - patient is the insured MEDICAID OF [facility] [address] [place] [address] [id number] GLORIA GOODWIN Self - patient is the insured Medical (General) History Medical History History ICD Code Colonoscopy 07-18-2002 was neg. except a hyperplastic polyp Constipation--responds well to Linzess DM resolved weight loss after gastric by pass Migraine Negative screening colonoscopy in July HTN Asthma Arthritis Anxiety and panic attacks Denies CT,CVA,renal disease GERD-EGD in 07/[address] Jackson--normal-gastric remnant bx neg for H.pylori Hyperlipidemia Surgical History Surgery Date(Month/Year) Uterine fibroid surgery Parotid gland tumor Carpal tunnel release-right Gastric bypass with Dr. Jose at [facility] in 2017 and lost abot 80#
== END 2024-12-25 13:40 | disposition home or self-care (01) ==
LOC: HO.HSMC 13:00
PROVIDERS: PCP Internal Medicine; Visit Provider Physician Assistant Medical
DX: G47.33 Obstructive sleep apnea (adult) (pediatric) (principal); Z99.89 Dependence on other enabling machines and devices; G25.81 Restless legs syndrome; R20.0 Anesthesia of skin; R20.2 Paresthesia of skin; R53.82 Chronic fatigue, unspecified; G47.19 Other hypersomnia; R79.89 Other specified abnormal findings of blood chemistry
CPT/HCPCS: 99214

== ENCOUNTER → 2024-12-25 12:59 | Outpatient (BNVA) | payer OTHER, SELFPAY | PROVIDERS: PCP Internal Medicine; Visit Provider Physician Assistant Medical | DX: G47.33 Obstructive sleep apnea (adult) (pediatric) (principal); G25.81 Restless legs syndrome; G47.19 Other hypersomnia; R20.0 Anesthesia of skin; R20.2 Paresthesia of skin; R53.82 Chronic fatigue, unspecified; R79.89 Other specified abnormal findings of blood chemistry; Z99.89 Dependence on other enabling machines and devices | CPT/HCPCS: 99212 ==

== ENCOUNTER → 2024-12-26 20:30 | Outpatient (REF) | payer OTHER, SELFPAY ==
--- OUTSIDE RECORDS SUMMARY | 2023-10-18 06:30 | XMS_ITS ---
[facility] Organization [facility] Address [address] [place] [address] Care Team Providers Care Science Interpreter Name Role Phone Aubrey Dhaliwal MD Primary Care Provider Unava ilMaxwell Car Unavailable [phone] Encounters Encounter Location Date Provider Diagnosis [facility] [address] 10/18/2023 Maxwell Russ Plan Of Treatment Next Appt Details Provider Name:Maxwell Russ , 07/03/2025 01:30:00 PM, [address] [place] [address], [place], [address], Progress Notes * Rogerio BUSTOSeDOB:1965 (59 yo F)Acc No.[id number]:10/18/2023 Progress Note Patient: Shania TORIBIO Provider: Kirsten Russ DPM :1965 A ge:58 Y S ex:Female Date:10/18/2023 Address:[address] [place] [address] [address], [address], [id number] Pcp:Aubrey Dhaliwal MD Subjective: * Chief Complaints: * * Medical History: Objective: * Vitals: Assessment: Plan: * Treatment: * Images: * The named appointment provid er may or may not be the originator of this progress note, and it is not deemed complete until electronically signed by the appointment provider. Sign off status: Pending * Provider: Kirsten Russ DPM Date: 0 10/18/2023 Generated for Toyin Knight on: 09:52 PM EDT
--- OUTSIDE RECORDS SUMMARY | 2024-12-26 21:52 | XMS_ITS | Patient Health Record ---
Author Organization [facility] Address [address] [facility] [place] [address] Care Team Providers Care Box Sealing Inspector Name Role Phone Ruiz Dhaliwal MDh Primary Care Provider Unava ilMaxwell Car Unavailable [phone] Allergies Allergen (clinical drug ingredient) Drug/Non Drug [...] Problem Acquired hammer toe of right foot (436755070032062 5) Other hammer toe(s) (acquired), right foot (M20.41) Active confirmed Problem Acquired hammer toe of left foot (612794240921798 3) Other hammer toe(s) (acquired), left foot (M20.42) Active confirmed Problem Type II diabetes mellitus without complication (455550139) Type 2 diabetes mellitus without complication (E11.9) Active confirmed Vital Signs Height 5ft 5in in 06/27/2024 Weight 192 lbs 06/27/2024 BMI 31.95 kg/m2 06/27/2024 Encounters Encounter Location Date Provider Diagnosis [facility] [place] [address] [address] 01/10/2024 Maxwell Jeb Type 2 diabetes mellitus without complication E11.9 and Plantar fasciitis, bilateral M72.2 [facility] [address] [place] [address] 06/27/2024 Maxwell Jeb Type 2 diabetes mellitus [...] Name:Maxwell Russ , 07/03/2025 01:30:00 PM, [address] [place] [address], [facility] [address], [place], [address], Insurance Providers Payer Name Payer Address Payer Phone Subscriber Number Group Number Insured Name Patient Relationship to Insured Coverage Start Date Coverage End Date [facility] CCA SCO Claims [address] [place] [address] [id number] Shania Bustos Self - patient is the [...]
--- OUTSIDE RECORDS SUMMARY | 2024-12-26 21:52 | XMS_ITS | Patient Health Record ---
Author Organization [facility] Address [address] [place] [address] Care Team Providers Care Screw Machine Set Up Operator Tool Name Role Phone Isra POWERS, Aubrey Primary Care Provider Gene Albert Unavailable [phone] Allergies No Known Allergies Reason For Referral [...] W/U Status Risk Notes Problem Rectal bleeding (18914856) Rectal bleeding (K62.5) Active confirmed Problem Screening for malignant neoplasm of colon (543217164) Encounter for screening for malignant neoplasm of colon (Z12.11) Active confirmed Problem Constipation (11881813) Constipation (K59.00) Active confirmed Problem Diverticulosis of colon (936035095) Diverticulosis of colon (K57.30) Active confirmed Plan Of Treatment Pending Test Test Name Order Date Pathology 12/20/2021 Future Test Test Name Order Date COLONOSCOPY 08/03/2011 COLONOSCOPY 09/15/2021 Insurance Providers Payer Name Payer Address Payer Phone Subscriber Number Group Number Insured Name Patient Relationship to Insured Coverage Start Date Coverage End Date [facility] [address] [place] [address] [id number] GLORIA GOODWIN Self - patient is the insured MEDICAID OF [employer] [email or web address] [address] [place] [address] [id number] GLORIA GOODWIN Self - patient is the insured Medical (General) History Medical History History ICD Code Colonoscopy 07-18-2002 was neg. except a hyperplastic polyp Constipation--responds well to Linzess DM resolved weight loss after gastric by pass Migraine Negative screening colonoscopy in July HTN Asthma Arthritis Anxiety and panic attacks Denies [place],CVA,renal disease GERD-EGD in 07/[address] Jackson--normal-gastric remnant bx neg for H.pylori Hyperlipidemia Surgical History Surgery Date(Month/Year) Uterine fibroid surgery Parotid gland tumor Carpal tunnel release-right Gastric bypass with Dr. Jose at [facility] in 2017 and lost abot 80#
--- OUTSIDE RECORDS SUMMARY | 2024-12-26 21:52 | XMS_ITS | Clinical Summary ---
Author Organization [facility] Address [address] [address] Phone Care Team Providers Care Regulatory Affairs Manager Name Role Phone Pcp, Unknown Primary [...] Not on file Insurance MEDICARE REPLACEMENT [place] [address] MEDICARE REPLACEMENT MEDICARE REPLACEMENT MEDICARE REPLACEMENT MEDICARE REPLACEMENT MEDICARE REPLACEMENT MEDICARE REPLACEMENT MEDICARE REPLACEMENT Care Teams Regulatory Affairs Manager Relationship Specialty Start Date End Date Pcp, Unknown PCP - General 06/27/19 Additional Source Comments The information contained in this document represents components of the legal health record. It is not the complete legal health record.[facility]
== END ==
LOC: HO.SL 20:30
PROVIDERS: PCP Internal Medicine; Visit Provider Physician Assistant Medical
DX: G47.33 Obstructive sleep apnea (adult) (pediatric) (principal); G47.19 Other hypersomnia; Z99.89 Dependence on other enabling machines and devices
CPT/HCPCS: 95810

== ENCOUNTER → 2024-12-26 21:34 | Outpatient (BNV) | payer OTHER, SELFPAY | PROVIDERS: PCP Internal Medicine; Visit Provider Psychiatry & Neurology Neurology | DX: G47.33 Obstructive sleep apnea (adult) (pediatric) (principal) | CPT/HCPCS: 95810 ==